=== PATIENT | male | born 1955 | race Caucasian/White ===

== ENCOUNTER → 2016-11-04 | Outpatient (CLI) | payer MEDICARE, OTHER ==
--- NOTE | 2016-11-04 09:11 | CT ---
EXAMINATION TYPE: CT brain wo con DATE OF EXAM: 11/04/2016 8:58 AM HISTORY: Patient having pain in front of head or headache. History of stroke to left side of body, br ain surgery CT DLP: 1022.7 mGycm. Automated Exposure Control for Dose Reduction was Utilized. TECHNIQUE: CT scan of the head is performed without contrast. COMPARISON: CT brain July 06, 2016 FINDINGS: There is no acute intracranial hemorrhage or new midline shift identified. Large right fr ontal parietal craniotomy with large area of encephalomalacia is redemonstrated involving frontal and parietal lobes as well as superior temporal lobe. There is background of diffuse ventricular and sul kehinde prominence consistent with diffuse age-related cerebral atrophy. There is background of low-atte nuation in the periventricular white matter consistent with chronic small vessel ischemic change rede monstrated. Old lacunar infarct anterior left thalamus on axial image 20 is redemonstrated. The globe s are intact bilaterally, neither lenses well seen. There is new mild to moderate mucosal thickening in both sphenoid sinuses. There is dependent air-fluid level in left sphenoid sinus noted. There is n ew mild to moderate mucosal thickening involving left ethmoid sinuses. There is mild mucosal thickeni ng involving superior portion of both maxillary sinuses. Patchy soft tissue density right external au ditory canals felt to reflect cerumen and is unchanged. IMPRESSION: No acute intracranial hemorrhage or new midline shift. There is large area of encephalo malacia at level of prior surgery right MCA distribution redemonstrated. There is background of moder ate diffuse cerebral atrophy and chronic small vessel ischemic change and old left anterior thalamic lacunar infarct all redemonstrated. No significant change. Some new paranasal sinus disease is noted.
== END | disposition home or self-care (01) ==
LOC: RADCTMAIN 08:36
PROVIDERS: ATTEND Family Medicine
DX: G93.89 Other specified disorders of brain (principal); Z86.73 Personal history of transient ischemic attack (TIA), and cerebral infarction without residual deficits
CPT/HCPCS: 70450

== ENCOUNTER → 2017-03-25 | Outpatient (CLI) | payer MEDICARE, OTHER ==
--- NOTE | 2017-03-25 14:54 | CT ---
EXAMINATION TYPE: CT brain wo/w con DATE OF EXAM: 03/25/2017 COMPARISON: 11/04/2016 HISTORY: Posttraumatic headache, history of hemicraniotomy CT DLP: 2033.40 mGycm, Automated exposure control for dose reduction was used. CONTRAST: Patient injected with 100 mL of Omnipaque 300. CT of the brain is performed utilizing 3 mm thick sections through the posterior fossa and 3 mm thick sections through the remaining calvarium. Study is performed within 24 hours of arrival to the hospital. Patient's right parietal craniotomy remains present. The extra-axial space and the apparent thickenin g along the dural margin on the right is stable. The old right frontal parietal infarct is stable. La cunar infarct is within the left thalamus and is stable. Periventricular white matter hypodensity is present, likely on the basis of chronic white matter ischemic changes. Some ex vacuo effect is adjace nt to the lateral ventricles and is unchanged. No suspicious temporal horn dilatation to suggest hydr ocephalus is evident. Paranasal sinuses mucosal thickening is within ethmoid air cells on the left. Remaining paranasal sin uses are clear. There appears to be a right mastoidectomy. IMPRESSIONS: 1. Stable examination from 11/04/2016. 2. Old right frontal parietal infarct and encephalomalacia. 3. Periventricular white matter ischemic changes, unchanged. 4. Lacunar infarct left thalamus, stable.
== END | disposition home or self-care (01) ==
LOC: RADCTMAIN 13:54
PROVIDERS: ATTEND Psychiatry & Neurology Neurology
DX: I63.9 Cerebral infarction, unspecified (principal); I67.82 Cerebral ischemia; G93.89 Other specified disorders of brain
CPT/HCPCS: 70470; Q9967

== ENCOUNTER 2017-06-18 04:35 | Inpatient (IN) | payer MEDICARE, OTHER ==
[2017-06-18] MEDS ORDERED: SODIUM CHLORIDE 0.9% 1,000 ML IV STA ×2 (04:52)
[2017-06-18] MEDS ORDERED: IPRATROPIUM 0.5 MG/2.5 ML NEBU INHALATION STA (04:52)
[2017-06-18] MEDS ORDERED: PIPERACILLIN-TAZOBACTAM 3.375 GM in DEXTROSE/WATER 1 50ML.BAG IVPB STA (04:52)
[2017-06-18 05:05] LABS: Basophils # (A) 0.1 k/uL (0-0.2); Basophils % (A) 1 %; CH 30.4; CHCM 33.1; Eosinophils # (A) 0.2 k/uL (0-0.7); Eosinophils % (A) 1 %; HCT 52.1 % (39.0-53.0); HGB 16.3 gm/dL (13.0-17.5); Luc # (Auto) 0.19; Luc % (Auto) 1; Lymphocytes # (A) 1.9 k/uL (1.0-4.8); Lymphocytes % (A) 12 %; MCH 28.9 pg (25.0-35.0); MCHC 31.3 g/dL (31.0-37.0); MCV 92.2 fL (80.0-100.0); Mean Platelet Volume 7.7; Monocytes % (A) 6 %; Neutrophils # (A) 12.3 k/uL (1.3-7.7); Neutrophils % (A) 79 %; RBC 5.64 m/uL (4.30-5.90); RDW 14.5 % (11.5-15.5); WBC 15.5 k/uL (3.8-10.6); WBC (Perox) 14.62
[2017-06-18 05:13] LABS: ALT 36 U/L (21-72); AST 21 U/L (17-59); Alkaline Phosphatase 101 U/L (38-126); Anion Gap 12 mmol/L; Blood Urea Nitrogen 19 mg/dL (9-20); Calcium 9.1 mg/dL (8.4-10.2); Carbon Dioxide 27 mmol/L (22-30); Chloride 105 mmol/L (98-107); Glucose 132 mg/dL (74-99); Non-African American GFR(MDRD) >60 (>60 ml/min/1.73 sqM); Potassium 4.3 mmol/L (3.5-5.1); Sodium 144 mmol/L (137-145); Total Bilirubin 0.5 mg/dL (0.2-1.3); Total Protein 7.3 g/dL (6.3-8.2)
[2017-06-18] MEDS ORDERED: ACETAMINOPHEN TAB 500 MG TAB PO STA (05:22)
--- NOTE | 2017-06-18 05:25 | XR ---
EXAM: XR Chest, 1 View CLINICAL HISTORY: Reason: difficulty breathing TECHNIQUE: Frontal view of the chest. COMPARISON: No relevant prior studies available. FINDINGS: Lungs: Left basilar atelectasis. Pleural space: Unremarkable. No pneumothorax. Heart: Stable cardiomediastinal silhouette. Mediastinum: See above. Bones/joints: No acute osseous abnormality. Tubes, lines and devices: A loop recorder device is noted. Telemetry leads overlie the patient. Upper abdomen: Elevated left hemidiaphragm. Prominent gas filled structure in the left upper quadrant likely represents the gastric fundus. IMPRESSION: Elevated left hemidiaphragm and left basilar atelectasis. A superimposed infectious or inflammatory process is not excluded.
[2017-06-18 05:26] LABS: Creatine Kinase 65 U/L (55-170)
[2017-06-18] MEDS ORDERED: BUDESONIDE 0.5 MG/2 ML NEBU INHALATION STA (05:26)
--- NOTE | 2017-06-18 05:34 | ED ---
SOB HPI - General Chief Complaint: Shortness of Breath Stated Complaint: JESSICA Time Seen by Provider: 06/18/17 04:41 Source: EMS Mode of arrival: EMS Limitations: no limitations - History of Present Illness Initial Comments: 62 years old gentleman from the retirement brought in by ambulance retirement staff noticed that he was short winded he was coughing and also noticed fever chills shakes and rigors. Later met with his family they stated that he has been in the retirement after he had a stroke in the stroke affected his left side of his body it has been quite weak since his stroke. He has a history of atrial fibrillation on arrival his heart rate was 177 and his fever was almost 104. He denies any headache no neck neck stiffness he has a chest pain and shortness of breath no abdominal pain no frequency urgency dysuria no new symptoms of TIA or CVA - Related Data Home Medications Medication Instructions Recorded Confirmed Allopurinol [Zyloprim] 200 mg PO DAILY 09/05/14 01/04/16 Atorvastatin [Lipitor] 80 mg PO HS 09/05/14 01/04/16 Famotidine [Pepcid] 20 mg PO BID 09/05/14 01/04/16 Levothyroxine Sodium [Synthroid] 100 mcg PO DAILY 09/05/14 01/04/16 Losartan [Cozaar] 12.5 mg PO DAILY 09/05/14 01/04/16 Metoprolol Tartrate [Lopressor] 50 mg PO BID 09/05/14 01/04/16 Aspirin 325 mg PO DAILY 01/04/16 01/04/16 Digoxin [Lanoxin] 125 mcg PO DAILY 01/04/16 01/04/16 Meclizine [Antivert] 25 mg PO DAILY 01/04/16 01/04/16 Allergies Allergy/AdvReac Type Severity Reaction Status Date / Time No Known Allergies Allergy Verified 01/04/16 05:37 Review of Systems ROS Statement: Those systems with pertinent positive or pertinent negative responses have been documented in the HPI. ROS Other: All systems not noted in ROS Statement are negative. Past Medical History Past Medical History: Atrial Fibrillation, COPD, Hyperlipidemia, Hypertension, Thyroid Disorder Additional Past Medical History / Comment(s): 02/13/15 ADMISSION FOR [facility]IGO. Other HX: 09/05/14 admission to [facility] with seizure thought to be alcohol related , alcoholism (pt has not had any alcohol since 2013). WEAK HEART valve. History of Any Multi-Drug Resistant Organisms: None Reported Past Surgical History: Appendectomy Past Anesthesia/Blood Transfusion Reactions: No Reported Reaction Additional Past Anesthesia/Blood Transfusion Reaction / Comment(s): Pt has never recieved blood. Past Psychological History: No Psychological Hx Reported Smoking Status: Current every day smoker Past Alcohol Use History: None Reported Past Drug Use History: None Reported - Past Family History Mother Family Medical History: Cancer Father Family Medical History: No Reported History Additional Family Medical History / Comment(s): Father of old age. General Exam - General Exam Comments Initial Comments: General: The patient is awake and alert, in moderate distress, GcS is 15. Skin: Skin is warm and dry and no rashes or lesions are noted. Eye: Pupils are equal, round and reactive to light, extra-ocular movements are intact; there is normal conjunctiva bilaterally. Ears, nose, mouth and throat: Looks dehydrated mucous membranes look dry Neck: The neck is supple, there is no tenderness or JVD. Cardiovascular: There is a regular rate and rhythm. No murmur, rub or gallop is appreciated. Respiratory: To auscultation bilateral, crease breath sounds bilaterally noticed some crackles Gastrointestinal: Soft, non-distended, non-tender abdomen without masses or organomegaly noted. There is no rebound or guarding present. Bowel sounds are unremarkable. Back: There is no tenderness to palpation in the midline. There is no obvious deformity. Musculoskeletal: Normal ROM, no tenderness, There is no pedal edema. There is no calf tenderness or swelling. No cords were appreciated. Neurological: CN II-XII intact, ordering to the family is motor functions are affected with the CVA and there is no new change twice weakness Psychiatric: Cooperative, appropriate mood & affect, normal judgment. Limitations: no limitations Course Vital Signs 06/18/17 06/18/17 04:36 05:18 Temperature 103.8 F H Pulse Rate 165 H Respiratory 28 H Rate Blood Pressure 106/77 O2 Sat by Pulse 96 98 Oximetry Medical Decision Making - Lab Data Result diagrams: 06/18/17 04:43 06/18/17 04:43 Lab Results 06/18/17 06/18/17 Range/Units 04:43 04:43 WBC 15.5 H (3.8-10.6) k/uL RBC 5.64 (4.30-5.90) m/uL Hgb 16.3 (13.0-17.5) gm/dL Hct 52.1 (39.0-53.0) % MCV 92.2 (80.0-100.0) fL MCH 28.9 (25.0-35.0) pg MCHC 31.3 (31.0-37.0) g/dL RDW 14.5 (11.5-15.5) % Plt Count 224 (150-450) k/uL Neutrophils % 79 % Lymphocytes % 12 % Monocytes % 6 % Eosinophils % 1 % Basophils % 1 % Neutrophils # 12.3 H (1.3-7.7) k/uL Lymphocytes # 1.9 (1.0-4.8) k/uL Monocytes # 1.0 (0-1.0) k/uL Eosinophils # 0.2 (0-0.7) k/uL Basophils # 0.1 (0-0.2) k/uL Sodium 144 (137-145) mmol/L Potassium 4.3 (3.5-5.1) mmol/L Chloride 105 (98-107) mmol/L Carbon Dioxide 27 (22-30) mmol/L Anion Gap 12 mmol/L BUN 19 (9-20) mg/dL Creatinine 0.90 (0.66-1.25) mg/dL Est GFR (MDRD) Af Amer >60 (>60 ml/min/1.73 sqM) Est GFR (MDRD) Non-Af >60 (>60 ml/min/1.73 sqM) Glucose 132 H (74-99) mg/dL Calcium 9.1 (8.4-10.2) mg/dL Total Bilirubin 0.5 (0.2-1.3) mg/dL AST 21 (17-59) U/L ALT 36 (21-72) U/L Alkaline Phosphatase 101 (38-126) U/L Total Protein 7.3 (6.3-8.2) g/dL Albumin 3.9 (3.5-5.0) g/dL Disposition Clinical Impression: Tachyarrhythmia, Fever, Sepsis, Atrial fibrillation with RVR Disposition: ADMITTED IP TO THIS HOSP Condition: Fair Referrals: Mike Elise DO [Primary Care Provider] - 1-2 days
[2017-06-18 05:35] LABS: Appearance,Urine Cloudy (Clear); Bacteria,Urine Rare /hpf; Bilirubin,Urine Negative (Negative); Glucose,Urine (UA) Negative (Negative); Ketones,Urine Negative (Negative); Leukocyte Esterase,Urine Negative (Negative); Mucus,Urine Rare /hpf; Nitrite,Urine Negative (Negative); Particle Count 39467; Protein,Urine Negative (Negative); RBC,Urine 33 /hpf (0-5); Specific Gravity,Urine 1.014 (1.001-1.035); Squamous Epithelial Cell,Urine 24 /hpf (0-4); Transitional Epi Cells,Urine 1 /hpf (0-1); UA Billing (MACRO vs. MICRO) MICRO; Urobilinogen,Urine <2.0 mg/dL (<2.0); WBC,Urine 12 /hpf (0-5)
[2017-06-18] MEDS: METOPROLOL TARTRATE 5 MG/5 ML VIAL IVP SCH ×2 (05:35→06:02)
[2017-06-18 05:38] LABS: Creatine Kinase MB 0.7 ng/mL (0.0-2.4); Troponin I <0.012 ng/mL (0.000-0.034)
[2017-06-18] MEDS ORDERED: ACETAMINOPHEN IV (For NPO) 1,000 MG in EMPTY BAG 1 BAG IVPB STA (05:55)
[2017-06-18] MEDS ORDERED: IPRATROPIUM-ALBUTEROL 3 ML NEB INHALATION PRN (05:56)
[2017-06-18] MEDS ORDERED: SODIUM CHLORIDE 0.9% 500 ML IV STA (05:59)
[2017-06-18 06:00] LABS: INR 1.3 (<1.2); Prothrombin Time 12.5 sec (9.0-12.0)
[2017-06-18] MEDS ORDERED: RX INFO: IV CONTRAST WAS GIVEN 1 EACH MISC MISCELLANE PRN (06:03)
[2017-06-18 06:15] LABS: Partial Thromboplastin Time 21.8 sec (22.0-30.0)
[2017-06-18 07:09] LABS: Glucose,Whole Blood 191 mg/dL (75-99)
[2017-06-18] MEDS ORDERED: ASPIRIN 325 MG TAB PO SCH (09:00)
[2017-06-18] MEDS: methylPREDNISolone SOD SUCCI 125 MG/2 ML VIAL IV SCH ×3 (09:02→17:31)
[2017-06-18] MEDS: ALLOPURINOL 100 MG TAB PO SCH (09:12)
[2017-06-18] MEDS: ENOXAPARIN 40 MG/0.4 ML SYRINGE SQ SCH (09:12)
[2017-06-18] MEDS: DIGOXIN 125 MCG TAB PO SCH (09:13)
[2017-06-18] MEDS: LEVOTHYROXINE 100 MCG TAB PO SCH (09:13)
[2017-06-18] MEDS: FAMOTIDINE 20 MG TAB PO SCH ×2 (09:14→20:25)
[2017-06-18] MEDS: MECLIZINE 25 MG TAB PO SCH (09:14)
--- NOTE | 2017-06-18 10:51 | CONS ---
Duy came in with fever and chills and is being treated for sepsis. Cardiology is consulted because he is in atrial fibrillation. His heart rate was 177 beats per minute. His temperature was 104 degrees Fahrenheit. He has had a past history of stroke. His medication list was reviewed and is documented in the chart. He is on beta blockers and digoxin which were not administered at that time and now that he is receiving medications his heart rate got a lot better. He is lying comfortably in bed. He does not give much of a history. On examination, his blood pressure is 82/60 mmHg, pulse rate is about 110 beats per minute and 98.4 degrees Fahrenheit. Head and neck examination is normal. Heart sounds are irregular. No murmurs or gallops. Abdomen is soft, nontender. Lungs are clear. Extremities warm. IMPRESSION: Atrial fibrillation with rapid ventricular response. Rate control of atrial fibrillation, continue beta blockers and continue digoxin. Discontinue aspirin. This gentleman was not on anticoagulation. He has a past history of stroke. He was not anticoagulated because he used to drink heavily and often would have falls and, hence, he was not anticoagulated as an outpatient. He is now bedbound and does not drink. I think it is a good time to start his anticoagulation. I will start Coumadin 2.5 mg p.o. daily. I will stop aspirin. If his blood pressure is low we should hold Cozaar. MILE
--- NOTE | 2017-06-18 10:59 | CT ---
EXAMINATION TYPE: CT angio chest DATE OF EXAM: 06/18/2017 COMPARISON: NONE HISTORY: Chest pains CT DLP: 278.9 mGycm Automated exposure control for dose reduction was used. CONTRAST: CTA scan of the thorax is performed with IV Contrast, patient injected with 100 mL of Omnipaque 350, pulmonary embolism protocol. MIP images are created and reviewed. 3D reconstructed images are creat ed on an independent workstation and reviewed. FINDINGS: LUNGS: There is abnormal basilar density left greater than right, suspect atelectatic changes however there are air bronchograms present, difficult to exclude pneumonia, there is associated left pleural effusion. Calcified left and right upper lobe nodules present. AORTA: Root of the aorta measures 4 cm. There are coronary artery calcifications. The heart is enlar ged, there is no pericardial effusion. MEDIASTINUM: There is extensive artifact on the exam. There is no definite filling defect to suggest pulmonary embolism however there are areas of decreased contrast enhancement within segmental branche s bilaterally. There are calcified hilar nodes. OTHER: Calcifications are present within the spleen. Surgical clips are present status post cholecys tectomy. IMPRESSION: DIFFICULT TO EXCLUDE EMBOLISM DUE TO TECHNIQUE. OLD GRANULOMATOUS DISEASE. LOWER LOBE ATELECTASIS, CO RRELATE TO EXCLUDE PNEUMONIA. LEFT PLEURAL EFFUSION. AORTIC ANEURYSM, FOLLOW-UP RECOMMENDED CARDIONILDA JEROME.
[2017-06-18] MEDS: LOSARTAN 25 MG TAB PO SCH (12:31)
[2017-06-18] MEDS: METOPROLOL TARTRATE 50 MG TAB PO SCH ×2 (12:31→20:25)
[2017-06-18] MEDS: PIPERACILLIN-TAZOBACTAM 3.375 GM in DEXTROSE/WATER 1 50ML.BAG IVPB SCH ×2 (14:07→20:24)
[2017-06-18] MEDS: WARFARIN 2.5 MG TAB PO SCH (17:45)
[2017-06-18] MEDS: ATORVASTATIN 80 MG TAB PO SCH (20:25)
[2017-06-18] MEDS ORDERED: DICLOFENAC SODIUM GEL 100 GM TUBE TOPICAL PRN (20:37)
[2017-06-18 20:49] LABS: Glucose,Whole Blood 148 mg/dL (75-99)
--- NOTE | 2017-06-18 20:53 | P.HPIM ---
History of Present Illness H&P Date: 06/18/17 Chief Complaint: Fever with rapid heart rate History of present complaint: This is a 62-year-old patient of Dr. Elise resident of [facility]. Chronic stable medical conditions include COPD, hard of hearing, hyperlipidemia, hypothyroid hard of hearing. Patient was sent in for a fever up to 103 heart rate had gone up to 130s to 140s. Patient got a cough. Patient was in sepsis and he presented given fluid boluses. As per the [facility] patient's blood pressure normally runs in the systolic 90. Patient received IV beta joey in the ER and later the heart rate did come down. Patient has chronic left-sided weakness from prior stroke. Patient in the ICU as a selective overflow. GEN.: Tired EYES: None HEENT: Decreased hearing NECK: None RESPIRATORY: As above CARDIOVASCULAR: None GASTROINTESTINAL: None GENITOURINARY: None MUSCULOSKELETAL: None LYMPHATICS: None HEMATOLOGICAL: None PSYCHIATRY: Anxious NEUROLOGICAL: As above] Past medical history: Left hemiparesis from prior stroke, atrial fibrillation, COPD, hard of hearing, hyperlipidemia, hypothyroid Past surgical history: Appendectomy Social history: Did smoke for a long time did. Did drink significantly previously stop in 2013. Currently a resident of [facility] on Home medications are reviewed in the computer Family history: Reviewed and noncontributory to presentation VITAL SIGNS: 103.8, 165, 28, 106/77, 96% on nonrebreather on presentation GENERAL: Average built, laying in bed tired appearing. EYES: Pupils equal. Conjunctiva normal. HEENT: External appearance of nose and ears normal, oral cavity grossly normal. NECK: JVD not raised; masses not palpable. HEART: Irregular heart sounds, no edema]. LUNGS: Respiratory rate increased, decreased breath sounds and some expiratory wheezing;. ABDOMEN: Soft, nontender, liver spleen not palpable, no masses palpable. LYMPHATICS: No lymph nodes palpable in the axilla and neck. PSYCH: Alert and oriented x3; mood and affect somewhat lowl. NEUROLOGICAL: [Cranial nerves grossly intact; no facial asymmetry, power in the left side 3/5. Speech is slightly slow-baseline per patient Investigations: White count 15.5 hemoglobin 16.3 potassium 4.3 function normal lactic acid 2.9 Chest x-ray possible infiltrate on the left side Assessment: -Left basal pneumonia suspected gram-negative organism causing severe sepsis present on admission -Persistent atrial fibrillation with rapid ventricular rate present on admission -Acute COPD exacerbation in a smoker -Chronic hard of hearing -Hyperlipidemia -Chronic seizure disorder -Chronic hypothyroidism - Plan: Patient is given fluid boluses and IV beta joey in the ER. Cardiology was consulted consulted. He was started on Coumadin. Patient is on Eliquis at home will discuss this with cardiology. Home medications resumed. DuoNeb added. Also on IV Zosyn Past Medical History Past Medical History: Atrial Fibrillation, COPD, Hearing Disorder / Deafness, Hyperlipidemia, Hypertension, Thyroid Disorder Additional Past Medical History / Comment(s): 02/13/15 ADMISSION FOR [facility]IGO. Other HX: 09/05/14 admission to [facility] with seizure thought to be alcohol related , alcoholism (pt has not had any alcohol since 2013). WEAK HEART valve. History of Any Multi-Drug Resistant Organisms: None Reported Past Surgical History: Appendectomy Past Anesthesia/Blood Transfusion Reactions: No Reported Reaction Additional Past Anesthesia/Blood Transfusion Reaction / Comment(s): Pt has never recieved blood. Past Psychological History: No Psychological Hx Reported Additional Psychological History / Comment(s): Pt lives in his home and his SAIRA MOONEY and [id number] live with him. He is independent. He uses no assistive device. He drives a vehicle. He uses no home care agency. Smoking Status: Former smoker Additional Past Alcohol Use History / Comment(s): STARTED SMOKING AT AGE 14, SMOKES 3/4 PPD. Pt states his last time drinking alcohol was last 2013 after his admission to the hospital for seizuring Past Drug Use History: None Reported - Past Family History Mother Family Medical History: Cancer Father Family Medical History: No Reported History Additional Family Medical History / Comment(s): Father of old age. Medications and Allergies Home Medications Medication Instructions Recorded Confirmed Type Famotidine [Pepcid] 20 mg PO HS 09/05/14 06/18/17 History Levothyroxine Sodium [Synthroid] 100 mcg PO DAILY 09/05/14 06/18/17 History Digoxin [Lanoxin] 125 mcg PO Q48H 01/04/16 06/18/17 History Acetaminophen [Tylenol Extra 500 mg PO Q4H PRN 06/18/17 06/18/17 History Strength] Apixaban [Eliquis] 2.5 mg PO BID 06/18/17 06/18/17 History Atorvastatin [Lipitor] 40 mg PO HS 06/18/17 06/18/17 History Cholecalciferol [Vitamin D3] 1,000 unit PO DAILY 06/18/17 06/18/17 History Diclofenac Sodium Gel [Voltaren 1 applic TOPICAL BID PRN 06/18/17 06/18/17 History Gel] Gabapentin [Neurontin] 300 mg PO BID 06/18/17 06/18/17 History Sodium Chloride [Saline Mist] 1 spray EA NOSTRIL TID 06/18/17 06/18/17 History levETIRAcetam [Keppra] 1,000 mg PO Q12HR 06/18/17 06/18/17 History Allergies Allergy/AdvReac Type Severity Reaction Status Date / Time No Known Allergies Allergy Verified 06/18/17 09:15 Results CBC & Chem 7: 06/18/17 04:43 06/18/17 04:43
[2017-06-18] MEDS: IPRATROPIUM-ALBUTEROL 3 ML NEB INHALATION SCH (21:17)
[2017-06-18] MEDS: GABAPENTIN 300 MG CAP PO SCH (21:47)
[2017-06-18] MEDS: levETIRAcetam 500 MG TAB PO SCH (21:47)
[2017-06-18] MEDS: SODIUM CHLORIDE 0.65% NASAL SPRAY 44 ML BTL INTRANASAL SCH (21:47)
[2017-06-19] MEDS: methylPREDNISolone SOD SUCCI 125 MG/2 ML VIAL IV SCH ×4 (00:44→16:51)
[2017-06-19 05:33] LABS: Glucose,Whole Blood 158 mg/dL (75-99)
[2017-06-19] MEDS: PIPERACILLIN-TAZOBACTAM 3.375 GM in DEXTROSE/WATER 1 50ML.BAG IVPB SCH ×3 (05:48→19:48)
[2017-06-19] MEDS: LEVOTHYROXINE 100 MCG TAB PO SCH (05:48)
[2017-06-19 06:24] LABS: Basophils % (A) 0 %; CH 29.7; Eosinophils % (A) 0 %; HCT 43.6 % (39.0-53.0); HDW 2.55; Luc # (Auto) 0.09; Luc % (Auto) 0; Lymphocytes % (A) 4 %; MCH 28.4 pg (25.0-35.0); MCHC 30.4 g/dL (31.0-37.0); MCV 93.4 fL (80.0-100.0); Mean Platelet Volume 8.3; Monocytes # (A) 0.5 k/uL (0-1.0); Monocytes % (A) 2 %; Neutrophils # (A) 20.8 k/uL (1.3-7.7); Neutrophils % (A) 93 %; RBC 4.66 m/uL (4.30-5.90); RDW 14.6 % (11.5-15.5); WBC 22.3 k/uL (3.8-10.6); WBC (Perox) 21.62
[2017-06-19 06:28] LABS: HGB 13.3 gm/dL (13.0-17.5); INR 1.4 (<1.2); Prothrombin Time 13.5 sec (9.0-12.0)
[2017-06-19 06:38] LABS: Anion Gap 10 mmol/L; Blood Urea Nitrogen 23 mg/dL (9-20); Calcium 8.2 mg/dL (8.4-10.2); Carbon Dioxide 22 mmol/L (22-30); Chloride 112 mmol/L (98-107); Glucose 156 mg/dL (74-99); Non-African American GFR(MDRD) >60 (>60 ml/min/1.73 sqM); Sodium 144 mmol/L (137-145)
[2017-06-19] MEDS: ALLOPURINOL 100 MG TAB PO SCH (07:56)
[2017-06-19] MEDS: FAMOTIDINE 20 MG TAB PO SCH ×2 (07:56→19:50)
[2017-06-19] MEDS: MECLIZINE 25 MG TAB PO SCH (07:56)
[2017-06-19] MEDS: GABAPENTIN 300 MG CAP PO SCH ×2 (07:56→19:48)
[2017-06-19] MEDS: levETIRAcetam 500 MG TAB PO SCH ×2 (07:56→19:48)
[2017-06-19] MEDS: METOPROLOL TARTRATE 50 MG TAB PO SCH ×2 (07:56→19:49)
[2017-06-19] MEDS: DIGOXIN 125 MCG TAB PO SCH (07:56)
[2017-06-19] MEDS: ENOXAPARIN 40 MG/0.4 ML SYRINGE SQ SCH (07:56)
[2017-06-19] MEDS: LOSARTAN 25 MG TAB PO SCH (07:57)
[2017-06-19] MEDS: SODIUM CHLORIDE 0.65% NASAL SPRAY 44 ML BTL INTRANASAL SCH ×3 (07:57→19:48)
[2017-06-19] MEDS: IPRATROPIUM-ALBUTEROL 3 ML NEB INHALATION SCH ×4 (08:38→20:31)
--- NOTE | 2017-06-19 09:35 | P.PN ---
<TomamelloJolanta - Last Filed: 06/19/17 12:29> Progress Note - Text DATE OF SERVICE: 06/19/2017 PRESENTING COMPLAINT: Fever with rapid heart rate INTERVAL HISTORY: 62-year-old patient presents to emergency department secondary to fever and elevated heart rate in the 130s to 140s, with sepsis-like presentation, received IV fluid resuscitation. Imaging revealed possible infiltrate on the left side. 06/19/2017: Patient seen in follow-up, no acute overnight events. Lying in bed, sleeping easily aroused. [id number] the bedside. Tolerating his diet eating 100 percent of his meals. Last BM 06/18/2017. Ambulatory with some assistance. REVIEW OF SYSTEMS: Done for constitutional ,cardiovascular, GI, pulmonary with relevant findings as above. CURRENT MEDICATIONS Lovenox, Pepcid, Lopressor, Solu-Medrol, warfarin, Zosyn. PHYSICAL EXAM VITAL SIGNS: Temperature 97.3, pulse 115, blood pressure 108/72, oxygen saturation 94% on room air respiratory rate 16. GENERAL APPEARANCE: Lying in bed, not in distress. EYES: Pupils equal. Conjunctiva normal. NECK: JVD not raised. Mass not palpable. RESPIRATORY: Respiratory effort normal. Lungs diminished bilaterally and mild expiratory wheezing CARDIOVASCULAR: Irregular rhythm normal. No edema. ABDOMEN: Soft. Liver and spleen not palpable. No tenderness. No mass palpable. PSYCHIATRY: Alert and oriented x3. Mood and affect low. MUSCULOSKELETAL: Left hemiparesis, full range of motion on the right. NEUROLOGICAL: Power in the left side 3/5, speech is slightly slow this is his baseline. INVESTIGATIONS: White blood cell count 22.3, INR 1.4, Accu-Cheks noted. ASSESSMENT: -Left basilar pneumonia suspected gram-negative organism causing severe sepsis present on admission, slow to respond -Persistent atrial fibrillation with rapid ventricular rate present on admission , improving -Acute COPD exacerbation in a smoker -Chronic hard of hearing -Hyperlipidemia -Chronic seizure disorder -Chronic hypothyroidism -Leukocytosis, secondary infectious process and steroid use -Coumadin monitoring PLAN: Continue IV steroids, bronchodilators, IV antibiotics. Continue to monitor INR levels with Coumadin administration. Will await input from cardiology regarding resuming Eliquis . Plan of care discussed with patient and sister-in- law at the bedside questions answered. They are in agreement. We'll monitor closely HERB DIGGER statement: Patient was seen and examined by nurse practitioner Jolanta Amos and all elements of the case discussed with attending Dr. Lugo <Clarence Lugo - Last Filed: 06/19/17 23:12> Progress Note - Text Attending note. Date of service-06/19/2017 This patient was seen and examined by me . Discussed the patient with my nurse practitioner Ms. Amos. Admitted with pneumonia sepsis and atrial fibrillation. Breathing is should better. It is breakfast. Heart rate up. Some cough is present On examination: Afebrile last 24 hours, lungs decreased breath sounds right-sided crackles, psychiatry answering questions awake, cardiovascular heart is irregular Assessment and plan: Left basilar pneumonia suspected gram-negative organism causing severe sepsis on presentation/atrial flutter fibrillation with rapid ventricular rate/acute COPD exacerbation Left hemiparesis from prior stroke Continue with IV antibiotics. Clinically patient was put better but still white count gone up. Repeat labs prognosis guarded. Repeat checks x-ray in the morning
[2017-06-19 12:18] LABS: Glucose,Whole Blood 190 mg/dL (75-99)
[2017-06-19] MEDS: INSULIN LISPRO (humaLOG) 300 UNIT/3 ML VIAL SQ SCH ×3 (12:31→21:27)
--- NOTE | 2017-06-19 12:37 | P.PN ---
Subjective Principal diagnosis: Fever and chills This is a 62-year-old gentleman admitted to the hospital with fever and chills, currently being treated for sepsis. Cardiology consultation was initially requested because of atrial fibrillation. He continues to be in atrial fibrillation today, rate under better control. Is currently on beta blockers and Lanoxin. Patient was initiated yesterday on Coumadin, INR today is 1.4. Objective - Vital Signs Vital signs: Vital Signs Temp 97.3 F L 06/19/17 08:00 Pulse 98 06/19/17 12:01 Resp 16 06/19/17 08:00 BP 108/72 06/19/17 08:00 Pulse Ox 96 06/19/17 08:49 Intake & Output 06/18/17 06/19/17 06/19/17 18:59 06:59 18:59 Intake Total 1880 290 Balance 1880 290 Weight 129.5 kg 129.5 kg Intake: IV 240 0.9 240 Intake, IV Titration 1400 50 Amount Piperacillin-Tazobactam 3 50 .375 gm In Dextrose/Water 1 50ml.bag @ 12.5 mls/hr IVPB Q8H [facility] Rx#: [id number] Sodium Chloride 0.9% 1, 400 000 ml @ 100 mls/hr IV . Q10H [facility] Rx#:[id number] Sodium Chloride 0.9% 1, 1000 000 ml @ 999 mls/hr IV . Q1H1M [facility] Rx#:[id number] Oral 480 Other: Voiding Method Diaper Incontinent # Voids 1 2 1 # Bowel Movements 1 - Exam PHYSICAL EXAMINATION: HEENT: Head is atraumatic, normocephalic. Pupils equal, round. Neck is supple. There is no elevated jugular venous pressure. HEART EXAMINATION: S1 and S2 irregularly irregular CHEST EXAMINATION: Lungs are clear to auscultation and precussion. No chest wall tenderness is noted on palpation or with deep breathing. ABDOMEN: Soft, nontender. Bowel sounds are heard. No organomegaly noted. EXTREMITIES: 2+ peripheral pulses with no evidence of peripheral edema and no calf tenderness noted. NEUROLOGIC patient is awake, alert and oriented -3. . - Labs CBC & Chem 7: 06/19/17 05:29 06/19/17 05:29 Labs: Abnormal Lab Results - Last 24 Hours (Table) 06/18/17 06/18/17 06/18/17 Range/Units 14:42 18:38 20:46 WBC (3.8-10.6) k/uL MCHC (31.0-37.0) g/dL Neutrophils # (1.3-7.7) k/uL PT (9.0-12.0) sec INR (<1.2) Chloride (98-107) mmol/L BUN (9-20) mg/dL Glucose (74-99) mg/dL POC Glucose (mg/dL) 148 H (75-99) mg/dL Plasma Lactic Acid Markus 4.7 H* 3.9 H* (0.7-2.0) mmol/L Calcium (8.4-10.2) mg/dL 06/18/17 06/19/17 06/19/17 Range/Units 23:29 05:29 05:29 WBC 22.3 H (3.8-10.6) k/uL MCHC 30.4 L (31.0-37.0) g/dL Neutrophils # 20.8 H (1.3-7.7) k/uL PT 13.5 H (9.0-12.0) sec INR 1.4 H (<1.2) Chloride (98-107) mmol/L BUN (9-20) mg/dL Glucose (74-99) mg/dL POC Glucose (mg/dL) (75-99) mg/dL Plasma Lactic Acid Markus 2.9 H* (0.7-2.0) mmol/L Calcium (8.4-10.2) mg/dL 06/19/17 06/19/17 06/19/17 Range/Units 05:29 05:30 12:10 WBC (3.8-10.6) k/uL MCHC (31.0-37.0) g/dL Neutrophils # (1.3-7.7) k/uL PT (9.0-12.0) sec INR (<1.2) Chloride 112 H (98-107) mmol/L BUN 23 H (9-20) mg/dL Glucose 156 H (74-99) mg/dL POC Glucose (mg/dL) 158 H 190 H (75-99) mg/dL Plasma Lactic Acid Markus (0.7-2.0) mmol/L Calcium 8.2 L (8.4-10.2) mg/dL Microbiology - Last 24 Hours (Table) 06/18/17 04:43 Blood Culture - Preliminary Blood No Growth after 24 hours 06/18/17 05:00 Urine Culture - Preliminary Urine,Catheterized Assessment and Plan (1) Pneumonia Status: Acute (2) Chronic a-fib Status: Acute (3) COPD (chronic obstructive pulmonary disease) Status: Acute (4) Hyperlipemia Status: Acute (5) Seizure Status: Acute (6) Hypothyroid Status: Acute Plan: We will continue the patient on Coumadin 2.5 mg daily. INR today is 1.4. Continue beta joey and Lanoxin. DNP note has been reviewed, I agree with a documented findings and plan of care. Patient was seen and examined.
[2017-06-19] MEDS: WARFARIN 2.5 MG TAB PO SCH (16:51)
[2017-06-19 17:03] LABS: Glucose,Whole Blood 167 mg/dL (75-99)
[2017-06-19] MEDS: ATORVASTATIN 80 MG TAB PO SCH (19:50)
[2017-06-19 20:48] LABS: Glucose,Whole Blood 193 mg/dL (75-99)
[2017-06-20] MEDS: methylPREDNISolone SOD SUCCI 125 MG/2 ML VIAL IV SCH ×4 (00:38→17:02)
[2017-06-20 05:45] LABS: Glucose,Whole Blood 162 mg/dL (75-99)
[2017-06-20] MEDS: LEVOTHYROXINE 100 MCG TAB PO SCH (05:49)
[2017-06-20] MEDS: PIPERACILLIN-TAZOBACTAM 3.375 GM in DEXTROSE/WATER 1 50ML.BAG IVPB SCH ×3 (05:49→20:35)
[2017-06-20] MEDS: INSULIN LISPRO (humaLOG) 300 UNIT/3 ML VIAL SQ SCH ×4 (05:50→21:45)
[2017-06-20 07:09] LABS: Basophils % (A) 0 %; CH 29.8; CHCM 32.1; Eosinophils % (A) 0 %; HCT 41.6 % (39.0-53.0); HDW 2.59; HGB 12.9 gm/dL (13.0-17.5); Luc # (Auto) 0.12; Luc % (Auto) 1; Lymphocytes # (A) 0.7 k/uL (1.0-4.8); Lymphocytes % (A) 4 %; MCH 29.1 pg (25.0-35.0); MCHC 31.1 g/dL (31.0-37.0); MCV 93.6 fL (80.0-100.0); Mean Platelet Volume 8.5; Monocytes # (A) 0.7 k/uL (0-1.0); Monocytes % (A) 4 %; Neutrophils # (A) 17.3 k/uL (1.3-7.7); Neutrophils % (A) 92 %; RBC 4.44 m/uL (4.30-5.90); RDW 14.9 % (11.5-15.5); WBC 18.9 k/uL (3.8-10.6)
[2017-06-20 07:13] LABS: INR 1.5 (<1.2); Prothrombin Time 15.1 sec (9.0-12.0)
[2017-06-20 07:26] LABS: Anion Gap 9 mmol/L; Blood Urea Nitrogen 25 mg/dL (9-20); Calcium 8.3 mg/dL (8.4-10.2); Carbon Dioxide 21 mmol/L (22-30); Chloride 116 mmol/L (98-107); Glucose 167 mg/dL (74-99); Non-African American GFR(MDRD) >60 (>60 ml/min/1.73 sqM); Potassium 4.2 mmol/L (3.5-5.1); Sodium 146 mmol/L (137-145)
[2017-06-20] MEDS: GABAPENTIN 300 MG CAP PO SCH ×2 (07:33→20:36)
[2017-06-20] MEDS: DIGOXIN 125 MCG TAB PO SCH (07:33)
[2017-06-20] MEDS: METOPROLOL TARTRATE 50 MG TAB PO SCH ×3 (07:33→20:35)
[2017-06-20] MEDS: ALLOPURINOL 100 MG TAB PO SCH (07:33)
[2017-06-20] MEDS: ENOXAPARIN 40 MG/0.4 ML SYRINGE SQ SCH (07:33)
[2017-06-20] MEDS: FAMOTIDINE 20 MG TAB PO SCH ×2 (07:33→20:36)
[2017-06-20] MEDS: levETIRAcetam 500 MG TAB PO SCH ×2 (07:33→20:35)
[2017-06-20] MEDS: SODIUM CHLORIDE 0.65% NASAL SPRAY 44 ML BTL INTRANASAL SCH ×4 (07:34→20:36)
[2017-06-20] MEDS: MECLIZINE 25 MG TAB PO SCH (08:03)
[2017-06-20] MEDS: LOSARTAN 25 MG TAB PO SCH (08:03)
[2017-06-20] MEDS: IPRATROPIUM-ALBUTEROL 3 ML NEB INHALATION SCH ×4 (09:01→20:26)
[2017-06-20 11:45] LABS: Glucose,Whole Blood 143 mg/dL (75-99)
--- NOTE | 2017-06-20 14:30 | P.PN ---
<Jolanta Amos - Last Filed: 06/20/17 14:20> Progress Note - Text DATE OF SERVICE: 06/20/2017 PRESENTING COMPLAINT: Fever with rapid heart rate INTERVAL HISTORY: 62-year-old patient presents to emergency department secondary to fever and elevated heart rate in the 130s to 140s, with sepsis-like presentation, received IV fluid resuscitation. Imaging revealed possible infiltrate on the left side. 06/20/2017: Patient seen in follow-up, lying in bed, awake appears relaxed. Afebrile. Continues to be in atrial fibrillation rate better controlled in the low 100s. Warfarin dosing continues. Tolerating his diet eating 100% of his meals. Up in the chair with assistance. Last BM 06/20/2017 06/19/2017: Patient seen in follow-up, no acute overnight events. Lying in bed, sleeping easily aroused. [id number] the bedside. Tolerating his diet eating 100 percent of his meals. Last BM 06/18/2017. Ambulatory with some assistance. REVIEW OF SYSTEMS: Done for constitutional ,cardiovascular, GI, pulmonary with relevant findings as above. CURRENT MEDICATIONS Lovenox, Pepcid, Lopressor, Solu-Medrol, warfarin, Zosyn. PHYSICAL EXAM VITAL SIGNS: Temperature 96.0, pulse 108, respiratory rate 16, blood pressure 121/81, oxygen saturation 95% on room air. GENERAL APPEARANCE: Lying in bed, not in distress. EYES: Pupils equal. Conjunctiva normal. NECK: JVD not raised. Mass not palpable. RESPIRATORY: Respiratory effort normal. Lungs diminished bilaterally and mild expiratory wheezing CARDIOVASCULAR: Irregular rhythm normal. No edema. ABDOMEN: Soft. Liver and spleen not palpable. No tenderness. No mass palpable. PSYCHIATRY: Alert and oriented x3. Mood and affect low. MUSCULOSKELETAL: Left hemiparesis, full range of motion on the right. NEUROLOGICAL: Power in the left side 3/5, speech is slightly slow this is his baseline. INVESTIGATIONS: White blood cell count 18.9, INR 1.5, sodium 146, Accu-Cheks noted. ASSESSMENT: -Left basilar pneumonia suspected gram-negative organism causing severe sepsis present on admission, slow to respond -Persistent atrial fibrillation with rapid ventricular rate present on admission , improving -Acute COPD exacerbation in a smoker -Left hemiparesis from prior stroke -Chronic hard of hearing -Hyperlipidemia -Chronic seizure disorder -Chronic hypothyroidism -Leukocytosis, secondary infectious process and steroid use -Coumadin monitoring PLAN: Continue IV steroids, bronchodilators, IV antibiotics. White blood cell count improving, INR 1.5 today. Continue to monitor INR levels with Coumadin administration. General plan of care discussed with patient he is agreeable, no family at the bedside. We'll monitor closely TALENT MANAGEMENT SPECIALIST statement: Patient was seen and examined by nurse practitioner Jolanta Amos and all elements of the case discussed with attending Dr. Lugo <Clarence Lugo - Last Filed: 06/21/17 12:06> Progress Note - Text Attending note. Date of service-06/20/2017 This patient was seen and examined by me . Discussed the patient with my nurse practitioner Ms. Amos. Feeling a bit better. Slight cough. Tired. Some shortness of breath. A. fib heart rate in the 100s On examination: Lungs-decreased breath sounds and mild wheezing, cardiovascular has a regular, afebrile Investigations: White count 18.9, blood cultures negative Assessment and plan: Left basal pneumonia suspected gram-negative organism causing severe sepsis present on admission with some improvement Persistent atrial fibrillation Care was discussed the patient. Continue with IV Solu-Medrol and bronchodilators.
--- NOTE | 2017-06-20 15:16 | XR ---
EXAMINATION TYPE: XR chest 2V DATE OF EXAM: 06/20/2017 COMPARISON: 06/18/2017 TECHNIQUE: PA and lateral views submitted. HISTORY: Cough FINDINGS: Perihilar infiltrate noted bilaterally. Elevated left hemidiaphragm and subsegmental infiltrate. Calc ified granuloma right upper lobe. Arthropathy of the shoulders with diffuse osteopenia. Hypertrophic and degenerative change of the spi ne noted. IMPRESSION: 1. Bilateral subsegmental consolidation greater on the left with small left effusion. Differential in clude pneumonia. Correlate clinically to exclude mild central venous congestion.
--- NOTE | 2017-06-20 15:50 | P.PN ---
Subjective This is a 62-year-old gentleman admitted to the hospital with fever and chills, currently being treated for sepsis. Cardiology consultation was initially requested because of atrial fibrillation. He continues to be in atrial fibrillation. His heart rate is poorly controlled in the 110s to 140s. Patient is asymptomatic with rapid ventricular response. He is currently on beta blockers and Lanoxin. Patient was initiated yesterday on Coumadin, INR today is 1.5. Objective - Vital Signs Vital signs: Vital Signs Temp 96.0 F L 06/20/17 08:00 Pulse 104 H 06/20/17 13:34 Resp 16 06/20/17 08:00 BP 121/81 06/20/17 08:00 Pulse Ox 95 06/20/17 08:00 Intake & Output 06/19/17 06/20/17 06/20/17 18:59 06:59 18:59 Intake Total 300 632 Balance 300 632 Weight 129.5 kg 128.5 kg Intake: IV 200 160 0.9 200 160 Intake, IV Titration 100 Amount Piperacillin-Tazobactam 3 100 .375 gm In Dextrose/Water 1 50ml.bag @ 12.5 mls/hr IVPB Q8H [facility] Rx#: [id number] Oral 472 Other: Voiding Method Diaper Diaper Incontinent Incontinent # Voids 1 1 # Bowel Movements 1 - Exam Physical examination: HEENT: Head is atraumatic, normocephalic. Pupils equal, round. Neck is supple. There is no elevated jugular venous pressure. HEART EXAMINATION: S1 and S2 irregularly irregular, tachycardic CHEST EXAMINATION: Lungs are clear to auscultation and precussion. No chest wall tenderness is noted on palpation or with deep breathing. ABDOMEN: Soft, nontender. Bowel sounds are heard. No organomegaly noted. EXTREMITIES: 2+ peripheral pulses with no evidence of peripheral edema and no calf tenderness noted. NEUROLOGIC patient is awake, alert and oriented x2. - Labs CBC & Chem 7: 06/20/17 06:23 06/20/17 06:23 Labs: Abnormal Lab Results - Last 24 Hours (Table) 06/19/17 06/19/17 06/19/17 Range/Units 15:39 16:44 20:04 WBC (3.8-10.6) k/uL Hgb (13.0-17.5) gm/dL Neutrophils # (1.3-7.7) k/uL Lymphocytes # (1.0-4.8) k/uL PT (9.0-12.0) sec INR (<1.2) Sodium (137-145) mmol/L Chloride (98-107) mmol/L Carbon Dioxide (22-30) mmol/L BUN (9-20) mg/dL Glucose (74-99) mg/dL POC Glucose (mg/dL) 167 H (75-99) mg/dL Plasma Lactic Acid Markus 2.5 H* 2.2 H* (0.7-2.0) mmol/L Calcium (8.4-10.2) mg/dL 06/19/17 06/20/17 06/20/17 Range/Units 20:46 05:43 06:23 WBC 18.9 H (3.8-10.6) k/uL Hgb 12.9 L (13.0-17.5) gm/dL Neutrophils # 17.3 H (1.3-7.7) k/uL Lymphocytes # 0.7 L (1.0-4.8) k/uL PT (9.0-12.0) sec INR (<1.2) Sodium (137-145) mmol/L Chloride (98-107) mmol/L Carbon Dioxide (22-30) mmol/L BUN (9-20) mg/dL Glucose (74-99) mg/dL POC Glucose (mg/dL) 193 H 162 H (75-99) mg/dL Plasma Lactic Acid Markus (0.7-2.0) mmol/L Calcium (8.4-10.2) mg/dL 06/20/17 06/20/17 06/20/17 Range/Units 06:23 06:23 11:44 WBC (3.8-10.6) k/uL Hgb (13.0-17.5) gm/dL Neutrophils # (1.3-7.7) k/uL Lymphocytes # (1.0-4.8) k/uL PT 15.1 H (9.0-12.0) sec INR 1.5 H (<1.2) Sodium 146 H (137-145) mmol/L Chloride 116 H (98-107) mmol/L Carbon Dioxide 21 L (22-30) mmol/L BUN 25 H (9-20) mg/dL Glucose 167 H (74-99) mg/dL POC Glucose (mg/dL) 143 H (75-99) mg/dL Plasma Lactic Acid Markus (0.7-2.0) mmol/L Calcium 8.3 L (8.4-10.2) mg/dL Microbiology - Last 24 Hours (Table) 06/18/17 04:43 Blood Culture - Preliminary Blood No Growth after 48 hours 06/18/17 05:00 Urine Culture - Final Urine,Catheterized Assessment and Plan Plan: Assessment and plan #1 chronic atrial fibrillation with rapid ventricular response #2 pneumonia #3 COPD #4 hyperlipidemia #5 seizures #6 hypothyroidism Cardiology's perspective, we'll increase metoprolol to 50 mg by mouth 3 times a day. Obtain TSH. Continue monitor INR, and Coumadin 2.5 mg by mouth daily. Further recommendations to follow. DESIZING MACHINE OPERATOR note has been reviewed, I agree with a documented findings and plan of care. Patient was seen and examined.
[2017-06-20 16:36] LABS: Glucose,Whole Blood 181 mg/dL (75-99)
[2017-06-20] MEDS: WARFARIN 2.5 MG TAB PO SCH (17:03)
[2017-06-20] MEDS: ATORVASTATIN 80 MG TAB PO SCH (20:36)
[2017-06-20 21:17] LABS: Glucose,Whole Blood 174 mg/dL (75-99)
[2017-06-21] MEDS: methylPREDNISolone SOD SUCCI 125 MG/2 ML VIAL IV SCH ×2 (01:17→05:51)
[2017-06-21] MEDS: PIPERACILLIN-TAZOBACTAM 3.375 GM in DEXTROSE/WATER 1 50ML.BAG IVPB SCH ×2 (04:45→12:49)
[2017-06-21] MEDS: LEVOTHYROXINE 100 MCG TAB PO SCH (05:51)
[2017-06-21 06:21] LABS: Basophils % (A) 0 %; CH 29.8; CHCM 32.3; Eosinophils % (A) 0 %; HCT 41.9 % (39.0-53.0); HDW 2.64; HGB 13.1 gm/dL (13.0-17.5); Luc % (Auto) 1; Lymphocytes # (A) 0.8 k/uL (1.0-4.8); Lymphocytes % (A) 6 %; MCHC 31.2 g/dL (31.0-37.0); MCV 92.8 fL (80.0-100.0); Mean Platelet Volume 8.4; Monocytes # (A) 0.6 k/uL (0-1.0); Monocytes % (A) 4 %; Neutrophils # (A) 12.4 k/uL (1.3-7.7); Neutrophils % (A) 89 %; RBC 4.51 m/uL (4.30-5.90); RDW 14.9 % (11.5-15.5); WBC 13.9 k/uL (3.8-10.6); WBC (Perox) 13.79
[2017-06-21 06:24] LABS: Glucose,Whole Blood 124 mg/dL (75-99)
[2017-06-21 06:28] LABS: INR 2.7 (<1.2); Prothrombin Time 25.7 sec (9.0-12.0)
[2017-06-21] MEDS: INSULIN LISPRO (humaLOG) 300 UNIT/3 ML VIAL SQ SCH ×4 (06:33→20:43)
[2017-06-21 06:59] LABS: Anion Gap 6 mmol/L; Blood Urea Nitrogen 32 mg/dL (9-20); Calcium 8.3 mg/dL (8.4-10.2); Carbon Dioxide 25 mmol/L (22-30); Chloride 114 mmol/L (98-107); Glucose 137 mg/dL (74-99); Non-African American GFR(MDRD) >60 (>60 ml/min/1.73 sqM); Potassium 4.1 mmol/L (3.5-5.1); Sodium 145 mmol/L (137-145)
--- NOTE | 2017-06-21 07:30 | ECHOF ---
Referral Reason:Atrial fibrillation w/RVR MEASUREMENTS -------- HEIGHT: 177.8 cm WEIGHT: 128.4 kg BP: 121/81 IVSd: 1.0 cm (0.6 - 1.1) LVIDd: 2.9 cm (3.9 - 5.3) LVPWd: 1.0 cm (0.6 - 1.1) IVSs: 1.2 cm LVIDs: 2.2 cm LVPWs: 1.2 cm LAESV Index (A-L): 13.34 ml/m Ao Diam: 3.4 cm (2.0 - 3.7) AV Cusp: 2.0 cm (1.5 - 2.6) LA Diam: 4.6 cm (2.7 - 3.8) FINDINGS -------- Atrial fibrillation. This was a technically difficult study with suboptimal views. Pt. not compliant. The left ventricular size is normal. Overall left ventricular systolic function is normal with, an EF between 55 - 60 %. The right ventricle is normal in size and function. Normal LA size by volume 22+/-6 ml/m2. The right atrium is normal in size. 1.5mg of Definity was utilized for enhancement of images The aortic valve is trileaflet, and appears structurally normal. No aortic stenosis or regurgitation. The mitral valve is normal. There is trace mitral regurgitation. Trace tricuspid regurgitation present. There is no evidence of pulmonary hypertension. The pulmonic valve was not well visualized. The aortic root size is normal. The inferior vena cava is mildly dilated. There is no pericardial effusion. CONCLUSIONS -------- 1. Atrial fibrillation. 2. There is no evidence of pulmonary hypertension. 3. The pulmonic valve was not well visualized. 4. The aortic root size is normal. 5. The inferior vena cava is mildly dilated. 6. There is no pericardial effusion. 7. This was a technically difficult study with suboptimal views. 8. Pt. not compliant. 9. Overall left ventricular systolic function is normal with, an EF between 55 - 60 %. 10. Normal LA size by volume 22+/-6 ml/m2. 11. 1.5mg of Definity was utilized for enhancement of images 12. The aortic valve is trileaflet, and appears structurally normal. No aortic stenosis or regurgitation. 13. There is trace mitral regurgitation. 14. Trace tricuspid regurgitation present. CAPTAIN ASSISTANT: Sunil Yo RDCS
[2017-06-21] MEDS: ALLOPURINOL 100 MG TAB PO SCH (08:14)
[2017-06-21] MEDS: SODIUM CHLORIDE 0.65% NASAL SPRAY 44 ML BTL INTRANASAL SCH ×3 (08:15→23:23)
[2017-06-21] MEDS: levETIRAcetam 500 MG TAB PO SCH ×2 (08:15→20:36)
[2017-06-21] MEDS: ENOXAPARIN 40 MG/0.4 ML SYRINGE SQ SCH (08:15)
[2017-06-21] MEDS: DIGOXIN 125 MCG TAB PO SCH (08:15)
[2017-06-21] MEDS: FAMOTIDINE 20 MG TAB PO SCH ×2 (08:15→20:36)
[2017-06-21] MEDS: METOPROLOL TARTRATE 50 MG TAB PO SCH ×3 (08:15→23:03)
[2017-06-21] MEDS: MECLIZINE 25 MG TAB PO SCH (08:15)
[2017-06-21] MEDS: GABAPENTIN 300 MG CAP PO SCH ×2 (08:15→20:37)
[2017-06-21] MEDS: LOSARTAN 25 MG TAB PO SCH (08:15)
[2017-06-21] MEDS: IPRATROPIUM-ALBUTEROL 3 ML NEB INHALATION SCH ×4 (08:28→19:39)
--- NOTE | 2017-06-21 11:39 | P.PN ---
<Jolanta Amos - Last Filed: 06/21/17 12:10> Progress Note - Text DATE OF SERVICE: 06/21/2017 PRESENTING COMPLAINT: Fever with rapid heart rate INTERVAL HISTORY: 62-year-old patient presents to emergency department secondary to fever and elevated heart rate in the 130s to 140s, with sepsis-like presentation, received IV fluid resuscitation. Imaging revealed possible infiltrate on the left side. 06/21/2017: Patient lying in bed, resting quietly. Easily arousable. Afebrile. Continues to be in atrial fibrillation rate controlled 80s to 90s. Cardiology plans to continue metoprolol at current rate. Cough with occasional sputum production mildly short of breath with exertion. Oxygen in place. Tolerating his diet eating about 75% of his meals, up in the chair with assistance. Last BM 201606/20/2017: Patient seen in follow-up, lying in bed, awake appears relaxed. Afebrile. Continues to be in atrial fibrillation rate better controlled in the low 100s. Warfarin dosing continues. Tolerating his diet eating 100% of his meals. Up in the chair with assistance. Last BM 06/20/2017 06/19/2017: Patient seen in follow-up, no acute overnight events. Lying in bed, sleeping easily aroused. [id number] the bedside. Tolerating his diet eating 100 percent of his meals. Last BM 06/18/2017. Ambulatory with some assistance. REVIEW OF SYSTEMS: Done for constitutional ,cardiovascular, GI, pulmonary with relevant findings as above. CURRENT MEDICATIONS DuoNeb's, Lovenox, Pepcid, Lopressor, Solu-Medrol, warfarin, Zosyn gabapentin. PHYSICAL EXAM VITAL SIGNS: Temperature 98.1, pulse 89, respirations 18, blood pressure 129/76, oxygen saturation 93% on room air. GENERAL APPEARANCE: Lying in bed, not in distress. EYES: Pupils equal. Conjunctiva normal. NECK: JVD not raised. Mass not palpable. RESPIRATORY: Respiratory effort normal. Lungs diminished bilaterally and mild expiratory wheezing CARDIOVASCULAR: Irregular rhythm normal. No edema. ABDOMEN: Soft. Liver and spleen not palpable. No tenderness. No mass palpable. PSYCHIATRY: Alert and oriented x3. Mood and affect low. MUSCULOSKELETAL: Left hemiparesis, full range of motion on the right. NEUROLOGICAL: Power in the left side 3/5, speech is slightly slow this is his baseline. INVESTIGATIONS: White blood cell count 13.9, INR 2.7, sodium 145, BUN 32, creatinine 0.80, Accu- Cheks noted. 06/20/2017 Chest x-ray: Perihilar infiltrate bilaterally subsegmental infiltrate. ASSESSMENT: -Left basilar pneumonia suspected gram-negative organism causing severe sepsis present on admission, slow to respond -Persistent atrial fibrillation with rapid ventricular rate present on admission , improving -Acute COPD exacerbation in a smoker -Left hemiparesis from prior stroke -Chronic hard of hearing -Hyperlipidemia -Chronic seizure disorder -Chronic hypothyroidism -Leukocytosis, secondary infectious process and steroid use -Coumadin monitoring PLAN: Continue IV steroids, bronchodilators, IV antibiotics. White blood cell count improving, INR 2.7 today. Continue to monitor INR levels with Coumadin administration. General plan of care discussed with patient he is agreeable, no family at the bedside. We'll monitor closely SAFETY ADMINISTRATOR statement: Patient was seen and examined by nurse practitioner Jolanta Amos and all elements of the case discussed with attending Dr. Lugo <Clarence Lugo - Last Filed: 06/21/17 15:51> Progress Note - Text Attending note. Date of service-06/21/2017 This patient was seen and examined by me . Discussed the patient with my nurse practitioner Ms. Amos. Eating better. Sitting up. Some cough present On examination: Afebrile, lungs-decreased breath sounds, cardio vascular-irregular heart sounds Investigations: White count 13.9, hemoglobin 13.1, INR 2.7, 2-D echo shows EF 50-60% Assessment and plan: -Pneumonia, improving/atrial flutter fibrillation rate controlled Patient doing better continue current medication treat and plan. On IV Zosyn should be able to change control analyst to Augmentin
[2017-06-21 12:02] LABS: Glucose,Whole Blood 158 mg/dL (75-99)
[2017-06-21] MEDS ORDERED: ACETAMINOPHEN TAB 500 MG TAB PO PRN (15:30)
[2017-06-21] MEDS: methylPREDNISolone SOD SUCCI 40 MG/ML 1 ML VIAL IV SCH ×2 (16:06→23:37)
[2017-06-21 17:29] LABS: Glucose,Whole Blood 139 mg/dL (75-99)
[2017-06-21] MEDS: WARFARIN 2.5 MG TAB PO SCH (17:34)
[2017-06-21 20:36] LABS: Glucose,Whole Blood 147 mg/dL (75-99)
[2017-06-21] MEDS: ATORVASTATIN 80 MG TAB PO SCH (20:36)
[2017-06-21] MEDS: AMOXIC-POT CLAV 875-125MG 1 EACH TAB PO SCH (20:37)
[2017-06-22] MEDS: LEVOTHYROXINE 100 MCG TAB PO SCH (05:29)
[2017-06-22 07:12] LABS: Glucose,Whole Blood 126 mg/dL (75-99)
[2017-06-22] MEDS: INSULIN LISPRO (humaLOG) 300 UNIT/3 ML VIAL SQ SCH ×4 (07:14→22:07)
[2017-06-22] MEDS: IPRATROPIUM-ALBUTEROL 3 ML NEB INHALATION SCH ×4 (07:29→21:44)
[2017-06-22 07:32] LABS: Basophils % (A) 0 %; CH 29.8; CHCM 32.1; Eosinophils % (A) 0 %; HCT 42.1 % (39.0-53.0); HDW 2.53; HGB 13.5 gm/dL (13.0-17.5); Luc # (Auto) 0.23; Luc % (Auto) 2; Lymphocytes # (A) 1.3 k/uL (1.0-4.8); Lymphocytes % (A) 10 %; MCHC 32.2 g/dL (31.0-37.0); MCV 93.4 fL (80.0-100.0); Mean Platelet Volume 8.7; Monocytes # (A) 0.8 k/uL (0-1.0); Monocytes % (A) 7 %; Neutrophils # (A) 10.2 k/uL (1.3-7.7); Neutrophils % (A) 81 %; RBC 4.51 m/uL (4.30-5.90); RDW 15.1 % (11.5-15.5); WBC 12.5 k/uL (3.8-10.6); WBC (Perox) 12.59
[2017-06-22 07:40] LABS: Prothrombin Time 52.1 sec (9.0-12.0)
[2017-06-22 07:48] LABS: Anion Gap 7 mmol/L; Blood Urea Nitrogen 34 mg/dL (9-20); Calcium 8.1 mg/dL (8.4-10.2); Carbon Dioxide 26 mmol/L (22-30); Chloride 113 mmol/L (98-107); Glucose 108 mg/dL (74-99); Non-African American GFR(MDRD) >60 (>60 ml/min/1.73 sqM); Potassium 4.4 mmol/L (3.5-5.1); Sodium 146 mmol/L (137-145)
[2017-06-22 08:02] LABS: INR 5.2 (<1.2)
[2017-06-22] MEDS: GABAPENTIN 300 MG CAP PO SCH ×2 (08:24→22:05)
[2017-06-22] MEDS: DIGOXIN 125 MCG TAB PO SCH (08:24)
[2017-06-22] MEDS: levETIRAcetam 500 MG TAB PO SCH ×2 (08:24→22:06)
[2017-06-22] MEDS: LOSARTAN 25 MG TAB PO SCH (08:24)
[2017-06-22] MEDS: MECLIZINE 25 MG TAB PO SCH (08:24)
[2017-06-22] MEDS: AMOXIC-POT CLAV 875-125MG 1 EACH TAB PO SCH ×2 (08:24→22:06)
[2017-06-22] MEDS: METOPROLOL TARTRATE 50 MG TAB PO SCH ×3 (08:24→22:06)
[2017-06-22] MEDS: FAMOTIDINE 20 MG TAB PO SCH ×2 (08:24→22:06)
[2017-06-22] MEDS: ALLOPURINOL 100 MG TAB PO SCH (08:24)
[2017-06-22] MEDS: methylPREDNISolone SOD SUCCI 40 MG/ML 1 ML VIAL IV SCH ×2 (08:25→17:51)
[2017-06-22] MEDS: ENOXAPARIN 40 MG/0.4 ML SYRINGE SQ SCH ×2 (08:25→08:32)
[2017-06-22] MEDS: SODIUM CHLORIDE 0.65% NASAL SPRAY 44 ML BTL INTRANASAL SCH ×3 (08:25→22:08)
[2017-06-22 11:34] LABS: Glucose,Whole Blood 123 mg/dL (75-99)
[2017-06-22 17:33] LABS: Glucose,Whole Blood 134 mg/dL (75-99)
--- NOTE | 2017-06-22 17:42 | P.PN ---
Progress Note - Text Attending note. Date of service-06/22/2017 This patient was seen and examined by me . Discussed the patient with my nurse practitioner Ms. Amos. Doing better. Eating better. Decreased cough. Heart rate controlled. On examination: Lungs-decreased breath sounds, cardio vascular-irritable heart sounds Investigations: White count 12.5, INR 5.2, potassium 4.4 Assessment and plan: -Pneumonia with clinical improvement Coumadin monitoring with INR raised noticeable bleeding. Hold Coumadin today. Switch to by mouth prednisone. Recheck INR in the morning
--- NOTE | 2017-06-22 17:43 | P.PN ---
Progress Note - Text DATE OF SERVICE: 06/21/2017 PRESENTING COMPLAINT: Fever with rapid heart rate HISTORY OF PRESENT ILLNESS: 62-year-old patient presents to emergency department secondary to fever and elevated heart rate in the 130s to 140s, with sepsis-like presentation, received IV fluid resuscitation. Imaging revealed possible infiltrate on the left side. INTERVAL HISTORY: 06/22/2017: Patient lying in bed resting quietly, remains in atrial fibrillation, occasional cough with sputum production mildly short of breath on exertion. Tolerating his diet eating between 50 and 75% of his meals. Up in a chair with assistance. Last BM 06/21/2017. 06/21/2017: Patient lying in bed, resting quietly. Easily arousable. Afebrile. Continues to be in atrial fibrillation rate controlled 80s to 90s. Cardiology plans to continue metoprolol at current rate. Cough with occasional sputum production mildly short of breath with exertion. Oxygen in place. Tolerating his diet eating about 75% of his meals, up in the chair with assistance. Last BM 201606/20/2017: Patient seen in follow-up, lying in bed, awake appears relaxed. Afebrile. Continues to be in atrial fibrillation rate better controlled in the low 100s. Warfarin dosing continues. Tolerating his diet eating 100% of his meals. Up in the chair with assistance. Last BM 06/20/2017 06/19/2017: Patient seen in follow-up, no acute overnight events. Lying in bed, sleeping easily aroused. [id number] the bedside. Tolerating his diet eating 100 percent of his meals. Last BM 06/18/2017. Ambulatory with some assistance. REVIEW OF SYSTEMS: Done for constitutional ,cardiovascular, GI, pulmonary with relevant findings as above. CURRENT MEDICATIONS DuoNeb's, Lovenox, Pepcid, Lopressor, Solu-Medrol, warfarin, Zosyn gabapentin. PHYSICAL EXAM VITAL SIGNS: Temperature 97.4, pulse 72, respiratory rate 16, blood pressure 133/82, oxygen saturation 93% on room air. GENERAL APPEARANCE: Lying in bed, not in distress. EYES: Pupils equal. Conjunctiva normal. NECK: JVD not raised. Mass not palpable. RESPIRATORY: Respiratory effort normal. Lungs diminished bilaterally and mild expiratory wheezing CARDIOVASCULAR: Irregular rhythm normal. No edema. ABDOMEN: Soft. Liver and spleen not palpable. No tenderness. No mass palpable. PSYCHIATRY: Alert and oriented x3. Mood and affect low. MUSCULOSKELETAL: Left hemiparesis, full range of motion on the right. NEUROLOGICAL: Power in the left side 3/5, speech is slightly slow this is his baseline. INVESTIGATIONS: White blood cell count 12.5, INR 5.2, sodium 146, chloride 113, BUN 34, creatinine 0.91. Accu-Cheks noted. ASSESSMENT: -Left basilar pneumonia suspected gram-negative organism causing severe sepsis present on admission, slow to respond -Persistent atrial fibrillation with rapid ventricular rate present on admission , improving -Acute COPD exacerbation in a smoker -Left hemiparesis from prior stroke -Chronic hard of hearing -Hyperlipidemia -Chronic seizure disorder -Chronic hypothyroidism -Leukocytosis, secondary infectious process and steroid use, slow to respond -Coumadin monitoring PLAN: Continue IV steroids, bronchodilators, IV antibiotics. White blood cell count improving, INR 5.2 today. We'll hold Coumadin and Continue to monitor INR levels. General plan of care discussed with patient he is agreeable, no family at the bedside. We'll monitor closely MORGUE TECHNICIAN statement: Patient was seen and examined by nurse practitioner Jolanta Amos and all elements of the case discussed with attending Dr. Lugo
[2017-06-22 20:36] LABS: Glucose,Whole Blood 165 mg/dL (75-99)
[2017-06-22] MEDS: ATORVASTATIN 80 MG TAB PO SCH (22:06)
[2017-06-23] MEDS: LEVOTHYROXINE 100 MCG TAB PO SCH (06:15)
[2017-06-23] MEDS: IPRATROPIUM-ALBUTEROL 3 ML NEB INHALATION SCH ×4 (07:12→19:29)
[2017-06-23 07:19] LABS: Glucose,Whole Blood 105 mg/dL (75-99)
[2017-06-23] MEDS: INSULIN LISPRO (humaLOG) 300 UNIT/3 ML VIAL SQ SCH ×4 (07:53→20:47)
[2017-06-23] MEDS: ALLOPURINOL 100 MG TAB PO SCH (08:18)
[2017-06-23] MEDS: SODIUM CHLORIDE 0.65% NASAL SPRAY 44 ML BTL INTRANASAL SCH ×3 (08:18→21:48)
[2017-06-23] MEDS: levETIRAcetam 500 MG TAB PO SCH ×2 (08:19→20:47)
[2017-06-23] MEDS: LOSARTAN 25 MG TAB PO SCH (08:19)
[2017-06-23] MEDS: METOPROLOL TARTRATE 50 MG TAB PO SCH ×3 (08:19→21:48)
[2017-06-23] MEDS: DIGOXIN 125 MCG TAB PO SCH (08:19)
[2017-06-23] MEDS: FAMOTIDINE 20 MG TAB PO SCH ×2 (08:19→20:47)
[2017-06-23] MEDS: GABAPENTIN 300 MG CAP PO SCH ×2 (08:19→20:47)
[2017-06-23] MEDS: AMOXIC-POT CLAV 875-125MG 1 EACH TAB PO SCH ×2 (08:19→20:47)
[2017-06-23] MEDS: predniSONE 20 MG TAB PO SCH (08:20)
[2017-06-23 08:21] LABS: Basophils # (A) 0.1 k/uL (0-0.2); Basophils % (A) 1 %; CHCM 32.4; Eosinophils % (A) 0 %; HCT 44.9 % (39.0-53.0); HDW 2.47; Luc # (Auto) 0.26; Luc % (Auto) 2; Lymphocytes # (A) 1.6 k/uL (1.0-4.8); Lymphocytes % (A) 13 %; MCH 28.9 pg (25.0-35.0); MCHC 31.1 g/dL (31.0-37.0); Mean Platelet Volume 8.1; Monocytes # (A) 1.1 k/uL (0-1.0); Monocytes % (A) 9 %; Neutrophils % (A) 75 %; RBC 4.83 m/uL (4.30-5.90); RDW 15.4 % (11.5-15.5); WBC 11.9 k/uL (3.8-10.6); WBC (Perox) 11.57
[2017-06-23 09:45] LABS: Anion Gap 9 mmol/L; Blood Urea Nitrogen 32 mg/dL (9-20); Calcium 8.1 mg/dL (8.4-10.2); Carbon Dioxide 24 mmol/L (22-30); Chloride 111 mmol/L (98-107); Glucose 90 mg/dL (74-99); Non-African American GFR(MDRD) >60 (>60 ml/min/1.73 sqM); Potassium 4.4 mmol/L (3.5-5.1); Sodium 144 mmol/L (137-145)
[2017-06-23 10:35] LABS: Prothrombin Time 64.4 sec (9.0-12.0)
[2017-06-23 11:31] LABS: Glucose,Whole Blood 119 mg/dL (75-99)
[2017-06-23 11:58] LABS: INR 6.3 (<1.2)
[2017-06-23 17:08] LABS: Glucose,Whole Blood 117 mg/dL (75-99)
--- NOTE | 2017-06-23 17:34 | P.PN ---
<Jolanta Amos - Last Filed: 06/23/17 17:25> Progress Note - Text DATE OF SERVICE: 06/23/2017 PRESENTING COMPLAINT: Fever with rapid heart rate HISTORY OF PRESENT ILLNESS: 62-year-old patient presents to emergency department secondary to fever and elevated heart rate in the 130s to 140s, with sepsis-like presentation, received IV fluid resuscitation. Imaging revealed possible infiltrate on the left side. INTERVAL HISTORY: 06/23/2017: Patient lying in bed resting quietly, remains in atrial fibrillation, rate controlled earlier in the day however rate has been creeping up is now between low 100s and 130s. INR vandana to 6.3 today. Coumadin was held yesterday. Occasional cough with sputum production which is clear, mildly short of breath on exertion. Tolerating his diet eating about 75% of each meal. Up in a chair with assistance. Last BM 06/22/2017 06/22/2017: Patient lying in bed resting quietly, remains in atrial fibrillation, occasional cough with sputum production mildly short of breath on exertion. Tolerating his diet eating between 50 and 75% of his meals. Up in a chair with assistance. Last BM 06/21/2017. 06/21/2017: Patient lying in bed, resting quietly. Easily arousable. Afebrile. Continues to be in atrial fibrillation rate controlled 80s to 90s. Cardiology plans to continue metoprolol at current rate. Cough with occasional sputum production mildly short of breath with exertion. Oxygen in place. Tolerating his diet eating about 75% of his meals, up in the chair with assistance. Last BM 201606/20/2017: Patient seen in follow-up, lying in bed, awake appears relaxed. Afebrile. Continues to be in atrial fibrillation rate better controlled in the low 100s. Warfarin dosing continues. Tolerating his diet eating 100% of his meals. Up in the chair with assistance. Last BM 06/20/2017 06/19/2017: Patient seen in follow-up, no acute overnight events. Lying in bed, sleeping easily aroused. [id number] the bedside. Tolerating his diet eating 100 percent of his meals. Last BM 06/18/2017. Ambulatory with some assistance. REVIEW OF SYSTEMS: Done for constitutional ,cardiovascular, GI, pulmonary with relevant findings as above. CURRENT MEDICATIONS DuoNeb's, Lovenox, Pepcid, Lopressor, Solu-Medrol, warfarin, Zosyn gabapentin. PHYSICAL EXAM VITAL SIGNS: Temperature 98.5, pulse 88, respirations 16, blood pressure 145/90, oxygen saturation 92% on room air. GENERAL APPEARANCE: Lying in bed, not in distress. EYES: Pupils equal. Conjunctiva normal. NECK: JVD not raised. Mass not palpable. RESPIRATORY: Respiratory effort normal. Lungs diminished bilaterally and mild expiratory wheezing CARDIOVASCULAR: Irregular rhythm normal. No edema. ABDOMEN: Soft. Liver and spleen not palpable. No tenderness. No mass palpable. PSYCHIATRY: Alert and oriented x3. Mood and affect low. MUSCULOSKELETAL: Left hemiparesis, full range of motion on the right. NEUROLOGICAL: Power in the left side 3/5, speech is slightly slow this is his baseline. INVESTIGATIONS: INR 6.3 Accu-Cheks noted Urine and blood cultures negative ASSESSMENT: -Left basilar pneumonia suspected gram-negative organism causing severe sepsis present on admission, slow to respond -Persistent atrial fibrillation with rapid ventricular rate present on admission , improving -Acute COPD exacerbation in a smoker -Left hemiparesis from prior stroke -Chronic hard of hearing -Hyperlipidemia -Chronic seizure disorder -Chronic hypothyroidism -Leukocytosis, secondary infectious process and steroid use, slow to respond -Coumadin monitoring with INR rising. PLAN: Continue IV steroids, bronchodilators, IV antibiotics. White blood cell count improving, INR 6.3 today. Cardiology will be switching from Coumadin to Eliquis for anticoagulation therapy. General plan of care discussed with patient he is agreeable, no family at the bedside. May discharge to [facility] tomorrow based on patient condition. We'll monitor closely [employer] HELPER statement: Patient was seen and examined by nurse practitioner Jolanta Amos and all elements of the case discussed with attending Dr. Lugo <Clarence Lugo - Last Filed: 06/24/17 17:54> Progress Note - Text Attending note. Date of service-06/23/2017 This patient was seen and examined by me . Discussed the patient with my nurse practitioner Ms. Amos. Some cough present. Eating his meals partly. Heart rate is got up to 120s. Laying in bed cardiac On examination: Cardiovascular-irregular heart sound, lungs-decreased breath sounds decreased wheezing Investigations: INR 6.3 white count 11.9 Assessment and plan: Persistent atrial fibrillation with rapid ventricular rate now heart rate uncontrolled. Pneumonia. On Augmentin. Spoke to the Ana to see if patient can go back on Eliquis. Coumadin has been held. Discharge postponed
[2017-06-23 19:41] LABS: Glucose,Whole Blood 179 mg/dL (75-99)
[2017-06-23] MEDS: ATORVASTATIN 80 MG TAB PO SCH (20:47)
[2017-06-24] MEDS: SODIUM CHLORIDE 0.65% NASAL SPRAY 44 ML BTL INTRANASAL SCH ×4 (00:13→22:18)
[2017-06-24] MEDS: LEVOTHYROXINE 100 MCG TAB PO SCH (06:29)
[2017-06-24] MEDS: IPRATROPIUM-ALBUTEROL 3 ML NEB INHALATION SCH ×4 (07:11→19:35)
[2017-06-24 07:22] LABS: Glucose,Whole Blood 93 mg/dL (75-99)
[2017-06-24] MEDS: INSULIN LISPRO (humaLOG) 300 UNIT/3 ML VIAL SQ SCH ×4 (07:27→22:17)
[2017-06-24 08:04] LABS: Prothrombin Time 57.9 sec (9.0-12.0)
[2017-06-24] MEDS: predniSONE 20 MG TAB PO SCH (08:05)
[2017-06-24] MEDS: DIGOXIN 125 MCG TAB PO SCH (08:05)
[2017-06-24] MEDS: LOSARTAN 25 MG TAB PO SCH (08:05)
[2017-06-24] MEDS: GABAPENTIN 300 MG CAP PO SCH ×2 (08:05→22:00)
[2017-06-24] MEDS: AMOXIC-POT CLAV 875-125MG 1 EACH TAB PO SCH ×2 (08:05→21:59)
[2017-06-24] MEDS: FAMOTIDINE 20 MG TAB PO SCH ×2 (08:05→21:59)
[2017-06-24] MEDS: levETIRAcetam 500 MG TAB PO SCH ×2 (08:06→22:00)
[2017-06-24] MEDS: METOPROLOL TARTRATE 50 MG TAB PO SCH ×2 (08:06→22:00)
[2017-06-24] MEDS: ALLOPURINOL 100 MG TAB PO SCH (08:06)
[2017-06-24 08:13] LABS: INR 5.8 (<1.2)
[2017-06-24 08:18] LABS: Anion Gap 8 mmol/L; Blood Urea Nitrogen 29 mg/dL (9-20); Calcium 7.8 mg/dL (8.4-10.2); Carbon Dioxide 23 mmol/L (22-30); Chloride 108 mmol/L (98-107); Glucose 83 mg/dL (74-99); Non-African American GFR(MDRD) >60 (>60 ml/min/1.73 sqM); Potassium 4.4 mmol/L (3.5-5.1); Sodium 139 mmol/L (137-145)
[2017-06-24 12:02] LABS: Glucose,Whole Blood 105 mg/dL (75-99)
--- NOTE | 2017-06-24 16:19 | P.PN ---
<Jolanta Amos Saima - Last Filed: 06/24/17 16:05> Progress Note - Text DATE OF SERVICE: 06/24/2017 PRESENTING COMPLAINT: Fever with rapid heart rate HISTORY OF PRESENT ILLNESS: 62-year-old patient presents to emergency department secondary to fever and elevated heart rate in the 130s to 140s, with septic presentation, received IV fluid resuscitation. Imaging revealed possible infiltrate on the left side. INTERVAL HISTORY: 06/24/2017: Patient lying in bed quietly resting. Remains in atrial fibrillation, rate runs between 80s and 120s. INR 5.8, Coumadin held yesterday and today. Occasional dry cough, mildly short of breath on exertion. Tolerating his diet eating about 75-100% of his meals. Up to a chair with assistance. Last BM . 06/23/2017: Patient lying in bed resting quietly, remains in atrial fibrillation, rate controlled earlier in the day however rate has been creeping up is now between low 100s and 130s. INR vandana to 6.3 today. Coumadin was held yesterday. Occasional cough with sputum production which is clear, mildly short of breath on exertion. Tolerating his diet eating about 75% of each meal. Up in a chair with assistance. Last BM 06/22/2017 06/22/2017: Patient lying in bed resting quietly, remains in atrial fibrillation, occasional cough with sputum production mildly short of breath on exertion. Tolerating his diet eating between 50 and 75% of his meals. Up in a chair with assistance. Last BM 06/21/2017. 06/21/2017: Patient lying in bed, resting quietly. Easily arousable. Afebrile. Continues to be in atrial fibrillation rate controlled 80s to 90s. Cardiology plans to continue metoprolol at current rate. Cough with occasional sputum production mildly short of breath with exertion. Oxygen in place. Tolerating his diet eating about 75% of his meals, up in the chair with assistance. Last BM 201606/20/2017: Patient seen in follow-up, lying in bed, awake appears relaxed. Afebrile. Continues to be in atrial fibrillation rate better controlled in the low 100s. Warfarin dosing continues. Tolerating his diet eating 100% of his meals. Up in the chair with assistance. Last BM 06/20/2017 06/19/2017: Patient seen in follow-up, no acute overnight events. Lying in bed, sleeping easily aroused. [id number] the bedside. Tolerating his diet eating 100 percent of his meals. Last BM 06/18/2017. Ambulatory with some assistance. REVIEW OF SYSTEMS: Done for constitutional ,cardiovascular, GI, pulmonary with relevant findings as above. CURRENT MEDICATIONS DuoNeb's, Lovenox, Pepcid, Lopressor, Solu-Medrol, Zosyn gabapentin. PHYSICAL EXAM VITAL SIGNS: Temperature 97.9, pulse 76, respiratory rate 18, blood pressure 131/76, oxygen saturation 94% on room air. GENERAL APPEARANCE: Lying in bed, not in distress. EYES: Pupils equal. Conjunctiva normal. NECK: JVD not raised. Mass not palpable. RESPIRATORY: Respiratory effort normal. Lungs diminished bilaterally and mild expiratory wheezing CARDIOVASCULAR: Irregular rhythm normal. No edema. ABDOMEN: Soft. Liver and spleen not palpable. No tenderness. No mass palpable. PSYCHIATRY: Alert and oriented x3. Mood and affect low. MUSCULOSKELETAL: Left hemiparesis, full range of motion on the right. NEUROLOGICAL: Power in the left side 3/5, speech is slightly slow this is his baseline. INVESTIGATIONS: INR 5.8, sodium 139, potassium 4.4, BUN 29, creatinine 0.81. ASSESSMENT: -Left basilar pneumonia suspected gram-negative organism causing severe sepsis present on admission, slow to respond -Persistent atrial fibrillation with rapid ventricular rate present on admission , improving -Acute COPD exacerbation in a smoker -Left hemiparesis from prior stroke -Chronic hard of hearing -Hyperlipidemia -Chronic seizure disorder -Chronic hypothyroidism -Leukocytosis, secondary infectious process and steroid use, slow to respond -Coumadin monitoring with INR supratherapeutic. PLAN: Continue IV steroids, bronchodilators, IV antibiotics. INR 5.8 Coumadin held today. General plan of care discussed with patient he is agreeable, no family at the bedside. May discharge to [facility] when INR in therapeutic range. We'll monitor closely [employer] MEMBER statement: Patient was seen and examined by nurse practitioner Jolanta Amos and all elements of the case discussed with attending Dr. Lugo <Clarence Lugo - Last Filed: 06/24/17 18:01> Progress Note - Text Attending note. Date of service-06/24/2017 This patient was seen and examined by me . Discussed the patient with my nurse practitioner Ms. Amos. Heart rate still going up above 100s-in A. fib. Eating his meals. Though tired On examination: Lungs-decreased breath sounds, cardiovascular-irregular, awake answering questions Investigations: INR 5.8 Assessment and plan: Persistent atrial fibrillation-uncontrolled, pneumonia continue antibiotics in the form of Augmentin. Coumadin toxicity with no bleeding-Will give vitamin K 2.5 mg by mouth 1. Overall prognosis guarded. Lopressor increased 100 mg twice a day. Prednisone to be cut back to 30
[2017-06-24 17:06] LABS: Glucose,Whole Blood 135 mg/dL (75-99)
[2017-06-24] MEDS ORDERED: PHYTONADIONE ORAL 5 MG/5 ML ORAL.SYRG PO STA (18:02)
[2017-06-24 20:12] LABS: Glucose,Whole Blood 123 mg/dL (75-99)
[2017-06-24] MEDS: ATORVASTATIN 80 MG TAB PO SCH (21:59)
[2017-06-25] MEDS: LEVOTHYROXINE 100 MCG TAB PO SCH (06:09)
[2017-06-25 07:17] LABS: Glucose,Whole Blood 89 mg/dL (75-99)
[2017-06-25 07:49] LABS: Anisocytosis Slight; CH 30.2; CHCM 32.8; HCT 47.4 % (39.0-53.0); HDW 2.46; HGB 15.1 gm/dL (13.0-17.5); Immature Gran Flag Moderate; MCH 29.5 pg (25.0-35.0); MCHC 31.9 g/dL (31.0-37.0); MCV 92.5 fL (80.0-100.0); Mean Platelet Volume 8.4; RBC 5.12 m/uL (4.30-5.90); RDW 16.2 % (11.5-15.5); WBC (Perox) 13.98
[2017-06-25 07:52] LABS: Prothrombin Time 28.9 sec (9.0-12.0)
[2017-06-25 08:10] LABS: Anion Gap 7 mmol/L; Blood Urea Nitrogen 30 mg/dL (9-20); Calcium 8.1 mg/dL (8.4-10.2); Carbon Dioxide 26 mmol/L (22-30); Chloride 106 mmol/L (98-107); Glucose 83 mg/dL (74-99); Non-African American GFR(MDRD) >60 (>60 ml/min/1.73 sqM); Potassium 4.2 mmol/L (3.5-5.1); Sodium 139 mmol/L (137-145)
[2017-06-25] MEDS: IPRATROPIUM-ALBUTEROL 3 ML NEB INHALATION SCH ×4 (08:49→20:26)
[2017-06-25] MEDS: INSULIN LISPRO (humaLOG) 300 UNIT/3 ML VIAL SQ SCH ×4 (08:55→21:22)
[2017-06-25] MEDS: AMOXIC-POT CLAV 875-125MG 1 EACH TAB PO SCH ×2 (09:36→21:20)
[2017-06-25] MEDS: SODIUM CHLORIDE 0.65% NASAL SPRAY 44 ML BTL INTRANASAL SCH ×3 (09:36→22:22)
[2017-06-25] MEDS: METOPROLOL TARTRATE 50 MG TAB PO SCH ×3 (09:37→21:26)
[2017-06-25] MEDS: predniSONE 10 MG TAB PO SCH (09:37)
[2017-06-25] MEDS: GABAPENTIN 300 MG CAP PO SCH ×2 (09:37→21:21)
[2017-06-25] MEDS: levETIRAcetam 500 MG TAB PO SCH ×2 (09:37→21:22)
[2017-06-25] MEDS: FAMOTIDINE 20 MG TAB PO SCH ×2 (09:37→21:21)
[2017-06-25] MEDS: DIGOXIN 125 MCG TAB PO SCH (09:38)
[2017-06-25] MEDS: LOSARTAN 25 MG TAB PO SCH (09:38)
[2017-06-25] MEDS: ALLOPURINOL 100 MG TAB PO SCH (09:38)
[2017-06-25 10:59] LABS: Add Differential Manual Differential
[2017-06-25 11:02] LABS: Band Neutrophils % 2 %; Manual Review Performed; Metamyelocytes % 4 %; Myelocytes % 6 %; Nucleated Red Blood Cells 0 /100 WBC (0-0); Total Cells Counted 200
[2017-06-25 11:03] LABS: Polychromasia Present
[2017-06-25 14:07] LABS: Glucose,Whole Blood 106 mg/dL (75-99)
[2017-06-25 17:05] LABS: Glucose,Whole Blood 142 mg/dL (75-99)
[2017-06-25] MEDS ORDERED: WARFARIN 2.5 MG TAB PO SCH (18:00)
[2017-06-25 20:03] LABS: Glucose,Whole Blood 125 mg/dL (75-99)
[2017-06-25] MEDS: ATORVASTATIN 80 MG TAB PO SCH (21:21)
[2017-06-26] MEDS: LEVOTHYROXINE 100 MCG TAB PO SCH (06:15)
[2017-06-26] MEDS: IPRATROPIUM-ALBUTEROL 3 ML NEB INHALATION SCH ×4 (07:10→19:31)
[2017-06-26 07:12] LABS: Glucose,Whole Blood 84 mg/dL (75-99)
[2017-06-26 08:11] LABS: INR 1.9 (<1.2); Prothrombin Time 18.3 sec (9.0-12.0)
[2017-06-26 08:22] LABS: Anion Gap 6 mmol/L; Blood Urea Nitrogen 34 mg/dL (9-20); Calcium 8.3 mg/dL (8.4-10.2); Carbon Dioxide 29 mmol/L (22-30); Chloride 104 mmol/L (98-107); Glucose 79 mg/dL (74-99); Non-African American GFR(MDRD) >60 (>60 ml/min/1.73 sqM); Potassium 4.2 mmol/L (3.5-5.1); Sodium 139 mmol/L (137-145)
[2017-06-26] MEDS: INSULIN LISPRO (humaLOG) 300 UNIT/3 ML VIAL SQ SCH ×4 (10:02→21:41)
[2017-06-26] MEDS: ALLOPURINOL 100 MG TAB PO SCH (10:32)
[2017-06-26] MEDS: AMOXIC-POT CLAV 875-125MG 1 EACH TAB PO SCH ×2 (10:34→21:37)
[2017-06-26] MEDS: DIGOXIN 125 MCG TAB PO SCH (10:35)
[2017-06-26] MEDS: FAMOTIDINE 20 MG TAB PO SCH ×2 (10:35→21:40)
[2017-06-26] MEDS: GABAPENTIN 300 MG CAP PO SCH ×2 (10:36→21:40)
[2017-06-26] MEDS: predniSONE 10 MG TAB PO SCH (10:37)
[2017-06-26] MEDS: levETIRAcetam 500 MG TAB PO SCH ×2 (10:37→21:42)
[2017-06-26] MEDS: LOSARTAN 25 MG TAB PO SCH (10:39)
[2017-06-26] MEDS: METOPROLOL TARTRATE 50 MG TAB PO SCH ×3 (10:40→22:15)
[2017-06-26] MEDS: SODIUM CHLORIDE 0.65% NASAL SPRAY 44 ML BTL INTRANASAL SCH ×3 (10:41→21:44)
--- NOTE | 2017-06-26 10:50 | PN ---
PROGRESS NOTE Date of Service: DATE OF SERVICE: 06/25/2017. PRESENTING COMPLAINT: Increased heart rate. INTERVAL HISTORY: This is a patient admitted with pneumonia and atrial flutter/fibrillation with rapid ventricular rate. Beta joey was increased to 100 mg twice a day yesterday. Heart rate is still tending to go up, though breathing is better. Eating better. Patient's significant other is at the bedside. REVIEW OF SYSTEMS: Done for constitutional, cardiovascular, GI; relevant findings as above. MEDICATIONS: Current medications are reviewed, that include Augmentin and Lopressor. PHYSICAL EXAMINATION: VITAL SIGNS: Temperature 97, pulse up to 110s to teens, respirations 20, blood pressure 127/82. Pulse ox 95% on room air. GENERAL APPEARANCE: Lying in bed, tired appearing. EYES: Pupils equal. NECK: JVD not raised. Mass not palpable. RESPIRATORY: Respiratory effort normal. LUNGS: Decreased breath sounds with minimal wheezing. CARDIOVASCULAR: Heart sounds irregular. No edema. ABDOMEN: Soft, nontender. Liver and spleen not palpable. EXTREMITIES: Pedal pulses palpable. PSYCHIATRY: Awake, answering questions. NEUROLOGICAL: Left-sided weakness with power is 3/5. Speech at baseline, remains slow. INVESTIGATIONS: White count 15.3, INR 3, potassium 4.2, BUN 30, creatinine 0.81. ASSESSMENT: 1. Left basal pneumonia, suspect gram-negative organism causing severe sepsis, present on admission, improving. 2. Persistent atrial fibrillation with still some bursts of rapid rates, overall getting better. 3. Acute chronic obstructive pulmonary disease exacerbation in a smoker. 4. Left hemiparesis from prior stroke. 5. Chronically hard of hearing. 6. Hyperlipidemia. 7. Seizure disorder. 8. Chronic hypothyroidism. 9. Leukocytosis secondary to infectious process. 10.Coumadin monitoring, now Coumadin has been held. Did get a small dose of vitamin K last night. PLAN: Care was discussed with family at the bedside. Coumadin has been discontinued. The patient will start with Eliquis when INR is more down, expect this to happen by tomorrow. We will add 50 mg Lopressor. MMODL / IJN: [id number] /
[2017-06-26 11:30] LABS: Glucose,Whole Blood 93 mg/dL (75-99)
[2017-06-26 15:25] VITALS: BMI 40.6
[2017-06-26] MEDS ORDERED: SODIUM CHLORIDE 0.9% 1,000 ML IV SCH (15:45)
[2017-06-26 16:41] LABS: Glucose,Whole Blood 129 mg/dL (75-99)
[2017-06-26 20:18] LABS: Glucose,Whole Blood 125 mg/dL (75-99)
[2017-06-26] MEDS: APIXABAN 2.5 MG TABLET PO SCH (21:38)
[2017-06-26] MEDS: ATORVASTATIN 80 MG TAB PO SCH (21:39)
[2017-06-26] MEDS ORDERED: METOPROLOL TARTRATE 50 MG TAB PO STA (22:14)
[2017-06-27 07:25] LABS: Glucose,Whole Blood 82 mg/dL (75-99)
[2017-06-27] MEDS: IPRATROPIUM-ALBUTEROL 3 ML NEB INHALATION SCH ×2 (07:28→11:06)
[2017-06-27 07:38] LABS: INR 2.1 (<1.2); Prothrombin Time 20.3 sec (9.0-12.0)
[2017-06-27 07:46] VITALS: RESP 20; TEMP 98.1
[2017-06-27] MEDS: INSULIN LISPRO (humaLOG) 300 UNIT/3 ML VIAL SQ SCH ×2 (07:57→12:38)
[2017-06-27 08:22] LABS: Anion Gap 7 mmol/L; Blood Urea Nitrogen 29 mg/dL (9-20); Calcium 8.3 mg/dL (8.4-10.2); Carbon Dioxide 26 mmol/L (22-30); Chloride 106 mmol/L (98-107); Glucose 83 mg/dL (74-99); Non-African American GFR(MDRD) >60 (>60 ml/min/1.73 sqM); Potassium 4.3 mmol/L (3.5-5.1); Sodium 139 mmol/L (137-145)
[2017-06-27] MEDS: LEVOTHYROXINE 100 MCG TAB PO SCH (08:32)
[2017-06-27] MEDS: ALLOPURINOL 100 MG TAB PO SCH (08:33)
[2017-06-27] MEDS: AMOXIC-POT CLAV 875-125MG 1 EACH TAB PO SCH (08:33)
[2017-06-27] MEDS: DIGOXIN 125 MCG TAB PO SCH (08:34)
[2017-06-27] MEDS: APIXABAN 2.5 MG TABLET PO SCH (08:34)
[2017-06-27] MEDS: levETIRAcetam 500 MG TAB PO SCH (08:34)
[2017-06-27] MEDS: FAMOTIDINE 20 MG TAB PO SCH (08:34)
[2017-06-27] MEDS: GABAPENTIN 300 MG CAP PO SCH (08:34)
[2017-06-27] MEDS: predniSONE 10 MG TAB PO SCH (08:35)
[2017-06-27] MEDS: METOPROLOL TARTRATE 50 MG TAB PO SCH ×2 (08:35→14:11)
[2017-06-27] MEDS: SODIUM CHLORIDE 0.65% NASAL SPRAY 44 ML BTL INTRANASAL SCH (08:36)
--- NOTE | 2017-06-27 10:58 | PN ---
PROGRESS NOTE Date of Service: DATE OF SERVICE: June 26, 2017. PRESENTING COMPLAINT: Tired. INTERVAL HISTORY: Patient admitted with pneumonia and atrial flutter fibrillation. Beta joey dose was increased yesterday to 50 mg added in the afternoon. Heart rate is better controlled. Patient feeling tired. Eating. At all his breakfast. Lying in bed. REVIEW OF SYSTEMS: Done for constitutional, cardiovascular, GI, pulmonary, relevant findings as above. CURRENT MEDICATIONS: Reviewed that include Augmentin and Lopressor. EXAMINATION: Temperature 99, pulse 95, respiration 18, blood pressure 89/61. Pulse ox 95% room air. General: Lying in bed, tired appearing. Eyes: Pupils equal. Conjunctivae normal. Neck JVD not raised. Mass not palpable. Respiratory effort increased. Lungs decreased breath sounds. Minimal wheezing. Cardiovascular. HEART: Sounds regular. No edema. ABDOMEN: Soft, nontender. Liver and spleen not palpable. Psychiatry: Awake answering questions. Neurological left-sided weakness, power 3/5. Speech at baseline remains slow. INVESTIGATIONS: INR 1.9, potassium 4.2. ASSESSMENT: 1. Left basilar pneumonia suspect gram negative organism causing severe sepsis present on admission with clinical improvement. 2. Persistent atrial fibrillation. Heart rate is now better controlled. 3. Acute chronic obstructive pulmonary disease exacerbation in a smoker. 4. Left hemiparesis from prior stroke. 5. Chronically hard of hearing. 6. Hyperlipidemia. 7. Seizure disorder. 8. Chronic hypothyroidism. 9. Leukocytosis secondary to infectious process. 10.Coumadin monitoring: Now Coumadin has been discontinued as patient is switched over to Eliquis. 11.Hypotension. PLAN: At this point we will stop the patient's Cozaar. We will do some gentle hydration for blood pressure. Looking at probably discharge tomorrow. MMODL / IJN: [id number] /
[2017-06-27 11:10] VITALS: PULSE 80
[2017-06-27 11:33] LABS: Glucose,Whole Blood 119 mg/dL (75-99)
--- NOTE | 2017-06-27 12:38 | P.DS ---
<Jolanta Amos - Last Filed: 06/27/17 12:15> Providers Date of admission: 06/18/17 05:57 Expected date of discharge: 06/27/17 Attending physician: Clarence Lugo Consults: 06/18/17 05:56 Consult Physician Stat Consulting Provider: Lulu Urena Consult Reason/Comments: Atrial fibrillation with rapid ventricular response Do you want consulting provider notified?: Yes Primary care physician: [facility] Course: FINAL DIAGNOSES: -Left basilar pneumonia suspect gram-negative organism causing severe sepsis present on admission with clinical improvement. -Persistent atrial fibrillation. Heart rate is now better controlled. -Acute chronic obstructive pulmonary disease exacerbation in a smoker. -Left hemiparesis from prior stroke. -Chronically hard of hearing. -Hyperlipidemia. -Seizure disorder. -Chronic hypothyroidism. -Leukocytosis secondary to infectious process. -Coumadin monitoring. No Coumadin has been discontinued as of patient is switched over to Eliquis. -Hypertension HOSPTIAL COURSE: 62-year-old patient who presented with fever and elevated heart rate into the 130s to 140s found to be septic and received fluid boluses. Chest x-ray revealed left basilar pneumonia Blood pressure normally runs in the 90s systolic. Received beta joey in the emergency department and heart rate improved, Cardiology consulted and started on Coumadin discussed with cardiology as patient was on Eliquis at home. Coumadin switched to Eliquis. Atrial fibrillation controlled with beta joey. Patient's normal heart rate runs between low 100s and 1 teens. Blood pressure found to be low and Cozaar was subsequently stopped. Blood pressure improved. IV Zosyn initiated for the pneumonia and patient responded well. Patient tolerating his diet eating 75-100% of his meals, can get up in a chair with assistance patient has left-sided residual weakness from a previous stroke and requires ambulation assistance as well as feeding assistance. Last BM 06/27/2017. Patient's condition has returned to his baseline, therefore patient is stable for discharge. PHYSICAL EXAM: CARDIOVASCULAR: Irregular rhythm, rate runs between 100-115, this is his baseline no edema RESPIRATORY: Effort normal, breath sounds diminished bilaterally MUSKULOSKELETAL: left-sided hemiparesis secondary to an old stroke NEUROLOGIC: Power in the left side 3/5, speech is slightly slow as is his baseline PSYCHIATRY: alert and oriented 3, mood and affect normal Patient was seen and examined by nurse practitioner Jolanta Amos in all elements of the case discussed with attending Dr. Lugo DISPOSITION: [facility] Patient Condition at Discharge: Fair Plan - Discharge Summary New Discharge Prescriptions: New Amoxic-Pot Clav 875-125Mg [Augmentin 875-125] 1 each PO Q12HR #4 tab Ipratropium-Albuterol Nebulize [Duoneb 0.5 mg-3 mg/3 ml Soln] 3 ml INHALATION RT-QID neb Metoprolol Tartrate [Lopressor] 50 mg PO DAILY@1400 #30 tab Metoprolol Tartrate [Lopressor] 100 mg PO BID #60 tab Allopurinol [Zyloprim] 200 mg PO DAILY tab Atorvastatin [Lipitor] 80 mg PO DAILY #30 tab Atorvastatin [Lipitor] 80 mg PO HS tab predniSONE 10 mg PO DIRECTED #6 tab Continue Levothyroxine Sodium [Synthroid] 100 mcg PO DAILY Famotidine [Pepcid] 20 mg PO HS Digoxin [Lanoxin] 125 mcg PO Q48H Diclofenac Sodium Gel [Voltaren Gel] 1 applic TOPICAL BID PRN PRN Reason: Pain Cholecalciferol [Vitamin D3] 1,000 unit PO DAILY Acetaminophen [Tylenol Extra Strength] 500 mg PO Q4H PRN PRN Reason: Pain levETIRAcetam [Keppra] 1,000 mg PO Q12HR Gabapentin [Neurontin] 300 mg PO BID Apixaban [Eliquis] 2.5 mg PO BID Sodium Chloride [Saline Mist] 1 spray EA NOSTRIL TID Discontinued Atorvastatin [Lipitor] 40 mg PO HS Discharge Medication List Famotidine [Pepcid] 20 mg PO HS 09/05/14 [History] Levothyroxine Sodium [Synthroid] 100 mcg PO DAILY 09/05/14 [History] Digoxin [Lanoxin] 125 mcg PO Q48H 01/04/16 [History] Acetaminophen [Tylenol Extra Strength] 500 mg PO Q4H PRN 06/18/17 [History] Apixaban [Eliquis] 2.5 mg PO BID 06/18/17 [History] Cholecalciferol [Vitamin D3] 1,000 unit PO DAILY 06/18/17 [History] Diclofenac Sodium Gel [Voltaren Gel] 1 applic TOPICAL BID PRN 06/18/17 [History] Gabapentin [Neurontin] 300 mg PO BID 06/18/17 [History] Sodium Chloride [Saline Mist] 1 spray EA NOSTRIL TID 06/18/17 [History] levETIRAcetam [Keppra] 1,000 mg PO Q12HR 06/18/17 [History] Amoxic-Pot Clav 875-125Mg [Augmentin 875-125] 1 each PO Q12HR #4 tab 06/23/17 [ Rx] Ipratropium-Albuterol Nebulize [Duoneb 0.5 mg-3 mg/3 ml Soln] 3 ml INHALATION RT -QID neb 06/23/17 [Rx] Allopurinol [Zyloprim] 200 mg PO DAILY tab 06/26/17 [Rx] Atorvastatin [Lipitor] 80 mg PO DAILY #30 tab 06/26/17 [Rx] Metoprolol Tartrate [Lopressor] 50 mg PO DAILY@1400 #30 tab 06/26/17 [Rx] Metoprolol Tartrate [Lopressor] 100 mg PO BID #60 tab 06/26/17 [Rx] Atorvastatin [Lipitor] 80 mg PO HS tab 06/27/17 [Rx] predniSONE 10 mg PO DIRECTED #6 tab 06/27/17 [Rx] Follow up Appointment(s)/Referral(s): Mando Rey MD [STAFF PHYSICIAN] - 10 Days Mike Elise DO [Primary Care Provider] - 06/28/17 Ambulatory/Diagnostic Orders: Prothrombin Time INR [LAB.AMB] Time Frame: 2 Days, Location: Determined By Patient Activity/Diet/Wound Care/Special Instructions: regular diet Discharge Disposition: TRANSFER TO SNF/ECF <Clarence Lugo - Last Filed: 06/27/17 22:41> Hospital Course: Attending note. Date of service-06/27/2017 This patient was seen and examined by me . Discussed the patient with my nurse practitioner Ms. Amos. Feeling well. Had all his breakfast. at the bedside. Heart rate controlled On examination: Lungs have decreased breath sounds, heart irregular, blood pressure improved Investigations: Assessment and plan: A flutter fib controlled. Patient started that on Eliquis. Pneumonia improved. Discussed care with the at the bedside. Questions answered. Oral prognosis guarded. Discharge to ECF. Discharge planning more than 35 minutes
[2017-06-27 14:11] VITALS: BP 83/57
== END 2017-06-27 15:23 | DRG 871 ==
LOC: EC 04:35 → 6ICU 05:57 → 6SEL 18:43 → 5MS5E 06-21 09:02
PROVIDERS: ADMIT Hospitalist; ATTEND Hospitalist
DX: A41.9 Sepsis, unspecified organism (principal); J15.6 Pneumonia due to other Gram-negative bacteria; I48.1 Persistent atrial fibrillation; J44.0 Chronic obstructive pulmonary disease with (acute) lower respiratory infection; J44.1 Chronic obstructive pulmonary disease with (acute) exacerbation; I69.359 Hemiplegia and hemiparesis following cerebral infarction affecting unspecified side; I48.92 Unspecified atrial flutter; G40.909 Epilepsy, unspecified, not intractable, without status epilepticus; I48.2 Chronic atrial fibrillation; I10 Essential (primary) hypertension; E03.9 Hypothyroidism, unspecified; E78.5 Hyperlipidemia, unspecified; F17.200 Nicotine dependence, unspecified, uncomplicated; H91.90 Unspecified hearing loss, unspecified ear; R65.20 Severe sepsis without septic shock; T45.515A Adverse effect of anticoagulants, initial encounter; T38.0X5A Adverse effect of glucocorticoids and synthetic analogues, initial encounter; R32 Unspecified urinary incontinence; Z79.82 Long term (current) use of aspirin; Z79.899 Other long term (current) drug therapy; Z74.01 Bed confinement status; Y92.239 Unspecified place in hospital as the place of occurrence of the external cause
CPT/HCPCS: 36415; 71010; 71020; 71275; 80048; 80053; 81001; 82550; 82553; 83605; 83880; 84439; 84443; 84484; 85025; 85379; 85610; 85730; 87040; 87086; 93005; 93306; 94640; 94760; 96361; 96365; 96368; 96375; 99291

== ENCOUNTER 2019-08-29 05:25 | Inpatient (IN) | payer MEDICARE, OTHER ==
[2019-08-29] MEDS ORDERED: DILTIAZEM DRIP BOLUS FROM BAG 1 MG SOLN IV ONE (05:52)
[2019-08-29] MEDS ORDERED: DILTIAZEM 125 MG in SODIUM CHLORIDE 0.9% 100 ML IV SCH (06:00)
--- NOTE | 2019-08-29 06:03 | XR ---
EXAMINATION TYPE: XR chest 1V portable DATE OF EXAM: 08/29/2019 COMPARISON: 06/20/2017 HISTORY: Difficulty breathing TECHNIQUE: Single frontal view of the chest is obtained. FINDINGS: Heart is enlarged. There is elevated left diaphragm. There is no heart failure. There are chest leads. Bony thorax appears intact. IMPRESSION: Cardiomegaly. Chronic elevated left diaphragm unchanged. No heart failure. There is alonso ring of the pulmonary congestion compared to old exam.
[2019-08-29 06:20] LABS: Basophils # (A) 0.1 k/uL (0-0.2); Basophils % (A) 0 %; Eosinophils # (A) 0.1 k/uL (0-0.7); Eosinophils % (A) 1 %; HCT 48.9 % (39.0-53.0); HGB 16.3 gm/dL (13.0-17.5); Lymphocytes # (A) 0.5 k/uL (1.0-4.8); Lymphocytes % (A) 2 %; MCH 29.7 pg (25.0-35.0); MCHC 33.3 g/dL (31.0-37.0); MCV 89.3 fL (80.0-100.0); Mean Platelet Volume 6.6; Monocytes # (A) 0.8 k/uL (0-1.0); Monocytes % (A) 3 %; Neutrophils # (A) 20.8 k/uL (1.3-7.7); Neutrophils % (A) 93 %; Platelet Count 186 k/uL (150-450); RBC 5.47 m/uL (4.30-5.90); RDW 14.9 % (11.5-15.5); WBC 22.4 k/uL (3.8-10.6)
[2019-08-29 06:30] LABS: ALT 25 U/L (21-72); AST 27 U/L (17-59); African American GFR (CKD) >90 (>60 ml/min/1.73 sqM); Albumin 3.7 g/dL (3.5-5.0); Alkaline Phosphatase 113 U/L (38-126); Anion Gap 12 mmol/L; Blood Urea Nitrogen 23 mg/dL (9-20); Calcium 8.9 mg/dL (8.4-10.2); Carbon Dioxide 24 mmol/L (22-30); Chloride 106 mmol/L (98-107); Glucose 189 mg/dL (74-99); INR 1.4 (<1.2); Magnesium 1.5 mg/dL (1.6-2.3); Non-African American GFR(CKD) 86 (>60 ml/min/1.73 sqM); Partial Thromboplastin Time 25.7 sec (22.0-30.0); Potassium 4.6 mmol/L (3.5-5.1); Prothrombin Time 14.1 sec (9.0-12.0); Sodium 142 mmol/L (137-145); Total Bilirubin 1.5 mg/dL (0.2-1.3); Total Protein 7.2 g/dL (6.3-8.2)
[2019-08-29] MEDS ORDERED: NITROGLYCERIN SL TABS 0.4 MG TAB SUBLINGUAL PRN (06:34)
[2019-08-29] MEDS ORDERED: DICLOFENAC SODIUM GEL 100 GM TUBE TOPICAL PRN (06:37)
[2019-08-29] MEDS ORDERED: SODIUM CHLORIDE 0.9% 1,000 ML IV SCH (06:45)
[2019-08-29] MEDS ORDERED: predniSONE 10 MG TAB PO SCH (06:45)
--- NOTE | 2019-08-29 06:45 | ED ---
SOB HPI - General Chief Complaint: Shortness of Breath Stated Complaint: Weakness,Diff Breathing Time Seen by Provider: 08/29/19 05:39 Source: EMS Mode of arrival: EMS Limitations: altered mental status - History of Present Illness Initial Comments: Patient's 64-year-old man [facility] for shortness of breath. The said reportedly developed over the course of tonight. History limited by history of dementia. Patient denies chest pain. MD Complaint: shortness of breath -: hour(s) Consistency: constant Improves With: oxygen Associated Symptoms: denies other symptoms - Related Data Home Medications Medication Instructions Recorded Confirmed Famotidine [Pepcid] 20 mg PO HS 09/05/14 06/18/17 Levothyroxine Sodium [Synthroid] 100 mcg PO DAILY 09/05/14 06/18/17 Digoxin [Lanoxin] 125 mcg PO Q48H 01/04/16 06/18/17 Acetaminophen [Tylenol Extra 500 mg PO Q4H PRN 06/18/17 06/18/17 Strength] Apixaban [Eliquis] 2.5 mg PO BID 06/18/17 06/18/17 Cholecalciferol [Vitamin D3 (25 1,000 unit PO DAILY 06/18/17 06/18/17 Mcg = 1000 Iu)] Diclofenac Sodium Gel [Voltaren 1 applic TOPICAL BID PRN 06/18/17 06/18/17 Gel] Gabapentin [Neurontin] 300 mg PO BID 06/18/17 06/18/17 Sodium Chloride [Saline Mist] 1 spray EA NOSTRIL TID 06/18/17 06/18/17 levETIRAcetam [Keppra] 1,000 mg PO Q12HR 06/18/17 06/18/17 Previous Rx's Medication Instructions Recorded Amoxic-Pot Clav 875-125Mg 1 each PO Q12HR #4 tab 06/23/17 [Augmentin 875-125] Ipratropium-Albuterol Nebulize 3 ml INHALATION RT-QID neb 06/23/17 [Duoneb 0.5 mg-3 mg/3 ml Soln] Allopurinol [Zyloprim] 200 mg PO DAILY tab 06/26/17 Atorvastatin [Lipitor] 80 mg PO DAILY #30 tab 06/26/17 Metoprolol Tartrate [Lopressor] 50 mg PO DAILY@1400 #30 tab 06/26/17 Metoprolol Tartrate [Lopressor] 100 mg PO BID #60 tab 06/26/17 Atorvastatin [Lipitor] 80 mg PO HS tab 06/27/17 predniSONE 10 mg PO DIRECTED #6 tab 06/27/17 Allergies Allergy/AdvReac Type Severity Reaction Status Date / Time No Known Allergies Allergy Verified 06/18/17 09:15 Review of Systems ROS Statement: Those systems with pertinent positive or pertinent negative responses have been documented in the HPI. ROS Other: All systems not noted in ROS Statement are negative. Limitations: ROS unobtainable due to patients medical condition Constitutional: Denies: fever Respiratory: Reports: dyspnea Cardiovascular: Denies: chest pain Gastrointestinal: Denies: abdominal pain Neurological: Denies: headache Past Medical History Past Medical History: Atrial Fibrillation, COPD, Hearing Disorder / Deafness, Hyperlipidemia, Hypertension, Thyroid Disorder Additional Past Medical History / Comment(s): 02/13/15 ADMISSION FOR [facility]. Other HX: 09/05/14 admission to [facility] with seizure thought to be alcohol related, alcoholism (pt has not had any alcohol since 2013). WEAK HEART valve. History of Any Multi-Drug Resistant Organisms: None Reported Past Surgical History: Appendectomy Past Anesthesia/Blood Transfusion Reactions: No Reported Reaction Additional Past Anesthesia/Blood Transfusion Reaction / Comment(s): Pt has never recieved blood. Past Psychological History: No Psychological Hx Reported Smoking Status: Former smoker Past Drug Use History: None Reported - Past Family History Mother Family Medical History: Cancer Father Family Medical History: No Reported History Additional Family Medical History / Comment(s): Father of old age. General Exam Limitations: no limitations General appearance: alert, in no apparent distress Head exam: Present: atraumatic, normocephalic ENT exam: Present: mucous membranes dry Neck exam: Present: normal inspection Respiratory exam: Present: rales (Bilateral bases). Absent: respiratory distress, wheezes, rhonchi, stridor Cardiovascular Exam: Present: tachycardia (Approximately 132 of my exam), irregular rhythm, normal heart sounds. Absent: systolic murmur, diastolic murmur, rubs, gallop GI/Abdominal exam: Present: soft. Absent: distended, tenderness, guarding, rebound, rigid, mass Extremities exam: Present: normal inspection, normal capillary refill. Absent: pedal edema, calf tenderness Neurological exam: Present: alert Skin exam: Present: warm, dry, intact, normal color. Absent: rash Course Vital Signs 08/29/19 08/29/19 08/29/19 05:28 06:14 06:29 Temperature 99.1 F 99.2 F Pulse Rate 134 H 125 H Respiratory 18 20 24 Rate Blood Pressure 111/69 105/82 O2 Sat by Pulse 92 L 94 L Oximetry Medical Decision Making - Lab Data Result diagrams: 08/29/19 05:57 08/29/19 05:57 Lab Results 08/29/19 08/29/19 08/29/19 Range/Units 05:57 05:57 05:57 WBC 22.4 H (3.8-10.6) k/uL RBC 5.47 (4.30-5.90) m/uL Hgb 16.3 (13.0-17.5) gm/dL Hct 48.9 (39.0-53.0) % MCV 89.3 (80.0-100.0) fL MCH 29.7 (25.0-35.0) pg MCHC 33.3 (31.0-37.0) g/dL RDW 14.9 (11.5-15.5) % Plt Count 186 (150-450) k/uL Neutrophils % 93 % Lymphocytes % 2 % Monocytes % 3 % Eosinophils % 1 % Basophils % 0 % Neutrophils # 20.8 H (1.3-7.7) k/uL Lymphocytes # 0.5 L (1.0-4.8) k/uL Monocytes # 0.8 (0-1.0) k/uL Eosinophils # 0.1 (0-0.7) k/uL Basophils # 0.1 (0-0.2) k/uL PT 14.1 H (9.0-12.0) sec INR 1.4 H (<1.2) APTT 25.7 (22.0-30.0) sec Sodium 142 (137-145) mmol/L Potassium 4.6 (3.5-5.1) mmol/L Chloride 106 (98-107) mmol/L Carbon Dioxide 24 (22-30) mmol/L Anion Gap 12 mmol/L BUN 23 H (9-20) mg/dL Creatinine 0.93 (0.66-1.25) mg/dL Est GFR (CKD-EPI)AfAm >90 (>60 ml/min/1.73 sqM) Est GFR (CKD-EPI)NonAf 86 (>60 ml/min/1.73 sqM) Glucose 189 H (74-99) mg/dL Calcium 8.9 (8.4-10.2) mg/dL Magnesium 1.5 L (1.6-2.3) mg/dL Total Bilirubin 1.5 H (0.2-1.3) mg/dL AST 27 (17-59) U/L ALT 25 (21-72) U/L Alkaline Phosphatase 113 (38-126) U/L Total Protein 7.2 (6.3-8.2) g/dL Albumin 3.7 (3.5-5.0) g/dL - EKG Data -: EKG Interpreted by [facility] EKG shows normal: axis (Normal), intervals, QRS complexes (Normal), ST-T waves (Normal) Rate: tachycardia (Approximate 1 30 bpm.) Interpretation: other (Underlying rhythm appears to be atrial fibrillation with rapid ventricular rate) Critical Care Time Critical Care Time: Yes (30 minutes) Disposition Clinical Impression: Atrial fibrillation with RVR Disposition: ADMITTED IP TO THIS HOSP Condition: Fair Referrals: Mike Elise DO [Primary Care Provider] - 1-2 days
[2019-08-29] MEDS: IPRATROPIUM-ALBUTEROL 3 ML NEB INHALATION SCH ×4 (07:57→21:12)
[2019-08-29] MEDS ORDERED: levETIRAcetam 500 MG TAB PO SCH (08:00)
[2019-08-29] MEDS ORDERED: LEVOTHYROXINE 100 MCG TAB PO SCH (08:00)
[2019-08-29] MEDS ORDERED: METOPROLOL TARTRATE 25 MG TAB PO SCH (09:00)
[2019-08-29] MEDS ORDERED: METOPROLOL TARTRATE 50 MG TAB PO SCH (09:00)
[2019-08-29] MEDS: GABAPENTIN 300 MG CAP PO SCH ×2 (09:29→20:27)
[2019-08-29] MEDS: APIXABAN 2.5 MG TABLET PO SCH ×2 (09:30→20:27)
[2019-08-29] MEDS: ALLOPURINOL 100 MG TAB PO SCH (09:32)
[2019-08-29] MEDS ORDERED: MAGNESIUM SULFATE-D5W PMX 1 GM in DEXTROSE/WATER 1 100ML.BAG IVPB ONE (10:00)
[2019-08-29] MEDS ORDERED: HYDROcodone/APAP 5-325MG 1 EACH TAB PO PRN (10:58)
[2019-08-29] MEDS: levETIRAcetam ORAL SOLN 500 MG/5 ML CUP PO SCH ×2 (11:18→20:27)
[2019-08-29] MEDS: SODIUM CHLORIDE 0.9% 1,000 ML IV SCH (11:32)
--- NOTE | 2019-08-29 14:37 | P.CRDCN ---
History of Present Illness Consult date: 08/29/19 Reason for Consult (text): hypotension Chief complaint: Hypotension History of present illness: HISTORY OF PRESENT ILLNESS AND PLAN: This is a 64-year-old male with history of ETOH with falling, dementia, COPD, hyperlipidemia, hypothyroid, sepsis, paroxysmal atrial fibrillation and CVA with left-sided weakness. Patient is a resident of [facility] and is wheelchair bound due to CVA history. Patient presents in the emergency department with complaints of shortness of breath and found to be in A. fib RVR. Pt currently weak and unable to talk much, patient may be poor historian. Patient follows with Dr. Elise. Current telemetry shows atrial fibrillation with RVR, heart rate 114. BP 102/70. Patient is on 3 L O2 NC at 91% saturation. Patient has audible coarse rhonchi bilaterally in lung feng with cough and low grade fever at 99. DX of chest shows only cardiomegaly. Patient has no appetite but is able to swallow medications or water easily. Patient has history of PAF and is anticoagulated with Eliquis 2.5 mg BID. At home pt takes digoxin 125 g at bedtime and metoprolol tartrate 75 mg twice daily. Patient is currently lying in bed and is very lethargic/week. 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 Patient states he does feed himself at facility. Patient currently on Cardizem drip at 5 mL's per hour and 0.9 normal saline at 20 mL's per hour. SIGNIFICANT PAST MEDICAL HISTORY: Resident of [facility] who is W/C bound with history of dementia, COPD, hyperlipidemia, hypothyroid, sepsis, paroxysmal atrial fibrillation and CVA with left-sided weakness. PAST SURGICAL HISTORY: See list. EKG = Atrial fibrillation with rapid ventricular rate, heart rate 114 bpm. Troponins negative mildly elevated at 0.034 and 0.019. SIGNIFICANT LABORATORY VALUES: BNP 2150. Magnesium 1.5. WBC 22.4. Glucose 189. No current U/A. Chest x-ray WNL, positive for cardiomegaly. Most recent echo 05/2017 = EF 55-60%, WNL Most recent stress testing dated = none recently. REVIEW OF SYSTEMS: CONSTITUTIONAL: Denies fever. Denies chills. EYES: Denies blurred vision. Denies blurred vision or vision changes. Denies eye pain. EARS, NOSE, MOUTH & THROAT: Denies headache. Denies sore throat. Denies ear pain Denies hemoptysis. CARDIOVASCULAR: Denies chest pain. Complains of shortness of breath. Denies orthopnea. Denies PND. C/O palpitations. RESPIRATORY: Complains of cough. Complains of shortness of breath. GASTROINTESTINAL: Denies abdominal pain or distention. Denies diarrhea. Denies constipation. Denies nausea. Denies vomiting. MUSCULOSKELETAL: C/O myalgias. INTEGUMENTARY: Denies pruitis. Denies rash. ENDOCRINE: Complains of fatigue. Denies weight change. Denies polydipsia. Denies polyurina Denies heat/cold intolerance. GENITOURINARY: Denies burning, hematuria or urgency with micturation. HEMATOLOGIC: Denies history of anemia. Denies bleeding. NEUROLOGIC: Denies numbness. Denies tingling. Complains of weakness. PSYCHIATRIC: Denies anxiety. Denies depression. PHYSICAL EXAM: GENERAL: Well developed, in no acute distress. HEENT: Head is atraumatic, normocephalic. Pupils are equal, round. Extra ocular movements intact. Mucous membranes dry. Neck supple. No JVD. No carotid bruit. No thyromegaly. LUNGS: Bilateral course rhonchi in both upper/lower lung feng. No chest wall tenderness on palpation or with deep breathing. HEART: Irregular rate and rhythm, no rubs or gallops. S1 and S2 heard. No murmur. ABDOMEN: Abdominal exam, WNL. Bowel sounds x4 quads. Soft, non-tender, without masses, organomegaly, or abdominal aorta enlargement. EXTREMITIES/VASCULAR: Extremities have easily palpable radial, femoral, dorsalis pedis and posterior tibial pulses. No cyanosis, calf tenderness. No BLE edema. NEUROLOGIC: Patient is awake, alert and oriented x1. LEFT sided weakness and generalized muscle atrophy/stiffness. FINAL IMPRESSION: 1. Atrial fibrillation with rapid ventricular rate. 2. Mild troponin elevation 0.034, 0.019. 3. Low-grade fever at 99 degrees F. 4. Weakness/fatigue. 5. s/p CVA with left-sided weakness. PLAN: Increase 0.9 normal saline to 5o mL per hour. Replace magnesium IV 1 g today then by mouth 400 mg daily. STOP ASA. INCREASE metoprolol tartrate to 75 mg 3 times daily. Discontinue Cardizem drip. Continue same all other medical/me dication regime. Advise urinary analysis. Consider repeat chest x-ray in a.m. Add procalcitonin and TSH level to a.m. labs drawn. Consider developing pneumonia or possible developing sepsis. Will continue to follow. Nurse Practitioner note has been reviewed by the Physician. Signing provider agrees with the documented findings, assessment and plan of care. Past Medical History Past Medical History: Atrial Fibrillation, COPD, Hearing Disorder / Deafness, Hyperlipidemia, Hypertension, Thyroid Disorder Additional Past Medical History / Comment(s): 02/13/15 ADMISSION FOR [facility]. Other HX: 09/05/14 admission to [facility] with seizure thought to be alcohol related, alcoholism (pt has not had any alcohol since 2013). WEAK HEART valve. History of Any Multi-Drug Resistant Organisms: None Reported Past Surgical History: Appendectomy Past Anesthesia/Blood Transfusion Reactions: No Reported Reaction Additional Past Anesthesia/Blood Transfusion Reaction / Comment(s): Pt has never recieved blood. Past Psychological History: No Psychological Hx Reported Smoking Status: Former smoker Past Alcohol Use History: None Reported Additional Past Alcohol Use History / Comment(s): STARTED SMOKING AT AGE 14, SMOKES 3/4 PPD. Pt states his last time drinking alcohol was last 2013 after his admission to the hospital for seizuring Past Drug Use History: None Reported - Past Family History Mother Family Medical History: Cancer Father Family Medical History: No Reported History Additional Family Medical History / Comment(s): Father of old age. Medications and Allergies Home Medications Medication Instructions Recorded Confirmed Type Levothyroxine Sodium [Synthroid] 100 mcg PO DAILY@0600 09/05/14 08/29/19 History Digoxin [Lanoxin] 125 mcg PO HS@199901/04/16 08/29/19 History Acetaminophen [Tylenol Extra 500 mg PO Q4H PRN 06/18/17 08/29/19 History Strength] Apixaban [Eliquis] 2.5 mg PO BID 06/18/17 08/29/19 History Cholecalciferol [Vitamin D3 (25 1,000 unit PO HS@199906/18/17 08/29/19 History Mcg = 1000 Iu)] Gabapentin [Neurontin] 300 mg PO BID 06/18/17 08/29/19 History Allopurinol [Zyloprim] 200 mg PO DAILY tab 06/26/17 08/29/19 Rx Ammonium Lactate Lotion 1 applic TOPICAL BID 08/29/19 08/29/19 History [Lac-Hydrin 12% Lotion] Atorvastatin [Lipitor] 80 mg PO HS 08/29/19 08/29/19 History Hydrocodone/Acetaminophen [[place] 1 tab PO Q6HR PRN 08/29/19 08/29/19 History 5-325] Ipratropium-Albuterol Nebulize 3 ml INHALATION RT-Q8H 08/29/19 08/29/19 History [Duoneb 0.5 mg-3 mg/3 ml Soln] Metoprolol Tartrate [Lopressor] 75 mg PO BID 08/29/19 08/29/19 History levETIRAcetam [Keppra Oral 1,000 mg PO BID@0800,2000 08/29/19 08/29/19 History Solution] Allergies Allergy/AdvReac Type Severity Reaction Status Date / Time No Known Allergies Allergy Verified 08/29/19 07:26 Physical Exam Vitals: Vital Signs Temp Pulse Pulse Resp BP BP Pulse Ox 08/29/19 11:45 88 08/29/19 11:36 88 08/29/19 08:10 92 08/29/19 08:00 110 H 20 08/29/19 07:58 92 08/29/19 07:16 98.1 F 110 H 20 102/70 91 L 08/29/19 06:51 99 F 114 H 22 106/92 92 L 08/29/19 06:29 24 08/29/19 06:14 99.2 F 125 H 20 105/82 94 L 08/29/19 05:28 99.1 F 134 H 18 111/69 92 L Intake and Output 08/28/19 08/29/19 08/29/19 23:59 06:59 14:59 Other: Weight Results 08/29/19 05:57 08/29/19 05:57 Cardiac Enzymes 08/29/19 08/29/19 08/29/19 Range/Units 05:57 05:57 10:59 AST 27 (17-59) U/L Troponin I 0.034 0.019 (0.000-0.034) ng/mL Coagulation 08/29/19 Range/Units 05:57 PT 14.1 H (9.0-12.0) sec APTT 25.7 (22.0-30.0) sec CBC 08/29/19 Range/Units 05:57 WBC 22.4 H (3.8-10.6) k/uL RBC 5.47 (4.30-5.90) m/uL Hgb 16.3 (13.0-17.5) gm/dL Hct 48.9 (39.0-53.0) % Plt Count 186 (150-450) k/uL Comprehensive Metabolic Panel 08/29/19 Range/Units 05:57 Sodium 142 (137-145) mmol/L Potassium 4.6 (3.5-5.1) mmol/L Chloride 106 (98-107) mmol/L Carbon Dioxide 24 (22-30) mmol/L BUN 23 H (9-20) mg/dL Creatinine 0.93 (0.66-1.25) mg/dL Glucose 189 H (74-99) mg/dL Calcium 8.9 (8.4-10.2) mg/dL AST 27 (17-59) U/L ALT 25 (21-72) U/L Alkaline Phosphatase 113 (38-126) U/L Total Protein 7.2 (6.3-8.2) g/dL Albumin 3.7 (3.5-5.0) g/dL Current Medications Generic Name Dose Route Start Last Admin Trade Name Freq PRN Reason Stop Dose Admin Hydrocodone Bitart/Acetaminophen 1 each 08/29/19 10:58 [place] 5-325 PO Q6HR PRN Moderate Pain Albuterol/Ipratropium 3 ml 08/29/19 08:00 08/29/19 11:36 Duoneb 0.5 Mg-3 Mg/3 Ml Soln INHALATION 3 ml RT-QID [facility] Administration Allopurinol 200 mg 08/29/19 09:00 08/29/19 09:32 Zyloprim PO 200 mg DAILY@0600 [facility] Administration Apixaban 2.5 mg 08/29/19 09:00 08/29/19 09:30 Eliquis PO 2.5 mg BID [facility] Administration Atorvastatin Calcium 80 mg 08/29/19 21:00 Lipitor PO HS [facility] Cholecalciferol 1,000 unit 08/29/19 20:00 Vitamin D3 (25 Mcg = 1000 Iu) PO HS@1999 [facility] Digoxin 125 mcg 08/30/19 20:00 Lanoxin PO Q48H [facility] Famotidine 20 mg 08/29/19 21:00 Pepcid PO HS [facility] Gabapentin 300 mg 08/29/19 09:00 08/29/19 09:29 Neurontin PO 300 mg BID [facility] Administration Sodium Chloride 1,000 mls @ 50 mls/hr 08/29/19 09:45 08/29/19 11:32 Saline 0.9% IV 50 mls/hr .Q20H [facility] Administration Lactic Acid 1 applic 08/29/19 11:15 Lac-Hydrin 12% TOPICAL BID [facility] Levetiracetam 1,000 mg 08/29/19 11:15 08/29/19 11:18 Keppra Oral Soln PO Not Given BID@0800,1999 [facility] Levothyroxine Sodium 100 mcg 08/30/19 06:00 Synthroid PO DAILY@0600 [facility] Magnesium Oxide 400 mg 08/30/19 09:00 Mag-Ox PO DAILY [facility] Metoprolol Tartrate 75 mg 08/29/19 16:00 Lopressor PO TID [facility] Nitroglycerin 0.4 mg 08/29/19 06:34 Nitrostat SUBLINGUAL Q5M PRN Chest Pain Intake and Output 08/28/19 08/29/19 08/29/19 23:59 06:59 14:59 Other: Weight 08/29/19 05:57 08/29/19 05:57 - EKG Interpretation EKG shows: atrial fibrillation (RVR)
--- NOTE | 2019-08-29 14:53 | P.HPIM ---
History of Present Illness H&P Date: 08/29/19 Chief Complaint: Short of breath History of presenting complaint: This is a 64 year patient who follows a Dr. Elise at the [facility]. Chronic stable medical conditions include, atrial fibrillation, COPD, hyperlipidemia, hypertension, hypothyroid. Patient's chronically weak on the left side. Had to baseline has a slurred speech. Has put the EMS sheet the half-way staff as stated to them that patient had vomited earlier and possibly aspirated. Pulse ox at gone down to the 80s. Patient is put on 4 L of nasal cannula. Patient sounded congested. Patient's son you bit congested. Patient not a very good historian. No fever no chills. Denies any pain. Has a Vigil catheter. Review of systems: GEN.: Tired EYES: None HEENT: None NECK: None RESPIRATORY: As above CARDIOVASCULAR: None GASTROINTESTINAL: No abdominal pain GENITOURINARY: Vigil catheter MUSCULOSKELETAL: Cranial joints LYMPHATICS: None HEMATOLOGICAL: None PSYCHIATRY: None NEUROLOGICAL: Left-sided weakness, slurred speech Past medical history to include: Atrial fibrillation, COPD, who ordered. He, hyperlipidemia, hypertension, hypothyroid. Alcohol related seizures in the past. Alcoholism. Patient's last drink was in 2013. Patient smoked for close to 50 years. Physical examination: VITAL SIGNS: 99, 134, 18, 111/69, 92% room air GENERAL: Well-built, laying bed awake. EYES: Pupils equal. Conjunctiva normal. HEENT: External appearance of nose and ears normal, oral cavity dry. NECK: JVD unable to assess; masses not palpable. HEART: First and second heart sounds are normal; no edema. LUNGS: Respiratory rate increased, decreased breath sounds, expiratory crackles. ABDOMEN: Soft, nontender, liver spleen not palpable, no masses palpable, Vigil catheter. PSYCH: [Able to answer simple questions. NEUROLOGICAL: Slurred speech, power in the left arm is 1/5, left leg 1 x 5. LYMPHATICS: No lymph nodes palpable in the axilla and neck INVESTIGATIONS, reviewed in the clinical context: White count 22.4 hemoglobin 16.3 potassium 4.6 creatinine 0.93 Troponin I 0.034, 0.019 ProBNP 2150 EKG tracing personally reviewed by Joanna fib with rapid ventricular rate Chest x-ray film personally reviewed by me-cardiomegaly, no obvious infiltrate Assessment: -Patient is reported to have vomiting and aspiration of fluid. Patient most likely had aspiration pneumonitis. It could be chemical purposes a few bacteria. No visual include gastric contents. -Chronic left-sided weakness -Persistent atrial fibrillation with rapid ventricular rate -COPD in a smoker -Hyperlipidemia -Essential hypertension -Chronic epilepsy disorder -Hypothyroid Plan: Cardiology was consulted. Home medications resumed. Patient was started on Cardizem drip in the ER. We will add IV clindamycin. We'll do aspiration precautions. Feeding with assistance. Consult speech therapy. Lovenox for DVT prophylaxis. Past Medical History Past Medical History: Atrial Fibrillation, COPD, Hearing Disorder / Deafness, Hyperlipidemia, Hypertension, Thyroid Disorder Additional Past Medical History / Comment(s): 02/13/15 ADMISSION FOR [facility]. Other HX: 09/05/[address] [facility] with seizure thought to be alcohol related, alcoholism (pt has not had any alcohol since 2013). WEAK HEART valve. History of Any Multi-Drug Resistant Organisms: None Reported Past Surgical History: Appendectomy Past Anesthesia/Blood Transfusion Reactions: No Reported Reaction Additional Past Anesthesia/Blood Transfusion Reaction / Comment(s): Pt has never recieved blood. Past Psychological History: No Psychological Hx Reported Smoking Status: Former smoker Past Alcohol Use History: None Reported Additional Past Alcohol Use History / Comment(s): STARTED SMOKING AT AGE 14, SMOKES 3/4 PPD. Pt states his last time drinking alcohol was last 2013 after his admission to the hospital for seizuring Past Drug Use History: None Reported - Past Family History Mother Family Medical History: Cancer Father Family Medical History: No Reported History Additional Family Medical History / Comment(s): Father of old age. Medications and Allergies Home Medications Medication Instructions Recorded Confirmed Type Levothyroxine Sodium [Synthroid] 100 mcg PO DAILY@0600 09/05/14 08/29/19 History Digoxin [Lanoxin] 125 mcg PO HS@199901/04/16 08/29/19 History Acetaminophen [Tylenol Extra 500 mg PO Q4H PRN 06/18/17 08/29/19 History Strength] Apixaban [Eliquis] 2.5 mg PO BID 06/18/17 08/29/19 History Cholecalciferol [Vitamin D3 (25 1,000 unit PO HS@199906/18/17 08/29/19 History Mcg = 1000 Iu)] Gabapentin [Neurontin] 300 mg PO BID 06/18/17 08/29/19 History Allopurinol [Zyloprim] 200 mg PO DAILY tab 06/26/17 08/29/19 Rx Ammonium Lactate Lotion 1 applic TOPICAL BID 08/29/19 08/29/19 History [Lac-Hydrin 12% Lotion] Atorvastatin [Lipitor] 80 mg PO HS 08/29/19 08/29/19 History Hydrocodone/Acetaminophen [[place] 1 tab PO Q6HR PRN 08/29/19 08/29/19 History 5-325] Ipratropium-Albuterol Nebulize 3 ml INHALATION RT-Q8H 08/29/19 08/29/19 History [Duoneb 0.5 mg-3 mg/3 ml Soln] Metoprolol Tartrate [Lopressor] 75 mg PO BID 08/29/19 08/29/19 History levETIRAcetam [Keppra Oral 1,000 mg PO BID@08,199908/29/19 08/29/19 History Solution] Allergies Allergy/AdvReac Type Severity Reaction Status Date / Time No Known Allergies Allergy Verified 08/29/19 07:26 Physical Exam Vitals: Vital Signs Temp Pulse Pulse Resp BP BP Pulse Ox 08/29/19 11:45 88 08/29/19 11:36 88 08/29/19 08:10 92 08/29/19 08:00 110 H 20 08/29/19 07:58 92 08/29/19 07:16 98.1 F 110 H 20 102/70 91 L 08/29/19 06:51 99 F 114 H 22 106/92 92 L 08/29/19 06:29 24 08/29/19 06:14 99.2 F 125 H 20 105/82 94 L 08/29/19 05:28 99.1 F 134 H 18 111/69 92 L Intake and Output 08/28/19 08/29/19 08/29/19 23:59 06:59 14:59 Other: Weight Results CBC & Chem 7: 08/29/19 05:57 08/29/19 05:57 Labs: Abnormal Lab Results - Last 24 Hours (Table) 08/29/19 08/29/19 08/29/19 Range/Units 05:57 05:57 05:57 WBC 22.4 H (3.8-10.6) k/uL Neutrophils # 20.8 H (1.3-7.7) k/uL Lymphocytes # 0.5 L (1.0-4.8) k/uL PT 14.1 H (9.0-12.0) sec INR 1.4 H (<1.2) BUN 23 H (9-20) mg/dL Glucose 189 H (74-99) mg/dL Magnesium 1.5 L (1.6-2.3) mg/dL Total Bilirubin 1.5 H (0.2-1.3) mg/dL Thrombosis Risk Factor Assmnt - Choose All That Apply Any of the Below Risk Factors Present?: No Other Risk Factors: Yes Each Risk Factor Represents 2 Points: Age 61-74 years Other congenital or acquired thrombophilia - If yes, enter type in comment: No Thrombosis Risk Factor Assessment Total Risk Factor Score: 2 Thrombosis Risk Factor Assessment Level: Low Risk
[2019-08-29] MEDS ORDERED: CLINDAMYCIN 300 MG in DEXTROSE 5% IN WATER 50 ML IVPB SCH ×2 (15:00)
[2019-08-29] MEDS: AMMONIUM LACTATE 12% LOTION 225 GM BTL TOPICAL SCH ×2 (17:07→20:27)
[2019-08-29] MEDS: METOPROLOL TARTRATE 25 MG TAB PO SCH ×2 (17:08→20:27)
[2019-08-29] MEDS: CLINDAMYCIN 300 MG in DEXTROSE 5% IN WATER 50 ML IVPB SCH ×4 (17:08→22:35)
[2019-08-29] MEDS: FAMOTIDINE 20 MG TAB PO SCH (20:27)
[2019-08-29] MEDS: CHOLECALCIFEROL 1,000 UNIT TAB PO SCH (20:27)
[2019-08-29] MEDS: ATORVASTATIN 80 MG TAB PO SCH (20:27)
[2019-08-29] MEDS ORDERED: ATORVASTATIN 80 MG TAB PO SCH (21:00)
[2019-08-30] MEDS: CLINDAMYCIN 300 MG in DEXTROSE 5% IN WATER 50 ML IVPB SCH ×8 (03:23→19:55)
[2019-08-30] MEDS: ALLOPURINOL 100 MG TAB PO SCH (06:21)
[2019-08-30] MEDS: LEVOTHYROXINE 100 MCG TAB PO SCH (06:21)
[2019-08-30] MEDS: SODIUM CHLORIDE 0.9% 1,000 ML IV SCH ×2 (06:24→23:39)
[2019-08-30 06:59] LABS: HCT 47.6 % (39.0-53.0); HGB 15.1 gm/dL (13.0-17.5); Hypochromasia Slight; MCH 29.2 pg (25.0-35.0); MCHC 31.7 g/dL (31.0-37.0); Platelet Count 183 k/uL (150-450); RBC 5.18 m/uL (4.30-5.90); RDW 14.9 % (11.5-15.5); WBC 18.5 k/uL (3.8-10.6)
[2019-08-30 07:04] LABS: African American GFR (CKD) >90 (>60 ml/min/1.73 sqM); Anion Gap 8 mmol/L; Blood Urea Nitrogen 24 mg/dL (9-20); Calcium 8.5 mg/dL (8.4-10.2); Carbon Dioxide 25 mmol/L (22-30); Chloride 108 mmol/L (98-107); Cholesterol 110 mg/dL (<200); Glucose 96 mg/dL (74-99); HDL Cholesterol 35 mg/dL (40-60); LDL Cholesterol,Calculated 62 mg/dL (0-99); Non-African American GFR(CKD) >90 (>60 ml/min/1.73 sqM); Potassium 4.6 mmol/L (3.5-5.1); Sodium 141 mmol/L (137-145); Triglycerides 64 mg/dL (<150)
[2019-08-30] MEDS: IPRATROPIUM-ALBUTEROL 3 ML NEB INHALATION SCH ×4 (07:58→19:22)
[2019-08-30] MEDS ORDERED: ASPIRIN 325 MG TAB PO SCH (09:00)
[2019-08-30] MEDS: levETIRAcetam ORAL SOLN 500 MG/5 ML CUP PO SCH ×2 (09:35→19:55)
[2019-08-30] MEDS: METOPROLOL TARTRATE 25 MG TAB PO SCH ×3 (09:35→19:54)
[2019-08-30] MEDS: GABAPENTIN 300 MG CAP PO SCH ×2 (09:36→19:55)
[2019-08-30] MEDS: MAGNESIUM OXIDE 400 MG TAB PO SCH (09:36)
[2019-08-30] MEDS: APIXABAN 2.5 MG TABLET PO SCH ×2 (09:36→19:55)
[2019-08-30] MEDS: AMMONIUM LACTATE 12% LOTION 225 GM BTL TOPICAL SCH ×2 (09:36→19:46)
[2019-08-30 11:58] VITALS: BMI 25.3
--- NOTE | 2019-08-30 12:06 | P.PN ---
Subjective Progress Note Date: 08/30/19 This is a 64-year-old gentleman with history of EtOH abuse, dementia, COPD, hyperlipidemia, hypothyroidism, paroxysmal atrial fibrillation with prior CVA and left-sided weakness, sepsis, [facility] He presented to the hospital on this occasion with symptoms of shortness of breath, was found to be in atrial fibrillation with a rapid ventricular response. Patient had been seen in consultation yesterday. His blood pressure this morning 100/60 with a heart rate in the 100, 92% on room air. White blood cell count 22 on admission, 18 this morning, hemoglobin 15, platelet count 183. Sodium 141, potassium 4.6, BUN 24 and creatinine 0.9. Troponins 0.034, 0.019, 0.014. Pro calcitonin 4.2. At the time of my examination this morning, patient has significant rhonchi, with cough, nonproductive. Objective - Vital Signs Vital signs: Vital Signs Temp 98.2 F 08/30/19 08:00 Pulse 100 08/30/19 11:16 Resp 18 08/30/19 08:00 BP 100/61 08/30/19 08:00 Pulse Ox 92 L 08/30/19 08:00 Intake & Output 08/29/19 08/30/19 08/30/19 18:59 06:59 18:59 Intake Total 462 50 Balance 462 50 Weight 82.5 kg Intake: Intake, IV Titration 50 Amount Clindamycin 300 mg In 50 Dextrose 5% in Water 50 ml @ 50 mls/hr IVPB Q6H [facility] Rx#:[id number] Oral 462 Other: Voiding Method Incontinent Incontinent Incontinent # Voids 1 1 - Exam PHYSICAL EXAMINATION: GENERAL: 64-year-old gentleman in no acute distress at the time of my examination HEENT: Head is atraumatic, normocephalic. Pupils equal, round. Sclera anicteric. Conjunctiva are clear. Mucous membranes of the mouth are moist. Ne ck is supple. There is no elevated jugular venous pressure. No carotid bruit is heard. HEART EXAMINATION: Heart S1 and S2 irregularly irregular CHEST EXAMINATION: Reveal moderate coarse rhonchi throughout. ABDOMEN: Soft, nontender. Bowel sounds are heard. No organomegaly noted. EXTREMITIES: 2+ peripheral pulses with no evidence of peripheral edema and no calf tenderness noted. NEUROLOGIC [patient is awake, alert and oriented 1 - Labs CBC & Chem 7: 08/30/19 06:28 08/30/19 06:28 Labs: Abnormal Lab Results - Last 24 Hours (Table) 08/29/19 08/30/19 08/30/19 Range/Units 10:59 06:28 06:28 WBC 18.5 H (3.8-10.6) k/uL Chloride 108 H (98-107) mmol/L BUN 24 H (9-20) mg/dL HDL Cholesterol 35 L (40-60) mg/dL Procalcitonin 4.20 H (0.02-0.09) ng/mL Assessment and Plan Plan: Assessment and plan #1 atrial fibrillation with rapid ventricular response, persistent, on Eliquis for anticoagulation #2 troponin abnormality, not consistent with acute coronary syndrome, could be secondary to A. fib with RVR #3 low-grade fever with associated abnormal pro calcitonin suggesting possible pneumonia #4 weakness fatigue #5 status post CVA with left-sided weakness #6 hypothyroidism #7 EtOH use #8 nicotine dependence Plan Echocardiogram with Doppler study has been performed but is yet pending, we would recommend to continue current antibiotics. Continue metoprolol 75 mg one tablet by mouth 3 times a day. DNP note has been reviewed, I agree with a documented findings and plan of care. Patient was seen and examined.
--- NOTE | 2019-08-30 12:40 | ECHOF ---
Referral Reason:SOB/Afib RVR MEASUREMENTS -------- HEIGHT: 162.6 cm WEIGHT: 82.1 kg BP: RVIDd: 3.1 cm (< 3.3) IVSd: 1.4 cm (0.6 - 1.1) LVIDd: 3.0 cm (3.9 - 5.3) LVPWd: 1.7 cm (0.6 - 1.1) IVSs: 1.4 cm LVIDs: 2.7 cm LVPWs: 1.5 cm LA Diam: 4.0 cm (2.7 - 3.8) Ao Diam: 3.4 cm (2.0 - 3.7) AV Cusp: 1.7 cm (1.5 - 2.6) LA Diam: 4.4 cm (2.7 - 3.8) MV EXCURSION: 15.271 mm (> 18.000) MV EF SLOPE: 109 mm/s (70 - 150) EPSS: 0.5 cm RAP: 5.00 mmHg RVSP: 19.78 mmHg FINDINGS -------- Undetermined rhythm. This was a technically difficult study with suboptimal views. The left ventricular size is normal. There is mild concentric left ventricular hypertrophy. Overa ll left ventricular systolic function is low-normal with, an EF between 50 - 55 %. The right ventricle is normal in size. The left atrial size is normal. The right atrial size is normal. 5.0mg OF Lum[place] UTLIZED: 2 OR MORE WALL SEGMENTS NOT VISUALIZED. The aortic valve was not well visualized. Mild mitral annular calcification present. Mild mitral regurgitation is present. The tricuspid valve was not well visualized. Unable to estimate RVSP due to inadequate TR jet spect ral doppler profile. The pulmonic valve was not well visualized. Echo free space represents a pericardial fat pad. CONCLUSIONS -------- 1. Undetermined rhythm. 2. This was a technically difficult study with suboptimal views. 3. The left ventricular size is normal. 4. There is mild concentric left ventricular hypertrophy. 5. The right ventricle is normal in size. 6. The left atrial size is normal. 7. The right atrial size is normal. 8. 5.0mg OF Lumason UTLIZED: 2 OR MORE WALL SEGMENTS NOT VISUALIZED. 9. The aortic valve was not well visualized. 10. Mild mitral annular calcification present. 11. Mild mitral regurgitation is present. 12. The tricuspid valve was not well visualized. 13. Unable to estimate RVSP due to inadequate TR jet spectral doppler profile. 14. The pulmonic valve was not well visualized. 15. Echo free space represents a pericardial fat pad. VICE PRESIDENT OF PROCUREMENT: Tete Carmichael RDCS
[2019-08-30 16:51] LABS: Appearance,Urine Clear (Clear); Bilirubin,Urine Negative (Negative); Blood,Urine Small (Negative); Color,Urine Yellow; Glucose,Urine (UA) Negative (Negative); Ketones,Urine Negative (Negative); Leukocyte Esterase,Urine Negative (Negative); Mucus,Urine Rare /hpf; Nitrite,Urine Negative (Negative); Protein,Urine Trace (Negative); RBC,Urine 70 /hpf (0-5); Specific Gravity,Urine 1.027 (1.001-1.035); WBC,Urine 7 /hpf (0-5)
[2019-08-30] MEDS: CHOLECALCIFEROL 1,000 UNIT TAB PO SCH (19:54)
[2019-08-30] MEDS: ATORVASTATIN 80 MG TAB PO SCH (19:55)
[2019-08-30] MEDS: FAMOTIDINE 20 MG TAB PO SCH (19:55)
[2019-08-30] MEDS ORDERED: DIGOXIN 125 MCG TAB PO SCH (20:00)
--- NOTE | 2019-08-30 21:51 | P.PN ---
Progress Note - Text Progress Note Date: 08/30/19 Chief Complaint: Short of breath History of presenting complaint: This is a 64 year patient who follows a Dr. Elise at the [facility]. Chronic stable medical conditions include, atrial fibrillation, COPD, hyperlipidemia, hypertension, hypothyroid. Patient's chronically weak on the left side. Had to baseline has a slurred speech. Has put the EMS sheet the senior care staff as stated to them that patient had vomited earlier and possibly aspirated. Pulse ox at gone down to the 80s. Patient is put on 4 L of nasal cannula. Patient sounded congested. Patient's sounded congested. Patient not a very good historian. No fever no chills. Denies any pain. Has a Vigil catheter. Admitted with-atrial fibrillation with rapid ventricular rate, aspiration pneumonia Today-A. fib rate is controlled. Eating reasonably well. Less cough. Review of systems: Was done for constitutional, cardiovascular, GI, pulmonary. relevant finding as above Active Medications Hydrocodone Bitart/Acetaminophen ([place] 5-325) 1 each PO Q6HR PRN PRN Reason: Moderate Pain Albuterol/Ipratropium (Duoneb 0.5 Mg-3 Mg/3 Ml Soln) 3 ml INHALATION RT-QID [facility] Last Admin: 08/30/19 19:22 Dose: Not Given Documented by: Allopurinol (Zyloprim) 200 mg PO DAILY@0600 [facility] Last Admin: 08/30/19 06:21 Dose: 200 mg Documented by: Apixaban (Eliquis) 2.5 mg PO BID [facility] Last Admin: 08/30/19 19:55 Dose: 2.5 mg Documented by: Atorvastatin Calcium (Lipitor) 80 mg PO [facility] Last Admin: 08/30/19 19:55 Dose: 80 mg Documented by: Cholecalciferol (Vitamin D3 (25 Mcg = 1000 Iu)) 1,000 unit PO HS@2000 [facility] Last Admin: 08/30/19 19:54 Dose: 1,000 unit Documented by: Digoxin (Lanoxin) 125 mcg PO Q48H [facility] Last Admin: 08/30/19 19:55 Dose: 125 mcg Documented by: Famotidine (Pepcid) 20 mg PO [facility] Last Admin: 08/30/19 19:55 Dose: 20 mg Documented by: Gabapentin (Neurontin) 300 mg PO BID [facility] Last Admin: 08/30/19 19:55 Dose: 300 mg Documented by: Sodium Chloride (Saline 0.9%) 1,000 mls @ 50 mls/hr IV .Q20H [facility] Last Admin: 08/30/19 06:24 Dose: 50 mls/hr Documented by: Clindamycin Phosphate 300 mg/ (Dextrose/Water) 52 mls @ 50 mls/hr IVPB Q6H [facility] Last Admin: 08/30/19 19:55 Dose: 50 mls/hr Documented by: Lactic Acid (Lac-Hydrin 12%) 1 applic TOPICAL BID [facility] Last Admin: 08/30/19 19:46 Dose: Not Given Documented by: Levetiracetam (Keppra Oral Soln) 1,000 mg PO BID@0800,2000 [facility] Last Admin: 08/30/19 19:55 Dose: 1,000 mg Documented by: Levothyroxine Sodium (Synthroid) 100 mcg PO DAILY@0600 [facility] Last Admin: 08/30/19 06:21 Dose: 100 mcg Documented by: Magnesium Oxide (Mag-Ox) 400 mg PO DAILY [facility] Last Admin: 08/30/19 09:36 Dose: 400 mg Documented by: Metoprolol Tartrate (Lopressor) 75 mg PO TID [facility] Last Admin: 08/30/19 19:54 Dose: 75 mg Documented by: Nitroglycerin (Nitrostat) 0.4 mg SUBLINGUAL Q5M PRN PRN Reason: Chest Pain Physical examination: VITAL SIGNS: 98.2, 86, 18, 100/61, 92% room air GENERAL: Laying in bed, awake more comfortable EYES: Pupils equal. Conjunctiva normal. HEENT: External appearance of nose and ears normal, oral cavity dry. NECK: JVD unable to assess; masses not palpable. HEART: First and second heart sounds are normal; no edema. LUNGS: Respiratory rate increased, decreased breath sounds, expiratory crackles. ABDOMEN: Soft, nontender, liver spleen not palpable, no masses palpable, Vigil catheter. PSYCH: [Able to answer simple questions. NEUROLOGICAL: Slurred speech, power in the left arm is 1/5, left leg 1 x 5. INVESTIGATIONS, reviewed in the clinical context: White count 18.5 hemoglobin 15.1 crit 0.7 Previous testing: White count 22.4 hemoglobin 16.3 potassium 4.6 creatinine 0.93 Troponin I 0.034, 0.019 ProBNP 2150 EKG tracing personally reviewed by me-Saima. fib with rapid ventricular rate Chest x-ray film personally reviewed by me-cardiomegaly, no obvious infiltrate Assessment: -Aspiration pneumonitis -Chronic left-sided weakness -Persistent atrial fibrillation with rapid ventricular rate, POA, now better controlled -COPD in a smoker -Hyperlipidemia -Essential hypertension -Chronic epilepsy disorder -Hypothyroid Plan: Patient is off the Cardizem drip. On IV clindamycin. Also on Lopressor 75 mg daily times a day. Overall looks improved.
[2019-08-31 04:44] VITALS: TEMP 98.1
[2019-08-31] MEDS: LEVOTHYROXINE 100 MCG TAB PO SCH (04:59)
[2019-08-31] MEDS: ALLOPURINOL 100 MG TAB PO SCH (04:59)
[2019-08-31] MEDS: CLINDAMYCIN 300 MG in DEXTROSE 5% IN WATER 50 ML IVPB SCH ×6 (05:28→18:26)
[2019-08-31] MEDS: IPRATROPIUM-ALBUTEROL 3 ML NEB INHALATION SCH ×3 (07:48→16:50)
[2019-08-31] MEDS: MAGNESIUM OXIDE 400 MG TAB PO SCH (10:19)
[2019-08-31] MEDS: METOPROLOL TARTRATE 25 MG TAB PO SCH ×2 (10:19→18:26)
[2019-08-31] MEDS: GABAPENTIN 300 MG CAP PO SCH (10:19)
[2019-08-31] MEDS: APIXABAN 2.5 MG TABLET PO SCH (10:20)
[2019-08-31] MEDS: levETIRAcetam ORAL SOLN 500 MG/5 ML CUP PO SCH (10:20)
[2019-08-31] MEDS: AMMONIUM LACTATE 12% LOTION 225 GM BTL TOPICAL SCH (10:54)
--- NOTE | 2019-08-31 11:22 | P.PN ---
Subjective Progress Note Date: 08/31/19 This is a 64-year-old gentleman with history of EtOH abuse, dementia, COPD, hyperlipidemia, hypothyroidism, paroxysmal atrial fibrillation with prior CVA and left-sided weakness, sepsis, [facility]. He presented to the hospital on this occasion with symptoms of shortness of breath, was found to be in atrial fibrillation with a rapid ventricular response. Patient had been seen in consultation yesterday. His blood pressure this morning 100/60 with a heart rate in the 100, 92% on room air. White blood cell count 22 on admission, 18 this morning, hemoglobin 15, platelet count 183. Sodium 141, potassium 4.6, BUN 24 and creatinine 0.9. Troponins 0.034, 0.019, 0.014. Pro calcitonin 4.2. At the time of my examination this morning, patient has significant rhonchi, with cough, nonproductive. 08/31/2019 Patient was seen and examined this morning, echocardiogram with Doppler study was performed which revealed an ejection fraction of 50-55%. Blood pressure 102/60, heart rate 90, 96% on room air. Objective - Vital Signs Vital signs: Vital Signs Temp 98.1 F 08/31/19 08:00 Pulse 91 08/31/19 08:00 Resp 16 08/31/19 08:00 BP 102/66 08/31/19 08:00 Pulse Ox 96 08/31/19 08:00 Intake & Output 08/30/19 08/31/19 08/31/19 18:59 06:59 18:59 Intake Total 500 90 Output Total 650 Balance -150 90 Weight 82.5 kg 84 kg Intake: Oral 500 90 Output: Urine 650 Other: Voiding Method Diaper Diaper Diaper # Voids 1 2 1 # Bowel Movements 1 - Exam PHYSICAL EXAMINATION: GENERAL: 64-year-old gentleman in no acute distress at the time of my examination HEENT: Head is atraumatic, normocephalic. Pupils equal, round. Sclera anicteric. Conjunctiva are clear. Mucous membranes of the mouth are moist. Neck is supple. There is no elevated jugular venous pressure. No carotid bruit is heard. HEART EXAMINATION: Heart S1 and S2 irregularly irregular CHEST EXAMINATION: Reveal moderate coarse rhonchi throughout. ABDOMEN: Soft, nontender. Bowel sounds are heard. No organomegaly noted. EXTREMITIES: 2+ peripheral pulses with no evidence of peripheral edema and no calf tenderness noted. NEUROLOGIC [patient is awake, alert and oriented 1 - Labs CBC & Chem 7: 08/30/19 06:28 08/30/19 06:28 Labs: Abnormal Lab Results - Last 24 Hours (Table) 08/29/19 Range/Units 16:38 Urine Protein Trace H (Negative) Urine Blood Small H (Negative) Urine RBC 70 H (0-5) /hpf Urine WBC 7 H (0-5) /hpf Urine Mucus Rare H (None) /hpf Assessment and Plan Plan: Assessment and plan #1 atrial fibrillation with rapid ventricular response, persistent, on Eliquis for anticoagulation #2 troponin abnormality, not consistent with acute coronary syndrome, could be secondary to A. fib with RVR #3 low-grade fever with associated abnormal pro calcitonin suggesting possible pneumonia #4 weakness fatigue #5 status post CVA with left-sided weakness #6 hypothyroidism #7 EtOH use #8 nicotine dependence Plan Echocardiogram with Doppler study revealed an ejection fraction of 50-55%. Heart rate is stable, from cardiology's perspective, patient may be discharged o nce cleared by primary. Continue current medications. DNP note has been reviewed, I agree with a documented findings and plan of care. Patient was seen and examined.
--- NOTE | 2019-08-31 11:56 | P.DS ---
Providers Date of admission: 08/29/19 06:35 Expected date of discharge: 08/31/19 Attending physician: Clarence Lugo Consults: 08/29/19 06:35 Consult Physician Routine Consulting Provider: Adrian Pond Consult Reason/Comments: Atrial fibrillation with rapid ventricular rate Do you want consulting provider notified?: Yes Primary care physician: [facility] Course: Chief Complaint: Short of breath Hospital course: This is a 64 year patient who follows Dr. Elise at the [facility]. Chronic stable medical conditions include, COPD, hyperlipidemia, hypertension, hypothyroid. Patient's chronically weak on the left side. baseline has slurred speech. Per the EMS sheet the [facility] staff stated to them that patient had vomited earlier and possibly aspirated. Pulse ox gone down to the 80s. Patient is put on 4 L of nasal cannula. Patient sounded congested. Patient not a very good historian. No fever no chills. Denies any pain. Has a Vigil catheter. Admitted with-atrial fibrillation with rapid ventricular rate, aspiration pneumonia. Treated with IV clindamycin. Did much better. Breathing much impro fuad. Heart rate controlled. Initially was on a Cardizem drip. Beta joey dose was increased. Today-A. fib rate is controlled. Good oral intake. Cleared by cardiology to be discharged. Consultation: Dr. Scott Sloan from cardiology Review of systems: Was done for constitutional, cardiovascular, GI, pulmonary. relevant finding as above Physical examination: VITAL SIGNS: 98.1, 91, 16, 1O2/66, 96% room air GENERAL: Laying in bed, awake EYES: Pupils equal. Conjunctiva normal. HEENT: External appearance of nose and ears normal, NECK: JVD unable to assess; masses not palpable. HEART: Heart sounds irregular; no edema. LUNGS: Respiratory rate increased, decreased breath sounds,. ABDOMEN: Soft, nontender, liver spleen not palpable, no masses palpable, Vigil catheter. PSYCH: [Able to answer simple questions. NEUROLOGICAL: Slurred speech, power in the left arm is 1/5, left leg 1 x 5. INVESTIGATIONS, reviewed in the clinical context: White count 18.5 hemoglobin 15.1 crit 0.7 Previous testing: White count 22.4 hemoglobin 16.3 potassium 4.6 creatinine 0.93 Troponin I 0.034, 0.019 ProBNP 2150 EKG tracing personally reviewed by me-Carlos fib with rapid ventricular rate Chest x-ray film personally reviewed by me-cardiomegaly, no obvious infiltrate Assessment: -Aspiration pneumonitis, possible chemical of gastric contents, POA -Chronic left-sided weakness -Persistent atrial fibrillation with rapid ventricular rate, POA, now better controlled -COPD in a smoker -Hyperlipidemia -Essential hypertension -Chronic epilepsy disorder -Hypothyroid Disposition: [facility]-long-term resident Patient Condition at Discharge: Stable Plan - Discharge Summary Discharge Rx Participant: Yes New Discharge Prescriptions: New Clindamycin [Cleocin] 300 mg PO Q6H #16 capsule Continue Levothyroxine Sodium [Synthroid] 100 mcg PO DAILY@0600 Digoxin [Lanoxin] 125 mcg PO HS@1999 Cholecalciferol [Vitamin D3 (25 Mcg = 1000 Iu)] 1,000 unit PO HS@1999 Acetaminophen [Tylenol Extra Strength] 500 mg PO Q4H PRN PRN Reason: Pain Apixaban [Eliquis] 2.5 mg PO BID Allopurinol [Zyloprim] 200 mg PO DAILY tab Ipratropium-Albuterol Nebulize [Duoneb 0.5 mg-3 mg/3 ml Soln] 3 ml INHALATION RT-Q8H levETIRAcetam [Keppra Oral Solution] 1,000 mg PO BID@799,1999 Ammonium Lactate Lotion [Lac-Hydrin 12% Lotion] 1 applic TOPICAL BID Atorvastatin [Lipitor] 80 mg PO HS Gabapentin [Neurontin] 300 mg PO BID #6 cap Hydrocodone/Acetaminophen [[place] 5-325] 1 tab PO Q6HR PRN #10 tab PRN Reason: Pain Changed Metoprolol Tartrate [Lopressor] 75 mg PO TID #0 Discharge Medication List Levothyroxine Sodium [Synthroid] 100 mcg PO DAILY@0600 09/05/14 [History] Digoxin [Lanoxin] 125 mcg PO HS@199901/04/16 [History] Acetaminophen [Tylenol Extra Strength] 500 mg PO Q4H PRN 06/18/17 [History] Apixaban [Eliquis] 2.5 mg PO BID 06/18/17 [History] Cholecalciferol [Vitamin D3 (25 Mcg = 1000 Iu)] 1,000 unit PO HS@199906/18/17 [History] Allopurinol [Zyloprim] 200 mg PO DAILY tab 06/26/17 [Rx] Ammonium Lactate Lotion [Lac-Hydrin 12% Lotion] 1 applic TOPICAL BID 08/29/19 [History] Atorvastatin [Lipitor] 80 mg PO HS 08/29/19 [History] Ipratropium-Albuterol Nebulize [Duoneb 0.5 mg-3 mg/3 ml Soln] 3 ml INHALATION RT-Q8H 08/29/19 [History] levETIRAcetam [Keppra Oral Solution] 1,000 mg PO BID@08,199908/29/19 [History] Clindamycin [Cleocin] 300 mg PO Q6H #16 capsule 08/31/19 [Rx] Gabapentin [Neurontin] 300 mg PO BID #6 cap 08/31/19 [Rx] Hydrocodone/Acetaminophen [[place] 5-325] 1 tab PO Q6HR PRN #10 tab 08/31/19 [Rx] Metoprolol Tartrate [Lopressor] 75 mg PO TID #0 08/31/19 [Rx] Follow up Appointment(s)/Referral(s): Mike Elise DO [Primary Care Provider] - 09/01/19
[2019-08-31 12:22] VITALS: BP 90/63; RESP 17
[2019-08-31 16:58] VITALS: PULSE 86
--- NOTE | 2019-09-07 10:20 | CDI ---
Documentation Clarification Form Date: 09/07/2019 10:01:37 AM From: Dolores Mcdowell Phone: If you have a question about this query, please contact Christin Guerra Fsr at [phone] between 8am and 5pm. Admit Date: 08/29/2019 6:35:00 AM Patient Name: Duy Marroquin Visit Number: [id number] Discharge Date: 08/31/2019 6:32:00 PM ATTENTION: The Clinical Documentation Specialists (CDI) and [facility] Coding Staff appreciate your assistance in clarifying documentation. Please respond to the clarification below the line at the bottom and electronically sign. The CDI & [facility] Coding staff will review the response and follow-up if needed. Please note: Queries are made part of the Legal Health Record. If you have any questions, please contact the author of this message via ITS. Dr. Jyothi Martin Weak heart valve is documented in ED notes, cardiology consult and PN's. Please clarify valve and condition. Patient history/risk factors: A-fib, hx of alcoholism, hx of CVA, ECHO - EF 55-60% mitral regurgitation present, aortic and tricuspid valves not well visualized. Clinical significance of diagnostic testing and treatment cannot be assumed or coded without physician documentation of the significance, if any. Signs or symptoms of an underlying condition should be coded only if not definite diagnosis is determined. In your professional opinion, can you please clarify the underlying cause of the patients symptoms, if known? aortic valve insufficiency mitral valve insufficiency tricuspid valve insufficiency Other, please specify Unable to determine No significant valvular disease MTDD
--- NOTE | 2019-09-15 14:08 | CDI ---
Documentation Clarification Form Date: 09/15/2019 1:41:39 PM From: Suzanne Bernstein RN CCDS Admit Date: 08/29/2019 6:35:00 AM Patient Name: Duy Marroquin Visit Number: [id number] Discharge Date: 08/31/2019 6:32:00 PM ATTENTION: The Clinical Documentation Specialists (CDI) and [facility] Coding Staff appreciate your assistance in clarifying documentation. Please respond to the clarification below the line at the bottom and electronically sign. The CDI & [facility] Coding staff will review the response and follow-up if needed. Please note: Queries are made part of the Legal Health Record. If you have any questions, please contact the author of this message via ITS. Dr. Clarence Lugo Per Cardiology consult 08/29 Consider developing pneumonia or possible developing sepsis 64-year-old male presents to the ED via EMS from [facility] for shortness of breath. History/Risk Factors: medical history COPD; Chronically weak on the left side, baseline has slurred speech. Clinical Indicators: WBC 08/29 on admission 22.4 Vitals signs on admission: 111/69 134 99.1 18 92 % ra Treatment: Antibiotics: 08/29 Clindamycin ivpb q 6 hrs dcd 08/31; 08/29/2019 0.9ns 50cc hr dcd 08/30 In your professional opinion, please clarify if these findings signify one of the following conditions, whether the condition is POA, and cause, if known: * Sepsis POA * SIRS, without underlying infectious process * Sepsis Ruled Out * Other, please specify * Unable to determine Identify the (suspected) organism SIRS Criteria (2 or more of the following may indicate SIRS): -Temperature < 96.8F (36C) or > 101.0F (38.3C) -Heart Rate > 90 bpm -Respiratory Rate > 20 breaths/min or PaCO2 < 32 mmHg -White Blood Cell Count > 12,000 or < 4,000 cells/mm3 or > 10% bands -Lactate >2.0 mmol/L (>4.0 is equivalent to septic shock) (Last Revision: January 2018) Aspiration pneumonia possibly causing sepsis, POA MTDD
== END 2019-08-31 18:32 | DRG 308 ==
LOC: EC 05:25 → 3SCARD 06:35
PROVIDERS: ADMIT Hospitalist; ATTEND Hospitalist
DX: I48.19 Other persistent atrial fibrillation (principal); J69.0 Pneumonitis due to inhalation of food and vomit; A41.9 Sepsis, unspecified organism; I69.354 Hemiplegia and hemiparesis following cerebral infarction affecting left non-dominant side; J44.9 Chronic obstructive pulmonary disease, unspecified; E03.9 Hypothyroidism, unspecified; E78.5 Hyperlipidemia, unspecified; F03.90 Unspecified dementia, unspecified severity, without behavioral disturbance, psychotic disturbance, mood disturbance, and anxiety; F17.210 Nicotine dependence, cigarettes, uncomplicated; G40.909 Epilepsy, unspecified, not intractable, without status epilepticus; H91.90 Unspecified hearing loss, unspecified ear; I10 Essential (primary) hypertension; Z79.01 Long term (current) use of anticoagulants; Z79.890 Hormone replacement therapy; Z79.899 Other long term (current) drug therapy; Z99.3 Dependence on wheelchair; F10.21 Alcohol dependence, in remission; R79.89 Other specified abnormal findings of blood chemistry; I69.328 Other speech and language deficits following cerebral infarction; Z91.81 History of falling; Z80.9 Family history of malignant neoplasm, unspecified
CPT/HCPCS: 36415; 71045; 80048; 80053; 80061; 81001; 83735; 83880; 84145; 84443; 84484; 85025; 85027; 85610; 85730; 93005; 93306; 94640; 94760; 96365; 96376; 99291

== ENCOUNTER 2019-10-22 02:35 | Emergency (ER) | payer MEDICARE, OTHER ==
[2019-10-22 02:43] VITALS: RESP 18; TEMP 98.6
[2019-10-22] MEDS ORDERED: GELATIN SPONGE,ABSORB (LARGE) 1 EACH SPONGE TOPICAL STA (02:47)
--- NOTE | 2019-10-22 02:50 | ED ---
Lower Extremity Injury HPI - General Chief Complaint: Extremity Injury, Lower Stated Complaint: Toe Injury Time Seen by Provider: 10/22/19 02:37 Source: patient, EMS Mode of arrival: EMS Limitations: no limitations - History of Present Illness Initial Comments: 64-year-old male patient presents to the emergency department today for evaluation of bleeding from the right great toe. Patient states about a week ago someone stepped on his foot causing the toenail to come off. Patient does admit to taking Eliquis. He does reside at [facility] where staff noticed increased bleeding today. States they're having a difficult time to get the bleeding to stop. Patient reports pain to the area. Denies fevers or chills. Denies any other injuries or concerns. Patient denies any headache, neck pain, back pain, chest pain, shortness of breath, dizziness, weakness, abdominal pain, nausea, vomiting, or difficulties with bowel movements or urination. - Related Data Home Medications Medication Instructions Recorded Confirmed Levothyroxine Sodium [Synthroid] 100 mcg PO DAILY@0600 09/05/14 08/29/19 Digoxin [Lanoxin] 125 mcg PO HS@199901/04/16 08/29/19 Acetaminophen [Tylenol Extra 500 mg PO Q4H PRN 06/18/17 08/29/19 Strength] Apixaban [Eliquis] 2.5 mg PO BID 06/18/17 08/29/19 Cholecalciferol [Vitamin D3 (25 1,000 unit PO HS@199906/18/17 08/29/19 Mcg = 1000 Iu)] Ammonium Lactate Lotion 1 applic TOPICAL BID 08/29/19 08/29/19 [Lac-Hydrin 12% Lotion] Atorvastatin [Lipitor] 80 mg PO HS 08/29/19 08/29/19 Ipratropium-Albuterol Nebulize 3 ml INHALATION RT-Q8H 08/29/19 08/29/19 [Duoneb 0.5 mg-3 mg/3 ml Soln] levETIRAcetam [Keppra Oral 1,000 mg PO BID@0800,199908/29/19 08/29/19 Solution] Previous Rx's Medication Instructions Recorded Allopurinol [Zyloprim] 200 mg PO DAILY tab 06/26/17 Clindamycin [Cleocin] 300 mg PO Q6H #16 capsule 08/31/19 Gabapentin [Neurontin] 300 mg PO BID #6 cap 08/31/19 Hydrocodone/Acetaminophen [[place] 1 tab PO Q6HR PRN #10 tab 08/31/19 5-325] Metoprolol Tartrate [Lopressor] 75 mg PO TID #0 08/31/19 Allergies Allergy/AdvReac Type Severity Reaction Status Date / Time No Known Allergies Allergy Verified 08/29/19 07:26 Review of Systems ROS Statement: Those systems with pertinent positive or pertinent negative responses have been documented in the HPI. ROS Other: All systems not noted in ROS Statement are negative. Past Medical History Past Medical History: Atrial Fibrillation, COPD, Hearing Disorder / Deafness, Hyperlipidemia, Hypertension, Thyroid Disorder Additional Past Medical History / Comment(s): 02/13/15 ADMISSION FOR [facility]. Other HX: 09/05/14 admission to [facility] with seizure thought to be alcohol related, alcoholism (pt has not had any alcohol since 2013). WEAK HEART valve. History of Any Multi-Drug Resistant Organisms: None Reported Past Surgical History: Appendectomy Past Anesthesia/Blood Transfusion Reactions: No Reported Reaction Additional Past Anesthesia/Blood Transfusion Reaction / Comment(s): Pt has never recieved blood. Past Psychological History: No Psychological Hx Reported Smoking Status: Former smoker Past Alcohol Use History: None Reported Past Drug Use History: None Reported - Past Family History Mother Family Medical History: Cancer Father Family Medical History: No Reported History Additional Family Medical History / Comment(s): Father of old age. General Exam Limitations: no limitations General appearance: alert, in no apparent distress, other (This is a well- developed, well-nourished adult male patient in no acute distress. Vital signs upon presentation are temperature 98.6F, pulse 84, respirations 18 blood pressure 107/82, pulse ox 98% on room air.) Respiratory exam: Present: normal lung sounds bilaterally. Absent: respiratory distress, wheezes, rales, rhonchi, stridor Cardiovascular Exam: Present: regular rate, normal rhythm, normal heart sounds. Absent: systolic murmur, diastolic murmur, rubs, gallop, clicks Extremities exam: Present: full ROM, normal capillary refill, other (There is nail avulsion to the right great toe. There is mild active bleeding. No surrounding erythema or purulent drainage noted. Skin is otherwise pink, warm, dry. Cap refills less than 3 seconds). Absent: tenderness, pedal edema, joint swelling, calf tenderness Neurological exam: Present: alert, oriented X3, CN II-XII intact Psychiatric exam: Present: normal affect, normal mood Skin exam: Present: warm, dry, intact, normal color. Absent: rash Course Vital Signs 10/22/19 02:38 Temperature 98.6 F Pulse Rate 84 Respiratory 18 Rate Blood Pressure 107/82 O2 Sat by Pulse 98 Oximetry Medical Decision Making - Medical Decision Making 64 old male patient presents to the emergency department today for evaluation of bleeding from right toe wound. Physical examination did reveal a nail avulsion injury with mild bleeding noted from the nailbed. X-ray was reviewed shows no acute fracture. Wound was cleansed, Gelfoam and pressure applied, dressing applied. Bleeding seems to be controlled. He will be discharged back to [facility]. He is instructed to follow up with PCP for recheck in 1-2 days. Return parameters discussed in detail. - Radiology Data Radiology results: image reviewed Disposition Clinical Impression: Nail avulsion of toe, Bleeding from wound Disposition: HOME SELF-CARE Condition: Good Instructions (If sedation given, give patient instructions): Nail Avulsion (ED) Additional Instructions: Keep dressing in place for 24 hours. Try to leave gelfoam (small white square) in place until it falls off or absorbs. Monitor for signs/symptoms of infection including, but not limited to redness, swelling, drainage of pus, fever, or chills. Follow up with the primary care physician for recheck in 1-2 days. Return for any new, worsening, or concerning symptoms. Is patient prescribed a controlled substance at d/c from ED?: No Referrals: Mike Elise DO [Primary Care Provider] - 1-2 days Time of Disposition: 03:30
--- NOTE | 2019-10-22 03:30 | XR ---
EXAMINATION TYPE: XR toes RT DATE OF EXAM: 10/22/2019 COMPARISON: NONE HISTORY: Pain in the big toe TECHNIQUE: 3 views FINDINGS: I see no fracture nor dislocation. There is some spurring at the IP joints. There is no sub luxation. There are no erosions. I see no definite focal bone destruction. IMPRESSION: Mild osteoarthritis. No definite sign of osteomyelitis.
[2019-10-22 03:43] VITALS: BP 111/87; PULSE 94
== END 2019-10-22 03:56 | disposition home or self-care (01) ==
LOC: EC 02:35
DX: S91.201A Unspecified open wound of right great toe with damage to nail, initial encounter (principal); I48.91 Unspecified atrial fibrillation; J44.9 Chronic obstructive pulmonary disease, unspecified; H91.90 Unspecified hearing loss, unspecified ear; E78.5 Hyperlipidemia, unspecified; I10 Essential (primary) hypertension; E07.9 Disorder of thyroid, unspecified; Z87.891 Personal history of nicotine dependence; Z79.01 Long term (current) use of anticoagulants; Z79.890 Hormone replacement therapy; Z79.899 Other long term (current) drug therapy; W50.0XXA Accidental hit or strike by another person, initial encounter
CPT/HCPCS: 99283

== ENCOUNTER 2019-10-22 18:03 | Emergency (ER) | payer MEDICARE, OTHER ==
[2019-10-22 18:16] VITALS: RESP 18; TEMP 98.1
[2019-10-22] MEDS ORDERED: SODIUM CHLORIDE 0.9% 500 ML 500 ML IV STA (18:38)
--- NOTE | 2019-10-22 18:59 | ED ---
General Adult HPI - General Chief complaint: Seizure Stated complaint: Seizure Time Seen by Provider: 10/22/19 18:11 Source: EMS, RN notes reviewed, old records reviewed Mode of arrival: EMS Limitations: physical limitation - History of Present Illness Initial comments: 64-year-old male patient past history significant for reported hemorrhagic stroke with residual deficits, a 2 fibrillation, COPD, hypertension, hyperlipidemia, seizure disorder presents to ED for chief complaint of seizure. Patient is poor historian. History obtained by nurse at [facility] who was caring for patient. She reports that at approximately 3:20 PM patient had approximately 2 minutes and 20 seconds of seizure-like activity. She describes that his arms or legs were jerking and rhythmic fashion. She reports that for approximately 2 minutes patient was postictal, however afterward returned to baseline. She reportedly discussed the case with the nurse practitioner for patient's primary care provider recommended following up with neurologist. Call to patient neurologist return. 7. Recommended to present hospital. Patient does take Keppra 1000 mg twice a day has not yet had his evening dose. Patient does report that he has a mild headache. Denies any other complaints at this time. [id number] are also confirmed the patient is at his baseline. Patient is coughing. Denies any other complaints. Futher history taking limited. - Related Data Home Medications Medication Instructions Recorded Confirmed Levothyroxine Sodium [Synthroid] 100 mcg PO DAILY@0600 09/05/14 08/29/19 Digoxin [Lanoxin] 125 mcg PO HS@199901/04/16 08/29/19 Acetaminophen [Tylenol Extra 500 mg PO Q4H PRN 06/18/17 08/29/19 Strength] Apixaban [Eliquis] 2.5 mg PO BID 06/18/17 08/29/19 Cholecalciferol [Vitamin D3 (25 1,000 unit PO HS@199906/18/17 08/29/19 Mcg = 1000 Iu)] Ammonium Lactate Lotion 1 applic TOPICAL BID 08/29/19 08/29/19 [Lac-Hydrin 12% Lotion] Atorvastatin [Lipitor] 80 mg PO HS 08/29/19 08/29/19 Ipratropium-Albuterol Nebulize 3 ml INHALATION RT-Q8H 08/29/19 08/29/19 [Duoneb 0.5 mg-3 mg/3 ml Soln] levETIRAcetam [Keppra Oral 1,000 mg PO BID@0800,199908/29/19 08/29/19 Solution] Previous Rx's Medication Instructions Recorded Allopurinol [Zyloprim] 200 mg PO DAILY tab 06/26/17 Clindamycin [Cleocin] 300 mg PO Q6H #16 capsule 08/31/19 Gabapentin [Neurontin] 300 mg PO BID #6 cap 08/31/19 Hydrocodone/Acetaminophen [[place] 1 tab PO Q6HR PRN #10 tab 08/31/19 5-325] Metoprolol Tartrate [Lopressor] 75 mg PO TID #0 08/31/19 Allergies Allergy/AdvReac Type Severity Reaction Status Date / Time No Known Allergies Allergy Verified 08/29/19 07:26 Review of Systems ROS Statement: Those systems with pertinent positive or pertinent negative responses have been documented in the HPI. ROS Other: All systems not noted in ROS Statement are negative. Past Medical History Past Medical History: Atrial Fibrillation, COPD, CVA/TIA, Hearing Disorder / Deafness, Hyperlipidemia, Hypertension, Seizure Disorder, Thyroid Disorder Additional Past Medical History / Comment(s): 02/13/15 ADMISSION FOR [facility]. Other HX: 09/05/14 admission to [facility] with seizure thought to be alcohol related, alcoholism (pt has not had any alcohol since 2013). WEAK HEART valve. History of Any Multi-Drug Resistant Organisms: None Reported Past Surgical History: Appendectomy Past Anesthesia/Blood Transfusion Reactions: No Reported Reaction Additional Past Anesthesia/Blood Transfusion Reaction / Comment(s): Pt has never recieved blood. Past Psychological History: No Psychological Hx Reported Smoking Status: Former smoker Past Alcohol Use History: None Reported Past Drug Use History: None Reported - Past Family History Mother Family Medical History: Cancer Father Family Medical History: No Reported History Additional Family Medical History / Comment(s): Father of old age. General Exam - General Exam Comments Initial Comments: Constitutional: NAD, AOX3, Pt has pleasant affect. HEENT: NC/AT, trachea midline, neck supple, no lymphadenopathy. Posterior pharynx non erythematous, without exudates. External ears appear normal, without discharge. Mucous membranes moist. Eyes PERRLA, EOM intact. There is no scleral icterus. No pallor noted. Cardiopulmonary: RRR, no murmurs, rubs or gallops, no JVD noted. Lungs CTAB in anterior and posterior feng. No peripheral edema. Abdominal exam: Abdomen soft and non-distended. Abdomen non-tender to palpation in all 4 quadrants. Bowel sounds active in LLQ. No hepatosplenomegaly. No ecchymosis Neuro: CN II-XII intact. No nuchal rigidity. No raccon eyes, no dial sign, no hemotympanum. No cervical spinal tenderness. Left hemiparesis at baseline. MSK: No posterior calf tenderness bilaterally, homans sign negative bilaterally. Posterior tibialis and radial pulse +2 bilaterally. Sensation intact in upper and lower extremities. Limitations: physical limitation Course Vital Signs 10/22/19 10/22/19 18:04 19:50 Temperature 98.1 F Pulse Rate 68 84 Respiratory 18 18 Rate Blood Pressure 116/77 110/81 O2 Sat by Pulse 96 100 Oximetry Medical Decision Making - Medical Decision Making 64-year-old male patient past history significant for reported hemorrhagic stroke with residual deficits, a 2 fibrillation, COPD, hypertension, hyperlipidemia, seizure disorder presents to ED for chief complaint of seizure. Patient is poor historian. History obtained by nurse at [facility] who was caring for patient. She reports that at approximately 3:20 PM patient had approximately 2 minutes and 20 seconds of seizure-like activity. She describes that his arms or legs were jerking and rhythmic fashion. She reports that for approximately 2 minutes patient was postictal, however afterward returned to baseline. She reportedly discussed the case with the nurse practitioner for patient's primary care provider recommended following up with neurologist. Call to patient neurologist return. 7. Recommended to present hospital. Patient does take Keppra 1000 mg twice a day has not yet had his evening dose. Patient does report that he has a mild headache. Denies any other complaints at this time. [id number] are also confirmed the patient is at his baseline. Patient is coughing. Denies any other complaints. Futher history taking limited. Patient vital signs stable, afebrile. Physical exam displayed: CN II-XII intact. No nuchal rigidity. No raccon eyes, no dial sign, no hemotympanum. No cervical spinal tenderness. Left hemiparesis at baseline. Laboratory investigations done impressive. Keppra level drawn. Patient administerd home dose of Keppra. Chest x-ray revealed no change. The brain revealed no change. Patient was discharged to follow up with primary care provider will follow up with neurology tomorrow. Return to ER physician worsens. Case discussed with Dr. Summers. - Lab Data Result diagrams: 10/22/19 19:00 10/22/19 19:00 Lab Results 10/22/19 10/22/19 10/22/19 Range/Units 19:00 19:00 19:48 WBC 8.4 (3.8-10.6) k/uL RBC 5.35 (4.30-5.90) m/uL Hgb 15.7 (13.0-17.5) gm/dL Hct 48.0 (39.0-53.0) % MCV 89.7 (80.0-100.0) fL MCH 29.3 (25.0-35.0) pg MCHC 32.6 (31.0-37.0) g/dL RDW 14.3 (11.5-15.5) % Plt Count 222 (150-450) k/uL Neutrophils % 63 % Lymphocytes % 18 % Monocytes % 9 % Eosinophils % 6 % Basophils % 1 % Neutrophils # 5.3 (1.3-7.7) k/uL Lymphocytes # 1.5 (1.0-4.8) k/uL Monocytes # 0.8 (0-1.0) k/uL Eosinophils # 0.5 (0-0.7) k/uL Basophils # 0.1 (0-0.2) k/uL Sodium 142 (137-145) mmol/L Potassium 4.5 (3.5-5.1) mmol/L Chloride 105 (98-107) mmol/L Carbon Dioxide 30 (22-30) mmol/L Anion Gap 7 mmol/L BUN 20 (9-20) mg/dL Creatinine 0.66 (0.66-1.25) mg/dL Est GFR (CKD-EPI)AfAm >90 (>60 ml/min/1.73 sqM) Est GFR (CKD-EPI)NonAf >90 (>60 ml/min/1.73 sqM) Glucose 102 H (74-99) mg/dL Calcium 9.2 (8.4-10.2) mg/dL Total Bilirubin 0.8 (0.2-1.3) mg/dL AST 25 (17-59) U/L ALT 19 (4-49) U/L Alkaline Phosphatase 123 (38-126) U/L Total Protein 6.9 (6.3-8.2) g/dL Albumin 3.6 (3.5-5.0) g/dL Urine Color Yellow Urine Appearance Clear (Clear) Urine pH 6.5 (5.0-8.0) Ur Specific [place] 1.024 (1.001-1.035) Urine Protein Negative (Negative) Urine Glucose (UA) Negative (Negative) Urine Ketones Negative (Negative) Urine Blood Negative (Negative) Urine Nitrite Negative (Negative) Urine Bilirubin Negative (Negative) Urine Urobilinogen 2.0 (<2.0) mg/dL Ur Leukocyte Esterase Negative (Negative) Urine Opiates Screen Not Detected (NotDetected) Ur Oxycodone Screen Not Detected (NotDetected) Urine Methadone Screen Not Detected (NotDetected) Ur Propoxyphene Screen Not Detected (NotDetected) Ur Barbiturates Screen Not Detected (NotDetected) U Tricyclic Antidepress Not Detected (NotDetected) Ur Phencyclidine Scrn Not Detected (NotDetected) Ur Amphetamines Screen Not Detected (NotDetected) U Methamphetamines Scrn Not Detected (NotDetected) U Benzodiazepines Scrn Not Detected (NotDetected) Urine Cocaine Screen Not Detected (NotDetected) U Marijuana (THC) Screen Not Detected (NotDetected) - EKG Data -: EKG Interpreted by Me (and Dr. Summers) EKG Comments: Ventricular rate 69, QRS 80, QT/QTC 352/377, atrial fibrillation, abnormal EKG. Disposition Clinical Impression: Breakthrough seizure Disposition: HOME SELF-CARE Condition: Stable Instructions (If sedation given, give patient instructions): Recurrent Seizures in Adults (ED) Additional Instructions: Follow-up with primary care provider and neurologist tomorrow. Return to ER if condition worsens. Is patient prescribed a controlled substance at d/c from ED?: No Referrals: Mike Elise DO [Primary Care Provider] - 1-2 days
[2019-10-22] MEDS ORDERED: levETIRAcetam IV 1,000 MG in SALINE 1 100ML.BAG IVPB STA (19:03)
[2019-10-22 19:25] LABS: Basophils # (A) 0.1 k/uL (0-0.2); Basophils % (A) 1 %; Eosinophils # (A) 0.5 k/uL (0-0.7); Eosinophils % (A) 6 %; HGB 15.7 gm/dL (13.0-17.5); Lymphocytes # (A) 1.5 k/uL (1.0-4.8); Lymphocytes % (A) 18 %; MCH 29.3 pg (25.0-35.0); MCHC 32.6 g/dL (31.0-37.0); MCV 89.7 fL (80.0-100.0); Mean Platelet Volume 8.2; Monocytes # (A) 0.8 k/uL (0-1.0); Monocytes % (A) 9 %; Neutrophils # (A) 5.3 k/uL (1.3-7.7); Neutrophils % (A) 63 %; Platelet Count 222 k/uL (150-450); RBC 5.35 m/uL (4.30-5.90); RDW 14.3 % (11.5-15.5); WBC 8.4 k/uL (3.8-10.6)
[2019-10-22 19:34] LABS: ALT 19 U/L (4-49); AST 25 U/L (17-59); African American GFR (CKD) >90 (>60 ml/min/1.73 sqM); Albumin 3.6 g/dL (3.5-5.0); Alkaline Phosphatase 123 U/L (38-126); Anion Gap 7 mmol/L; Blood Urea Nitrogen 20 mg/dL (9-20); Calcium 9.2 mg/dL (8.4-10.2); Carbon Dioxide 30 mmol/L (22-30); Chloride 105 mmol/L (98-107); Glucose 102 mg/dL (74-99); Non-African American GFR(CKD) >90 (>60 ml/min/1.73 sqM); Potassium 4.5 mmol/L (3.5-5.1); Sodium 142 mmol/L (137-145); Total Bilirubin 0.8 mg/dL (0.2-1.3); Total Protein 6.9 g/dL (6.3-8.2)
[2019-10-22 19:51] VITALS: BP 110/81; PULSE 84
--- NOTE | 2019-10-22 19:54 | XR ---
EXAMINATION TYPE: XR chest 2V DATE OF EXAM: 10/22/2019 COMPARISON: 08/29/2019 HISTORY: Cough TECHNIQUE: 2 views FINDINGS: There is elevated left diaphragm. There is coarsening of interstitial markings. There is no heart failure. Heart is enlarged. There are chest leads. IMPRESSION: There is pleural reaction and elevated left diaphragm. This could relate to some diaphrag m paralysis. Mild cardiomegaly. No acute lung disease. No change compared to old exam. Mild pulmonary fibrotic changes.
[2019-10-22 19:56] LABS: Appearance,Urine Clear (Clear); Bilirubin,Urine Negative (Negative); Blood,Urine Negative (Negative); Color,Urine Yellow; Glucose,Urine (UA) Negative (Negative); Ketones,Urine Negative (Negative); Leukocyte Esterase,Urine Negative (Negative); Nitrite,Urine Negative (Negative); PH, Urine 6.5 (5.0-8.0); Protein,Urine Negative (Negative); Specific Gravity,Urine 1.024 (1.001-1.035)
--- NOTE | 2019-10-22 19:56 | CT ---
EXAMINATION TYPE: CT brain wo con DATE OF EXAM: 10/22/2019 COMPARISON: 03/25/2017 HISTORY: Seizure CT DLP: 1149 mGycm Automated exposure control for dose reduction was used. There is large area of hypodensity involving the right cerebral hemisphere and consistent with old ce rebral artery infarct. There is no mass effect. There is no midline shift. There is no sign of intrac ranial hemorrhage. There is large old right temporal craniotomy defect. There is patchy hypodensity i n the periventricular white matter. Skull base is intact. There is incomplete pneumatization of the m astoid sinuses. IMPRESSION: Old large right hemisphere infarct and encephalomalacia. No acute intracranial abnormality. No change compared to old exam.
[2019-10-22 20:07] LABS: Amphetamine Screen,Urine Not Detected (NotDetected); Barbiturate Screen,Urine Not Detected (NotDetected); Benzodiazepines Screen,Urine Not Detected (NotDetected); Cocaine Screen,Urine Not Detected (NotDetected); Methadone Screen, Urine Not Detected (NotDetected); Opiate Screen,Urine Not Detected (NotDetected); Oxycodone Screen, Urine Not Detected (NotDetected); Phencyclidine Screen,Urine Not Detected (NotDetected); Tricyclic Antidepressant,Urine Not Detected (NotDetected); Urn Cannabinoid Scrn Not Detected (NotDetected)
== END 2019-10-22 22:16 | disposition home or self-care (01) ==
LOC: EC 18:03
DX: G40.909 Epilepsy, unspecified, not intractable, without status epilepticus (principal); I48.91 Unspecified atrial fibrillation; J44.9 Chronic obstructive pulmonary disease, unspecified; E07.9 Disorder of thyroid, unspecified; I11.0 Hypertensive heart disease with heart failure; I50.9 Heart failure, unspecified; E78.5 Hyperlipidemia, unspecified; Z79.01 Long term (current) use of anticoagulants; Z79.899 Other long term (current) drug therapy; Z87.891 Personal history of nicotine dependence; Z86.73 Personal history of transient ischemic attack (TIA), and cerebral infarction without residual deficits
CPT/HCPCS: 99285 ×2; 96365 ×2; 99283; 36415; 93005; 80053; 80177; 85025; 81003; 80306; 73660; 71046; 70450; J1953

== ENCOUNTER 2020-04-24 03:52 | Emergency (ER) | payer MEDICARE, OTHER ==
[2020-04-24] MEDS ORDERED: SODIUM CHLORIDE 0.9% 1,000 ML IV STA (03:53)
--- NOTE | 2020-04-24 03:55 | ED ---
Altered Mental Status HPI - General Stated Complaint: Altered Mental Status Time Seen by Provider: 04/24/20 03:53 Source: RN notes reviewed, old records reviewed Limitations: no limitations - History of Present Illness Initial Comments: This is a 65-year-old nail to the ER, mailed a poor strain history of seizures coming in for altered mental status, no significant acute findings, no new neurological findings which is mild unresponsiveness patient's brought in by EMS patient's poor historian history obtained from chart MD Complaint: altered mental status, confusion, decreased responsiveness -: unknown Severity: mild Consistency of Symptoms: waxing and waning (Now resolved) Context: history of similar presentation Associated Symptoms: weakness - Related Data Home Medications Medication Instructions Recorded Confirmed Levothyroxine Sodium [Synthroid] 100 mcg PO DAILY@0600 09/05/14 08/29/19 Digoxin [Lanoxin] 125 mcg PO HS@199901/04/16 08/29/19 Acetaminophen [Tylenol Extra 500 mg PO Q4H PRN 06/18/17 08/29/19 Strength] Apixaban [Eliquis] 2.5 mg PO BID 06/18/17 08/29/19 Cholecalciferol [Vitamin D3 (25 1,000 unit PO HS@199906/18/17 08/29/19 Mcg = 1000 Iu)] Ammonium Lactate Lotion 1 applic TOPICAL BID 08/29/19 08/29/19 [Lac-Hydrin 12% Lotion] Atorvastatin [Lipitor] 80 mg PO HS 08/29/19 08/29/19 Ipratropium-Albuterol Nebulize 3 ml INHALATION RT-Q8H 08/29/19 08/29/19 [Duoneb 0.5 mg-3 mg/3 ml Soln] levETIRAcetam [Keppra Oral 1,000 mg PO BID@0800,199908/29/19 08/29/19 Solution] Previous Rx's Medication Instructions Recorded Allopurinol [Zyloprim] 200 mg PO DAILY tab 06/26/17 Clindamycin [Cleocin] 300 mg PO Q6H #16 capsule 08/31/19 Gabapentin [Neurontin] 300 mg PO BID #6 cap 08/31/19 Hydrocodone/Acetaminophen [[place] 1 tab PO Q6HR PRN #10 tab 08/31/19 5-325] Metoprolol Tartrate [Lopressor] 75 mg PO TID #0 08/31/19 Allergies Allergy/AdvReac Type Severity Reaction Status Date / Time No Known Allergies Allergy Verified 04/24/20 04:13 Review of Systems ROS Statement: Those systems with pertinent positive or pertinent negative responses have been documented in the HPI. ROS Other: All systems not noted in ROS Statement are negative. Past Medical History Past Medical History: Atrial Fibrillation, COPD, CVA/TIA, Hearing Disorder / Deafness, Hyperlipidemia, Hypertension, Seizure Disorder, Thyroid Disorder Additional Past Medical History / Comment(s): 02/13/15 ADMISSION FOR [facility]. Other HX: 09/05/[address] [facility] with seizure thought to be alcohol related, alcoholism (pt has not had any alcohol since 2013). WEAK HEART valve. History of Any Multi-Drug Resistant Organisms: None Reported Past Surgical History: Appendectomy Past Anesthesia/Blood Transfusion Reactions: No Reported Reaction Additional Past Anesthesia/Blood Transfusion Reaction / Comment(s): Pt has never recieved blood. Past Psychological History: No Psychological Hx Reported Smoking Status: Former smoker Past Alcohol Use History: None Reported Past Drug Use History: None Reported - Past Family History Mother Family Medical History: Cancer Father Family Medical History: No Reported History Additional Family Medical History / Comment(s): Father of old age. General Exam General appearance: alert, in no apparent distress Head exam: Present: atraumatic, normocephalic, normal inspection Eye exam: Present: normal appearance, PERRL, EOMI. Absent: scleral icterus, conjunctival injection, periorbital swelling ENT exam: Present: normal exam, mucous membranes moist Neck exam: Present: normal inspection. Absent: tenderness, meningismus, lymphadenopathy Respiratory exam: Present: normal lung sounds bilaterally. Absent: respiratory distress, wheezes, rales, rhonchi, stridor Cardiovascular Exam: Present: tachycardia, irregular rhythm, normal heart armando nds. Absent: systolic murmur, diastolic murmur, rubs, gallop, clicks GI/Abdominal exam: Present: soft, normal bowel sounds. Absent: distended, tenderness, guarding, rebound, rigid Extremities exam: Present: normal inspection, full ROM, normal capillary refill. Absent: tenderness, pedal edema, joint swelling, calf tenderness Back exam: Present: normal inspection Neurological exam: Present: alert, oriented X3, CN II-XII intact Psychiatric exam: Present: normal affect, normal mood Skin exam: Present: warm, dry, intact, normal color. Absent: rash Course Vital Signs 04/24/20 04:04 Temperature 98.2 F Pulse Rate 107 H Respiratory 20 Rate Blood Pressure 112/78 O2 Sat by Pulse 95 Oximetry - Reevaluation(s) Reevaluation #1: 04/24/20 05:28 Medical records reviewed Reevaluation #2: 04/24/20 05:28 symptoms improved remained improved no complaints Medical Decision Making - Medical Decision Making 65 male DF for evaluation, patient altered mental status and episode of unresponsiveness that is now resolved and patient can be discharged back to facility - Lab Data Result diagrams: 04/24/20 04:06 04/24/20 04:06 Lab Results 04/24/20 04/24/20 04/24/20 Range/Units 04:06 04:06 04:06 WBC 8.7 (3.8-10.6) k/uL RBC 5.60 (4.30-5.90) m/uL Hgb 16.6 (13.0-17.5) gm/dL Hct 51.0 (39.0-53.0) % MCV 91.1 (80.0-100.0) fL MCH 29.6 (25.0-35.0) pg MCHC 32.5 (31.0-37.0) g/dL RDW 14.6 (11.5-15.5) % Plt Count 140 L (150-450) k/uL Neutrophils % 64 % Lymphocytes % 23 % Monocytes % 7 % Eosinophils % 4 % Basophils % 1 % Neutrophils # 5.5 (1.3-7.7) k/uL Lymphocytes # 2.0 (1.0-4.8) k/uL Monocytes # 0.6 (0-1.0) k/uL Eosinophils # 0.3 (0-0.7) k/uL Basophils # 0.0 (0-0.2) k/uL PT 13.4 H (9.0-12.0) sec INR 1.3 H (<1.2) APTT 22.9 (22.0-30.0) sec Sodium 138 (137-145) mmol/L Potassium 4.8 (3.5-5.1) mmol/L Chloride 105 (98-107) mmol/L Carbon Dioxide 25 (22-30) mmol/L Anion Gap 8 mmol/L BUN 16 (9-20) mg/dL Creatinine 0.64 L (0.66-1.25) mg/dL Est GFR (CKD-EPI)AfAm >90 (>60 ml/min/1.73 sqM) Est GFR (CKD-EPI)NonAf >90 (>60 ml/min/1.73 sqM) Glucose 112 H (74-99) mg/dL Plasma Lactic Acid Markus (0.7-2.0) mmol/L Calcium 8.5 (8.4-10.2) mg/dL Phosphorus 2.8 (2.5-4.5) mg/dL Magnesium 1.8 (1.6-2.3) mg/dL Total Bilirubin 1.0 (0.2-1.3) mg/dL AST 26 (17-59) U/L ALT 15 (4-49) U/L Alkaline Phosphatase 98 (38-126) U/L Troponin I (0.000-0.034) ng/mL Total Protein 7.2 (6.3-8.2) g/dL Albumin 3.5 (3.5-5.0) g/dL 04/24/20 04/24/20 Range/Units 04:06 04:06 WBC (3.8-10.6) k/uL RBC (4.30-5.90) m/uL Hgb (13.0-17.5) gm/dL Hct (39.0-53.0) % MCV (80.0-100.0) fL MCH (25.0-35.0) pg MCHC (31.0-37.0) g/dL RDW (11.5-15.5) % Plt Count (150-450) k/uL Neutrophils % % Lymphocytes % % Monocytes % % Eosinophils % % Basophils % % Neutrophils # (1.3-7.7) k/uL Lymphocytes # (1.0-4.8) k/uL Monocytes # (0-1.0) k/uL Eosinophils # (0-0.7) k/uL Basophils # (0-0.2) k/uL PT (9.0-12.0) sec INR (<1.2) APTT (22.0-30.0) sec Sodium (137-145) mmol/L Potassium (3.5-5.1) mmol/L Chloride (98-107) mmol/L Carbon Dioxide (22-30) mmol/L Anion Gap mmol/L BUN (9-20) mg/dL Creatinine (0.66-1.25) mg/dL Est GFR (CKD-EPI)AfAm (>60 ml/min/1.73 sqM) Est GFR (CKD-EPI)NonAf (>60 ml/min/1.73 sqM) Glucose (74-99) mg/dL Plasma Lactic Acid Markus 2.6 H* (0.7-2.0) mmol/L Calcium (8.4-10.2) mg/dL Phosphorus (2.5-4.5) mg/dL Magnesium (1.6-2.3) mg/dL Total Bilirubin (0.2-1.3) mg/dL AST (17-59) U/L ALT (4-49) U/L Alkaline Phosphatase (38-126) U/L Troponin I <0.012 (0.000-0.034) ng/mL Total Protein (6.3-8.2) g/dL Albumin (3.5-5.0) g/dL - EKG Data -: EKG Interpreted by Me (EKG shows A. fib 1:15 QRS 74 QTc 428) - Radiology Data Radiology results: report reviewed (CT brain is no acute changes chest x-rays negative), image reviewed Disposition Clinical Impression: Altered mental status Disposition: HOME SELF-CARE Condition: Good Instructions (If sedation given, give patient instructions): Altered Mental Status (ED) Is patient prescribed a controlled substance at d/c from ED?: No Referrals: Mike Elise DO [Primary Care Provider] - 1-2 days
[2020-04-24] MEDS ORDERED: METOPROLOL TARTRATE 5 MG/5 ML VIAL IVP STA (04:05)
[2020-04-24 04:22] LABS: Basophils % (A) 1 %; Eosinophils # (A) 0.3 k/uL (0-0.7); Eosinophils % (A) 4 %; HGB 16.6 gm/dL (13.0-17.5); Lymphocytes % (A) 23 %; MCH 29.6 pg (25.0-35.0); MCHC 32.5 g/dL (31.0-37.0); MCV 91.1 fL (80.0-100.0); Mean Platelet Volume 8.2; Monocytes # (A) 0.6 k/uL (0-1.0); Monocytes % (A) 7 %; Neutrophils # (A) 5.5 k/uL (1.3-7.7); Neutrophils % (A) 64 %; Platelet Count 140 k/uL (150-450); RDW 14.6 % (11.5-15.5); WBC 8.7 k/uL (3.8-10.6)
--- NOTE | 2020-04-24 04:25 | XR ---
EXAMINATION TYPE: XR chest 1V DATE OF EXAM: 04/24/2020 COMPARISON: 10/22/2019 HISTORY: Weakness TECHNIQUE: Single view FINDINGS: There is blunting of the left costophrenic angle. Heart is enlarged. There is no heart fail ure. Right lung is clear. IMPRESSION: Left pleural effusion and left lower lobe infiltrate increased compared to old exam
[2020-04-24 04:27] LABS: INR 1.3 (<1.2)
[2020-04-24 04:28] LABS: Partial Thromboplastin Time 22.9 sec (22.0-30.0); Prothrombin Time 13.4 sec (9.0-12.0)
--- NOTE | 2020-04-24 04:29 | CT ---
EXAMINATION TYPE: CT brain wo con DATE OF EXAM: 04/24/2020 COMPARISON: 10/22/2019 HISTORY: ams CT DLP: 1142.4 mGycm Automated exposure control for dose reduction was used. There is large area of hypodensity in the right cerebral hemisphere related to old infarct. There is right temporal craniotomy defect. There is no midline shift. There is no sign of intracranial hemorrh age. There is hypodensity in the white matter both frontal lobes. There is 1 mm lacunar infarct left thalamus. IMPRESSION: Large right hemisphere old infarcts. Chronic small vessel ischemia. No significant change compared to old exam 10/22/2019
[2020-04-24 04:36] LABS: ALT 15 U/L (4-49); AST 26 U/L (17-59); African American GFR (CKD) >90 (>60 ml/min/1.73 sqM); Albumin 3.5 g/dL (3.5-5.0); Alkaline Phosphatase 98 U/L (38-126); Anion Gap 8 mmol/L; Blood Urea Nitrogen 16 mg/dL (9-20); Calcium 8.5 mg/dL (8.4-10.2); Carbon Dioxide 25 mmol/L (22-30); Chloride 105 mmol/L (98-107); Glucose 112 mg/dL (74-99); Magnesium 1.8 mg/dL (1.6-2.3); Non-African American GFR(CKD) >90 (>60 ml/min/1.73 sqM); Phosphorus 2.8 mg/dL (2.5-4.5); Sodium 138 mmol/L (137-145); Total Protein 7.2 g/dL (6.3-8.2)
[2020-04-24 05:04] LABS: Potassium 4.8 mmol/L (3.5-5.1)
[2020-04-24 06:51] VITALS: BP 126/98; PULSE 98; RESP 19; TEMP 98.4
== END 2020-04-24 09:07 | disposition home or self-care (01) ==
LOC: EC 03:52
DX: R41.82 Altered mental status, unspecified (principal); R55 Syncope and collapse; R00.0 Tachycardia, unspecified; G40.909 Epilepsy, unspecified, not intractable, without status epilepticus; I48.91 Unspecified atrial fibrillation; J44.9 Chronic obstructive pulmonary disease, unspecified; E78.5 Hyperlipidemia, unspecified; I10 Essential (primary) hypertension; E07.9 Disorder of thyroid, unspecified; Z79.01 Long term (current) use of anticoagulants; Z79.890 Hormone replacement therapy; Z79.51 Long term (current) use of inhaled steroids; Z79.899 Other long term (current) drug therapy; Z87.891 Personal history of nicotine dependence; Z86.73 Personal history of transient ischemic attack (TIA), and cerebral infarction without residual deficits
CPT/HCPCS: 36415; 70450; 71045; 80053; 80177; 83605; 83735; 84100; 84484; 85025; 85610; 85730; 93005; 96361; 96374; 99285

== ENCOUNTER 2021-09-23 06:32 | Inpatient (IN) | payer MEDICARE, OTHER ==
[2021-09-23 07:14] LABS: Basophils % (A) 1 %; Eosinophils % (A) 1 %; HCT 44.9 % (39.0-53.0); Lymphocytes # (A) 0.4 k/uL (1.0-4.8); Lymphocytes % (A) 8 %; MCH 30.2 pg (25.0-35.0); MCHC 33.4 g/dL (31.0-37.0); MCV 90.3 fL (80.0-100.0); Mean Platelet Volume 8.3; Monocytes # (A) 0.7 k/uL (0-1.0); Monocytes % (A) 13 %; Neutrophils # (A) 3.8 k/uL (1.3-7.7); Neutrophils % (A) 76 %; Platelet Count 126 k/uL (150-450); RBC 4.97 m/uL (4.30-5.90); RDW 14.9 % (11.5-15.5); WBC 5.1 k/uL (3.8-10.6)
[2021-09-23 07:28] LABS: ALT 17 U/L (4-49); AST 24 U/L (17-59); African American GFR (CKD) >90 (>60 ml/min/1.73 sqM); Alkaline Phosphatase 84 U/L (38-126); Anion Gap 6 mmol/L; Blood Urea Nitrogen 16 mg/dL (9-20); Carbon Dioxide 26 mmol/L (22-30); Chloride 106 mmol/L (98-107); Glucose 129 mg/dL (74-99); Magnesium 1.5 mg/dL (1.6-2.3); Non-African American GFR(CKD) >90 (>60 ml/min/1.73 sqM); Potassium 3.7 mmol/L (3.5-5.1); Sodium 138 mmol/L (137-145); Total Bilirubin 0.6 mg/dL (0.2-1.3); Total Protein 6.2 g/dL (6.3-8.2)
[2021-09-23 07:30] LABS: INR 1.3 (<1.2); Prothrombin Time 13.4 sec (9.0-12.0)
[2021-09-23] MEDS ORDERED: methylPREDNISolone SOD SUCCI 125 MG/2 ML VIAL IV STA (08:24)
[2021-09-23] MEDS ORDERED: IPRATROPIUM-ALBUTEROL 3 ML NEB INHALATION PRN (08:24)
--- NOTE | 2021-09-23 08:24 | ED ---
SOB HPI - General Chief Complaint: Shortness of Breath Stated Complaint: Poss pneumonia Time Seen by Provider: 09/23/21 06:40 Source: patient, EMS, RN notes reviewed, old records reviewed Mode of arrival: EMS Limitations: altered mental status, physical limitation - History of Present Illness Initial Comments: Patient is a 66-year-old male, with history of A. fib, COPD, normally and 2 L, presenting to the emergency department via EMS from [facility] for difficulty in breathing. According to the staff, and had increased respirations and a low- grade temperature. They had concerns for possible pneumonia. Patient was satting at 85% on his normal 2 L. He denies any pain, he is normally A&O 2-3 which is his baseline. Denies any abdominal pain, no nausea or vomiting. Patient has no further complaints. There is no family to provide any further history. Upon arrival to the ER, his temperature is 99.3, 93% on 4 L, rest of vitals normal. - Related Data Home Medications Medication Instructions Recorded Confirmed Levothyroxine Sodium [Synthroid] 100 mcg PO DAILY 09/05/14 09/23/21 Digoxin [Lanoxin] 125 mcg PO HS 01/04/16 09/23/21 Acetaminophen [Tylenol Extra 500 mg PO Q4H PRN 06/18/17 09/23/21 Strength] Apixaban [Eliquis] 2.5 mg PO BID 06/18/17 09/23/21 Cholecalciferol [Vitamin D3 (25 25 mcg PO HS 06/18/17 09/23/21 Mcg = 1000 Iu)] Atorvastatin [Lipitor] 80 mg PO HS 08/29/19 09/23/21 Ipratropium-Albuterol Nebulize 3 ml INHALATION RT-QID 08/29/19 09/23/21 [Duoneb 0.5 mg-3 mg/3 ml Soln] levETIRAcetam [Keppra Oral 1,000 mg PO BID 08/29/19 09/23/21 Solution] Acetaminophen Tab [Tylenol] 650 mg PO DAILY 09/23/21 09/23/21 Metoprolol Tartrate [Lopressor] 50 mg PO Q8H 09/23/21 09/23/21 Previous Rx's Medication Instructions Recorded allopurinoL [Zyloprim] 200 mg PO DAILY tab 06/26/17 Gabapentin [Neurontin] 300 mg PO BID #6 cap 08/31/19 Allergies Allergy/AdvReac Type Severity Reaction Status Date / Time No Known Allergies Allergy Verified 09/23/21 10:04 Review of Systems ROS Statement: Those systems with pertinent positive or pertinent negative responses have been documented in the HPI. ROS Other: All systems not noted in ROS Statement are negative. Past Medical History Past Medical History: Atrial Fibrillation, COPD, CVA/TIA, Hearing Disorder / Deafness, Hyperlipidemia, Hypertension, Seizure Disorder, Thyroid Disorder Additional Past Medical History / Comment(s): 02/13/15 ADMISSION FOR [facility]. Other HX: 09/05/[address] [facility] with seizure thought to be alcohol related, alcoholism (pt has not had any alcohol since 2013). WEAK HEART valve. History of Any Multi-Drug Resistant Organisms: None Reported Past Surgical History: Appendectomy Past Anesthesia/Blood Transfusion Reactions: No Reported Reaction Additional Past Anesthesia/Blood Transfusion Reaction / Comment(s): Pt has never recieved blood. Past Psychological History: No Psychological Hx Reported Smoking Status: Unknown if ever smoked Past Alcohol Use History: None Reported Past Drug Use History: None Reported - Past Family History Mother Family Medical History: Cancer Father Family Medical History: No Reported History Additional Family Medical History / Comment(s): Father of old age. General Exam - General Exam Comments Initial Comments: GENERAL: Patient is well-developed and well-nourished. Patient is nontoxic and in no acute distress. HEAD: Atraumatic, normocephalic. EYES: Pupils equal round and reactive to light, extraocular movements intact, sclera anicteric, conjunctiva are normal. Eyelids were unremarkable. ENT: Nares patent, oropharynx clear without exudates. Moist mucous membranes. NECK: Normal range of motion, supple without lymphadenopathy or JVD. LUNGS: Unlabored respirations. Scattered wheezes and congestion heard throughout. HEART: Irregular rate and rhythm without murmurs, rubs or gallops. ABDOMEN: Soft, nontender, normoactive bowel sounds. No guarding, no rebound. No masses appreciated. MUSCULOSKELETAL: Normal extremities with adequate strength and normal range of motion, no pitting or edema. No clubbing or cyanosis. NEUROLOGICAL: Patient is alert and oriented x 2-3, this is his baseline. Motor and sensory are also intact. Cranial nerves II through XII grossly intact. Symmetrical smile. PSYCH: Normal mood, normal affect. SKIN: Warm, Dry, normal turgor, no rashes or lesions noted. Limitations: altered mental status, physical limitation Course Vital Signs 09/23/21 09/23/21 09/23/21 06:35 07:20 07:44 Temperature 99.3 F Pulse Rate 109 H 94 94 Respiratory 25 H 20 18 Rate Blood Pressure 98/71 101/68 111/65 O2 Sat by Pulse 91 L 93 L 93 L Oximetry 09/23/21 08:36 Temperature Pulse Rate 92 Respiratory 16 Rate Blood Pressure 93/59 O2 Sat by Pulse 94 L Oximetry Medical Decision Making - Medical Decision Making Patient is a 66-year-old male with history of A. fib, COPD, normally on 2 L, presenting from [facility] for increased shortness of breath. He is on 4 L at 93%, low-grade temperature here. Labs show a normal white count, and BNP is stable at 1800, troponin is negative, rapid Covid is negative. Chest x-ray shows left lower lobe infiltrate, trace left pleural effusion, overall no significant change compared to prior. Patient be admitted for COPD exacerbation. Patient accepted by Dr. Lugo. Case discussed with Dr. Mark. - Lab Data Result diagrams: 09/23/21 06:45 09/23/21 06:45 Lab Results 09/23/21 09/23/21 09/23/21 Range/Units 06:45 06:45 06:45 WBC 5.1 (3.8-10.6) k/uL RBC 4.97 (4.30-5.90) m/uL Hgb 15.0 (13.0-17.5) gm/dL Hct 44.9 (39.0-53.0) % MCV 90.3 (80.0-100.0) fL MCH 30.2 (25.0-35.0) pg MCHC 33.4 (31.0-37.0) g/dL RDW 14.9 (11.5-15.5) % Plt Count 126 L (150-450) k/uL MPV 8.3 Neutrophils % 76 % Lymphocytes % 8 % Monocytes % 13 % Eosinophils % 1 % Basophils % 1 % Neutrophils # 3.8 (1.3-7.7) k/uL Lymphocytes # 0.4 L (1.0-4.8) k/uL Monocytes # 0.7 (0-1.0) k/uL Eosinophils # 0.0 (0-0.7) k/uL Basophils # 0.0 (0-0.2) k/uL PT 13.4 H (9.0-12.0) sec INR 1.3 H (<1.2) APTT 26.0 (22.0-30.0) sec D-Dimer (<0.60) mg/L FEU Sodium 138 (137-145) mmol/L Potassium 3.7 (3.5-5.1) mmol/L Chloride 106 (98-107) mmol/L Carbon Dioxide 26 (22-30) mmol/L Anion Gap 6 mmol/L BUN 16 (9-20) mg/dL Creatinine 0.69 (0.66-1.25) mg/dL Est GFR (CKD-EPI)AfAm >90 (>60 ml/min/1.73 sqM) Est GFR (CKD-EPI)NonAf >90 (>60 ml/min/1.73 sqM) Glucose 129 H (74-99) mg/dL Plasma Lactic Acid Markus (0.7-2.0) mmol/L Calcium 8.0 L (8.4-10.2) mg/dL Magnesium 1.5 L (1.6-2.3) mg/dL Total Bilirubin 0.6 (0.2-1.3) mg/dL AST 24 (17-59) U/L ALT 17 (4-49) U/L Alkaline Phosphatase 84 (38-126) U/L Troponin I (0.000-0.034) ng/mL NT-Pro-B Natriuret Pep pg/mL Total Protein 6.2 L (6.3-8.2) g/dL Albumin 3.0 L (3.5-5.0) g/dL Coronavirus (PCR) (Not Detectd) 09/23/21 09/23/21 09/23/21 Range/Units 06:45 06:45 06:45 WBC (3.8-10.6) k/uL RBC (4.30-5.90) m/uL Hgb (13.0-17.5) gm/dL Hct (39.0-53.0) % MCV (80.0-100.0) fL MCH (25.0-35.0) pg MCHC (31.0-37.0) g/dL RDW (11.5-15.5) % Plt Count (150-450) k/uL MPV Neutrophils % % Lymphocytes % % Monocytes % % Eosinophils % % Basophils % % Neutrophils # (1.3-7.7) k/uL Lymphocytes # (1.0-4.8) k/uL Monocytes # (0-1.0) k/uL Eosinophils # (0-0.7) k/uL Basophils # (0-0.2) k/uL PT (9.0-12.0) sec INR (<1.2) APTT (22.0-30.0) sec D-Dimer (<0.60) mg/L FEU Sodium (137-145) mmol/L Potassium (3.5-5.1) mmol/L Chloride (98-107) mmol/L Carbon Dioxide (22-30) mmol/L Anion Gap mmol/L BUN (9-20) mg/dL Creatinine (0.66-1.25) mg/dL Est GFR (CKD-EPI)AfAm (>60 ml/min/1.73 sqM) Est GFR (CKD-EPI)NonAf (>60 ml/min/1.73 sqM) Glucose (74-99) mg/dL Plasma Lactic Acid Markus 1.1 (0.7-2.0) mmol/L Calcium (8.4-10.2) mg/dL Magnesium (1.6-2.3) mg/dL Total Bilirubin (0.2-1.3) mg/dL AST (17-59) U/L ALT (4-49) U/L Alkaline Phosphatase (38-126) U/L Troponin I <0.012 (0.000-0.034) ng/mL NT-Pro-B Natriuret Pep 1850 pg/mL Total Protein (6.3-8.2) g/dL Albumin (3.5-5.0) g/dL Coronavirus (PCR) (Not Detectd) 09/23/21 09/23/21 Range/Units 06:45 06:51 WBC (3.8-10.6) k/uL RBC (4.30-5.90) m/uL Hgb (13.0-17.5) gm/dL Hct (39.0-53.0) % MCV (80.0-100.0) fL MCH (25.0-35.0) pg MCHC (31.0-37.0) g/dL RDW (11.5-15.5) % Plt Count (150-450) k/uL MPV Neutrophils % % Lymphocytes % % Monocytes % % Eosinophils % % Basophils % % Neutrophils # (1.3-7.7) k/uL Lymphocytes # (1.0-4.8) k/uL Monocytes # (0-1.0) k/uL Eosinophils # (0-0.7) k/uL Basophils # (0-0.2) k/uL PT (9.0-12.0) sec INR (<1.2) APTT (22.0-30.0) sec D-Dimer 1.49 H (<0.60) mg/L FEU Sodium (137-145) mmol/L Potassium (3.5-5.1) mmol/L Chloride (98-107) mmol/L Carbon Dioxide (22-30) mmol/L Anion Gap mmol/L BUN (9-20) mg/dL Creatinine (0.66-1.25) mg/dL Est GFR (CKD-EPI)AfAm (>60 ml/min/1.73 sqM) Est GFR (CKD-EPI)NonAf (>60 ml/min/1.73 sqM) Glucose (74-99) mg/dL Plasma Lactic Acid Markus (0.7-2.0) mmol/L Calcium (8.4-10.2) mg/dL Magnesium (1.6-2.3) mg/dL Total Bilirubin (0.2-1.3) mg/dL AST (17-59) U/L ALT (4-49) U/L Alkaline Phosphatase (38-126) U/L Troponin I (0.000-0.034) ng/mL NT-Pro-B Natriuret Pep pg/mL Total Protein (6.3-8.2) g/dL Albumin (3.5-5.0) g/dL Coronavirus (PCR) Not Detected (Not Detectd) - EKG Data EKG Comments: Afibrillation, low voltage QRS, no signs of acute ST segment elevation. Ventricular rate 95, QRS duration 80, QT 320. Disposition Clinical Impression: Acute exacerbation of chronic obstructive pulmonary disease, Hypoxia Disposition: ADMITTED IP TO THIS HOSP Condition: Fair Decision Date: 09/23/21 Decision Time: 08:24
[2021-09-23] MEDS ORDERED: ACETAMINOPHEN TAB 325 MG TAB PO PRN (08:25)
--- NOTE | 2021-09-23 09:42 | XR ---
EXAMINATION TYPE: XR chest 1V DATE OF EXAM: 09/23/2021 COMPARISON: 04/24/2020 HISTORY: 66 years Male. STUDY INDICATION GIVEN: difficulty breathing . TECHNIQUE: AP chest radius IMPRESSION: Stable left hemidiaphragm eventration. Left lower lobe infiltrate or atelectasis. Trace left pleural effusion. Mild interstitial edema. Mild cardiomegaly. Cardiac loop recorder. No right-sided effusion or pneumothorax. No acute osseous abnormality. Overall no significant change in chest x-ray appearance compared to prior.
[2021-09-23 16:52] LABS: Glucose,Whole Blood 183 mg/dL (75-99)
[2021-09-23] MEDS ORDERED: ALPRAZolam 0.25 MG TAB PO PRN (17:01)
[2021-09-23] MEDS ORDERED: MAGNESIUM HYDROXIDE 2,400 MG/10 ML CUP PO PRN (17:01)
[2021-09-23] MEDS ORDERED: CALCIUM CARBONATE 500 MG CHEWABLE PO PRN (17:01)
[2021-09-23] MEDS ORDERED: NALOXONE 0.4 MG/ML 1 ML VIAL IV PRN (17:01)
[2021-09-23] MEDS ORDERED: MELATONIN 3 MG TABLET PO PRN (17:01)
[2021-09-23] MEDS ORDERED: LACTULOSE 20 GM/30 ML CUP PO PRN (17:01)
[2021-09-23] MEDS ORDERED: ONDANSETRON 4 MG/2 ML VIAL IVP PRN (17:01)
[2021-09-23] MEDS: levETIRAcetam ORAL SOLN 500 MG/5 ML CUP PO SCH ×2 (17:06→21:45)
[2021-09-23] MEDS: METOPROLOL TARTRATE 50 MG TAB PO SCH (17:06)
[2021-09-23] MEDS: LEVOTHYROXINE 100 MCG TAB PO SCH (17:07)
[2021-09-23] MEDS: allopurinoL 100 MG TAB PO SCH (17:07)
[2021-09-23] MEDS: methylPREDNISolone SOD SUCCI 40 MG/ML 1 ML VIAL IV SCH (17:10)
[2021-09-23] MEDS: FUROSEMIDE 10 MG/ML 4 ML VIAL IV SCH ×2 (17:10→21:45)
[2021-09-23] MEDS: guaiFENesin 600 MG TABLET.ER PO SCH ×2 (17:10→21:44)
--- NOTE | 2021-09-23 18:23 | P.HPIM ---
History of Present Illness H&P Date: 09/23/21 Chief Complaint: Short of breath Hospital course: This is a 66 year patient who follows Dr. Elise at the [facility]. Chronic stable medical conditions include, COPD, hyperlipidemia, hypertension, hypothyroid. Patient's chronically weak on the left side. baseline has slurred speech. She is a very limited historian. Per the EMS run sheet patient is having increasing respiratory effort and had a fever. Congested cough. Vital signs recorded by them showed a blood pressure 101/53, pulse 103, respiration 18, pulse ox of 95% on 3 L and a temperature 100.6. Patient does follow commands. Review of systems: [Difficult to obtain] GEN.: Tired EYES: None HEENT: None NECK: None RESPIRATORY: As above CARDIOVASCULAR: None GASTROINTESTINAL: No abdominal pain GENITOURINARY: Vigil catheter MUSCULOSKELETAL: none LYMPHATICS: None HEMATOLOGICAL: None PSYCHIATRY: None NEUROLOGICAL: Left-sided weakness, slurred speech Past medical history to include: Atrial fibrillation, COPD, stroke. Vascular Dementia, hyperlipidemia, hypertension, hypothyroid. Alcohol related seizures in the past. Alcoholism. last drink was in 2013. Patient smoked for close to 50 years. Twice a day abdominal aortic aneurysm. Left-sided weakness following a hemorrhagic stroke in 2015 Social history: Long-term resident of [facility] on. Patient started smoking age of 14 smoked three-quarter packs a day for close to 50 years. Patient was drinking excessive alcohol until 2013 Physical examination: VITAL SIGNS: Temperature 100.6 101/53, 103, 18, 95% on 3 L GENERAL: BMI 24.3, laying in bed, awake, not in distress, congested cough. EYES: Pupils equal. Conjunctiva normal. HEENT: External appearance of nose and ears normal, oral cavity dry. No teeth NECK: JVD unable to assess; masses not palpable. HEART: First and second heart sounds are normal; no edema. LUNGS: Respiratory rate increased, decreased breath sounds, coarse expiratory crackles ABDOMEN: Soft, nontender, liver spleen not palpable, no masses palpable, Vigil catheter. PSYCH: May answer occasional question NEUROLOGICAL: Slurred speech, power in the left arm is 1/5, left leg 1 x 5. LYMPHATICS: No lymph nodes palpable in the axilla and neck INVESTIGATIONS, reviewed in the clinical context: White count 5.1 hemoglobin 15 platelets 126 lymphocytes 0.4 d-dimer 1.49 sodium 138 potassium 3.7 creatinine 0.69 magnesia 1.5 Troponin I less than 0.012 proBNP 1850 Coronavirus [PCR]: Not detected EKG tracing personally reviewed by me: Atrial flutter-fibrillation. Rate 95 Chest x-ray film personally reviewed by me-portable: Possible infiltrate. Questionable venous prominence Assessment: -Acute bilateral pneumonia, possible viral versus bacterial. IV ceftriaxone. 1 g every 12 -Acute congestive heart failure exacerbation. EF not known IV Lasix 40 mg every 12. Check 2-D echocardiogram -Chronic left-sided weakness, from a prior hemorrhagic stroke -Persistent atrial fibrillation, rate controlled Lopressor 50 mg every 8, liquids 2.5 by mouth twice a day -Acute COPD exacerbation in a previous smoker DuoNeb 4 times a day, IV Solu-Medrol 40 every 8 -Hyperlipidemia Lipitor 80 mg daily at bedtime -Essential hypertension Lopressor 50 mg by mouth every 8 -Chronic epilepsy disorder Thousand milligrams by mouth twice a day -Hypothyroid Synthroid 100 g daily -DO NOT RESUSCITATE IV ceftriaxone. IV Lasix 40 mg every 12. 2-D echocardiogram. Resume home medications. DuoNeb. IV Solu-Medrol. Inhaled Pulmicort. Telemetry. Given the complexity and severity of patient's condition expect the patient to be in the hospital at least for 2 overnights Past Medical History Past Medical History: Atrial Fibrillation, COPD, CVA/TIA, Hearing Disorder / Deafness, Hyperlipidemia, Hypertension, Seizure Disorder, Thyroid Disorder Additional Past Medical History / Comment(s): 02/13/15 ADMISSION FOR [facility]. Other HX: 09/05/14 admission to [facility] with seizure thought to be alcohol related, alcoholism (pt has not had any alcohol since 2013). WEAK HEART valve. History of Any Multi-Drug Resistant Organisms: None Reported Past Surgical History: Appendectomy Past Anesthesia/Blood Transfusion Reactions: No Reported Reaction Additional Past Anesthesia/Blood Transfusion Reaction / Comment(s): Pt has never recieved blood. Past Psychological History: No Psychological Hx Reported Smoking Status: Unknown if ever smoked Past Alcohol Use History: None Reported Past Drug Use History: None Reported - Past Family History Mother Family Medical History: Cancer Father Family Medical History: No Reported History Additional Family Medical History / Comment(s): Father of old age. Medications and Allergies Home Medications Medication Instructions Recorded Confirmed Type Levothyroxine Sodium [Synthroid] 100 mcg PO DAILY 09/05/14 09/23/21 History Digoxin [Lanoxin] 125 mcg PO HS 01/04/16 09/23/21 History Acetaminophen [Tylenol Extra 500 mg PO Q4H PRN 06/18/17 09/23/21 History Strength] Apixaban [Eliquis] 2.5 mg PO BID 06/18/17 09/23/21 History Cholecalciferol [Vitamin D3 (25 25 mcg PO HS 06/18/17 09/23/21 History Mcg = 1000 Iu)] allopurinoL [Zyloprim] 200 mg PO DAILY tab 06/26/17 09/23/21 Rx Atorvastatin [Lipitor] 80 mg PO HS 08/29/19 09/23/21 History Ipratropium-Albuterol Nebulize 3 ml INHALATION RT-QID 08/29/19 09/23/21 History [Duoneb 0.5 mg-3 mg/3 ml Soln] levETIRAcetam [Keppra Oral 1,000 mg PO BID 08/29/19 09/23/21 History Solution] Gabapentin [Neurontin] 300 mg PO BID #6 cap 08/31/19 09/23/21 Rx Acetaminophen Tab [Tylenol] 650 mg PO DAILY 09/23/21 09/23/21 History Metoprolol Tartrate [Lopressor] 50 mg PO Q8H 09/23/21 09/23/21 History Allergies Allergy/AdvReac Type Severity Reaction Status Date / Time No Known Allergies Allergy Verified 09/23/21 10:04 Physical Exam Vitals: Vital Signs Temp Pulse Pulse Resp BP BP Pulse Ox 09/23/21 14:00 97.6 F 102 H 16 120/81 96 09/23/21 13:30 106 H 12 123/83 09/23/21 13:00 105 H 30 H 120/81 09/23/21 12:30 112 H 14 120/81 09/23/21 12:00 101 H 14 116/78 09/23/21 11:30 101 H 20 116/78 09/23/21 11:00 105 H 20 113/70 09/23/21 10:30 110 H 17 113/70 09/23/21 10:00 112 H 17 09/23/21 09:30 93 20 116/78 09/23/21 09:00 100 23 93/59 09/23/21 08:36 92 16 93/59 94 L 09/23/21 08:30 101 H 22 93/59 09/23/21 08:00 99 20 111/65 09/23/21 07:44 99.3 F 94 18 111/65 93 L 09/23/21 07:20 94 20 101/68 93 L 09/23/21 06:35 109 H 25 H 98/71 91 L Intake and Output 09/22/21 09/23/21 09/23/21 22:59 06:59 14:59 Other: Weight 90.718 kg Results CBC & Chem 7: 09/23/21 06:45 09/23/21 06:45 Labs: Abnormal Lab Results - Last 24 Hours (Table) 09/23/21 09/23/21 09/23/21 Range/Units 06:45 06:45 06:45 Plt Count 126 L (150-450) k/uL Lymphocytes # 0.4 L (1.0-4.8) k/uL PT 13.4 H (9.0-12.0) sec INR 1.3 H (<1.2) D-Dimer (<0.60) mg/L FEU Glucose 129 H (74-99) mg/dL Calcium 8.0 L (8.4-10.2) mg/dL Magnesium 1.5 L (1.6-2.3) mg/dL Total Protein 6.2 L (6.3-8.2) g/dL Albumin 3.0 L (3.5-5.0) g/dL 09/23/21 Range/Units 06:45 Plt Count (150-450) k/uL Lymphocytes # (1.0-4.8) k/uL PT (9.0-12.0) sec INR (<1.2) D-Dimer 1.49 H (<0.60) mg/L FEU Glucose (74-99) mg/dL Calcium (8.4-10.2) mg/dL Magnesium (1.6-2.3) mg/dL Total Protein (6.3-8.2) g/dL Albumin (3.5-5.0) g/dL
[2021-09-23 20:12] LABS: Glucose,Whole Blood 169 mg/dL (75-99)
[2021-09-23] MEDS: IPRATROPIUM-ALBUTEROL 3 ML NEB INHALATION SCH ×2 (21:43→21:51)
[2021-09-23] MEDS: DIGOXIN 125 MCG TAB PO SCH (21:44)
[2021-09-23] MEDS: ATORVASTATIN 80 MG TAB PO SCH (21:44)
[2021-09-23] MEDS: GABAPENTIN 300 MG CAP PO SCH (21:44)
[2021-09-23] MEDS: APIXABAN 2.5 MG TABLET PO SCH (21:44)
[2021-09-23] MEDS: CHOLECALCIFEROL 25 MCG (1000 IU) TABLET PO SCH (21:45)
[2021-09-23] MEDS: BUDESONIDE 1 MG/2 ML NEBU INHALATION SCH (21:51)
[2021-09-24] MEDS: methylPREDNISolone SOD SUCCI 40 MG/ML 1 ML VIAL IV SCH ×3 (00:29→17:56)
[2021-09-24] MEDS: METOPROLOL TARTRATE 50 MG TAB PO SCH ×4 (00:29→23:47)
[2021-09-24 05:45] LABS: Basophils % (A) 0 %; Eosinophils % (A) 0 %; HCT 49.3 % (39.0-53.0); HGB 16.2 gm/dL (13.0-17.5); Lymphocytes # (A) 0.5 k/uL (1.0-4.8); Lymphocytes % (A) 20 %; MCH 29.6 pg (25.0-35.0); MCHC 32.9 g/dL (31.0-37.0); MCV 90.1 fL (80.0-100.0); Monocytes # (A) 0.2 k/uL (0-1.0); Monocytes % (A) 9 %; Neutrophils # (A) 1.6 k/uL (1.3-7.7); Neutrophils % (A) 70 %; Platelet Count 150 k/uL (150-450); RBC 5.48 m/uL (4.30-5.90); RDW 15.3 % (11.5-15.5); WBC 2.3 k/uL (3.8-10.6)
[2021-09-24 06:35] LABS: African American GFR (CKD) >90 (>60 ml/min/1.73 sqM); Anion Gap 11 mmol/L; Blood Urea Nitrogen 23 mg/dL (9-20); Calcium 8.4 mg/dL (8.4-10.2); Carbon Dioxide 27 mmol/L (22-30); Chloride 100 mmol/L (98-107); Glucose 135 mg/dL (74-99); Non-African American GFR(CKD) >90 (>60 ml/min/1.73 sqM); Potassium 4.3 mmol/L (3.5-5.1); Sodium 138 mmol/L (137-145)
[2021-09-24 07:41] LABS: Glucose,Whole Blood 130 mg/dL (75-99)
[2021-09-24] MEDS: BUDESONIDE 1 MG/2 ML NEBU INHALATION SCH ×2 (08:00→20:03)
[2021-09-24] MEDS: IPRATROPIUM-ALBUTEROL 3 ML NEB INHALATION SCH ×4 (08:00→20:03)
[2021-09-24] MEDS: levETIRAcetam ORAL SOLN 500 MG/5 ML CUP PO SCH ×2 (09:13→21:41)
[2021-09-24] MEDS: allopurinoL 100 MG TAB PO SCH (09:15)
[2021-09-24] MEDS: APIXABAN 2.5 MG TABLET PO SCH ×2 (09:15→21:40)
[2021-09-24] MEDS: GABAPENTIN 300 MG CAP PO SCH ×2 (09:15→21:40)
[2021-09-24] MEDS: LEVOTHYROXINE 100 MCG TAB PO SCH (09:15)
[2021-09-24] MEDS: guaiFENesin 600 MG TABLET.ER PO SCH ×4 (09:15→21:42)
[2021-09-24 12:08] LABS: Glucose,Whole Blood 182 mg/dL (75-99)
--- NOTE | 2021-09-24 16:43 | ECHOF ---
Referral Reason:assess LV fn MEASUREMENTS -------- HEIGHT: 193.0 cm WEIGHT: 90.3 kg BP: 99/67 RVIDd: 2.8 cm (< 3.3) IVSd: 1.5 cm (0.6 - 1.1) LVIDd: 3.2 cm (3.9 - 5.3) LVPWd: 1.5 cm (0.6 - 1.1) IVSs: 2.0 cm LVIDs: 2.2 cm LVPWs: 1.9 cm LAESV Index (A-L): 38.42 ml/m Ao Diam: 3.5 cm (2.0 - 3.7) AV Cusp: 2.0 cm (1.5 - 2.6) LA Diam: 5.8 cm (2.7 - 3.8) MV EXCURSION: 12.865 mm (> 18.000) MV EF SLOPE: 19 mm/s (70 - 150) EPSS: 2.0 cm RAP: 5.00 mmHg RVSP: 22.76 mmHg FINDINGS -------- This was a technically difficult study with suboptimal views. The left ventricular size is normal. There is moderate concentric left ventricular hypertrophy. O verall left ventricular systolic function is normal with, an EF between 55 - 60 %. The right ventricle is normal in size. LA is moderately dilated 34-39 ml/m2 The right atrium was not well visualized. 3.0mg of Lumason was utilized for enhancement of images Interatrial and interventricular septum intact. The aortic valve is trileaflet and appears structurally normal. There is no evidence of aortic regu rgitation. There is no evidence of aortic stenosis. Mild mitral regurgitation is present. Mild tricuspid regurgitation present. There is no evidence of pulmonary hypertension. The right v entricular systolic pressure, as measured by Doppler, is 22.76mmHg. There is no pulmonic regurgitation present. The aortic root size is normal. IVC Not well visulized. Echo free space represents a pericardial fat pad. There is no pericardial effusion. CONCLUSIONS -------- 1. The left ventricular size is normal. 2. There is moderate concentric left ventricular hypertrophy. 3. Overall left ventricular systolic function is normal with, an EF between 55 - 60 %. 4. LA is moderately dilated 34-39 ml/m2 5. Mild mitral regurgitation is present. 6. Mild tricuspid regurgitation present. CONCRETE FORM SETTER: Cassandra Hamlin RDCS
[2021-09-24 17:37] LABS: Glucose,Whole Blood 215 mg/dL (75-99)
--- NOTE | 2021-09-24 17:48 | P.PN ---
Progress Note - Text Progress Note Date: 09/24/21 Chief Complaint: Short of breath Hospital course: This is a 66 year patient who follows Dr. Elise at the [facility]. Chronic stable medical conditions include, COPD, hyperlipidemia, hypertension, hypothyroid. Patient's chronically weak on the left side. baseline has slurred speech. She is a very limited historian. Per the EMS run sheet patient is having increasing respiratory effort and had a fever. Congested cough. Vital signs recorded by them showed a blood pressure 101/53, pulse 103, respiration 18, pulse ox of 95% on 3 L and a temperature 100.6. Patient does follow commands. Admitted with bilateral pneumonia, CHF exacerbation. Started on IV ceftriaxone and IV Lasix. Did did use well. September 24: Patient a bit more communicative today. Breathing a bit better. Oral intake improved Review of systems: Was done for constitutional, cardiovascular, GI, pulmonary. relevant finding as above Active Medications Acetaminophen (Acetaminophen Tab 325 Mg Tab) 650 mg PO Q6HR PRN PRN Reason: Mild Pain or Fever > 100.5 Albuterol/Ipratropium (Ipratropium-Albuterol 3 Ml Neb) 3 ml INHALATION RT-Q4H PRN PRN Reason: Shortness Of Breath Or Wheezing Albuterol/Ipratropium (Ipratropium-Albuterol 3 Ml Neb) 3 ml INHALATION RT-QID [facility] Last Admin: 09/24/21 16:24 Dose: 3 ml Documented by: Allopurinol (Allopurinol 100 Mg Tab) 200 mg PO DAILY [facility] Last Admin: 09/24/21 09:15 Dose: 200 mg Documented by: Alprazolam (Alprazolam 0.25 Mg Tab) 0.25 mg PO Q6HR PRN PRN Reason: Anxiety Apixaban (Apixaban 2.5 Mg Tablet) 2.5 mg PO BID [facility]; Protocol Last Admin: 09/24/21 09:15 Dose: 2.5 mg Documented by: Atorvastatin Calcium (Atorvastatin 80 Mg Tab) 80 mg PO HS [facility] Last Admin: 09/23/21 21:44 Dose: 80 mg Documented by: Budesonide (Budesonide 1 Mg/2 Ml Nebu) 1 mg INHALATION RT-BID [facility] Last Admin: 09/24/21 08:00 Dose: 1 mg Documented by: Calcium Carbonate/Glycine (Calcium Carbonate 500 Mg Chewable) 1,000 mg PO Q4HR PRN PRN Reason: Dyspepsia Cholecalciferol (Cholecalciferol 25 Mcg (1000 Iu) Tablet) 25 mcg PO [facility] Last Admin: 09/23/21 21:45 Dose: 25 mcg Documented by: Digoxin (Digoxin 125 Mcg Tab) 125 mcg PO HS [facility] Last Admin: 09/23/21 21:44 Dose: 125 mcg Documented by: Gabapentin (Gabapentin 300 Mg Cap) 300 mg PO BID [facility] Last Admin: 09/24/21 09:15 Dose: 300 mg Documented by: Guaifenesin (Guaifenesin 600 Mg Tablet.Er) 600 mg PO QID [facility] Last Admin: 09/24/21 12:20 Dose: 600 mg Documented by: Ceftriaxone Sodium 1 gm/ (Sodium Chloride) 50 mls @ 100 mls/hr IVPB Q12HR [facility] Last Admin: 09/24/21 09:15 Dose: 100 mls/hr Documented by: Lactulose (Lactulose 20 Gm/30 Ml Cup) 20 gm PO DAILY PRN PRN Reason: Constipation Levetiracetam (Levetiracetam Oral Soln 500 Mg/5 Ml Cup) 1,000 mg PO BID [facility] Last Admin: 09/24/21 09:13 Dose: 1,000 mg Documented by: Levothyroxine Sodium (Levothyroxine 100 Mcg Tab) 100 mcg PO 0630 [facility] Last Admin: 09/24/21 09:15 Dose: 100 mcg Documented by: Magnesium Hydroxide (Magnesium Hydroxide 2,400 Mg/10 Ml Cup) 2,400 mg PO DAILY PRN PRN Reason: Constipation Melatonin (Melatonin 3 Mg Tablet) 3 mg PO HS PRN PRN Reason: Insomnia Methylprednisolone Sodium Succinate (Methylprednisolone Sod Succi 40 Mg/Ml 1 Ml Vial) 40 mg IV Q8HR [facility] Last Admin: 09/24/21 09:14 Dose: 40 mg Documented by: Metoprolol Tartrate (Metoprolol Tartrate 50 Mg Tab) 50 mg PO Q8H [facility] Last Admin: 09/24/21 09:15 Dose: Not Given Documented by: Naloxone HCl (Naloxone 0.4 Mg/Ml 1 Ml Vial) 0.2 mg IV Q2M PRN PRN Reason: Opioid Reversal Ondansetron HCl (Ondansetron 4 Mg/2 Ml Vial) 4 mg IVP Q8HR PRN PRN Reason: Nausea And Vomiting Past medical history to include: Atrial fibrillation, COPD, stroke. Vascular Dementia, hyperlipidemia, hypertension, hypothyroid. Alcohol related seizures in the past. Alcoholism. last drink was in 2013. Patient smoked for close to 50 years. Twice a day abdominal aortic aneurysm. Left-sided weakness following a hemorrhagic stroke in 2015 Social history: Long-term resident of [facility]. Patient started smoking age of 14 smoked three-quarter packs a day for close to 50 years. Patient was drinking excessive alcohol until 2013 Physical examination: VITAL SIGNS: 97.8, 87, 17, 95-63, 93% on 5 L GENERAL: Laying in bed. A bit more comfortable today. Less congested cough EYES: Pupils equal. Conjunctiva normal. HEENT: External appearance of nose and ears normal, oral cavity dry. No teeth NECK: JVD unable to assess; masses not palpable. HEART: First and second heart sounds are normal; no edema. LUNGS: Respiratory rate increased, decreased breath sounds, coarse expiratory crackles ABDOMEN: Soft, nontender, liver spleen not palpable, no masses palpable, Vigil catheter. PSYCH: Answering occasional questions NEUROLOGICAL: Slurred speech, power in the left arm is 1/5, left leg 1 x 5. INVESTIGATIONS, reviewed in the clinical context: September 24: WBC 2.3 hemoglobin 16.2 potassium 4.3 creatinine 0.77 Pro-calcitonin 0.11 White count 5.1 hemoglobin 15 platelets 126 lymphocytes 0.4 d-dimer 1.49 sodium 138 potassium 3.7 creatinine 0.69 magnesia 1.5 Troponin I less than 0.012 proBNP 1850 Coronavirus [PCR]: Not detected EKG tracing personally reviewed by me: Atrial flutter-fibrillation. Rate 95 Chest x-ray film personally reviewed by me-portable: Possible infiltrate. Questionable venous prominence Assessment: -Acute bilateral pneumonia, possible gram-negative organism IV ceftriaxone. 1 g every 12 -Acute congestive heart failure exacerbation. EF not known IV Lasix 40 mg every 12. Changed to by mouth Lasix -Chronic left-sided weakness, from a prior hemorrhagic stroke -Persistent atrial fibrillation, rate controlled Lopressor 50 mg every 8, liquids 2.5 by mouth twice a day -Acute COPD exacerbation in a previous smoker: Better DuoNeb 4 times a day, IV Solu-Medrol 40 every 8-changed to by mouth prednisone -Hyperlipidemia Lipitor 80 mg daily at bedtime -Essential hypertension Lopressor 50 mg by mouth every 8 -Chronic epilepsy disorder Thousand milligrams by mouth twice a day -Hypothyroid Synthroid 100 g daily -DO NOT RESUSCITATE IV ceftriaxone. IV Lasix 40 mg every 12. Changed to by mouth Lasix. Changed to by mouth prednisone. Repeat checks x-ray labs in the morning. Discussed with the family at the bedside.
[2021-09-24] MEDS: FUROSEMIDE 40 MG TAB PO SCH (17:56)
[2021-09-24 19:37] VITALS: RESP 18
[2021-09-24 19:54] LABS: Glucose,Whole Blood 240 mg/dL (75-99)
[2021-09-24] MEDS: ATORVASTATIN 80 MG TAB PO SCH (21:40)
[2021-09-24] MEDS: CHOLECALCIFEROL 25 MCG (1000 IU) TABLET PO SCH (21:40)
[2021-09-24] MEDS: DIGOXIN 125 MCG TAB PO SCH (22:52)
[2021-09-25 06:24] LABS: Basophils % (A) 0 %; Eosinophils % (A) 0 %; HCT 47.4 % (39.0-53.0); HGB 15.4 gm/dL (13.0-17.5); Lymphocytes # (A) 0.6 k/uL (1.0-4.8); Lymphocytes % (A) 7 %; MCH 29.6 pg (25.0-35.0); MCHC 32.5 g/dL (31.0-37.0); Mean Platelet Volume 8.5; Monocytes # (A) 0.9 k/uL (0-1.0); Monocytes % (A) 10 %; Neutrophils # (A) 6.7 k/uL (1.3-7.7); Neutrophils % (A) 82 %; Platelet Count 137 k/uL (150-450); RBC 5.21 m/uL (4.30-5.90); RDW 14.8 % (11.5-15.5); WBC 8.2 k/uL (3.8-10.6)
[2021-09-25 06:35] LABS: African American GFR (CKD) >90 (>60 ml/min/1.73 sqM); Anion Gap 6 mmol/L; Blood Urea Nitrogen 34 mg/dL (9-20); Calcium 8.2 mg/dL (8.4-10.2); Carbon Dioxide 31 mmol/L (22-30); Chloride 101 mmol/L (98-107); Glucose 132 mg/dL (74-99); Non-African American GFR(CKD) 84 (>60 ml/min/1.73 sqM); Sodium 138 mmol/L (137-145)
[2021-09-25 07:05] LABS: Glucose,Whole Blood 135 mg/dL (75-99)
[2021-09-25] MEDS: LEVOTHYROXINE 100 MCG TAB PO SCH (07:54)
[2021-09-25] MEDS: METOPROLOL TARTRATE 50 MG TAB PO SCH ×2 (08:02→16:13)
[2021-09-25] MEDS: IPRATROPIUM-ALBUTEROL 3 ML NEB INHALATION SCH ×4 (08:02→23:55)
[2021-09-25] MEDS: BUDESONIDE 1 MG/2 ML NEBU INHALATION SCH ×2 (08:02→23:55)
[2021-09-25] MEDS: predniSONE 20 MG TAB PO SCH (09:16)
[2021-09-25] MEDS: allopurinoL 100 MG TAB PO SCH (09:16)
[2021-09-25] MEDS: GABAPENTIN 300 MG CAP PO SCH ×2 (09:17→21:40)
[2021-09-25] MEDS: APIXABAN 2.5 MG TABLET PO SCH ×2 (09:18→21:40)
[2021-09-25] MEDS: FUROSEMIDE 40 MG TAB PO SCH (09:18)
[2021-09-25] MEDS: guaiFENesin 600 MG TABLET.ER PO SCH ×4 (09:19→21:40)
[2021-09-25] MEDS: levETIRAcetam ORAL SOLN 500 MG/5 ML CUP PO SCH ×2 (09:24→21:40)
[2021-09-25 11:42] LABS: Glucose,Whole Blood 124 mg/dL (75-99)
--- NOTE | 2021-09-25 15:43 | XR ---
EXAMINATION TYPE: XR chest 1V portable DATE OF EXAM: 09/25/2021 COMPARISON: 09/23/2021, 10/22/2019 INDICATION: Follow-up pneumonia and CHF TECHNIQUE: Single frontal view of the chest is obtained. FINDINGS: The heart size is enlarged. The pulmonary vasculature is normal. Small granuloma may been the upper outer right chest, present n early 2 years prior. Small left pleural effusion may be present. Some consolidation and elevation left diaphragm is presen t. Correlate for pneumonia left lower lobe. IMPRESSION: 1. Cardiomegaly. 2. Consider retrocardiac infiltrate. Correlate for pneumonia or pleural effusion.
[2021-09-25] MEDS ORDERED: LACTATED RINGERS 1,000 ML IV SCH (19:30)
--- NOTE | 2021-09-25 19:31 | P.PN ---
Progress Note - Text Progress Note Date: 09/25/21 Chief Complaint: Short of breath Hospital course: This is a 66 year patient who follows Dr. Elise at the [facility]. Chronic stable medical conditions include, COPD, hyperlipidemia, hypertension, hypothyroid. Patient's chronically weak on the left side. baseline has slurred speech. She is a very limited historian. Per the EMS run sheet patient is having increasing respiratory effort and had a fever. Congested cough. Vital signs recorded by them showed a blood pressure 101/53, pulse 103, respiration 18, pulse ox of 95% on 3 L and a temperature 100.6. Patient does follow commands. Admitted with bilateral pneumonia, CHF exacerbation. Started on IV ceftriaxone and IV Lasix. Did did use well. September 24: Patient a bit more communicative today. Breathing a bit better. Oral intake improved September 25: Sitting up in a chair. For more awake. Communicating slowly. Breathing definitely better. Oral intake about 50%. Blood pressure running low. By mouth Lasix discontinued. EF is good. Review of systems: Attempted for constitutional, cardiovascular, GI, pulmonary. relevant finding as above Active Medications Acetaminophen (Acetaminophen Tab 325 Mg Tab) 650 mg PO Q6HR PRN PRN Reason: Mild Pain or Fever > 100.5 Last Admin: 09/25/21 13:41 Dose: 650 mg Documented by: Albuterol/Ipratropium (Ipratropium-Albuterol 3 Ml Neb) 3 ml INHALATION RT-Q4H PRN PRN Reason: Shortness Of Breath Or Wheezing Albuterol/Ipratropium (Ipratropium-Albuterol 3 Ml Neb) 3 ml INHALATION RT-QID [facility] Last Admin: 09/25/21 15:51 Dose: 3 ml Documented by: Allopurinol (Allopurinol 100 Mg Tab) 200 mg PO DAILY [facility] Last Admin: 09/25/21 09:16 Dose: 200 mg Documented by: Alprazolam (Alprazolam 0.25 Mg Tab) 0.25 mg PO Q6HR PRN PRN Reason: Anxiety Apixaban (Apixaban 2.5 Mg Tablet) 2.5 mg PO BID [facility]; Protocol Last Admin: 09/25/21 09:18 Dose: 2.5 mg Documented by: Atorvastatin Calcium (Atorvastatin 80 Mg Tab) 80 mg PO HS [facility] Last Admin: 09/24/21 21:40 Dose: 80 mg Documented by: Budesonide (Budesonide 1 Mg/2 Ml Nebu) 1 mg INHALATION RT-BID [facility] Last Admin: 09/25/21 08:02 Dose: 1 mg Documented by: Calcium Carbonate/Glycine (Calcium Carbonate 500 Mg Chewable) 1,000 mg PO Q4HR PRN PRN Reason: Dyspepsia Cholecalciferol (Cholecalciferol 25 Mcg (1000 Iu) Tablet) 25 mcg PO [facility] Last Admin: 09/24/21 21:40 Dose: 25 mcg Documented by: Digoxin (Digoxin 125 Mcg Tab) 125 mcg PO [facility] Last Admin: 09/24/21 22:52 Dose: 125 mcg Documented by: Gabapentin (Gabapentin 300 Mg Cap) 300 mg PO BID [facility] Last Admin: 09/25/21 09:17 Dose: 300 mg Documented by: Guaifenesin (Guaifenesin 600 Mg Tablet.Er) 600 mg PO QID [facility] Last Admin: 09/25/21 19:04 Dose: 600 mg Documented by: Ceftriaxone Sodium 1 gm/ (Sodium Chloride) 50 mls @ 100 mls/hr IVPB Q12HR [facility] Last Admin: 09/25/21 07:55 Dose: 100 mls/hr Documented by: Lactulose (Lactulose 20 Gm/30 Ml Cup) 20 gm PO DAILY PRN PRN Reason: Constipation Levetiracetam (Levetiracetam Oral Soln 500 Mg/5 Ml Cup) 1,000 mg PO BID [facility] Last Admin: 09/25/21 09:24 Dose: 1,000 mg Documented by: Levothyroxine Sodium (Levothyroxine 100 Mcg Tab) 100 mcg PO 0630 [facility] Last Admin: 09/25/21 07:54 Dose: 100 mcg Documented by: Magnesium Hydroxide (Magnesium Hydroxide 2,400 Mg/10 Ml Cup) 2,400 mg PO DAILY PRN PRN Reason: Constipation Melatonin (Melatonin 3 Mg Tablet) 3 mg PO HS PRN PRN Reason: Insomnia Metoprolol Tartrate (Metoprolol Tartrate 50 Mg Tab) 50 mg PO Q8H [facility] Last Admin: 09/25/21 16:13 Dose: 50 mg Documented by: Naloxone HCl (Naloxone 0.4 Mg/Ml 1 Ml Vial) 0.2 mg IV Q2M PRN PRN Reason: Opioid Reversal Ondansetron HCl (Ondansetron 4 Mg/2 Ml Vial) 4 mg IVP Q8HR PRN PRN Reason: Nausea And Vomiting Prednisone (Prednisone 20 Mg Tab) 40 mg PO DAILY [facility] Last Admin: 09/25/21 09:16 Dose: 40 mg Documented by: Past medical history to include: Atrial fibrillation, COPD, stroke. Vascular Dementia, hyperlipidemia, hypertension, hypothyroid. Alcohol related seizures in the past. Alcoholism. last drink was in 2013. Patient smoked for close to 50 years. Twice a day abdominal aortic aneurysm. Left-sided weakness following a hemorrhagic stroke in 2015 Social history: Long-term resident of [facility]. Patient started smoking age of 14 smoked three-quarter packs a day for close to 50 years. Patient was drinking excessive alcohol until 2013 Physical examination: VITAL SIGNS: 97.9, 76, 18, 98.66, 98% on 4 L GENERAL: Sitting up in a chair, breathing better. More comfortable EYES: Pupils equal. Conjunctiva normal. HEENT: External appearance of nose and ears normal, oral cavity dry. No teeth NECK: JVD unable to assess; masses not palpable. HEART: First and second heart sounds are normal; no edema. LUNGS: Respiratory rate normal, decreased breath sounds, ABDOMEN: Soft, nontender, liver spleen not palpable, no masses palpable, Vigil catheter. PSYCH: Answering occasional questions NEUROLOGICAL: Slurred speech, power in the left arm is 1/5, left leg 1 x 5. Left hand contracture INVESTIGATIONS, reviewed in the clinical context: September 25: WBC 8.2 hemoglobin 15.4 platelets 137 potassium 4 creatinine 0.93 2-D echocardiogram: EF 55-60%. Moderate concentric LVH. September 25: Possible left basilar infiltrate September 24: WBC 2.3 hemoglobin 16.2 potassium 4.3 creatinine 0.77 Pro-calcitonin 0.11 White count 5.1 hemoglobin 15 platelets 126 lymphocytes 0.4 d-dimer 1.49 sodium 138 potassium 3.7 creatinine 0.69 magnesia 1.5 Troponin I less than 0.012 proBNP 1850 Coronavirus [PCR]: Not detected EKG tracing personally reviewed by me: Atrial flutter-fibrillation. Rate 95 Chest x-ray film personally reviewed by me-portable: Possible infiltrate. Questionable venous prominence Assessment: -Acute bilateral pneumonia, possible gram-negative organism: Improving IV ceftriaxone. 1 g every 12 -Acute congestive heart failure exacerbation. From diastolic dysfunction EF 55- 60%.: Stabilized IV Lasix 40 mg every 12. By mouth Lasix. -Chronic left-sided weakness, from a prior hemorrhagic stroke -Persistent atrial fibrillation, rate controlled Lopressor 50 mg every 8, liquids 2.5 by mouth twice a day -Acute COPD exacerbation in a previous smoker: Better DuoNeb 4 times a day, IV Solu-Medrol 40 every 8-changed to by mouth prednisone -Hyperlipidemia Lipitor 80 mg daily at bedtime -Essential hypertension Lopressor 50 mg by mouth every 8 -Chronic epilepsy disorder Thousand milligrams by mouth twice a day -Hypothyroid Synthroid 100 g daily -DO NOT RESUSCITATE IV ceftriaxone. DC by mouth Lasix. We'll gently hydrate today. Overall looking better.
[2021-09-25] MEDS: DIGOXIN 125 MCG TAB PO SCH (21:40)
[2021-09-25] MEDS: ATORVASTATIN 80 MG TAB PO SCH (21:40)
[2021-09-25] MEDS: CHOLECALCIFEROL 25 MCG (1000 IU) TABLET PO SCH (21:40)
[2021-09-26] MEDS: METOPROLOL TARTRATE 50 MG TAB PO SCH ×3 (01:01→16:38)
[2021-09-26] MEDS: LEVOTHYROXINE 100 MCG TAB PO SCH (05:45)
[2021-09-26] MEDS: BUDESONIDE 1 MG/2 ML NEBU INHALATION SCH (08:03)
[2021-09-26] MEDS: IPRATROPIUM-ALBUTEROL 3 ML NEB INHALATION SCH ×3 (08:03→16:25)
[2021-09-26] MEDS: GABAPENTIN 300 MG CAP PO SCH (10:55)
[2021-09-26] MEDS: predniSONE 20 MG TAB PO SCH (10:55)
[2021-09-26] MEDS: levETIRAcetam ORAL SOLN 500 MG/5 ML CUP PO SCH (10:56)
[2021-09-26] MEDS: APIXABAN 2.5 MG TABLET PO SCH (10:56)
[2021-09-26] MEDS: guaiFENesin 600 MG TABLET.ER PO SCH ×3 (10:56→18:11)
[2021-09-26] MEDS: allopurinoL 100 MG TAB PO SCH (10:56)
[2021-09-26 10:58] VITALS: BP 106/62; TEMP 97.5
--- NOTE | 2021-09-26 15:35 | P.DS ---
Providers Date of admission: 09/23/21 08:09 Expected date of discharge: 09/26/21 Attending physician: Clarence Lugo Primary care physician: Mike Elise [facility] Hospital Course: Chief Complaint: Short of breath Hospital course: This is a 66 year patient who follows Dr. Elise at the [facility]. Chronic stable medical conditions include, COPD, hyperlipidemia, hypertension, hypothyroid. Patient's chronically weak on the left side. baseline has slurred speech. She is a very limited historian. Per the EMS run sheet patient is having increasing respiratory effort and had a fever. Congested cough. Vital signs recorded by them showed a blood pressure 101/53, pulse 103, respiration 18, pulse ox of 95% on 3 L and a temperature 100.6. Patient does follow commands. Admitted with pneumonia, CHF exacerbation. Started on IV ceftriaxone and IV Lasix. Patient responded well. Oral intake improved. Today: Breathing much better. Pulse ox 95% on 2 L. Oral intake fair. Fluid restriction 1500 mL a day. Lasix discontinued. Due to low blood pressure Lopressor cut back to 50 mg twice a day Discussion and discharge planning more than 35 minutes Past medical history to include: Atrial fibrillation, COPD, stroke. Vascular Dementia, hyperlipidemia, hypertension, hypothyroid. Alcohol related seizures in the past. Alcoholism. last drink was in 2013. Patient smoked for close to 50 years. Twice a day abdominal aortic aneurysm. Left-sided weakness following a hemorrhagic stroke in 2015 Social history: Long-term resident of [facility] on. Patient started smoking age of 14 smoked three-quarter packs a day for close to 50 years. Patient was drinking excessive alcohol until 2013 Physical examination: VITAL SIGNS: 97.5, 84, 18, 106/62, 95% on 2 L GENERAL: Declining, comfortable, EYES: Pupils equal. Conjunctiva normal. HEENT: External appearance of nose and ears normal, oral cavity dry. No teeth NECK: JVD unable to assess; masses not palpable. HEART: First and second heart sounds are normal; no edema. LUNGS: Respiratory rate normal, decreased breath sounds, ABDOMEN: Soft, nontender, liver spleen not palpable, no masses palpable, Vigil catheter. PSYCH: Answering occasional questions NEUROLOGICAL: Slurred speech, power in the left arm is 1/5, left leg 1 x 5. Left hand contracture INVESTIGATIONS, reviewed in the clinical context: September 25: WBC 8.2 hemoglobin 15.4 platelets 137 potassium 4 creatinine 0.93 2-D echocardiogram: EF 55-60%. Moderate concentric LVH. September 25: Possible left basilar infiltrate September 24: WBC 2.3 hemoglobin 16.2 potassium 4.3 creatinine 0.77 Pro-calcitonin 0.11 White count 5.1 hemoglobin 15 platelets 126 lymphocytes 0.4 d-dimer 1.49 sodium 138 potassium 3.7 creatinine 0.69 magnesia 1.5 Troponin I less than 0.012 proBNP 1850 Coronavirus [PCR]: Not detected EKG tracing personally reviewed by me: Atrial flutter-fibrillation. Rate 95 Chest x-ray film personally reviewed by me-portable: Possible infiltrate. Questionable venous prominence Assessment: - pneumonia, possible gram-negative organism: Much improved IV ceftriaxone. 1 g every 12. Omnicef 300 mg every 12 3 days -Acute congestive heart failure exacerbation. From diastolic dysfunction EF 55- 60%.: Stabilized IV Lasix 40 mg every 12. Fluid restriction 1500 mL a day -Chronic left-sided weakness, from a prior hemorrhagic stroke -Persistent atrial fibrillation, rate controlled Lopressor 50 mg twice a day, liquids 2.5 by mouth twice a day -Acute COPD exacerbation in a previous smoker: Better DuoNeb 4 times a day, IV Solu-Medrol 40 every 8-changed to by mouth Discharge in prednisone taper -Hyperlipidemia Lipitor 80 mg daily at bedtime -Essential hypertension Lopressor 50 mg by mouth twice a day -Chronic epilepsy disorder Thousand milligrams by mouth twice a day -Hypothyroid Synthroid 100 g daily -DO NOT RESUSCITATE Disposition: [facility] Plan - Discharge Summary Discharge Rx Participant: Yes New Discharge Prescriptions: New predniSONE 10 mg PO DAILY #30 tab guaiFENesin [Mucinex] 600 mg PO QID tablet Cefdinir [Omnicef] 300 mg PO Q12HR #6 capsule Continue Levothyroxine Sodium [Synthroid] 100 mcg PO DAILY Digoxin [Lanoxin] 125 mcg PO HS Cholecalciferol [Vitamin D3 (25 Mcg = 1000 Iu)] 25 mcg PO HS Acetaminophen [Tylenol Extra Strength] 500 mg PO Q4H PRN PRN Reason: Pain Apixaban [Eliquis] 2.5 mg PO BID allopurinoL [Zyloprim] 200 mg PO DAILY tab Ipratropium-Albuterol Nebulize [Duoneb 0.5 mg-3 mg/3 ml Soln] 3 ml INHALATION RT-QID levETIRAcetam [Keppra Oral Solution] 1,000 mg PO BID Atorvastatin [Lipitor] 80 mg PO HS Gabapentin [Neurontin] 300 mg PO BID #6 cap Acetaminophen Tab [Tylenol] 650 mg PO DAILY Metoprolol Tartrate [Lopressor] 50 mg PO Q8H Discharge Medication List Levothyroxine Sodium [Synthroid] 100 mcg PO DAILY 09/05/14 [History] Digoxin [Lanoxin] 125 mcg PO HS 01/04/16 [History] Acetaminophen [Tylenol Extra Strength] 500 mg PO Q4H PRN 06/18/17 [History] Apixaban [Eliquis] 2.5 mg PO BID 06/18/17 [History] Cholecalciferol [Vitamin D3 (25 Mcg = 1000 Iu)] 25 mcg PO HS 06/18/17 [History] allopurinoL [Zyloprim] 200 mg PO DAILY tab 06/26/17 [Rx] Atorvastatin [Lipitor] 80 mg PO HS 08/29/19 [History] Ipratropium-Albuterol Nebulize [Duoneb 0.5 mg-3 mg/3 ml Soln] 3 ml INHALATION RT-QID 08/29/19 [History] levETIRAcetam [Keppra Oral Solution] 1,000 mg PO BID 08/29/19 [History] Gabapentin [Neurontin] 300 mg PO BID #6 cap 08/31/19 [Rx] Acetaminophen Tab [Tylenol] 650 mg PO DAILY 09/23/21 [History] Metoprolol Tartrate [Lopressor] 50 mg PO Q8H 09/23/21 [History] Cefdinir [Omnicef] 300 mg PO Q12HR #6 capsule 09/26/21 [Rx] guaiFENesin [Mucinex] 600 mg PO QID tablet 09/26/21 [Rx] predniSONE 10 mg PO DAILY #30 tab 09/26/21 [Rx] Follow up Appointment(s)/Referral(s): Mike Elise DO [Primary Care Provider] - 1-2 days Activity/Diet/Wound Care/Special Instructions: incentice spirometer fluid restrict 1500 cc/day
[2021-09-26 16:38] VITALS: PULSE 107
== END 2021-09-26 19:10 | DRG 177 ==
LOC: EC 06:32 → 5NMEDONC 08:09
PROVIDERS: ADMIT Hospitalist; ATTEND Hospitalist
DX: J15.6 Pneumonia due to other Gram-negative bacteria (principal); I50.33 Acute on chronic diastolic (congestive) heart failure; J44.0 Chronic obstructive pulmonary disease with (acute) lower respiratory infection; I48.19 Other persistent atrial fibrillation; J44.1 Chronic obstructive pulmonary disease with (acute) exacerbation; I69.354 Hemiplegia and hemiparesis following cerebral infarction affecting left non-dominant side; I11.0 Hypertensive heart disease with heart failure; E03.9 Hypothyroidism, unspecified; E78.5 Hyperlipidemia, unspecified; F01.50 Vascular dementia, unspecified severity, without behavioral disturbance, psychotic disturbance, mood disturbance, and anxiety; F10.21 Alcohol dependence, in remission; G40.909 Epilepsy, unspecified, not intractable, without status epilepticus; H91.90 Unspecified hearing loss, unspecified ear; I71.4 Abdominal aortic aneurysm, without rupture; R09.02 Hypoxemia; Z20.822 Contact with and (suspected) exposure to COVID-19; Z66 Do not resuscitate; Z79.01 Long term (current) use of anticoagulants; Z79.890 Hormone replacement therapy; Z79.899 Other long term (current) drug therapy; R47.81 Slurred speech; F17.200 Nicotine dependence, unspecified, uncomplicated
CPT/HCPCS: 36415; 71045; 80048; 80053; 83605; 83735; 83880; 84145; 84484; 85025; 85379; 85610; 85730; 87635; 93005; 93306; 94640; 94760; 99285

== ENCOUNTER 2021-10-03 22:26 | Inpatient (IN) | payer MEDICARE, OTHER ==
[2021-10-03] MEDS ORDERED: IPRATROPIUM-ALBUTEROL 3 ML NEB INHALATION STA (22:38)
[2021-10-03] MEDS ORDERED: methylPREDNISolone SOD SUCCI 125 MG/2 ML VIAL IV STA (22:38)
[2021-10-03] MEDS ORDERED: SODIUM CHLORIDE 0.9% 1,000 ML IV STA (22:38)
--- NOTE | 2021-10-03 22:39 | ED ---
SOB HPI - General Chief Complaint: Shortness of Breath Stated Complaint: Weakness Time Seen by Provider: 10/03/21 22:31 Source: EMS, RN notes reviewed, old records reviewed Mode of arrival: EMS Limitations: altered mental status, physical limitation - History of Present Illness Initial Comments: This is a 58-year-old male DF for evaluation patient Dese for evaluation regards to severe shortness of breath increasing shortness of breath. Patient has in creased cough congestion and recent admission for COPD exacerbation. EMS call was for shortness of breath patient presented for patient shortness of breath. Patient himself denies complaints states that his normal baseline of difficulty breathing. Patient has no chest pain no fevers no other complaints MD Complaint: shortness of breath, cough -: days(s) Radiation: back Severity: moderate Severity scale (1-10): 4 Quality: dull, aching Consistency: constant Improves With: nothing Worsens With: nothing Known History Of: COPD, asthma Context: recent URI Associated Symptoms: chest pain, cough, sputum production Treatments Prior to Arrival: none - Related Data Home Medications Medication Instructions Recorded Confirmed Levothyroxine Sodium [Synthroid] 100 mcg PO DAILY 09/05/14 10/03/21 Digoxin [Lanoxin] 125 mcg PO HS 01/04/16 10/03/21 Acetaminophen [Tylenol Extra 500 mg PO Q4H PRN 06/18/17 10/03/21 Strength] Apixaban [Eliquis] 2.5 mg PO BID@0800,1600 06/18/17 10/03/21 Atorvastatin [Lipitor] 80 mg PO HS 08/29/19 10/03/21 Ipratropium-Albuterol Nebulize 3 ml INHALATION RT-QID 08/29/19 10/03/21 [Duoneb 0.5 mg-3 mg/3 ml Soln] levETIRAcetam [Keppra Oral 1,000 mg PO BID 08/29/19 10/03/21 Solution] Acetaminophen Tab [Tylenol] 650 mg PO DAILY@0800 09/23/21 10/03/21 Cholecalciferol [Vitamin D3 (25 25 mcg PO HS 10/03/21 10/03/21 Mcg = 1000 Iu)] Metoprolol Tartrate [Lopressor] 50 mg PO BID@0800,1600 10/03/21 10/03/21 predniSONE See Taper PO DIRECTED 10/03/21 10/03/21 Previous Rx's Medication Instructions Recorded allopurinoL [Zyloprim] 200 mg PO DAILY tab 06/26/17 Gabapentin [Neurontin] 300 mg PO BID #6 cap 09/26/21 Allergies Allergy/AdvReac Type Severity Reaction Status Date / Time No Known Allergies Allergy Verified 10/03/21 23:24 Review of Systems ROS Statement: Those systems with pertinent positive or pertinent negative responses have been documented in the HPI. ROS Other: All systems not noted in ROS Statement are negative. Past Medical History Past Medical History: Atrial Fibrillation, COPD, CVA/TIA, Hearing Disorder / Deafness, Hyperlipidemia, Hypertension, Seizure Disorder, Thyroid Disorder Additional Past Medical History / Comment(s): 02/13/15 ADMISSION FOR [facility]. Other HX: 09/05/14 admission to [facility] with seizure thought to be alcohol related, alcoholism (pt has not had any alcohol since 2013). WEAK HEART valve. History of Any Multi-Drug Resistant Organisms: None Reported Past Surgical History: Appendectomy Past Anesthesia/Blood Transfusion Reactions: No Reported Reaction Additional Past Anesthesia/Blood Transfusion Reaction / Comment(s): Pt has never recieved blood. Past Psychological History: No Psychological Hx Reported Smoking Status: Unknown if ever smoked Past Alcohol Use History: None Reported Past Drug Use History: None Reported - Past Family History Mother Family Medical History: Cancer Father Family Medical History: No Reported History Additional Family Medical History / Comment(s): Father of old age. General Exam Limitations: altered mental status, physical limitation General appearance: alert, in no apparent distress Head exam: Present: atraumatic, normocephalic, normal inspection Eye exam: Present: normal appearance, PERRL, EOMI. Absent: scleral icterus, conjunctival injection, periorbital swelling ENT exam: Present: normal exam, mucous membranes moist Neck exam: Present: normal inspection. Absent: tenderness, meningismus, lymphadenopathy Respiratory exam: Present: respiratory distress, wheezes, accessory muscle use, decreased breath sounds, prolonged expiratory. Absent: rales, rhonchi, stridor Cardiovascular Exam: Present: regular rate, normal rhythm, normal heart sounds. Absent: systolic murmur, diastolic murmur, rubs, gallop, clicks GI/Abdominal exam: Present: soft, normal bowel sounds. Absent: distended, tenderness, guarding, rebound, rigid Extremities exam: Present: normal inspection, full ROM, normal capillary refill. Absent: tenderness, pedal edema, joint swelling, calf tenderness Back exam: Present: normal inspection Neurological exam: Present: alert, oriented X3, CN II-XII intact Psychiatric exam: Present: normal affect, normal mood Skin exam: Present: warm, dry, intact, normal color. Absent: rash Course Vital Signs 10/03/21 10/03/21 10/03/21 22:28 22:59 23:23 Temperature 98.4 F Pulse Rate 64 122 H 130 H Respiratory 36 H Rate Blood Pressure 115/86 O2 Sat by Pulse 88 L Oximetry 10/03/21 10/04/21 10/04/21 23:30 01:02 01:21 Temperature Pulse Rate 124 H 122 H 130 H Respiratory 18 30 H Rate Blood Pressure 123/83 O2 Sat by Pulse 88 L 92 L Oximetry - Reevaluation(s) Reevaluation #1: 10/03/21 23:01 Medical record is reviewed Reevaluation #2: 10/04/21 01:28 Patient has no real significant improvement here in the emergency department Reevaluation #3: 10/04/21 01:28 Patient informed results and questions answered - Consultations Consultation #1: Spoke with [facility] Who agreed to admit this patient Medical Decision Making - Medical Decision Making 66 male to the emergency department for evaluation patient presents today for evaluation of severe shortness of breath severely hypoxic with CHF pneumonia and COPD. Patient be admitted for cardiopulmonary care. - Lab Data Result diagrams: 10/03/21 22:44 10/03/21 22:44 Lab Results 10/03/21 10/03/21 10/03/21 Range/Units 22:44 22:44 22:44 WBC 8.2 (3.8-10.6) k/uL RBC 5.32 (4.30-5.90) m/uL Hgb 16.1 (13.0-17.5) gm/dL Hct 49.6 (39.0-53.0) % MCV 93.2 (80.0-100.0) fL MCH 30.3 (25.0-35.0) pg MCHC 32.5 (31.0-37.0) g/dL RDW 14.9 (11.5-15.5) % Plt Count 147 L (150-450) k/uL MPV 8.8 Neutrophils % 90 % Lymphocytes % 5 % Monocytes % 4 % Eosinophils % 0 % Basophils % 0 % Neutrophils # 7.4 (1.3-7.7) k/uL Lymphocytes # 0.4 L (1.0-4.8) k/uL Monocytes # 0.3 (0-1.0) k/uL Eosinophils # 0.0 (0-0.7) k/uL Basophils # 0.0 (0-0.2) k/uL PT 14.4 H (9.0-12.0) sec INR 1.4 H (<1.2) APTT 25.8 (22.0-30.0) sec Sodium 141 (137-145) mmol/L Potassium 5.8 H (3.5-5.1) mmol/L Chloride 106 (98-107) mmol/L Carbon Dioxide 27 (22-30) mmol/L Anion Gap 8 mmol/L BUN 24 H (9-20) mg/dL Creatinine 0.72 (0.66-1.25) mg/dL Est GFR (CKD-EPI)AfAm >90 (>60 ml/min/1.73 sqM) Est GFR (CKD-EPI)NonAf >90 (>60 ml/min/1.73 sqM) Glucose 118 H (74-99) mg/dL Plasma Lactic Acid Markus (0.7-2.0) mmol/L Calcium 8.0 L (8.4-10.2) mg/dL Phosphorus 4.0 (2.5-4.5) mg/dL Magnesium 2.1 (1.6-2.3) mg/dL Total Bilirubin 1.5 H (0.2-1.3) mg/dL AST 156 H (17-59) U/L ALT 152 H (4-49) U/L Alkaline Phosphatase 82 (38-126) U/L Troponin I (0.000-0.034) ng/mL NT-Pro-B Natriuret Pep pg/mL Total Protein 6.8 (6.3-8.2) g/dL Albumin 3.0 L (3.5-5.0) g/dL TSH 1.460 (0.465-4.680) mIU/L 10/03/21 10/03/21 10/03/21 Range/Units 22:44 22:44 22:44 WBC (3.8-10.6) k/uL RBC (4.30-5.90) m/uL Hgb (13.0-17.5) gm/dL Hct (39.0-53.0) % MCV (80.0-100.0) fL MCH (25.0-35.0) pg MCHC (31.0-37.0) g/dL RDW (11.5-15.5) % Plt Count (150-450) k/uL MPV Neutrophils % % Lymphocytes % % Monocytes % % Eosinophils % % Basophils % % Neutrophils # (1.3-7.7) k/uL Lymphocytes # (1.0-4.8) k/uL Monocytes # (0-1.0) k/uL Eosinophils # (0-0.7) k/uL Basophils # (0-0.2) k/uL PT (9.0-12.0) sec INR (<1.2) APTT (22.0-30.0) sec Sodium (137-145) mmol/L Potassium (3.5-5.1) mmol/L Chloride (98-107) mmol/L Carbon Dioxide (22-30) mmol/L Anion Gap mmol/L BUN (9-20) mg/dL Creatinine (0.66-1.25) mg/dL Est GFR (CKD-EPI)AfAm (>60 ml/min/1.73 sqM) Est GFR (CKD-EPI)NonAf (>60 ml/min/1.73 sqM) Glucose (74-99) mg/dL Plasma Lactic Acid Markus 1.9 (0.7-2.0) mmol/L Calcium (8.4-10.2) mg/dL Phosphorus (2.5-4.5) mg/dL Magnesium (1.6-2.3) mg/dL Total Bilirubin (0.2-1.3) mg/dL AST (17-59) U/L ALT (4-49) U/L Alkaline Phosphatase (38-126) U/L Troponin I <0.012 (0.000-0.034) ng/mL NT-Pro-B Natriuret Pep 2560 pg/mL Total Protein (6.3-8.2) g/dL Albumin (3.5-5.0) g/dL TSH (0.465-4.680) mIU/L - EKG Data -: EKG Interpreted by Me (EKG shows A. fib with RVR 125 QRS 62 QTC 392) - Radiology Data Radiology results: report reviewed (Us x-ray shows significant mild worsening of pneumonia CHF), image reviewed Critical Care Time Critical Care Time: Yes Total Critical Care Time: 31 Disposition Clinical Impression: COPD (chronic obstructive pulmonary disease), Atrial fibrillation with RVR, Chronic a-fib, Acute exacerbation of chronic obstructive pulmonary disease, Acute pulmonary edema, Congestive heart failure, Hypoxia Disposition: ADMITTED IP TO THIS HOSP Condition: Serious Is patient prescribed a controlled substance at d/c from ED?: No Referrals: Mike Elise DO [Primary Care Provider] - 1-2 days
[2021-10-03 22:57] LABS: Basophils % (A) 0 %; Eosinophils % (A) 0 %; HCT 49.6 % (39.0-53.0); HGB 16.1 gm/dL (13.0-17.5); Lymphocytes # (A) 0.4 k/uL (1.0-4.8); Lymphocytes % (A) 5 %; MCH 30.3 pg (25.0-35.0); MCHC 32.5 g/dL (31.0-37.0); MCV 93.2 fL (80.0-100.0); Mean Platelet Volume 8.8; Monocytes # (A) 0.3 k/uL (0-1.0); Monocytes % (A) 4 %; Neutrophils # (A) 7.4 k/uL (1.3-7.7); Neutrophils % (A) 90 %; Platelet Count 147 k/uL (150-450); RBC 5.32 m/uL (4.30-5.90); RDW 14.9 % (11.5-15.5); WBC 8.2 k/uL (3.8-10.6)
[2021-10-03] MEDS ORDERED: DILTIAZEM 5 MG/ML 5 ML VIAL IVP STA (23:03)
[2021-10-03 23:06] LABS: INR 1.4 (<1.2); Partial Thromboplastin Time 25.8 sec (22.0-30.0); Prothrombin Time 14.4 sec (9.0-12.0)
--- NOTE | 2021-10-03 23:24 | XR ---
EXAMINATION TYPE: XR chest 2V DATE OF EXAM: 10/03/2021 COMPARISON: 09/25/2021 HISTORY: Weakness TECHNIQUE: 2 views FINDINGS: Heart is enlarged. There is some mild pulmonary interstitial edema. There are no hilar mass es. There is elevated left diaphragm. There is increased density on the lateral view probably related to some consolidation and atelectasis in the left lower lobe. IMPRESSION: Pneumonia and atelectasis in the left lower lobe similar to old exam. Lung markings incre ased compared to old exam. This could be congestive heart failure or acute pneumonia.
[2021-10-04 00:02] LABS: ALT 152 U/L (4-49); African American GFR (CKD) >90 (>60 ml/min/1.73 sqM); Anion Gap 8 mmol/L; Blood Urea Nitrogen 24 mg/dL (9-20); Carbon Dioxide 27 mmol/L (22-30); Chloride 106 mmol/L (98-107); Non-African American GFR(CKD) >90 (>60 ml/min/1.73 sqM); Sodium 141 mmol/L (137-145)
[2021-10-04 00:19] LABS: Glucose 118 mg/dL (74-99); Potassium 5.8 mmol/L (3.5-5.1)
[2021-10-04 00:20] LABS: AST 156 U/L (17-59); Alkaline Phosphatase 82 U/L (38-126); Magnesium 2.1 mg/dL (1.6-2.3); Total Bilirubin 1.5 mg/dL (0.2-1.3); Total Protein 6.8 g/dL (6.3-8.2)
[2021-10-04] MEDS ORDERED: PNEUMONIA PROTOCOL UTILIZED 1 EACH MISC PO PRN (01:22)
[2021-10-04] MEDS ORDERED: ONDANSETRON 4 MG/2 ML VIAL IVP PRN (01:22)
[2021-10-04] MEDS ORDERED: IPRATROPIUM-ALBUTEROL 3 ML NEB INHALATION PRN (01:22)
[2021-10-04] MEDS ORDERED: LORazepam 2 MG/ML INJ IV PRN (01:22)
[2021-10-04] MEDS ORDERED: LEVOFLOXACIN 750MG-D5W PMX 750 MG in DEXTROSE/WATER 1 150ML.BAG IVPB STA (01:22)
[2021-10-04] MEDS ORDERED: NALOXONE 0.4 MG/ML 1 ML VIAL IV PRN (01:22)
[2021-10-04] MEDS ORDERED: PIPERACILLIN-TAZOBACTAM 3.375 GM in SODIUM CHLORIDE 0.9% 100 ML IVPB ONE (01:30)
[2021-10-04] MEDS: SODIUM CHLORIDE 0.9% 1,000 ML IV SCH (02:57)
[2021-10-04] MEDS ORDERED: TIOTROPIUM 2.5 MCG INHALER INHALATION PRN (03:50)
[2021-10-04] MEDS: ALBUTEROL HFA INHALER INHALATION SCH ×4 (08:20→20:48)
--- NOTE | 2021-10-04 08:31 | US ---
EXAMINATION TYPE: US gallbladder DATE OF EXAM: 10/04/2021 COMPARISON: NONE CLINICAL HISTORY: chf. Poor historian EXAM MEASUREMENTS: Liver Length: 12.1 cm Gallbladder Wall: not seen cm CBD: 0.4 cm Right Kidney: 9.1 x 5.6 x 4.5 cm Pancreas: Obscured by bowel gas Liver: Obscured by overlying bowel gas Gallbladder: not seen Evidence for sonographic Reis's sign: No CBD: Obscured by overlying bowel gas Right Kidney: No hydronephrosis, Lower kidney mass 1.9 x 2.6 x 1.8 Limited exam due to patient body habitus and overlying bowel gas IMPRESSION: No significant abnormality
[2021-10-04] MEDS: METOPROLOL TARTRATE 50 MG TAB PO SCH ×2 (08:41→16:39)
[2021-10-04] MEDS: APIXABAN 2.5 MG TABLET PO SCH ×2 (08:41→16:40)
[2021-10-04] MEDS ORDERED: PANTOPRAZOLE 40 MG/10 ML VIAL IV SCH (09:00)
--- NOTE | 2021-10-04 11:59 | P.CNPUL ---
History of Present Illness Consult date: 10/04/21 Requesting physician: Celso Calvillo Reason for consult: hypoxemia Chief complaint: Shortness of breath cough congestion History of present illness: This is a 66-year-old male patient who resides at [facility]. He has a history of hypothyroidism, atrial fibrillation anticoagulated with Eliquis, hyperlipidemia, seizure disorder, hypertension, previous hemorrhagic stroke with left-sided weakness. He was brought into the emergency room for noted shortness of breath and he was just discharged from here on 09/26/2021 after an episode of diastolic congestive heart failure and suspected pneumonia. He is seen today in the emergency room. Chest x-ray reveals mild pulmonary inte rstitial edema. Chronically elevated left hemidiaphragm, consolidation/atelectasis of the left lower lobe. Saturations were 88% to 92%. He is currently on 6 L nasal cannula with O2 saturation 88%. He is afebrile. Slightly tachycardic. White count 8.2. Hemoglobin 16.1. Leukocytes 0.4. INR 1.4. Sodium 141. Potassium 5.8. Creatinine 0.72. Glucose 118. AST 156. ALT 152. ProBNP 2560. TSH 1.46. Current virus by PCR positive. He's been initiated on bronchodilators, Levaquin, Zosyn, Eliquis. Ultrasound of the gallbladder revealed no significant abnormality. He is a poor historian and no information could be obtained from him. Review of Systems ROS unobtainable: due to mental status Past Medical History Past Medical History: Atrial Fibrillation, COPD, CVA/TIA, Hearing Disorder / Deafness, Hyperlipidemia, Hypertension, Seizure Disorder, Thyroid Disorder Additional Past Medical History / Comment(s): 02/13/15 ADMISSION FOR [facility]. Other HX: 09/05/14 admission to [facility] with seizure thought to be alcohol related, alcoholism (pt has not had any alcohol since 2013). WEAK HEART valve. History of Any Multi-Drug Resistant Organisms: None Reported Past Surgical History: Appendectomy Past Anesthesia/Blood Transfusion Reactions: No Reported Reaction Additional Past Anesthesia/Blood Transfusion Reaction / Comment(s): Pt has never recieved blood. Past Psychological History: No Psychological Hx Reported Smoking Status: Unknown if ever smoked Past Alcohol Use History: None Reported Past Drug Use History: None Reported - Past Family History Mother Family Medical History: Cancer Father Family Medical History: No Reported History Additional Family Medical History / Comment(s): Father of old age. Medications and Allergies Home Medications Medication Instructions Recorded Confirmed Type Levothyroxine Sodium [Synthroid] 100 mcg PO DAILY 09/05/14 10/03/21 History Digoxin [Lanoxin] 125 mcg PO HS 01/04/16 10/03/21 History Acetaminophen [Tylenol Extra 500 mg PO Q4H PRN 06/18/17 10/03/21 History Strength] Apixaban [Eliquis] 2.5 mg PO BID@0800,1600 06/18/17 10/03/21 History allopurinoL [Zyloprim] 200 mg PO DAILY tab 06/26/17 10/03/21 Rx Atorvastatin [Lipitor] 80 mg PO HS 08/29/19 10/03/21 History Ipratropium-Albuterol Nebulize 3 ml INHALATION RT-QID 08/29/19 10/03/21 History [Duoneb 0.5 mg-3 mg/3 ml Soln] levETIRAcetam [Keppra Oral 1,000 mg PO BID 08/29/19 10/03/21 History Solution] Acetaminophen Tab [Tylenol] 650 mg PO DAILY@0800 09/23/21 10/03/21 History Gabapentin [Neurontin] 300 mg PO BID #6 cap 09/26/21 10/03/21 Rx Cholecalciferol [Vitamin D3 (25 25 mcg PO HS 10/03/21 10/03/21 History Mcg = 1000 Iu)] Metoprolol Tartrate [Lopressor] 50 mg PO BID@0800,1600 10/03/21 10/03/21 History predniSONE See Taper PO DIRECTED 10/03/21 10/03/21 History Allergies Allergy/AdvReac Type Severity Reaction Status Date / Time No Known Allergies Allergy Verified 10/03/21 23:24 Physical Exam Vitals: Vital Signs Temp Pulse Pulse Resp BP BP Pulse Ox 10/04/21 08:22 88 L 10/04/21 08:00 97.7 F 112 H 111/73 89 L 10/04/21 04:20 112 H 28 H 85 L 10/04/21 02:50 98.1 F 109 H 18 112/82 91 L 10/04/21 01:56 101 H 18 91 L 10/04/21 01:21 130 H 30 H 123/83 92 L 10/04/21 01:02 122 H 18 88 L 10/03/21 23:30 124 H 10/03/21 23:23 130 H 10/03/21 22:59 122 H 10/03/21 22:28 98.4 F 64 36 H 115/86 88 L Intake and Output 10/03/21 10/04/21 10/04/21 22:59 06:59 14:59 Other: Weight 71.94 kg GENERAL EXAM: Alert, nonverbal 66-year-old male patient, poor historian. Currently on 6 L high flow nasal cannula. Comfortable in no apparent distress. HEAD: Normocephalic. EYES: Normal reaction of pupils, equal size. NOSE: Clear with pink turbinates. THROAT: No erythema or exudates. NECK: No masses, no JVD. CHEST: No chest wall deformity. LUNGS: Equal air entry with bibasilar crackles. CVS: S1 and S2 normal with no audible murmur, irregular rhythm. ABDOMEN: No hepatosplenomegaly, normal bowel sounds, no guarding or rigidity. SPINE: No scoliosis or deformity SKIN: No rashes CENTRAL NERVOUS SYSTEM: Unable to assess, tone is normal in all 4 extremities. EXTREMITIES: There is no peripheral edema. No clubbing, no cyanosis. Peripheral pulses are intact. Results - Laboratory Findings CBC and BMP: 10/03/21 22:44 10/03/21 22:44 PT/INR, D-dimer PT 14.4 sec (9.0-12.0) H 10/03/21 22:44 INR 1.4 (<1.2) H 10/03/21 22:44 Abnormal lab findings: Abnormal Labs 10/03/21 10/03/21 10/03/21 22:44 22:44 22:44 Plt Count 147 L Lymphocytes # 0.4 L PT 14.4 H INR 1.4 H Potassium 5.8 H BUN 24 H Glucose 118 H Calcium 8.0 L Total Bilirubin 1.5 H AST 156 H ALT 152 H Albumin 3.0 L Coronavirus (PCR) 10/04/21 01:58 Plt Count Lymphocytes # PT INR Potassium BUN Glucose Calcium Total Bilirubin AST ALT Albumin Coronavirus (PCR) Detected A - Diagnostic Findings Chest x-ray: image reviewed Assessment and Plan Assessment: 1 Acute hypoxemic respiratory failure secondary to COVID-19 pneumonia and atelectasis in the left lower lobe. Recent discharge on 09/26/2021. Unclear vaccination status. Resides in extended care. Poor historian. 2 Atrial fibrillation, anticoagulated with Eliquis 3 History of diastolic congestive heart failure 4 History of hemorrhagic stroke with residual left-sided weakness, aphasia 5 Hyperlipidemia 6 Hypertension 7 History of seizure disorder 8 Hypothyroidism 9 [facility] resident. 10 Poor overall functional performance based on the above-mentioned multiple co morbidities Plan: The patient was seen and evaluated Anticoagulated with Eliquis Initiate Decadron, vitamin supplements Continue bronchodilators Continue antibiotics for now, pro-calcitonin pending Follow-up chest x-ray and labs in the a.m. CODE STATUS to be addressed, previously DO NOT RESUSCITATE We will continue to follow and make further recommendations based on his clinical status I, the cosigning physician, performed a history & physical examination of the patient. Lungs sounds with crackles in the posterior bases. Maintaining O2 saturations in the high 80s, low 90s on 6 L high flow nasal cannula. I discussed the assessment and plan of care with my nurse practitioner, Anna Valdivia. I attest to the above note as dictated by her. Time with Patient: Greater than 30
[2021-10-04] MEDS ORDERED: ACETAMINOPHEN TAB 500 MG TAB PO PRN (12:08)
[2021-10-04] MEDS: PIPERACILLIN-TAZOBACTAM 3.375 GM in SODIUM CHLORIDE 0.9% 100 ML IVPB SCH ×2 (12:26→16:40)
[2021-10-04] MEDS: allopurinoL 100 MG TAB PO SCH (12:36)
[2021-10-04] MEDS: LEVOTHYROXINE 100 MCG TAB PO SCH (12:36)
[2021-10-04] MEDS: GABAPENTIN 300 MG CAP PO SCH ×2 (12:36→21:09)
[2021-10-04] MEDS: DEXAMETHASONE SOD PHOSPHATE 10 MG/ML 1 ML VIAL IVP SCH (12:40)
[2021-10-04] MEDS ORDERED: IPRATROPIUM-ALBUTEROL 3 ML NEB INHALATION SCH (13:00)
--- NOTE | 2021-10-04 13:30 | P.CRDCN ---
History of Present Illness History of present illness: HISTORY OF PRESENTING ILLNESS This is a pleasant 66-year-old male past medical history significant for chronic persistent atrial fibrillation, sick sinus syndrome, hypertension, Hemorrhagic C VAwith left sided weakness, COPD, bilateral carotid stenosis, abdominal aortic aneurysm, alcohol abuse, dyslipidemia, hypothyroidism, seizure disorder. He follows in the office with Dr. Rey, has not followed up since 2019. We have been asked to see in consultation for congestive heart failure. Patient presents emergency department with shortness of breath. He was recently admitted on 09/23/21 with fever, shortness of breath and cough. Diagnosed with acute bilateral pneumonia and acute COPD exacerbation. He was discharged on 09/26/2021 at that time his COVID-19 PCR was negative. Today, his COVID-19 PCR was positive. He does feel short of breath, he appears comfortable. He denies any symptoms of chest pain, palpitations, light headedness, dizziness, near syncope or syncope. He denies orthopnea or PND. He is a former smoker. He denies alcohol use. Patient was in atrial fibrillation with RVR on admission patient given 15mg IV Cardizem. DIAGNOSTICS EKG reveals atrial fibrillation with rapid ventricular response, heart rate 125 Telemetry tracings indicate atrial fibrillation HR 100-120s. Chest xray reveals mild pulmonary interstitial edema. Chronically elevated left hemidiaphragm, consolidation/atelectasis of the left lower lobe. Laboratory reviewed, WBC 8.2, hemoglobin 16, platelets 147, sodium 141, potassium 5.8, BUN 24, serum creatinine 0.7, magnesium 2.1, AST 156, ALT 152, troponin negative 1, TSH within normal limits, proBNP 2560 Echocardiogram 09/24/2021 revealed an EF of 55-60%, mild mitral regurgitation, mild tricuspid regurgitation Current cardiac medications include Eliquis 2.5 mg twice a day, metoprolol titrate 50 mg twice a day, digoxin 125mcg daily, atorvastatin 80 mg nightly REVIEW OF SYSTEMS At the time of my exam: CONSTITUTIONAL: Denies fever or chills. CARDIOVASCULAR: +shortness of breath Denies chest pain, orthopnea, PND or palpitations. RESPIRATORY: + cough. GASTROINTESTINAL: Denies abdominal pain, diarrhea, constipation, nausea or vomi ting. MUSCULOSKELETAL: Denies myalgias. NEUROLOGIC: Denies numbness, tingling, headacbe or weakness. ENDOCRINE: Denies fatigue, weight change, polydipsia or polyurina. GENITOURINARY: Denies burning, hematuria or urgency with micturation. HEMATOLOGIC: Denies history of anemia or bleeding. PHYSICAL EXAMINATION Vitals reviewed CONSTITUTIONAL: No apparent distress. HEENT: Neck Supple. No JVD. Full physical exam not completed to minimize covid-19 exposure ASSESSMENT Chronic persistant atrial fibrillation with RVR, on eliquis Covid-19 pneumonia Acute on chronic hypoxic respiratory failure History of diastolic heart failure, euvolemic on exam History of CVA History of bilateral carotid stenosis History of abdominal aortic aneurysm History of seizures Former tobacco use Hypothyroidism Dyslipidemia Hyperkalemia PLAN Start patient back on his home medications, Eliquis, Digoxin, Atorvastatin, and metoprolol tartrate Continue cardiac telemetry, monitor patient's heart rates will be elevated due to covid-19 pneumonia No need to repeat echocardiogram with recent on 09/24/2021 Further recommendations based on clinical course Nurse Practitioner note has been reviewed, I agree with a documented findings and plan of care. Patient was seen and examined. Past Medical History Past Medical History: Atrial Fibrillation, COPD, CVA/TIA, Hearing Disorder / Deafness, Hyperlipidemia, Hypertension, Seizure Disorder, Thyroid Disorder Additional Past Medical History / Comment(s): 02/13/15 ADMISSION FOR [facility]. Other HX: 09/05/14 admission to [facility] with seizure thought to be alcohol related, alcoholism (pt has not had any alcohol since 2013). WEAK HEART valve. History of Any Multi-Drug Resistant Organisms: None Reported Past Surgical History: Appendectomy Past Anesthesia/Blood Transfusion Reactions: No Reported Reaction Additional Past Anesthesia/Blood Transfusion Reaction / Comment(s): Pt has never recieved blood. Smoking Status: Former smoker - Past Family History Mother Family Medical History: Cancer Additional Family Medical History / Comment(s): Type of cancer unknown by LG. Father Family Medical History: No Reported History Additional Family Medical History / Comment(s): Father of old age. Medications and Allergies Home Medications Medication Instructions Recorded Confirmed Type Levothyroxine Sodium [Synthroid] 100 mcg PO DAILY 09/05/14 10/03/21 History Digoxin [Lanoxin] 125 mcg PO HS 01/04/16 10/03/21 History Acetaminophen [Tylenol Extra 500 mg PO Q4H PRN 06/18/17 10/03/21 History Strength] Apixaban [Eliquis] 2.5 mg PO BID@0800,1600 06/18/17 10/03/21 History allopurinoL [Zyloprim] 200 mg PO DAILY tab 06/26/17 10/03/21 Rx Atorvastatin [Lipitor] 80 mg PO HS 08/29/19 10/03/21 History Ipratropium-Albuterol Nebulize 3 ml INHALATION RT-QID 08/29/19 10/03/21 History [Duoneb 0.5 mg-3 mg/3 ml Soln] levETIRAcetam [Keppra Oral 1,000 mg PO BID 08/29/19 10/03/21 History Solution] Acetaminophen Tab [Tylenol] 650 mg PO DAILY@0800 09/23/21 10/03/21 History Gabapentin [Neurontin] 300 mg PO BID #6 cap 09/26/21 10/03/21 Rx Cholecalciferol [Vitamin D3 (25 25 mcg PO HS 10/03/21 10/03/21 History Mcg = 1000 Iu)] Metoprolol Tartrate [Lopressor] 50 mg PO BID@0800,1600 10/03/21 10/03/21 History predniSONE See Taper PO DIRECTED 10/03/21 10/03/21 History Allergies Allergy/AdvReac Type Severity Reaction Status Date / Time No Known Allergies Allergy Verified 10/03/21 23:24 Physical Exam Vitals: Vital Signs Temp Pulse Pulse Resp BP BP Pulse Ox 10/04/21 08:22 88 L 10/04/21 08:00 97.7 F 112 H 111/73 89 L 10/04/21 04:20 112 H 28 H 85 L 10/04/21 02:50 98.1 F 109 H 18 112/82 91 L 10/04/21 01:56 101 H 18 91 L 10/04/21 01:21 130 H 30 H 123/83 92 L 10/04/21 01:02 122 H 18 88 L 10/03/21 23:30 124 H 10/03/21 23:23 130 H 10/03/21 22:59 122 H 10/03/21 22:28 98.4 F 64 36 H 115/86 88 L Intake and Output 10/03/21 10/04/21 10/04/21 22:59 06:59 14:59 Other: Weight 71.94 kg 71.94 kg Results 10/03/21 22:44 10/03/21 22:44 Cardiac Enzymes 10/03/21 12 Range/Units 22:44 22:44 AST 156 H (17-59) U/L Troponin I <0.012 (0.000-0.034) ng/mL Coagulation 10/03/21 Range/Units 22:44 PT 14.4 H (9.0-12.0) sec APTT 25.8 (22.0-30.0) sec CBC 10/03/21 Range/Units 22:44 WBC 8.2 (3.8-10.6) k/uL RBC 5.32 (4.30-5.90) m/uL Hgb 16.1 (13.0-17.5) gm/dL Hct 49.6 (39.0-53.0) % Plt Count 147 L (150-450) k/uL Comprehensive Metabolic Panel 10/03/21 Range/Units 22:44 Sodium 141 (137-145) mmol/L Potassium 5.8 H (3.5-5.1) mmol/L Chloride 106 (98-107) mmol/L Carbon Dioxide 27 (22-30) mmol/L BUN 24 H (9-20) mg/dL Creatinine 0.72 (0.66-1.25) mg/dL Glucose 118 H (74-99) mg/dL Calcium 8.0 L (8.4-10.2) mg/dL AST 156 H (17-59) U/L ALT 152 H (4-49) U/L Alkaline Phosphatase 82 (38-126) U/L Total Protein 6.8 (6.3-8.2) g/dL Albumin 3.0 L (3.5-5.0) g/dL Current Medications Generic Name Dose Route Start Last Admin Trade Name Freq PRN Reason Stop Dose Admin Acetaminophen 500 mg 10/04/21 12:08 Acetaminophen Tab 500 Mg Tab PO Q4H PRN Mild Pain Albuterol Sulfate 4 puff 10/04/21 16:00 Albuterol Hfa Inhaler INHALATION RT-QID AZCH Allopurinol 200 mg 10/04/21 12:30 10/04/21 12:36 Allopurinol 100 Mg Tab PO Not Given DAILY ZACH Apixaban 2.5 mg 10/04/21 08:10 10/04/21 08:41 Apixaban 2.5 Mg Tablet PO 2.5 mg BID@0800,1600 [facility] Administration Protocol Atorvastatin Calcium 80 mg 10/04/21 21:00 Atorvastatin 80 Mg Tab PO HS ZACH Cholecalciferol 25 mcg 10/04/21 21:00 Cholecalciferol 25 Mcg (1000 Iu) Tablet PO HS ZACH Dexamethasone Sodium Phosphate 6 mg 10/04/21 12:15 10/04/21 12:40 Dexamethasone Sod Phosphate 10 Mg/Ml 1 Ml Vial IVP 6 mg DAILY ZACH Administration Digoxin 125 mcg 10/04/21 21:00 Digoxin 125 Mcg Tab PO HS ZACH Gabapentin 300 mg 10/04/21 12:30 10/04/21 12:36 Gabapentin 300 Mg Cap PO Not Given BID ZACH Piperacillin Sod/Tazobactam 100 mls @ 25 mls/hr 10/04/21 11:00 10/04/21 12:26 Sod 3.375 gm/ Sodium Chloride IVPB 10/10/21 23:00 Not Given Q8H ZACH Sodium Chloride 1,000 mls @ 20 mls/hr 10/04/21 01:30 10/04/21 02:57 Saline 0.9% IV 20 mls/hr .Q24H ZACH Administration Levetiracetam 1,000 mg 10/04/21 12:30 Levetiracetam Oral Soln 500 Mg/5 Ml Cup PO BID ZACH Levothyroxine Sodium 100 mcg 10/04/21 12:30 10/04/21 12:36 Levothyroxine 100 Mcg Tab PO Not Given DAILY@0630 [facility] Lorazepam 0.5 mg 10/04/21 01:22 Lorazepam 2 Mg/Ml Inj IV Q6HR PRN Anxiety Metoprolol Tartrate 50 mg 10/04/21 08:11 12 08:41 Metoprolol Tartrate 50 Mg Tab PO 50 mg BID@0800,1600 [facility] Administration Miscellaneous Information 1 each 10/04/21 01:22 Pneumonia Protocol Utilized 1 Each Misc PO ONCE PRN Per Protocol Morphine Sulfate 4 mg 10/04/21 01:22 Morphine Sulfate 4 Mg/Ml Syringe IV Q4HR PRN Severe Pain Naloxone HCl 0.2 mg 10/04/21 01:22 Naloxone 0.4 Mg/Ml 1 Ml Vial IV Q2M PRN Opioid Reversal Ondansetron HCl 4 mg 10/04/21 01:22 Ondansetron 4 Mg/2 Ml Vial IVP Q8HR PRN Nausea And Vomiting Pantoprazole Sodium 40 mg 10/04/21 09:00 10/04/21 08:41 Pantoprazole 40 Mg/10 Ml Vial IV 40 mg DAILY ZACH Administration Intake and Output 10/03/21 10/04/21 10/04/21 22:59 06:59 14:59 Other: Weight 71.94 kg 71.94 kg Patient Weight 10/05/21 06:59 Weight 71.94 kg 10/03/21 22:44 10/03/21 22:44
[2021-10-04 13:31] LABS: Chloride 104 mmol/L (98-107)
[2021-10-04 13:36] LABS: African American GFR (CKD) >90 (>60 ml/min/1.73 sqM); Anion Gap 10 mmol/L; Blood Urea Nitrogen 25 mg/dL (9-20); Carbon Dioxide 31 mmol/L (22-30); Glucose 134 mg/dL (74-99); LDH 1037 U/L (313-618); Non-African American GFR(CKD) >90 (>60 ml/min/1.73 sqM); Potassium 4.1 mmol/L (3.5-5.1); Sodium 145 mmol/L (137-145)
[2021-10-04 13:51] LABS: C Reactive Protein 20.1 mg/dL (<1.0)
[2021-10-04] MEDS: levETIRAcetam ORAL SOLN 500 MG/5 ML CUP PO SCH ×2 (14:32→21:09)
[2021-10-04] MEDS ORDERED: CALCIUM CARBONATE 500 MG CHEWABLE PO PRN (15:46)
[2021-10-04] MEDS ORDERED: LACTULOSE 20 GM/30 ML CUP PO PRN (15:46)
--- NOTE | 2021-10-04 16:10 | P.HPIM ---
History of Present Illness H&P Date: 10/04/21 Chief Complaint: Short of breath Hospital course: This is a 66 year patient who follows Dr. Elise at the [facility]. Chronic stable medical conditions include, COPD, hyperlipidemia, hypertension, hypothyroid. chronically weak on the left side. baseline has slurred speech. very limited historian. Recently in the hospital from September 03 through September 26 with pneumonia, CHF exacerbation. IV ceftriaxone and IV Lasix. Had responded well. EMS was called out to the [facility] and that the patient earlier was breathing up to 30/m and had increase his oxygen to 4 L. Patient is more short of breath. Patient again doesn't state too much. Patient was 88% on 5 L on arrival. Tachycardic. He also tested positive for COVID. Review of systems: [Difficult to obtain] GEN.: Tired EYES: None HEENT: None NECK: None RESPIRATORY: As above CARDIOVASCULAR: None GASTROINTESTINAL: No abdominal pain GENITOURINARY: None MUSCULOSKELETAL: none LYMPHATICS: None HEMATOLOGICAL: None PSYCHIATRY: None NEUROLOGICAL: Left-sided weakness, slurred speech Past medical history to include: Atrial fibrillation, COPD, stroke. Vascular Dementia, hyperlipidemia, hyp ertension, hypothyroid. Alcohol related seizures in the past. Alcoholism. last drink was in 2013. smoked for close to 50 years. Left-sided weakness following a hemorrhagic stroke in 2015 Social history: Long-term resident of [facility] on. Patient started smoking age of 14 smoked three-quarter packs a day for close to 50 years. Patient was drinking excessive alcohol until 2013 Physical examination: VITAL SIGNS: 98.4, 122, 36, 150/86, 88% on 5 L upon presentation GENERAL: BMI 22.8, reclining in bed, awake, tired EYES: Pupils equal. Conjunctiva normal. HEENT: External appearance of nose and ears normal, oral cavity dry. No teeth NECK: JVD unable to assess; masses not palpable. HEART: First and second heart sounds are normal; no edema. LUNGS: Respiratory rate increased, decreased breath sounds, coarse expiratory crackles ABDOMEN: Soft, nontender, liver spleen not palpable, no masses palpable, Vigil catheter. PSYCH: May answer occasional question NEUROLOGICAL: Slurred speech, power in the left arm is 1/5, left leg 1 x 5. LYMPHATICS: No lymph nodes palpable in the axilla and neck INVESTIGATIONS, reviewed in the clinical context: White count 8.2 hemoglobin 16.1 platelets 147 sodium 145 potassium 4.1 BUN 25 creatinine 0.59 d-dimer 1.7 CRP 20.1 Admission labs: Coronavirus [PCR colon detected Potassium 5.8 AST 156 ALT 152 EKG tracing personally reviewed by me-atrial fibrillation rate 125 Chest x-ray film personally reviewed by me-bilateral infiltrates Recent studies: 2-D echocardiogram: EF 55-60%. Moderate concentric LVH. Assessment and plan: - Acute COVID 19 pneumonitis Decadron, eliquis -Sepsis from COVID 19 pneumonitis IV antibiotics. -Recent bacterial pneumonia Placed on IV Zosyn per pulmonary. -Chronic congestive heart failure exacerbation. From diastolic dysfunction EF 55-60%.: On fluid restriction -Chronic left-sided weakness, from a prior hemorrhagic stroke Fall precautions -Persistent atrial fibrillation, rate uncontrolled Lopressor 50 mg twice a day, eliquis 2.5 by mouth twice a day -Acute COPD exacerbation in a previous smoker: Better Ventolin 4 times a day, Decadron -Hyperlipidemia Lipitor 80 mg daily at bedtime -Essential hypertension Lopressor 50 mg by mouth twice a day -Chronic epilepsy disorder Keppra 1000 milligrams by mouth twice a day -Hypothyroid Synthroid 100 g daily -DO NOT RESUSCITATE Oxygen supplementation. Decadron. Resume home medications. IV Zosyn. Procalcitonin. Consultation to pulmonary and cardiology. Past Medical History Past Medical History: Atrial Fibrillation, COPD, CVA/TIA, Hearing Disorder / Deafness, Hyperlipidemia, Hypertension, Seizure Disorder, Thyroid Disorder Additional Past Medical History / Comment(s): 02/13/15 ADMISSION FOR [facility]. Other HX: 09/05/[address] [facility] with seizure thought to be alcohol related, alcoholism (pt has not had any alcohol since 2013). WEAK HEART valve. History of Any Multi-Drug Resistant Organisms: None Reported Past Surgical History: Appendectomy Past Anesthesia/Blood Transfusion Reactions: No Reported Reaction Additional Past Anesthesia/Blood Transfusion Reaction / Comment(s): Pt has never recieved blood. Past Psychological History: No Psychological Hx Reported Smoking Status: Unknown if ever smoked Past Alcohol Use History: None Reported Past Drug Use History: None Reported - Past Family History Mother Family Medical History: Cancer Father Family Medical History: No Reported History Additional Family Medical History / Comment(s): Father of old age. Medications and Allergies Home Medications Medication Instructions Recorded Confirmed Type Levothyroxine Sodium [Synthroid] 100 mcg PO DAILY 09/05/14 10/03/21 History Digoxin [Lanoxin] 125 mcg PO HS 01/04/16 10/03/21 History Acetaminophen [Tylenol Extra 500 mg PO Q4H PRN 06/18/17 10/03/21 History Strength] Apixaban [Eliquis] 2.5 mg PO BID@0800,1600 06/18/17 10/03/21 History allopurinoL [Zyloprim] 200 mg PO DAILY tab 06/26/17 10/03/21 Rx Atorvastatin [Lipitor] 80 mg PO HS 08/29/19 10/03/21 History Ipratropium-Albuterol Nebulize 3 ml INHALATION RT-QID 08/29/19 10/03/21 History [Duoneb 0.5 mg-3 mg/3 ml Soln] levETIRAcetam [Keppra Oral 1,000 mg PO BID 08/29/19 10/03/21 History Solution] Acetaminophen Tab [Tylenol] 650 mg PO DAILY@0800 09/23/21 10/03/21 History Gabapentin [Neurontin] 300 mg PO BID #6 cap 09/26/21 10/03/21 Rx Cholecalciferol [Vitamin D3 (25 25 mcg PO HS 10/03/21 10/03/21 History Mcg = 1000 Iu)] Metoprolol Tartrate [Lopressor] 50 mg PO BID@0800,1600 10/03/21 10/03/21 History predniSONE See Taper PO DIRECTED 10/03/21 10/03/21 History Allergies Allergy/AdvReac Type Severity Reaction Status Date / Time No Known Allergies Allergy Verified 10/03/21 23:24 Physical Exam Vitals: Vital Signs Temp Pulse Pulse Resp BP BP Pulse Ox 10/04/21 08:22 88 L 10/04/21 08:00 97.7 F 112 H 111/73 89 L 10/04/21 04:20 112 H 28 H 85 L 10/04/21 02:50 98.1 F 109 H 18 112/82 91 L 10/04/21 01:56 101 H 18 91 L 10/04/21 01:21 130 H 30 H 123/83 92 L 12/09/21 01:02 122 H 18 88 L 10/03/21 23:30 124 H 10/03/21 23:23 130 H 10/03/21 22:59 122 H 10/03/21 22:28 98.4 F 64 36 H 115/86 88 L Intake and Output 10/03/21 10/04/21 10/04/21 22:59 06:59 14:59 Other: Weight 71.94 kg Results CBC & Chem 7: 10/03/21 22:44 10/04/21 13:06 Labs: Abnormal Lab Results - Last 24 Hours (Table) 10/03/21 10/03/21 10/03/21 Range/Units 22:44 22:44 22:44 Plt Count 147 L (150-450) k/uL Lymphocytes # 0.4 L (1.0-4.8) k/uL PT 14.4 H (9.0-12.0) sec INR 1.4 H (<1.2) Potassium 5.8 H (3.5-5.1) mmol/L BUN 24 H (9-20) mg/dL Glucose 118 H (74-99) mg/dL Calcium 8.0 L (8.4-10.2) mg/dL Total Bilirubin 1.5 H (0.2-1.3) mg/dL AST 156 H (17-59) U/L ALT 152 H (4-49) U/L Albumin 3.0 L (3.5-5.0) g/dL Coronavirus (PCR) (Not Detectd) 10/04/21 Range/Units 01:58 Plt Count (150-450) k/uL Lymphocytes # (1.0-4.8) k/uL PT (9.0-12.0) sec INR (<1.2) Potassium (3.5-5.1) mmol/L BUN (9-20) mg/dL Glucose (74-99) mg/dL Calcium (8.4-10.2) mg/dL Total Bilirubin (0.2-1.3) mg/dL AST (17-59) U/L ALT (4-49) U/L Albumin (3.5-5.0) g/dL Coronavirus (PCR) Detected A (Not Detectd)
[2021-10-04] MEDS: LORazepam 0.5 MG TAB PO PRN (21:09)
[2021-10-04] MEDS: ATORVASTATIN 80 MG TAB PO SCH (21:09)
[2021-10-04] MEDS: CHOLECALCIFEROL 25 MCG (1000 IU) TABLET PO SCH (21:09)
[2021-10-04] MEDS: DIGOXIN 125 MCG TAB PO SCH (23:44)
[2021-10-05] MEDS: PIPERACILLIN-TAZOBACTAM 3.375 GM in SODIUM CHLORIDE 0.9% 100 ML IVPB SCH ×3 (02:13→19:55)
[2021-10-05] MEDS: SODIUM CHLORIDE 0.9% 1,000 ML IV SCH (03:10)
[2021-10-05] MEDS: LEVOTHYROXINE 100 MCG TAB PO SCH (05:54)
[2021-10-05 07:51] LABS: ALT 111 U/L (4-49); AST 79 U/L (17-59); African American GFR (CKD) >90 (>60 ml/min/1.73 sqM); Albumin 2.6 g/dL (3.5-5.0); Albumin/Globulin Ratio 0.8; Alkaline Phosphatase 95 U/L (38-126); Anion Gap 6 mmol/L; Blood Urea Nitrogen 29 mg/dL (9-20); Calcium 7.9 mg/dL (8.4-10.2); Carbon Dioxide 28 mmol/L (22-30); Chloride 109 mmol/L (98-107); Globulin 3.2 g/dL; Glucose 138 mg/dL (74-99); Magnesium 2.1 mg/dL (1.6-2.3); Non-African American GFR(CKD) >90 (>60 ml/min/1.73 sqM); Phosphorus 3.1 mg/dL (2.5-4.5); Sodium 143 mmol/L (137-145); Total Bilirubin 1.3 mg/dL (0.2-1.3); Total Protein 5.8 g/dL (6.3-8.2)
--- NOTE | 2021-10-05 07:54 | XR ---
EXAMINATION TYPE: XR chest 1V DATE OF EXAM: 10/05/2021 COMPARISON: 10/03/2021 INDICATION: Short of breath TECHNIQUE: Single frontal view of the chest is obtained. FINDINGS: The heart size is normal. The pulmonary vasculature is prominent. Diffuse increased lung markings are present bilaterally. There is elevation of the left diaphragm whi ch may be chronic. IMPRESSION: 1. Mild diffuse scattered infiltrates are nonspecific. Correlate for atypical pneumonia.
[2021-10-05] MEDS ORDERED: LEVOFLOXACIN 750 MG TAB PO SCH (09:00)
[2021-10-05] MEDS: ALBUTEROL HFA INHALER INHALATION SCH ×4 (09:05→22:14)
[2021-10-05 09:20] LABS: Basophils # (A) 0.02 X 10*3/uL (0.00-0.10); Basophils % (A) 0.2 %; Eosinophils # (A) 0 X 10*3/uL (0.04-0.35); Eosinophils % (A) 0 %; HCT 47.8 % (39.6-50.0); HGB 14.7 g/dL (13.0-17.0); Lymphocytes # (A) 0.42 X 10*3/uL (0.90-5.00); Lymphocytes % (A) 3.4 %; MCH 28.8 pg (27.0-32.0); MCHC 30.8 g/dL (32.0-37.0); MCV 93.7 fL (80.0-97.0); Mean Platelet Volume 11.1 fL (9.5-12.2); Monocytes # (A) 0.62 X 10*3/uL (0.20-1.00); Monocytes % (A) 4.9 %; Neutrophils # (A) 11.35 X 10*3/uL (1.80-7.70); Neutrophils % (A) 90.5 %; Platelet Count 160 X 10*3/uL (140-440); RDW 15.5 % (11.5-14.5); WBC 12.53 X 10*3/uL (4.50-10.00)
[2021-10-05] MEDS ORDERED: FUROSEMIDE 10 MG/ML 2 ML VIAL IV ONE (09:30)
[2021-10-05] MEDS: GABAPENTIN 300 MG CAP PO SCH ×2 (09:35→19:55)
[2021-10-05] MEDS: DEXAMETHASONE SOD PHOSPHATE 10 MG/ML 1 ML VIAL IVP SCH (09:35)
[2021-10-05] MEDS: levETIRAcetam ORAL SOLN 500 MG/5 ML CUP PO SCH ×2 (09:35→19:55)
[2021-10-05] MEDS: APIXABAN 2.5 MG TABLET PO SCH ×2 (09:35→17:49)
[2021-10-05] MEDS: PANTOPRAZOLE 40 MG TABLET PO SCH (09:35)
[2021-10-05] MEDS: allopurinoL 100 MG TAB PO SCH (09:35)
[2021-10-05] MEDS: METOPROLOL TARTRATE 50 MG TAB PO SCH ×3 (09:43→19:55)
[2021-10-05 10:28] LABS: C Reactive Protein 7.2 mg/dL (<1.0)
--- NOTE | 2021-10-05 10:35 | P.PN ---
Subjective HISTORY OF PRESENTING ILLNESS This is a pleasant 66-year-old male past medical history significant for chronic persistent atrial fibrillation, sick sinus syndrome, hypertension, Hemorrhagic CVAwith left sided weakness, COPD, bilateral carotid stenosis, abdominal aortic aneurysm, alcohol abuse, dyslipidemia, hypothyroidism, seizure disorder. He f fernando in the office with Dr. Rey, has not followed up since 2019. We have been asked to see in consultation for congestive heart failure and atrial fibrillation with RVR. Patient presents emergency department 10/04/2021 with shortness of breath. He was recently admitted on 09/23/21 with fever, shortness of breath and cough. Diagnosed with acute bilateral pneumonia and acute COPD exacerbation. He was discharged on 09/26/2021 at that time his COVID-19 PCR was negative. On this admission, his COVID-19 PCR was positive. He does feel short of breath. Patient was in atrial fibrillation with RVR on admission patient given 15mg IV Cardizem. Echocardiogram 09/24/2021 revealed an EF of 55-60%, mild mitral regurgitation, mild tricuspid regurgitation 10/05/2021: Patient seen and examined at bedside, he is more short of breath today. He is requiring more O2, now on 15L non-rebreather mask with SpO2 85-92%. BP is stable. Labs reviewed, WBC 12.5, sodium 143, potassium 4.0, BUN 29, serum crit 0.7, magnesium 2.1, d-dimer 4.2 He's currently maintained on Eliquis 2.5 mg twice a day, atorvastatin 80 mg nightly, digoxin 125mcg daily, metoprolol titrate 50 mg twice a day Telemetry reviewed patient continues to be in atrial fibrillation with uncontrolled ventricular rates low 100s to 130s PHYSICAL EXAMINATION Vitals reviewed CONSTITUTIONAL: No apparent distress. HEENT: Neck Supple. No JVD. Full physical exam not completed to minimize covid-19 exposure ASSESSMENT Chronic persistant atrial fibrillation with RVR, on eliquis Covid-19 pneumonia Acute on chronic hypoxic respiratory failure Acute on chronic diastolic heart failure History of CVA History of bilateral carotid stenosis History of abdominal aortic aneurysm History of seizures Former tobacco use Hypothyroidism Dyslipidemia Hyperkalemia PLAN -Increase metoprolol tartarte to 50mg TID -Will give 20mg IV Lasix x1, monitor response -Monitor renal function and electrolytes -Continue Eliquis, Digoxin, Atorvastatin -Continue cardiac telemetry, monitor patient's heart rates will be elevated due to covid-19 pneumonia -No need to repeat echocardiogram with recent on 09/24/2021 -Further recommendations based on clinical course Nurse Practitioner note has been reviewed, I agree with a documented findings and plan of care. Patient was seen and examined. Objective - Vital Signs Vital signs: Vital Signs Temp 98.0 F 10/05/21 06:15 Pulse 100 10/05/21 08:45 Resp 20 10/05/21 08:45 BP 114/75 10/05/21 06:15 Pulse Ox 92 L 10/05/21 08:45 Intake & Output 10/04/21 10/05/21 10/05/21 18:59 06:59 18:59 Weight 71.94 kg Other: # Voids 3 # Bowel Movements 1 - Labs CBC & Chem 7: 10/05/21 06:49 10/05/21 06:49 Labs: Abnormal Lab Results - Last 24 Hours (Table) 10/04/21 10/04/21 10/04/21 Range/Units 13:06 13:06 13:06 WBC (4.50-10.00) X 10*3/uL MCHC (32.0-37.0) g/dL RDW (11.5-14.5) % Immature Gran # (0.00-0.04) X 10*3/uL Neutrophils # (1.80-7.70) X 10*3/uL Lymphocytes # (0.90-5.00) X 10*3/uL Eosinophils # (0.04-0.35) X 10*3/uL D-Dimer 1.70 H (<0.60) mg/L FEU Chloride (98-107) mmol/L Carbon Dioxide 31 H (22-30) mmol/L BUN 25 H (9-20) mg/dL Creatinine 0.59 L (0.66-1.25) mg/dL Glucose 134 H (74-99) mg/dL Calcium 8.0 L (8.4-10.2) mg/dL AST (17-59) U/L ALT (4-49) U/L Lactate Dehydrogenase 1037 H (313-618) U/L C-Reactive Protein 20.1 H (<1.0) mg/dL Total Protein (6.3-8.2) g/dL Albumin (3.5-5.0) g/dL Procalcitonin 0.12 H (0.02-0.09) ng/mL 10/05/21 10/05/21 10/05/21 Range/Units 06:49 06:49 06:49 WBC (4.50-10.00) X 10*3/uL MCHC (32.0-37.0) g/dL RDW (11.5-14.5) % Immature Gran # (0.00-0.04) X 10*3/uL Neutrophils # (1.80-7.70) X 10*3/uL Lymphocytes # (0.90-5.00) X 10*3/uL Eosinophils # (0.04-0.35) X 10*3/uL D-Dimer 4.29 H (<0.60) mg/L FEU Chloride 109 H (98-107) mmol/L Carbon Dioxide (22-30) mmol/L BUN 29 H (9-20) mg/dL Creatinine (0.66-1.25) mg/dL Glucose 138 H (74-99) mg/dL Calcium 7.9 L (8.4-10.2) mg/dL AST 79 H (17-59) U/L ALT 111 H (4-49) U/L Lactate Dehydrogenase (313-618) U/L C-Reactive Protein 7.2 H (<1.0) mg/dL Total Protein 5.8 L (6.3-8.2) g/dL Albumin 2.6 L (3.5-5.0) g/dL Procalcitonin 0.13 H (0.02-0.09) ng/mL 10/05/21 Range/Units 06:49 WBC 12.53 H (4.50-10.00) X 10*3/uL MCHC 30.8 L (32.0-37.0) g/dL RDW 15.5 H (11.5-14.5) % Immature Gran # 0.12 H (0.00-0.04) X 10*3/uL Neutrophils # 11.35 H (1.80-7.70) X 10*3/uL Lymphocytes # 0.42 L (0.90-5.00) X 10*3/uL Eosinophils # 0 L (0.04-0.35) X 10*3/uL D-Dimer (<0.60) mg/L FEU Chloride (98-107) mmol/L Carbon Dioxide (22-30) mmol/L BUN (9-20) mg/dL Creatinine (0.66-1.25) mg/dL Glucose (74-99) mg/dL Calcium (8.4-10.2) mg/dL AST (17-59) U/L ALT (4-49) U/L Lactate Dehydrogenase (313-618) U/L C-Reactive Protein (<1.0) mg/dL Total Protein (6.3-8.2) g/dL Albumin (3.5-5.0) g/dL Procalcitonin (0.02-0.09) ng/mL
[2021-10-05 10:50] VITALS: BMI 22.7
--- NOTE | 2021-10-05 12:16 | P.PN ---
Subjective Progress Note Date: 10/05/21 This is a 66-year-old male patient who resides at [facility]. He has a history of hypothyroidism, atrial fibrillation anticoagulated with Eliquis, hyperlipidemia, seizure disorder, hypertension, previous hemorrhagic stroke with left-sided weakness. He was brought into the emergency room for noted shortness of breath and he was just discharged from here on 09/26/2021 after an episode of diastolic congestive heart failure and suspected pneumonia. He is seen today in the emergency room. Chest x-ray reveals mild pulmonary interstitial edema. Chronically elevated left hemidiaphragm, consolidation/atelectasis of the left lower lobe. Saturations were 88% to 92%. He is currently on 6 L nasal cannula with O2 saturation 88%. He is afebrile. Slightly tachycardic. White count 8.2. Hemoglobin 16.1. Leukocytes 0.4. INR 1.4. Sodium 141. Potassium 5.8. Creatinine 0.72. Glucose 118. AST 156. ALT 152. ProBNP 2560. TSH 1.46. Current virus by PCR positive. He's been initia karma on bronchodilators, Levaquin, Zosyn, Eliquis. Ultrasound of the gallbladder revealed no significant abnormality. He is a poor historian and no information could be obtained from him. On 10/05/2021 patient seen in follow-up on medical surgical floor, he is awake and alert, he is nonverbal, but he is able to nod his head yes or no to simple questions, he denies any acute distress, he is quite congested, with diffuse rhonchi bilaterally. He tested positive for COVID-19, he is also a good set up for aspiration and she might be chronically aspirating on a regular basis. He continues on Zosyn for empiric antibiotic coverage with O2 sats up for calcitonin were negative, he is currently on a nonrebreather mask his pulse ox is 90%. Overnight, vital signs have been stable, I'll of lab work shows white blood cell count of 12.5, hemoglobin of 14.7, d-dimer is 4.29, sodium is 143, potassium is 4.0, chloride is 109, B1 is 29 creatinine 0.79, his LDH is 1037, CRP was 20.1 on admission, improved on today's labs and is down to 7.2, proBNP was 2560 on admission, pro-calcitonin level was 0.12 and 0.13. Patient also remains on Decadron 6 mg IV push daily, he is on Eliquis for history of atrial fibrillation. He remains in atrial fibrillation with a controlled rate, cardiology is following, patient received a dose of IV Lasix today per cardiology. He seems to be fairly comfortable, code status is DO NOT RESUSCITATE as per previous advanced directives Objective - Vital Signs Vital signs: Vital Signs Temp 98.4 F 10/05/21 10:00 Pulse 88 10/05/21 10:00 Resp 18 10/05/21 10:00 BP 113/76 10/05/21 10:00 Pulse Ox 90 L 10/05/21 10:00 Intake & Output 10/04/21 10/05/21 10/05/21 18:59 06:59 18:59 Weight 71.94 kg 71.94 kg Other: # Voids 3 3 # Bowel Movements 1 1 - Exam GENERAL EXAM: Alert, nonverbal, cachectic 66-year-old white male, he is able to nod head yes or no, has a history of hemorrhagic stroke in the past with aphasia, and left-sided weakness and chronic contractures of left hand and left leg, currently on 100% nonrebreather mask with a pulse ox of 90-93% comfortable in no apparent distress. HEAD: Normocephalic/atraumatic. EYES: Normal reaction of pupils, equal size. Conjunctiva pink, sclera white. NOSE: Clear with pink turbinates. THROAT: No erythema or exudates. NECK: No masses, no JVD, no thyroid enlargement, no adenopathy. CHEST: No chest wall deformity. Symmetrical expansion. LUNGS: Equal air entry with diffuse wheezes and rhonchi CVS: Regular rate and rhythm, normal S1 and S2, no gallops, no murmurs, no rubs ABDOMEN: Soft, nontender. No hepatosplenomegaly, normal bowel sounds, no guarding or rigidity. EXTREMITIES: No clubbing, no edema, no cyanosis, 2+ pulses and upper and lower extremities. MUSCULOSKELETAL: Muscle strength and tone normal. SPINE: No scoliosis or deformity SKIN: No rashes CENTRAL NERVOUS SYSTEM: Alert and oriented -1. Patient is aphasic, he is able to follow simple commands, has a left sided weakness with chronic contractures of left hand, and left leg related to history of hemorrhagic stroke - Labs CBC & Chem 7: 10/05/21 06:49 10/05/21 06:49 Labs: Abnormal Lab Results - Last 24 Hours (Table) 10/04/21 10/04/21 10/04/21 Range/Units 13:06 13:06 13:06 WBC (4.50-10.00) X 10*3/uL MCHC (32.0-37.0) g/dL RDW (11.5-14.5) % Immature Gran # (0.00-0.04) X 10*3/uL Neutrophils # (1.80-7.70) X 10*3/uL Lymphocytes # (0.90-5.00) X 10*3/uL Eosinophils # (0.04-0.35) X 10*3/uL D-Dimer 1.70 H (<0.60) mg/L FEU Chloride (98-107) mmol/L Carbon Dioxide 31 H (22-30) mmol/L BUN 25 H (9-20) mg/dL Creatinine 0.59 L (0.66-1.25) mg/dL Glucose 134 H (74-99) mg/dL Calcium 8.0 L (8.4-10.2) mg/dL AST (17-59) U/L ALT (4-49) U/L Lactate Dehydrogenase 1037 H (313-618) U/L C-Reactive Protein 20.1 H (<1.0) mg/dL Total Protein (6.3-8.2) g/dL Albumin (3.5-5.0) g/dL Procalcitonin 0.12 H (0.02-0.09) ng/mL 10/05/21 10/05/21 10/05/21 Range/Units 06:49 06:49 06:49 WBC (4.50-10.00) X 10*3/uL MCHC (32.0-37.0) g/dL RDW (11.5-14.5) % Immature Gran # (0.00-0.04) X 10*3/uL Neutrophils # (1.80-7.70) X 10*3/uL Lymphocytes # (0.90-5.00) X 10*3/uL Eosinophils # (0.04-0.35) X 10*3/uL D-Dimer 4.29 H (<0.60) mg/L FEU Chloride 109 H (98-107) mmol/L Carbon Dioxide (22-30) mmol/L BUN 29 H (9-20) mg/dL Creatinine (0.66-1.25) mg/dL Glucose 138 H (74-99) mg/dL Calcium 7.9 L (8.4-10.2) mg/dL AST 79 H (17-59) U/L ALT 111 H (4-49) U/L Lactate Dehydrogenase (313-618) U/L C-Reactive Protein 7.2 H (<1.0) mg/dL Total Protein 5.8 L (6.3-8.2) g/dL Albumin 2.6 L (3.5-5.0) g/dL Procalcitonin 0.13 H (0.02-0.09) ng/mL 10/05/21 Range/Units 06:49 WBC 12.53 H (4.50-10.00) X 10*3/uL MCHC 30.8 L (32.0-37.0) g/dL RDW 15.5 H (11.5-14.5) % Immature Gran # 0.12 H (0.00-0.04) X 10*3/uL Neutrophils # 11.35 H (1.80-7.70) X 10*3/uL Lymphocytes # 0.42 L (0.90-5.00) X 10*3/uL Eosinophils # 0 L (0.04-0.35) X 10*3/uL D-Dimer (<0.60) mg/L FEU Chloride (98-107) mmol/L Carbon Dioxide (22-30) mmol/L BUN (9-20) mg/dL Creatinine (0.66-1.25) mg/dL Glucose (74-99) mg/dL Calcium (8.4-10.2) mg/dL AST (17-59) U/L ALT (4-49) U/L Lactate Dehydrogenase (313-618) U/L C-Reactive Protein (<1.0) mg/dL Total Protein (6.3-8.2) g/dL Albumin (3.5-5.0) g/dL Procalcitonin (0.02-0.09) ng/mL Assessment and Plan Plan: Assessment: #1. Acute on chronic hypoxic respiratory failure multifactorial, related to acu te COVID-19 pneumonia, and possibility of chronic aspiration is not excluded. Patient's timeline of symptoms is not clear, and he is not a candidate for Remdesivir related to severe hypoxic respiratory failure. Unclear vaccination status. He is being treated supportively with a combination of empiric antibiotics, diuretics, steroids, and he is already on Eliquis for history of A. fib #2. Recent hospitalization for acute exacerbation of diastolic CHF and suspected pneumonia #3. Suspect intermittent aspiration #4. Chronically elevated left hemidiaphragm #5. History of hemorrhagic CVA with left-sided weakness, and aphasia #6. History of diastolic CHF #7. Seizure disorder #8. Hypertension #9. Hyperlipidemia #10. Hypothyroidism #11. Abdominal aortic aneurysm #12. Persistent atrial fibrillation on Eliquis #13. History of sick sinus syndrome #14. General medical debility, overall poor functional performance Plan: Continue Decadron Continue oral anticoagulation with Eliquis Currently on 100% nonrebreather, but no acute distress Not a candidate for Remdesivir related to progressive hypoxia and unclear length of symptoms Continue Zosyn for suspected aspiration Probably not a good candidate for Baricitinib for possibility of recurrent aspiration SpeechTherapy consultation We'll continue to follow his clinical course Maintain aspiration precautions Overall prognosis is extremely guarded CODE STATUS is DO NOT RESUSCITATE I performed a history & physical examination of the patient and discussed their management with my nurse practitioner, Bryanna Chow. I reviewed the nurse practitioner's note and agree with the documented findings and plan of care. L dayne sounds are positive for diffuse wheezes and rhonchi throughout the lung feng. The findings and the impression was discussed with the patient. I attest to the documentation by the nurse practitioner. Time with Patient: Less than 30
--- NOTE | 2021-10-05 16:15 | P.PN ---
Progress Note - Text Progress Note Date: 10/05/21 Chief Complaint: Short of breath Hospital course: This is a 66 year patient who follows Dr. Elise at the [facility] [place]. Chronic stable medical conditions include, COPD, hyperlipidemia, hypertension, hypothyroid. chronically weak on the left side. baseline has slurred speech. very limited historian. Recently in the hospital from September 03 through September 26 with pneumonia, CHF exacerbation. IV ceftriaxone and IV Lasix. Had responded well. EMS was called out to the [facility] and that the patient earlier was breathing up to 30/m and had increase his oxygen to 4 L. Patient is more short of breath. Patient again doesn't state too much. Patient was 88% on 5 L on arrival. Tachycardic. He also tested positive for COVID. October 05: Short of breath. On 15 L nonrebreather. Tired. Lethargic. Oral intake decreased. 25/50%. On Decadron and IV Zosyn. A. fib remains uncontrolled pain 100-130 Review of systems: Difficult to obtain lethargic Active Medications Acetaminophen (Acetaminophen Tab 500 Mg Tab) 500 mg PO Q4H PRN PRN Reason: Mild Pain Albuterol Sulfate (Albuterol Hfa Inhaler) 4 puff INHALATION RT-QID [facility] Last Admin: 10/05/21 12:57 Dose: 4 puff Documented by: Allopurinol (Allopurinol 100 Mg Tab) 200 mg PO DAILY [facility] Last Admin: 10/05/21 09:35 Dose: 200 mg Documented by: Apixaban (Apixaban 2.5 Mg Tablet) 2.5 mg PO BID@0800,1600 [facility]; Protocol Last Admin: 10/05/21 09:35 Dose: 2.5 mg Documented by: Atorvastatin Calcium (Atorvastatin 80 Mg Tab) 80 mg PO [facility] Last Admin: 10/04/21 21:09 Dose: 80 mg Documented by: Calcium Carbonate/Glycine (Calcium Carbonate 500 Mg Chewable) 1,000 mg PO Q4HR PRN PRN Reason: Dyspepsia Cholecalciferol (Cholecalciferol 25 Mcg (1000 Iu) Tablet) 25 mcg PO [facility] Last Admin: 10/04/21 21:09 Dose: 25 mcg Documented by: Dexamethasone Sodium Phosphate (Dexamethasone Sod Phosphate 10 Mg/Ml 1 Ml Vial) 6 mg IVP DAILY [facility] Last Admin: 10/05/21 09:35 Dose: 6 mg Documented by: Digoxin (Digoxin 125 Mcg Tab) 125 mcg PO HS [facility] Last Admin: 10/04/21 23:44 Dose: 125 mcg Documented by: Gabapentin (Gabapentin 300 Mg Cap) 300 mg PO BID [facility] Last Admin: 10/05/21 09:35 Dose: 300 mg Documented by: Piperacillin Sod/Tazobactam (Sod 3.375 gm/ Sodium Chloride) 100 mls @ 25 mls/hr IVPB Q8H [facility] Stop: 10/10/21 23:00 Last Admin: 10/05/21 12:52 Dose: 25 mls/hr Documented by: Sodium Chloride (Saline 0.9%) 1,000 mls @ 20 mls/hr IV .Q24H [facility] Last Admin: 10/05/21 03:10 Dose: Not Given Documented by: Lactulose (Lactulose 20 Gm/30 Ml Cup) 20 gm PO DAILY PRN PRN Reason: Constipation Levetiracetam (Levetiracetam Oral Soln 500 Mg/5 Ml Cup) 1,000 mg PO BID [facility] Last Admin: 10/05/21 09:35 Dose: 1,000 mg Documented by: Levothyroxine Sodium (Levothyroxine 100 Mcg Tab) 100 mcg PO DAILY@0630 [facility] Last Admin: 10/05/21 05:54 Dose: 100 mcg Documented by: Lorazepam (Lorazepam 0.5 Mg Tab) 0.5 mg PO Q6HR PRN PRN Reason: Anxiety Last Admin: 10/04/21 21:09 Dose: 0.5 mg Documented by: Melatonin (Melatonin 3 Mg Tablet) 3 mg PO HS PRN PRN Reason: Insomnia Metoprolol Tartrate (Metoprolol Tartrate 50 Mg Tab) 50 mg PO TID [facility] Miscellaneous Information (Pneumonia Protocol Utilized 1 Each Misc) 1 each PO ONCE PRN PRN Reason: Per Protocol Morphine Sulfate (Morphine Sulfate 4 Mg/Ml Syringe) 4 mg IV Q4HR PRN PRN Reason: Severe Pain Naloxone HCl (Naloxone 0.4 Mg/Ml 1 Ml Vial) 0.2 mg IV Q2M PRN PRN Reason: Opioid Reversal Ondansetron HCl (Ondansetron 4 Mg/2 Ml Vial) 4 mg IVP Q8HR PRN PRN Reason: Nausea And Vomiting Pantoprazole Sodium (Pantoprazole 40 Mg Tablet) 40 mg PO AC-[facility]KFST [facility] Last Admin: 10/05/21 09:35 Dose: 40 mg Documented by: Past medical history to include: Atrial fibrillation, COPD, stroke. Vascular Dementia, hyperlipidemia, hypertension, hypothyroid. Alcohol related seizures in the past. Alcoholism. last drink was in 2013. smoked for close to 50 years. Left-sided weakness following a hemorrhagic stroke in 2015 Social history: Long-term resident of [facility]. Patient started smoking age of 14 smoked three-quarter packs a day for close to 50 years. Patient was drinking excessive alcohol until 2013 Physical examination: VITAL SIGNS: 98, 58, 26, 108/64, 100% on 15 L GENERAL: reclining in bed, lethargic tired LUNGS: Respiratory rate increased, . PSYCH: Unable to assess NEUROLOGICAL: Slurred speech, power in the left arm is 1/5, left leg 1 x 5. Rest of the exam. Pulmonary and nursing INVESTIGATIONS, reviewed in the clinical context: October 05: White count 12.5 hemoglobin 14.7 platelets 160 d-dimer 4.29 potassium 4 BUN 29 creatinine 0.75 pro-calcitonin 0.13 White count 8.2 hemoglobin 16.1 platelets 147 sodium 145 potassium 4.1 BUN 25 creatinine 0.59 d-dimer 1.7 CRP 20.1 Admission labs: Coronavirus [PCR colon detected Potassium 5.8 AST 156 ALT 152 EKG tracing personally reviewed by me-atrial fibrillation rate 125 Chest x-ray film personally reviewed by me-bilateral infiltrates Recent studies: 2-D echocardiogram: EF 55-60%. Moderate concentric LVH. Assessment and plan: - Acute COVID 19 pneumonitis: Worsening Decadron, eliquis -Sepsis from COVID 19 pneumonitis, possible bacterial component IV antibiotics. -Acute hypoxic respiratory failure: Worsening On 15 L nonrebreather -Recent bacterial pneumonia IV Zosyn -Chronic congestive heart failure exacerbation. From diastolic dysfunction EF 55-60%.: On fluid restriction -Chronic left-sided weakness, from a prior hemorrhagic stroke Fall precautions -Persistent atrial fibrillation, rate uncontrolled Increase Lopressor 50 mg 3 times a day, eliquis 2.5 by mouth twice a day -Acute COPD exacerbation in a previous smoker: Better Ventolin 4 times a day, Decadron -Hyperlipidemia Lipitor 80 mg daily at bedtime -Essential hypertension Lopressor 50 mg by mouth twice a day -Chronic epilepsy disorder Keppra 1000 milligrams by mouth twice a day -Hypothyroid Synthroid 100 g daily -DO NOT RESUSCITATE 15 L oxygen. Decadron. R. IV Zosyn. Increase Lopressor to 50 mg/ 3 times a day.
[2021-10-05] MEDS: DEXTROSE 5%-0.45% NACL 1,000 ML IV SCH (17:49)
[2021-10-05] MEDS: CHOLECALCIFEROL 25 MCG (1000 IU) TABLET PO SCH (19:55)
[2021-10-05] MEDS: DIGOXIN 125 MCG TAB PO SCH (19:55)
[2021-10-05] MEDS: ATORVASTATIN 80 MG TAB PO SCH (19:55)
[2021-10-06] MEDS: DEXTROSE 5%-0.45% NACL 1,000 ML IV SCH ×2 (02:26→20:37)
[2021-10-06] MEDS: PIPERACILLIN-TAZOBACTAM 3.375 GM in SODIUM CHLORIDE 0.9% 100 ML IVPB SCH ×3 (02:26→17:28)
[2021-10-06] MEDS: LEVOTHYROXINE 100 MCG TAB PO SCH (05:42)
[2021-10-06] MEDS: ALBUTEROL HFA INHALER INHALATION SCH ×4 (07:34→20:09)
[2021-10-06] MEDS: LORazepam 0.5 MG TAB PO PRN ×2 (09:23→17:28)
[2021-10-06] MEDS: METOPROLOL TARTRATE 50 MG TAB PO SCH ×3 (09:23→21:32)
[2021-10-06] MEDS: levETIRAcetam ORAL SOLN 500 MG/5 ML CUP PO SCH ×2 (09:23→20:39)
[2021-10-06] MEDS: DEXAMETHASONE SOD PHOSPHATE 10 MG/ML 1 ML VIAL IVP SCH (09:23)
[2021-10-06] MEDS: allopurinoL 100 MG TAB PO SCH (09:24)
[2021-10-06] MEDS: APIXABAN 2.5 MG TABLET PO SCH ×2 (09:24→17:28)
[2021-10-06] MEDS: GABAPENTIN 300 MG CAP PO SCH ×2 (09:24→20:37)
[2021-10-06] MEDS: PANTOPRAZOLE 40 MG TABLET PO SCH (09:25)
[2021-10-06 11:10] LABS: African American GFR (CKD) >90 (>60 ml/min/1.73 sqM); Anion Gap 9 mmol/L; Blood Urea Nitrogen 29 mg/dL (9-20); Calcium 8.2 mg/dL (8.4-10.2); Carbon Dioxide 30 mmol/L (22-30); Chloride 107 mmol/L (98-107); Glucose 114 mg/dL (74-99); Magnesium 2.1 mg/dL (1.6-2.3); Non-African American GFR(CKD) >90 (>60 ml/min/1.73 sqM); Potassium 3.7 mmol/L (3.5-5.1); Sodium 146 mmol/L (137-145)
--- NOTE | 2021-10-06 11:14 | P.PN ---
Subjective Progress Note Date: 10/06/21 Principal diagnosis: Persistent atrial fibrillation The patient is a 66-year-old gentleman who was admitted to the hospital was COVID-19 pneumonia as well as atrial fibrillation with RVR and he is known to have persistent atrial fibrillation The heart rate has been under excellent control on the current dose of metoprolol. Also he is on oral anticoagulation. From the cardiovascular standpoint of view, we'll continue the current medical regimen and follow-up with the patient on when necessary case. Objective - Vital Signs Vital signs: Vital Signs Temp 98.2 F 10/06/21 09:40 Pulse 82 10/06/21 09:40 Resp 14 10/06/21 10:15 BP 158/87 10/06/21 09:40 Pulse Ox 95 10/06/21 10:15 Intake & Output 10/05/21 10/06/21 10/06/21 18:59 06:59 18:59 Intake Total 480 Balance 480 Weight 71.94 kg Intake: Oral 480 Other: Voiding Method Diaper Incontinent # Voids 3 5 # Bowel Movements 1 0 - Constitutional General appearance: Present: no acute distress - Labs CBC & Chem 7: 10/05/21 06:49 10/05/21 06:49 Assessment and Plan Assessment: Assessment #1 COVID-19 a pneumonia #2 atrial fibrillation was controlled heart rate #3 multiple comorbid conditions Plan #1 continue oral anticoagulation #2 continue the current dose of metoprolol #3 follow-up with the patient on when necessary K
[2021-10-06] MEDS: traMADol 50 MG TAB PO PRN (11:53)
[2021-10-06] MEDS: ACETAMINOPHEN TAB 500 MG TAB PO PRN ×2 (11:54→20:38)
--- NOTE | 2021-10-06 17:54 | P.PN ---
Subjective Progress Note Date: 10/06/21 This is a 66-year-old male patient who resides at [facility] [place]. He has a history of hypothyroidism, atrial fibrillation anticoagulated with Eliquis, hyperlipidemia, seizure disorder, hypertension, previous hemorrhagic stroke with left-sided weakness. He was brought into the emergency room for noted shortness of breath and he was just discharged from here on 09/26/2021 after an episode of diastolic congestive heart failure and suspected pneumonia. He is seen today in the emergency room. Chest x-ray reveals mild pulmonary interstitial edema. Chronically elevated left hemidiaphragm, consolidation/atelectasis of the left lower lobe. Saturations were 88% to 92%. He is currently on 6 L nasal cannula with O2 saturation 88%. He is afebrile. Slightly tachycardic. White count 8.2. Hemoglobin 16.1. Leukocytes 0.4. INR 1.4. Sodium 141. Potassium 5.8. Creatinine 0.72. Glucose 118. AST 156. ALT 152. ProBNP 2560. TSH 1.46. Current virus by PCR positive. He's been initi ated on bronchodilators, Levaquin, Zosyn, Eliquis. Ultrasound of the gallbladder revealed no significant abnormality. He is a poor historian and no information could be obtained from him. On 10/05/2021 patient seen in follow-up on medical surgical floor, he is awake and alert, he is nonverbal, but he is able to nod his head yes or no to simple questions, he denies any acute distress, he is quite congested, with diffuse rhonchi bilaterally. He tested positive for COVID-19, he is also a good set up for aspiration and she might be chronically aspirating on a regular basis. He continues on Zosyn for empiric antibiotic coverage with O2 sats up for calcitonin were negative, he is currently on a nonrebreather mask his pulse ox is 90%. Overnight, vital signs have been stable, I'll of lab work shows white blood cell count of 12.5, hemoglobin of 14.7, d-dimer is 4.29, sodium is 143, potassium is 4.0, chloride is 109, B1 is 29 creatinine 0.79, his LDH is 1037, CRP was 20.1 on admission, improved on today's labs and is down to 7.2, proBNP was 2560 on admission, pro-calcitonin level was 0.12 and 0.13. Patient also remains on Decadron 6 mg IV push daily, he is on Eliquis for history of atrial fibrillation. He remains in atrial fibrillation with a controlled rate, cardiology is following, patient received a dose of IV Lasix today per cardiology. He seems to be fairly comfortable, code status is DO NOT RESUSCITATE as per previous advanced directives The patient is seen today 10/06/2021 on the regular medical floor. He is currently sitting up in bed. Awake and alert. He is nonverbal. He is currently on 15 L high flow nasal cannula. D-dimer 14.5. Sodium 146. Potassium 3.7. Creatinine 0.73. Glucose 114. C-reactive protein 5.4. He remains on Zosyn for suspected aspiration pneumonia as well. He is continued on Decadron, Eliquis, vitamin supplements. Objective - Vital Signs Vital signs: Vital Signs Temp 97.8 F 10/06/21 17:02 Pulse 82 10/06/21 17:02 Resp 18 10/06/21 17:02 BP 147/88 10/06/21 17:02 Pulse Ox 92 L 10/06/21 17:02 Intake & Output 10/05/21 10/06/21 10/06/21 18:59 06:59 18:59 Intake Total 840 Balance 840 Weight 71.94 kg Intake: Oral 840 Other: Voiding Method Diaper Incontinent # Voids 3 5 3 # Bowel Movements 1 0 - Exam GENERAL EXAM: Alert, nonverbal, cachectic 66-year-old male, he is able to nod head yes or no, has a history of hemorrhagic stroke in the past with aphasia, and left-sided weakness and chronic contractures of left hand and left leg, currently on 15 L high flow nasal cannula in no acute distress HEAD: Normocephalic/atraumatic. EYES: Normal reaction of pupils, equal size. Conjunctiva pink, sclera white. NOSE: Clear with pink turbinates. THROAT: No erythema or exudates. NECK: No masses, no JVD, no thyroid enlargement, no adenopathy. CHEST: No chest wall deformity. Symmetrical expansion. LUNGS: Equal air entry with diffuse wheezes and rhonchi CVS: Regular rate and rhythm, normal S1 and S2, no gallops, no murmurs, no rubs ABDOMEN: Soft, nontender. No hepatosplenomegaly, normal bowel sounds, no guarding or rigidity. EXTREMITIES: No clubbing, no edema, no cyanosis, 2+ pulses and upper and lower extremities. MUSCULOSKELETAL: Muscle strength and tone normal. SPINE: No scoliosis or deformity SKIN: No rashes CENTRAL NERVOUS SYSTEM: Alert and oriented -1. Patient is aphasic, he is able to follow simple commands, has a left sided weakness with chronic contractures of left hand, and left leg related to history of hemorrhagic stroke - Labs CBC & Chem 7: 10/05/21 06:49 10/06/21 09:43 Labs: Abnormal Lab Results - Last 24 Hours (Table) 10/06/21 10/06/21 10/06/21 Range/Units 09:43 09:43 09:43 D-Dimer 14.52 H (<0.60) mg/L FEU Sodium 146 H (137-145) mmol/L BUN 29 H (9-20) mg/dL Glucose 114 H (74-99) mg/dL Calcium 8.2 L (8.4-10.2) mg/dL C-Reactive Protein 5.4 H (<1.0) mg/dL Assessment and Plan Assessment: 1 Acute hypoxemic respiratory failure secondary to COVID-19 pneumonia and atelectasis in the left lower lobe. Recent discharge on 09/26/2021. Unclear vaccination status. Resides in extended care. Poor historian. 2 Atrial fibrillation, anticoagulated with Eliquis 3 History of diastolic congestive heart failure 4 History of hemorrhagic stroke with residual left-sided weakness, aphasia 5 Hyperlipidemia 6 Hypertension 7 History of seizure disorder 8 Hypothyroidism 9 prison resident. 10 Poor overall functional performance based on the above-mentioned multiple comorbidities Plan: The patient was seen and evaluated Elevated d-dimer and a history of previous hemorrhagic stroke Anticoagulated with Eliquis Continue Decadron, vitamin supplements Continue bronchodilators Titrate down the FiO2 as tolerated We will continue to follow and make further recommendations based on his clinical status I, the cosigning physician, performed a history & physical examination of the patient. Lungs sounds with few scattered rhonchi, wheeze. Maintaining O2 saturations in the low 90s on 15 L high flow nasal cannula. I discussed the assessment and plan of care with my nurse practitioner, Anna Valdivia. I attest to the above note as dictated by her.
--- NOTE | 2021-10-06 18:02 | P.PN ---
Progress Note - Text Progress Note Date: 10/06/21 Chief Complaint: Short of breath Hospital course: This is a 66 year patient who follows Dr. Elise at the [facility] [place]. Chronic stable medical conditions include, COPD, hyperlipidemia, hypertension, hypothyroid. chronically weak on the left side. baseline has slurred speech. very limited historian. Recently in the hospital from September 03 through September 26 with pneumonia, CHF exacerbation. IV ceftriaxone and IV Lasix. Had responded well. EMS was called out to the [facility] and that the patient earlier was breathing up to 30/m and had increase his oxygen to 4 L. Patient is more short of breath. Patient again doesn't state too much. Patient was 88% on 5 L on arrival. Tachycardic. He also tested positive for COVID. October 05: Short of breath. On 15 L nonrebreather. Tired. Lethargic. Oral intake decreased. 25/50%. On Decadron and IV Zosyn. A. fib remains uncontrolled pain 100-130 October 06: Remain short of breath. Sitting up in bed. 15 L nonrebreather. Tired. Eating about 50%. IV Zosyn and Decadron. Atrial fibrillation rate controlled Review of systems: Difficult to obtain Active Medications Acetaminophen (Acetaminophen Tab 500 Mg Tab) 1,000 mg PO Q6HR PRN PRN Reason: Fever and/ or Pain Last Admin: 10/06/21 11:54 Dose: 1,000 mg Documented by: Albuterol Sulfate (Albuterol Hfa Inhaler) 4 puff INHALATION RT-QID [facility] Last Admin: 10/06/21 14:59 Dose: 4 puff Documented by: Allopurinol (Allopurinol 100 Mg Tab) 200 mg PO DAILY [facility] Last Admin: 10/06/21 09:24 Dose: 200 mg Documented by: Apixaban (Apixaban 2.5 Mg Tablet) 2.5 mg PO BID@0800,1600 [facility]; Protocol Last Admin: 10/06/21 17:28 Dose: 2.5 mg Documented by: Atorvastatin Calcium (Atorvastatin 80 Mg Tab) 80 mg PO HS [facility] Last Admin: 10/05/21 19:55 Dose: 80 mg Documented by: Calcium Carbonate/Glycine (Calcium Carbonate 500 Mg Chewable) 1,000 mg PO Q4HR PRN PRN Reason: Dyspepsia Cholecalciferol (Cholecalciferol 25 Mcg (1000 Iu) Tablet) 25 mcg PO HS [facility] Last Admin: 10/05/21 19:55 Dose: 25 mcg Documented by: Dexamethasone Sodium Phosphate (Dexamethasone Sod Phosphate 10 Mg/Ml 1 Ml Vial) 6 mg IVP DAILY [facility] Last Admin: 10/06/21 09:23 Dose: 6 mg Documented by: Digoxin (Digoxin 125 Mcg Tab) 125 mcg PO HS [facility] Last Admin: 10/05/21 19:55 Dose: 125 mcg Documented by: Gabapentin (Gabapentin 300 Mg Cap) 300 mg PO BID [facility] Last Admin: 10/06/21 09:24 Dose: 300 mg Documented by: Piperacillin Sod/Tazobactam (Sod 3.375 gm/ Sodium Chloride) 100 mls @ 25 mls/hr IVPB Q8H [facility] Stop: 10/10/21 23:00 Last Admin: 10/06/21 17:28 Dose: 25 mls/hr Documented by: Dextrose/Sodium Chloride (Dextrose 5%-1/2ns Iv Soln) 1,000 mls @ 75 mls/hr IV .[id number] [facility] Last Admin: 10/06/21 02:26 Dose: 75 mls/hr Documented by: Lactulose (Lactulose 20 Gm/30 Ml Cup) 20 gm PO DAILY PRN PRN Reason: Constipation Levetiracetam (Levetiracetam Oral Soln 500 Mg/5 Ml Cup) 1,000 mg PO BID [facility] Last Admin: 10/06/21 09:23 Dose: 1,000 mg Documented by: Levothyroxine Sodium (Levothyroxine 100 Mcg Tab) 100 mcg PO DAILY@0630 [facility] Last Admin: 10/06/21 05:42 Dose: 100 mcg Documented by: Lorazepam (Lorazepam 0.5 Mg Tab) 0.5 mg PO Q6HR PRN PRN Reason: Anxiety Last Admin: 10/06/21 17:28 Dose: 0.5 mg Documented by: Melatonin (Melatonin 3 Mg Tablet) 3 mg PO HS PRN PRN Reason: Insomnia Metoprolol Tartrate (Metoprolol Tartrate 50 Mg Tab) 50 mg PO TID [facility] Last Admin: 10/06/21 17:27 Dose: 50 mg Documented by: Miscellaneous Information (Pneum[facility] 1 each PO ONCE PRN PRN Reason: Per Protocol Morphine Sulfate (Morphine Sulfate 4 Mg/Ml Syringe) 4 mg IV Q4HR PRN PRN Reason: Severe Pain Naloxone HCl (Naloxone 0.4 Mg/Ml 1 Ml Vial) 0.2 mg IV Q2M PRN PRN Reason: Opioid Reversal Ondansetron HCl (Ondansetron 4 Mg/2 Ml Vial) 4 mg IVP Q8HR PRN PRN Reason: Nausea And Vomiting Pantoprazole Sodium (Pantoprazole 40 Mg Tablet) 40 mg PO [facility] Last Admin: 10/06/21 09:25 Dose: 40 mg Documented by: Tramadol HCl (Tramadol 50 Mg Tab) 50 mg PO QID PRN PRN Reason: pain Last Admin: 10/06/21 11:53 Dose: 50 mg Documented by: Past medical history to include: Atrial fibrillation, COPD, stroke. Vascular Dementia, hyperlipidemia, hypertension, hypothyroid. Alcohol related seizures in the past. Alcoholism. last drink was in 2013. smoked for close to 50 years. Left-sided weakness following a hemorrhagic stroke in 2015 Social history: Long-term resident of [facility]. Patient started smoking age of 14 smoked three-quarter packs a day for close to 50 years. Patient was drinking excessive alcohol until 2013 Physical examination: VITAL SIGNS: 98.9, 102, 17, 140/81, 91% on 15 L GENERAL: reclining in bed, awake tired LUNGS: Respiratory rate increased, . PSYCH: Unable to assess NEUROLOGICAL: Slurred speech, power in the left arm is 1/5, left leg 1 x 5. Rest of the exam. Pulmonary and nursing INVESTIGATIONS, reviewed in the clinical context: October 06: D-dimer 14.5 to potassium 3.7 creatinine 0.73 CRP 5.4 October 05: White count 12.5 hemoglobin 14.7 platelets 160 d-dimer 4.29 potassium 4 BUN 29 creatinine 0.75 pro-calcitonin 0.13 White count 8.2 hemoglobin 16.1 platelets 147 sodium 145 potassium 4.1 BUN 25 creatinine 0.59 d-dimer 1.7 CRP 20.1 Admission labs: Coronavirus [PCR colon detected Potassium 5.8 AST 156 ALT 152 EKG tracing personally reviewed by me-atrial fibrillation rate 125 Chest x-ray film personally reviewed by me-bilateral infiltrates Recent studies: 2-D echocardiogram: EF 55-60%. Moderate concentric LVH. Assessment and plan: - Acute COVID 19 pneumonitis: Not improving Decadron, eliquis -Sepsis from COVID 19 pneumonitis, possible bacterial component IV antibiotics. -Acute hypoxic respiratory failure: Not improving On 15 L nonrebreather -Recent bacterial pneumonia, suspect gram-negative organism IV Zosyn -Chronic congestive heart failure exacerbation. From diastolic dysfunction EF 55-60%.: On fluid restriction -Chronic left-sided weakness, from a prior hemorrhagic stroke Fall precautions -Persistent atrial fibrillation, rate controlled Lopressor 50 mg 3 times a day, eliquis 2.5 by mouth twice a day -Acute COPD exacerbation in a previous smoker: Better Ventolin 4 times a day, Decadron -Hyperlipidemia Lipitor 80 mg daily at bedtime -Essential hypertension Lopressor 50 mg by mouth twice a day -Chronic epilepsy disorder Keppra 1000 milligrams by mouth twice a day -Hypothyroid Synthroid 100 g daily -DO NOT RESUSCITATE 15 L oxygen. Decadron. IV Zosyn. Lopressor to 50 mg/ 3 times a day. Prognosis guarded. Repeat procalcitonin.
[2021-10-06] MEDS: MELATONIN 3 MG TABLET PO PRN (20:37)
[2021-10-06] MEDS: ATORVASTATIN 80 MG TAB PO SCH (20:39)
[2021-10-06] MEDS: CHOLECALCIFEROL 25 MCG (1000 IU) TABLET PO SCH (20:40)
[2021-10-06] MEDS: DIGOXIN 125 MCG TAB PO SCH (20:40)
[2021-10-07] MEDS: PIPERACILLIN-TAZOBACTAM 3.375 GM in SODIUM CHLORIDE 0.9% 100 ML IVPB SCH ×3 (03:20→17:21)
[2021-10-07] MEDS: LEVOTHYROXINE 100 MCG TAB PO SCH (06:26)
[2021-10-07] MEDS: ALBUTEROL HFA INHALER INHALATION SCH ×5 (07:28→20:05)
[2021-10-07] MEDS: DEXAMETHASONE SOD PHOSPHATE 10 MG/ML 1 ML VIAL IVP SCH (08:44)
[2021-10-07] MEDS: GABAPENTIN 300 MG CAP PO SCH ×2 (08:45→20:52)
[2021-10-07] MEDS: ACETAMINOPHEN TAB 500 MG TAB PO PRN (08:45)
[2021-10-07] MEDS: APIXABAN 2.5 MG TABLET PO SCH (08:45)
[2021-10-07] MEDS: allopurinoL 100 MG TAB PO SCH (08:45)
[2021-10-07] MEDS: levETIRAcetam ORAL SOLN 500 MG/5 ML CUP PO SCH ×2 (08:46→20:52)
[2021-10-07] MEDS: PANTOPRAZOLE 40 MG TABLET PO SCH (08:46)
[2021-10-07] MEDS: METOPROLOL TARTRATE 50 MG TAB PO SCH ×3 (08:46→21:01)
[2021-10-07] MEDS: traMADol 50 MG TAB PO PRN ×2 (08:46→17:21)
[2021-10-07 10:33] LABS: Basophils % (A) 0 %; Eosinophils % (A) 0 %; HCT 49.7 % (39.0-53.0); HGB 15.7 gm/dL (13.0-17.5); Hypochromasia Slight; Lymphocytes # (A) 0.5 k/uL (1.0-4.8); Lymphocytes % (A) 4 %; MCH 30.2 pg (25.0-35.0); MCHC 31.7 g/dL (31.0-37.0); MCV 95.5 fL (80.0-100.0); Monocytes # (A) 0.3 k/uL (0-1.0); Monocytes % (A) 2 %; Neutrophils # (A) 13.7 k/uL (1.3-7.7); Neutrophils % (A) 93 %; Platelet Count 122 k/uL (150-450); RDW 15.3 % (11.5-15.5); WBC 14.7 k/uL (3.8-10.6)
[2021-10-07 11:27] LABS: ALT 127 U/L (4-49); AST 113 U/L (17-59); African American GFR (CKD) >90 (>60 ml/min/1.73 sqM); Albumin 2.7 g/dL (3.5-5.0); Albumin/Globulin Ratio 0.8; Alkaline Phosphatase 122 U/L (38-126); Anion Gap 6 mmol/L; Blood Urea Nitrogen 35 mg/dL (9-20); Carbon Dioxide 27 mmol/L (22-30); Chloride 111 mmol/L (98-107); Globulin 3.2 g/dL; Glucose 107 mg/dL (74-99); Non-African American GFR(CKD) >90 (>60 ml/min/1.73 sqM); Potassium 4.6 mmol/L (3.5-5.1); Sodium 144 mmol/L (137-145); Total Bilirubin 1.6 mg/dL (0.2-1.3); Total Protein 5.9 g/dL (6.3-8.2)
--- NOTE | 2021-10-07 13:11 | US ---
EXAMINATION TYPE: US venous doppler duplex LE BI DATE OF EXAM: 10/07/2021 12:21 PM COMPARISON: NONE CLINICAL HISTORY: ELEVATED D-DIMER. SIDE PERFORMED: Bilateral TECHNIQUE: The lower extremity deep venous system is examined utilizing real time linear array sonog sven with graded compression, doppler sonography and color-flow sonography. VESSELS IMAGED: Common Femoral Vein Deep Femoral Vein Greater Saphenous Vein * Femoral Vein NOT VISUALIZED DUE TO LIMITATIONS: Popliteal Vein Small Saphenous Vein * Proximal Calf Veins (* superficial vessels) Patient non-responsive, stiff, uncooperative. [employer] Tender unable well reach patient and unable to sca n pop fossa due to this. Right Leg: Appears negative for DVT above knee. Left Leg: Appears negative for DVT above knee. IMPRESSION: Limited evaluation of the popliteal fossa to the leg, where visualized Grayscale, color d oppler, spectral doppler imaging performed of the deep veins of the lower extremities. There is norm al flow, compressibility, vascular waveforms.
--- NOTE | 2021-10-07 13:34 | P.PN ---
Progress Note - Text Progress Note Date: 10/07/21 Chief Complaint: Short of breath Hospital course: This is a 66 year patient who follows Dr. Elise at the [facility] [place]. Chronic stable medical conditions include, COPD, hyperlipidemia, hypertension, hypothyroid. chronically weak on the left side. baseline has slurred speech. very limited historian. Recently in the hospital from September 03 through September 26 with pneumonia, CHF exacerbation. IV ceftriaxone and IV Lasix. Had responded well. EMS was called out to the [facility] and that the patient earlier was breathing up to 30/m and had increase his oxygen to 4 L. Patient is more short of breath. Patient again doesn't state too much. Patient was 88% on 5 L on arrival. Tachycardic. He also tested positive for COVID. October 05: Short of breath. On 15 L nonrebreather. Tired. Lethargic. Oral intake decreased. 25/50%. On Decadron and IV Zosyn. A. fib remains uncontrolled pain 100-130 October 06: Remain short of breath. Sitting up in bed. 15 L nonrebreather. Tired. Eating about 50%. IV Zosyn and Decadron. Atrial fibrillation rate controlled October 07: Short of breath. 15 L rebreather. Decreased oral intake. IV Zosyn and Decadron. Elevated d-dimer. Patient is only on eliquis. We changed to Lovenox therapeutic dose. Doppler ultrasound lower extremity. Review of systems: Difficult to obtain Active Medications Acetaminophen (Acetaminophen Tab 500 Mg Tab) 1,000 mg PO Q6HR PRN PRN Reason: Fever and/ or Pain Last Admin: 10/07/21 08:45 Dose: 1,000 mg Documented by: Albuterol Sulfate (Albuterol Hfa Inhaler) 4 puff INHALATION RT-QID [facility] Last Admin: 10/07/21 11:38 Dose: 4 puff Documented by: Allopurinol (Allopurinol 100 Mg Tab) 200 mg PO DAILY [facility] Last Admin: 10/07/21 08:45 Dose: 200 mg Documented by: Atorvastatin Calcium (Atorvastatin 80 Mg Tab) 80 mg PO HS [facility] Last Admin: 10/06/21 20:39 Dose: 80 mg Documented by: Calcium Carbonate/Glycine (Calcium Carbonate 500 Mg Chewable) 1,000 mg PO Q4HR PRN PRN Reason: Dyspepsia Cholecalciferol (Cholecalciferol 25 Mcg (1000 Iu) Tablet) 25 mcg PO HS [facility] Last Admin: 10/06/21 20:40 Dose: 25 mcg Documented by: Dexamethasone Sodium Phosphate (Dexamethasone Sod Phosphate 10 Mg/Ml 1 Ml Vial) 6 mg IVP DAILY [facility] Last Admin: 10/07/21 08:44 Dose: 6 mg Documented by: Digoxin (Digoxin 125 Mcg Tab) 125 mcg PO HS [facility] Last Admin: 10/06/21 20:40 Dose: 125 mcg Documented by: Enoxaparin Sodium (Enoxaparin 40 Mg/0.4 Ml Syringe) 40 mg SQ Q12H [facility] Enoxaparin Sodium (Enoxaparin 30 Mg/0.3 Ml Syringe) 30 mg SQ Q12H [facility] Gabapentin (Gabapentin 300 Mg Cap) 300 mg PO BID [facility] Last Admin: 10/07/21 08:45 Dose: 300 mg Documented by: Piperacillin Sod/Tazobactam (Sod 3.375 gm/ Sodium Chloride) 100 mls @ 25 mls/hr IVPB Q8H [facility] Stop: 10/10/21 23:00 Last Admin: 10/07/21 08:45 Dose: 25 mls/hr Documented by: Dextrose/Sodium Chloride (Dextrose 5%-1/2ns Iv Soln) 1,000 mls @ 75 mls/hr IV .[id number] [facility] Last Admin: 10/06/21 20:37 Dose: 75 mls/hr Documented by: Lactulose (Lactulose 20 Gm/30 Ml Cup) 20 gm PO DAILY PRN PRN Reason: Constipation Levetiracetam (Levetiracetam Oral Soln 500 Mg/5 Ml Cup) 1,000 mg PO BID [facility] Last Admin: 10/07/21 08:46 Dose: 1,000 mg Documented by: Levothyroxine Sodium (Levothyroxine 100 Mcg Tab) 100 mcg PO DAILY@0630 [facility] Last Admin: 10/07/21 06:26 Dose: 100 mcg Documented by: Lorazepam (Lorazepam 0.5 Mg Tab) 0.5 mg PO Q6HR PRN PRN Reason: Anxiety Last Admin: 10/06/21 17:28 Dose: 0.5 mg Documented by: Melatonin (Melatonin 3 Mg Tablet) 3 mg PO HS PRN PRN Reason: Insomnia Last Admin: 10/06/21 20:37 Dose: 3 mg Documented by: Metoprolol Tartrate (Metoprolol Tartrate 50 Mg Tab) 50 mg PO TID [facility] Last Admin: 10/07/21 08:46 Dose: 50 mg Documented by: Miscellaneous Information (Pneumonia Protocol Utilized 1 Each [facility]) 1 each PO ONCE PRN PRN Reason: Per Protocol Morphine Sulfate (Morphine Sulfate 4 Mg/Ml Syringe) 4 mg IV Q4HR PRN PRN Reason: Severe Pain Naloxone HCl (Naloxone 0.4 Mg/Ml 1 Ml Vial) 0.2 mg IV Q2M PRN PRN Reason: Opioid Reversal Ondansetron HCl (Ondansetron 4 Mg/2 Ml Vial) 4 mg IVP Q8HR PRN PRN Reason: Nausea And Vomiting Pantoprazole Sodium (Pantoprazole 40 Mg Tablet) 40 mg PO -BRKFST [facility] Last Admin: 10/07/21 08:46 Dose: 40 mg Documented by: Tramadol HCl (Tramadol 50 Mg Tab) 50 mg PO QID PRN PRN Reason: pain Last Admin: 10/07/21 08:46 Dose: 50 mg Documented by: Past medical history to include: Atrial fibrillation, COPD, stroke. Vascular Dementia, hyperlipidemia, hypertension, hypothyroid. Alcohol related seizures in the past. Alcoholism. last drink was in 2013. smoked for close to 50 years. Left-sided weakness following a hemorrhagic stroke in 2015 Social history: Long-term resident of [facility]. Patient started smoking age of 14 smoked three-quarter packs a day for close to 50 years. Patient was drinking excessive alcohol until 2013 Physical examination: VITAL SIGNS: 97.7, 101, 18, 1 6176, 90% on 15 L GENERAL: reclining in bed, awake tired LUNGS: Respiratory rate increased, . PSYCH: Unable to assess NEUROLOGICAL: Slurred speech, power in the left arm is 1/5, left leg 1 x 5. Rest of the exam. As per Pulmonary and nursing INVESTIGATIONS, reviewed in the clinical context: October 07: White count 14.7 d-dimer 22.4 potassium 4.6 AST 113 ALT 127 pro- calcitonin 0.18 Doppler ultrasound of right and left leg: Negative October 06: D-dimer 14.5 to potassium 3.7 creatinine 0.73 CRP 5.4 October 05: White count 12.5 hemoglobin 14.7 platelets 160 d-dimer 4.29 potassium 4 BUN 29 creatinine 0.75 pro-calcitonin 0.13 White count 8.2 hemoglobin 16.1 platelets 147 sodium 145 potassium 4.1 BUN 25 creatinine 0.59 d-dimer 1.7 CRP 20.1 Admission labs: Coronavirus [PCR colon detected Potassium 5.8 AST 156 ALT 152 EKG tracing personally reviewed by me-atrial fibrillation rate 125 Chest x-ray film personally reviewed by me-bilateral infiltrates Recent studies: 2-D echocardiogram: EF 55-60%. Moderate concentric LVH. Assessment and plan: - Acute COVID 19 pneumonitis: Not improving Decadron, eliquis -Sepsis from COVID 19 pneumonitis, possible bacterial component IV antibiotics. -Acute hypoxic respiratory failure: Not improving On 15 L nonrebreather -Acute hepatitis possibly from COVID 19 DC Tylenol. DC Lipitor. Follow LFT -Recent bacterial pneumonia, suspect gram-negative organism IV Zosyn -Chronic congestive heart failure exacerbation. From diastolic dysfunction EF 55-60%.: On fluid restriction -Chronic left-sided weakness, from a prior hemorrhagic stroke Fall precautions -Persistent atrial fibrillation, rate controlled Lopressor 50 mg 3 times a day, eliquis 2.5 by mouth twice a day -Acute COPD exacerbation in a previous smoker: Better Ventolin 4 times a day, Decadron -Hyperlipidemia Lipitor 80 mg daily at bedtime -Essential hypertension Lopressor 50 mg by mouth twice a day -Chronic epilepsy disorder Keppra 1000 milligrams by mouth twice a day -Hypothyroid Synthroid 100 g daily -DO NOT RESUSCITATE 15 L oxygen. Decadron. IV Zosyn. Lopressor to 50 mg/ 3 times a day. Due to increasing LFT. Stop Lipitor and Tylenol. DVT ruled out.
--- NOTE | 2021-10-07 13:54 | P.PN ---
Subjective Progress Note Date: 10/07/21 This is a 66-year-old male patient who resides at [facility]. He has a history of hypothyroidism, atrial fibrillation anticoagulated with Eliquis, hyperlipidemia, seizure disorder, hypertension, previous hemorrhagic stroke with left-sided weakness. He was brought into the emergency room for noted shortness of breath and he was just discharged from here on 09/26/2021 after an episode of diastolic congestive heart failure and suspected pneumonia. He is seen today in the emergency room. Chest x-ray reveals mild pulmonary interstitial edema. Chronically elevated left hemidiaphragm, consolidation/atelectasis of the left lower lobe. Saturations were 88% to 92%. He is currently on 6 L nasal cannula with O2 saturation 88%. He is afebrile. Slightly tachycardic. White count 8.2. Hemoglobin 16.1. Leukocytes 0.4. INR 1.4. Sodium 141. Potassium 5.8. Creatinine 0.72. Glucose 118. AST 156. ALT 152. ProBNP 2560. TSH 1.46. Current virus by PCR positive. He's been initia karma on bronchodilators, Levaquin, Zosyn, Eliquis. Ultrasound of the gallbladder revealed no significant abnormality. He is a poor historian and no information could be obtained from him. On 10/05/2021 patient seen in follow-up on medical surgical floor, he is awake and alert, he is nonverbal, but he is able to nod his head yes or no to simple questions, he denies any acute distress, he is quite congested, with diffuse rhonchi bilaterally. He tested positive for COVID-19, he is also a good set up for aspiration and she might be chronically aspirating on a regular basis. He continues on Zosyn for empiric antibiotic coverage with O2 sats up for calcitonin were negative, he is currently on a nonrebreather mask his pulse ox is 90%. Overnight, vital signs have been stable, I'll of lab work shows white blood cell count of 12.5, hemoglobin of 14.7, d-dimer is 4.29, sodium is 143, potassium is 4.0, chloride is 109, B1 is 29 creatinine 0.79, his LDH is 1037, CRP was 20.1 on admission, improved on today's labs and is down to 7.2, proBNP was 2560 on admission, pro-calcitonin level was 0.12 and 0.13. Patient also remains on Decadron 6 mg IV push daily, he is on Eliquis for history of atrial fibrillation. He remains in atrial fibrillation with a controlled rate, cardiology is following, patient received a dose of IV Lasix today per cardiology. He seems to be fairly comfortable, code status is DO NOT RESUSCITATE as per previous advanced directives On 10/07/2021 patient seen in follow-up on medical surgical floor, he is currently on 15 L of oxygen his pulse ox is 90-94%, clinically he looks the same as he did 48 hours ago, breathing comfortably, does not appear to be in any acu te distress, however patient is a high risk for aspiration although he was evaluated by speech therapy alone was placed on modified diet. He has a weak cough, he has a diffuse rhonchi throughout anterior chest, does not bring up a lot of phlegm. Does not appear to be tachypneic or dyspneic, vital signs have been stable, he has been afebrile, he is on Zosyn for possibility of aspiration pneumonia, he remains on Decadron 6 mg daily, he was already on Eliquis 2.5 mg twice daily for atrial fibrillation. Today's labs have been reviewed, his d- dimer has increased to 22.4 to, lower extremity Dopplers are pending. After discussing with attending physician patient will be switched from Eliquis to prophylactic dose Lovenox. His white blood cell count is 14.7, hemoglobin is 15.7, sodium is 144, potassium is 4.6, chloride is 111, B1 is 35 creatinine 0.78, his AST is 113, increased, ALT is 127, CRP 16.4, and his follow-up LDH is still pending for today, pro-calcitonin level is negative at 0.18. Patient wakes up, he only provides very limited verbal responses, talks very very slow, but follows simple command, he denies any acute distress. Objective - Vital Signs Vital signs: Vital Signs Temp 97.7 F 10/07/21 09:29 Pulse 50 L 10/07/21 09:29 Resp 18 10/07/21 09:29 BP 116/76 10/07/21 09:29 Pulse Ox 90 L 10/07/21 09:29 Intake & Output 12/09/1610/07/21 10/07/21 18:59 06:59 18:59 Intake Total 840 480 Balance 840 480 Intake: Oral 840 480 Other: Voiding Method Diaper Diaper Diaper Incontinent Incontinent # Voids 3 1 - Exam GENERAL EXAM: Alert, nonverbal, cachectic 66-year-old white male, he is able to nod head yes or no, has a history of hemorrhagic stroke in the past with aphasia, and left-sided weakness and chronic contractures of left hand and left leg, currently on 15 L per high flow nasal cannula HEAD: Normocephalic/atraumatic. EYES: Normal reaction of pupils, equal size. Conjunctiva pink, sclera white. NOSE: Clear with pink turbinates. THROAT: No erythema or exudates. NECK: No masses, no JVD, no thyroid enlargement, no adenopathy. CHEST: No chest wall deformity. Symmetrical expansion. LUNGS: Equal air entry with diffuse wheezes and rhonchi CVS: Regular rate and rhythm, normal S1 and S2, no gallops, no murmurs, no rubs ABDOMEN: Soft, nontender. No hepatosplenomegaly, normal bowel sounds, no guarding or rigidity. EXTREMITIES: No clubbing, no edema, no cyanosis, 2+ pulses and upper and lower extremities. MUSCULOSKELETAL: Muscle strength and tone normal. SPINE: No scoliosis or deformity SKIN: No rashes CENTRAL NERVOUS SYSTEM: Alert and oriented -1. Patient is aphasic, he is able to follow simple commands, has a left sided weakness with chronic contractures of left hand, and left leg related to history of hemorrhagic stroke - Labs CBC & Chem 7: 10/07/21 06:09 10/07/21 06:09 Labs: Abnormal Lab Results - Last 24 Hours (Table) 10/07/21 10/07/21 10/07/21 Range/Units 06:09 06:09 06:09 WBC (3.8-10.6) k/uL Plt Count (150-450) k/uL Neutrophils # (1.3-7.7) k/uL Lymphocytes # (1.0-4.8) k/uL D-Dimer 22.42 H (<0.60) mg/L FEU Chloride (98-107) mmol/L BUN (9-20) mg/dL Glucose (74-99) mg/dL Calcium (8.4-10.2) mg/dL Total Bilirubin (0.2-1.3) mg/dL AST (17-59) U/L ALT (4-49) U/L C-Reactive Protein 16.4 H (<1.0) mg/dL Total Protein (6.3-8.2) g/dL Albumin (3.5-5.0) g/dL Procalcitonin 0.18 H (0.02-0.09) ng/mL 10/07/21 10/07/21 Range/Units 06:09 06:09 WBC 14.7 H (3.8-10.6) k/uL Plt Count 122 L (150-450) k/uL Neutrophils # 13.7 H (1.3-7.7) k/uL Lymphocytes # 0.5 L (1.0-4.8) k/uL D-Dimer (<0.60) mg/L FEU Chloride 111 H (98-107) mmol/L BUN 35 H (9-20) mg/dL Glucose 107 H (74-99) mg/dL Calcium 8.0 L (8.4-10.2) mg/dL Total Bilirubin 1.6 H (0.2-1.3) mg/dL AST 113 H (17-59) U/L ALT 127 H (4-49) U/L C-Reactive Protein (<1.0) mg/dL Total Protein 5.9 L (6.3-8.2) g/dL Albumin 2.7 L (3.5-5.0) g/dL Procalcitonin (0.02-0.09) ng/mL Assessment and Plan Plan: Assessment: #1. Acute on chronic hypoxic respiratory failure multifactorial, related to acute COVID-19 pneumonia, and possibility of chronic aspiration is not excluded. Patient's timeline of symptoms is not clear, and he is not a candidate for Remdesivir related to severe hypoxic respiratory failure. Unclear vaccination status. He is being treated supportively with a combination of empiric antibio tics, diuretics, steroids, and he is already on Eliquis for history of A. fib #2. Recent hospitalization for acute exacerbation of diastolic CHF and suspected pneumonia #3. Suspect intermittent aspiration, patient was seen by speech therapy, he is on a modified diet #4. Chronically elevated left hemidiaphragm #5. History of hemorrhagic CVA with left-sided weakness, and aphasia #6. History of diastolic CHF #7. Seizure disorder #8. Hypertension #9. Hyperlipidemia #10. Hypothyroidism #11. Abdominal aortic aneurysm #12. Persistent atrial fibrillation on Eliquis #13. History of sick sinus syndrome #14. General medical debility, overall poor functional performance #15. Elevated d-dimer, patient is already on Eliquis which will be converted to Lovenox at therapeutic dosing, we'll check lower extremity Dopplers Plan: Clinically patient has been relatively stable, without worsening dyspnea still requiring high flow oxygen We will hold the CT angiogram of the chest, we will obtain lower extremity Dopplers, His Eliquis will be converted to Lovenox at therapeutic dose Continue Decadron Not a candidate for Remdesivir related to progressive hypoxia and unclear length of symptoms Continue Zosyn for suspected aspiration Maintain aspiration precautions Overall prognosis is extremely guarded CODE STATUS is DO NOT RESUSCITATE I performed a history & physical examination of the patient and discussed their management with my nurse practitioner, Bryanna Chow. I reviewed the nurse practitioner's note and agree with the documented findings and plan of care. Lung sounds are positive for diffuse wheezes and rhonchi throughout the lung feng. The findings and the impression was discussed with the patient. I attest to the documentation by the nurse practitioner. Time with Patient: Less than 30
[2021-10-07] MEDS: DEXTROSE 5%-0.45% NACL 1,000 ML IV SCH ×2 (14:28→20:53)
[2021-10-07] MEDS: LORazepam 0.5 MG TAB PO PRN ×2 (14:29→20:52)
[2021-10-07] MEDS ORDERED: ACETAMINOPHEN TAB 325 MG TAB PO PRN (15:35)
[2021-10-07] MEDS: ENOXAPARIN 80 MG/0.8 ML SYRINGE SQ SCH (20:51)
[2021-10-07] MEDS: MELATONIN 3 MG TABLET PO PRN (20:52)
[2021-10-07] MEDS: CHOLECALCIFEROL 25 MCG (1000 IU) TABLET PO SCH (20:52)
[2021-10-07] MEDS: DIGOXIN 125 MCG TAB PO SCH (20:52)
--- NOTE | 2021-10-07 20:57 | P.GSCN ---
History of Present Illness Consult date: 10/07/21 History of present illness: Patient is a 66-year-old male who resides at the [facility] who presented to the hospital for shortness of breath after being discharged recently for episode of congestive heart failure exacerbation and pneumonia. He was found to have consolidations and hypoxemia requiring oxygen per nasal cannula and his COVID positive. He has a history of hypothyroidism, afibrillation with Ellik was, hyperlipidemia, seizure disorder, hypertension, previous hemorrhagic stroke with left-sided weakness. Because of all these things he is a poor historian and does not really responding much at the time. Much of the evaluation is gained via the chart and physical exam. Per all reports from the previous there is been no issues with any respiratory or overall distress. Patient does not ambulate and hasn't for some time per the nurse Past Medical History Past Medical History: Atrial Fibrillation, COPD, CVA/TIA, Hearing Disorder / Deafness, Hyperlipidemia, Hypertension, Seizure Disorder, Thyroid Disorder Additional Past Medical History / Comment(s): 02/13/15 ADMISSION FOR [facility]. Other HX: 09/05/14 admission to [facility] with seizure thought to be alcohol related, alcoholism (pt has not had any alcohol since 2013). WEAK HEART valve. History of Any Multi-Drug Resistant Organisms: None Reported Past Surgical History: Appendectomy Past Anesthesia/Blood Transfusion Reactions: No Reported Reaction Additional Past Anesthesia/Blood Transfusion Reaction / Comm: Pt has never recieved blood. Past Psychological History: No Psychological Hx Reported Smoking Status: Unknown if ever smoked Past Alcohol Use History: None Reported Past Drug Use History: None Reported - Past Family History Mother Family Medical History: Cancer Additional Family Medical History / Comment(s): Type of cancer unknown by LG. Father Family Medical History: No Reported History Additional Family Medical History / Comment(s): Father of old age. Medications and Allergies Home Medications Medication Instructions Recorded Confirmed Type Levothyroxine Sodium [Synthroid] 100 mcg PO DAILY 09/05/14 10/03/21 History Digoxin [Lanoxin] 125 mcg PO HS 01/04/16 10/03/21 History Acetaminophen [Tylenol Extra 500 mg PO Q4H PRN 06/18/17 10/03/21 History Strength] Apixaban [Eliquis] 2.5 mg PO BID@0800,1600 06/18/17 10/03/21 History allopurinoL [Zyloprim] 200 mg PO DAILY tab 06/26/17 10/03/21 Rx Atorvastatin [Lipitor] 80 mg PO HS 08/29/19 10/03/21 History Ipratropium-Albuterol Nebulize 3 ml INHALATION RT-QID 08/29/19 10/03/21 History [Duoneb 0.5 mg-3 mg/3 ml Soln] levETIRAcetam [Keppra Oral 1,000 mg PO BID 08/29/19 10/03/21 History Solution] Acetaminophen Tab [Tylenol] 650 mg PO DAILY@0800 09/23/21 10/03/21 History Gabapentin [Neurontin] 300 mg PO BID #6 cap 09/26/21 10/03/21 Rx Cholecalciferol [Vitamin D3 (25 25 mcg PO HS 10/03/21 10/03/21 History Mcg = 1000 Iu)] Metoprolol Tartrate [Lopressor] 50 mg PO BID@0800,1600 10/03/21 10/03/21 History predniSONE See Taper PO DIRECTED 10/03/21 10/03/21 History Allergies Allergy/AdvReac Type Severity Reaction Status Date / Time No Known Allergies Allergy Verified 10/03/21 23:24 Surgical - Exam Vital Signs Temp Pulse Resp BP Pulse Ox 98.4 F 64 36 H 115/86 88 L 10/03/21 22:28 10/03/21 22:28 10/03/21 22:28 10/03/21 22:28 10/03/21 22:28 Gen. is a pleasant male in no apparent distress on 15 L of O2 per nasal cannula laying in bed comfortably resting with his mouth wide open. Heart appears irregularly irregular. Lungs coarse but no apparent respiratory distress. No rib retractions or labored breathing. Abdomen is soft. Extremities are cool to the touch. There is no hair on the distal leg or feet. Thickened toenails. Thin. No tenderness to palpation throughout. Unable to follow commands for motor evaluation Results - Labs 10/07/21 06:09 10/07/21 06:09 Abnormal Lab Results - Last 24 Hours (Table) 10/07/21 10/07/21 10/07/21 Range/Units 06:09 06:09 06:09 WBC (3.8-10.6) k/uL Plt Count (150-450) k/uL Neutrophils # (1.3-7.7) k/uL Lymphocytes # (1.0-4.8) k/uL D-Dimer 22.42 H (<0.60) mg/L FEU Chloride (98-107) mmol/L BUN (9-20) mg/dL Glucose (74-99) mg/dL Calcium (8.4-10.2) mg/dL Total Bilirubin (0.2-1.3) mg/dL AST (17-59) U/L ALT (4-49) U/L C-Reactive Protein 16.4 H (<1.0) mg/dL Total Protein (6.3-8.2) g/dL Albumin (3.5-5.0) g/dL Procalcitonin 0.18 H (0.02-0.09) ng/mL 10/07/21 10/07/21 Range/Units 06:09 06:09 WBC 14.7 H (3.8-10.6) k/uL Plt Count 122 L (150-450) k/uL Neutrophils # 13.7 H (1.3-7.7) k/uL Lymphocytes # 0.5 L (1.0-4.8) k/uL D-Dimer (<0.60) mg/L FEU Chloride 111 H (98-107) mmol/L BUN 35 H (9-20) mg/dL Glucose 107 H (74-99) mg/dL Calcium 8.0 L (8.4-10.2) mg/dL Total Bilirubin 1.6 H (0.2-1.3) mg/dL AST 113 H (17-59) U/L ALT 127 H (4-49) U/L C-Reactive Protein (<1.0) mg/dL Total Protein 5.9 L (6.3-8.2) g/dL Albumin 2.7 L (3.5-5.0) g/dL Procalcitonin (0.02-0.09) ng/mL Diabetes panel 10/07/21 Range/Units 06:09 Sodium 144 (137-145) mmol/L Potassium 4.6 (3.5-5.1) mmol/L Chloride 111 H (98-107) mmol/L Carbon Dioxide 27 (22-30) mmol/L BUN 35 H (9-20) mg/dL Creatinine 0.78 (0.66-1.25) mg/dL Glucose 107 H (74-99) mg/dL Calcium 8.0 L (8.4-10.2) mg/dL AST 113 H (17-59) U/L ALT 127 H (4-49) U/L Alkaline Phosphatase 122 (38-126) U/L Total Protein 5.9 L (6.3-8.2) g/dL Albumin 2.7 L (3.5-5.0) g/dL Calcium panel 10/07/21 Range/Units 06:09 Calcium 8.0 L (8.4-10.2) mg/dL Albumin 2.7 L (3.5-5.0) g/dL Pituitary panel 10/07/21 Range/Units 06:09 Sodium 144 (137-145) mmol/L Potassium 4.6 (3.5-5.1) mmol/L Chloride 111 H (98-107) mmol/L Carbon Dioxide 27 (22-30) mmol/L BUN 35 H (9-20) mg/dL Creatinine 0.78 (0.66-1.25) mg/dL Glucose 107 H (74-99) mg/dL Calcium 8.0 L (8.4-10.2) mg/dL Adrenal panel 10/07/21 Range/Units 06:09 Sodium 144 (137-145) mmol/L Potassium 4.6 (3.5-5.1) mmol/L Chloride 111 H (98-107) mmol/L Carbon Dioxide 27 (22-30) mmol/L BUN 35 H (9-20) mg/dL Creatinine 0.78 (0.66-1.25) mg/dL Glucose 107 H (74-99) mg/dL Calcium 8.0 L (8.4-10.2) mg/dL Total Bilirubin 1.6 H (0.2-1.3) mg/dL AST 113 H (17-59) U/L ALT 127 H (4-49) U/L Alkaline Phosphatase 122 (38-126) U/L Total Protein 5.9 L (6.3-8.2) g/dL Albumin 2.7 L (3.5-5.0) g/dL Assessment and Plan Assessment: Cool bilateral lower extremities COVID positive Immobile Bedbound History of CVA with left-sided weakness Likely chronic peripheral arterial disease Plan: Upon my evaluation the patient, he likely has some degree of chronic arterial insufficiency given his findings of his lower extremities. He may have some degree of acute changes however he is bedbound and does not move his legs. He has no tenderness to palpation and voices no signs of pain with palpation and Squeezing. Given these findings do believe there is no further investigation that is warranted. If he continues on and does develop signs of actual gangrene that becomes infectious, he would be a candidate for an above-knee of amputation given his immobility. Continue supportive care at this time. Continue anticoagulation as previous ordered
[2021-10-07] MEDS ORDERED: ENOXAPARIN 30 MG/0.3 ML SYRINGE SQ SCH (21:00)
[2021-10-08] MEDS: PIPERACILLIN-TAZOBACTAM 3.375 GM in SODIUM CHLORIDE 0.9% 100 ML IVPB SCH ×2 (03:56→12:23)
[2021-10-08] MEDS: LEVOTHYROXINE 100 MCG TAB PO SCH (05:32)
[2021-10-08] MEDS: levETIRAcetam ORAL SOLN 500 MG/5 ML CUP PO SCH ×2 (07:52→21:22)
[2021-10-08] MEDS: ENOXAPARIN 80 MG/0.8 ML SYRINGE SQ SCH ×2 (07:53→21:23)
[2021-10-08] MEDS: DEXAMETHASONE SOD PHOSPHATE 10 MG/ML 1 ML VIAL IVP SCH (07:53)
[2021-10-08] MEDS: GABAPENTIN 300 MG CAP PO SCH ×2 (07:54→21:22)
[2021-10-08] MEDS: allopurinoL 100 MG TAB PO SCH (07:54)
[2021-10-08] MEDS: LORazepam 0.5 MG TAB PO PRN ×2 (07:55→19:46)
[2021-10-08] MEDS: METOPROLOL TARTRATE 50 MG TAB PO SCH ×3 (07:55→21:22)
[2021-10-08] MEDS: PANTOPRAZOLE 40 MG TABLET PO SCH (07:55)
[2021-10-08] MEDS: MORPHINE SULFATE 4 MG/ML SYRINGE IV PRN ×2 (08:13→18:10)
[2021-10-08] MEDS: ALBUTEROL HFA INHALER INHALATION SCH ×4 (08:52→19:55)
[2021-10-08] MEDS: DEXTROSE 5%-0.45% NACL 1,000 ML IV SCH (12:23)
--- NOTE | 2021-10-08 14:34 | P.PN ---
Subjective Progress Note Date: 10/08/21 Patient is seen sitting up in his bed. Patient is denying any pain to his lower extremities. He otherwise did not respond much to questions and not following commands. Nursing states no acute changes through the night. Objective - Vital Signs Vital signs: Vital Signs Temp 97.3 F L 10/08/21 05:57 Pulse 87 10/08/21 05:57 Resp 20 10/08/21 05:57 BP 139/85 10/08/21 05:57 Pulse Ox 92 L 10/08/21 08:52 Intake & Output 10/07/21 10/08/21 10/08/21 18:59 06:59 18:59 Intake Total 480 Output Total 200 Balance 480 -200 Intake: Oral 480 Output: Urine 200 Other: Voiding Method Diaper Diaper Incontinent External Catheter # Voids 3 2 - Exam General appearance: The patient is alert, oriented, appears in no acute distress. HET: Head is normocephalic and atraumatic. Neck: Supple without lymphadenopathy. Trachea midline. Extremities: Patient with With bilateral cool extremities with mottling up to his thighs. Tender with palpation. Thickened long toenails. Neurological: Awake, patient mostly nonverbal, does not follow commands. - Labs CBC & Chem 7: 10/07/21 06:09 10/07/21 06:09 Labs: Abnormal Lab Results - Last 24 Hours (Table) 10/07/21 10/07/21 10/07/21 Range/Units 06:09 06:09 06:09 WBC 14.7 H (3.8-10.6) k/uL Plt Count 122 L (150-450) k/uL Neutrophils # 13.7 H (1.3-7.7) k/uL Lymphocytes # 0.5 L (1.0-4.8) k/uL Chloride 111 H (98-107) mmol/L BUN 35 H (9-20) mg/dL Glucose 107 H (74-99) mg/dL Calcium 8.0 L (8.4-10.2) mg/dL Total Bilirubin 1.6 H (0.2-1.3) mg/dL AST 113 H (17-59) U/L ALT 127 H (4-49) U/L Total Protein 5.9 L (6.3-8.2) g/dL Albumin 2.7 L (3.5-5.0) g/dL Procalcitonin 0.18 H (0.02-0.09) ng/mL Assessment and Plan Assessment: 1. Cold bilateral lower extremities 2. Coated positive 3. And mobile 4. Bedbound 5. History of CVA with left-sided weakness 6. Likely chronic peripheral arterial disease Plan: Patient with likely some degree of chronic arterial insufficiency with some degree of acute changes as well. However patient is bedbound and does not move his legs. There is no apparent tenderness or pain. At this time there is no plan in any acute vascular surgical intervention. Continue to monitor for signs of gangrene or infection, as then he may be candidate for above the knee amputation. The impression and plan of care has been dictated as directed. Dr. Vigil I performed a history and examination of this patient, discussed the same with the dictator. I agree with the dictator's note ,documented as a scribe. Any additional findings or plans will be noted.
--- NOTE | 2021-10-08 15:06 | P.PN ---
Progress Note - Text Progress Note Date: 10/08/21 Chief Complaint: Short of breath Hospital course: This is a 66 year patient who follows Dr. Elise at the [facility] [place]. Chronic stable medical conditions include, COPD, hyperlipidemia, hypertension, hypothyroid. chronically weak on the left side. baseline has slurred speech. very limited historian. Recently in the hospital from September 03 through September 26 with pneumonia, CHF exacerbation. IV ceftriaxone and IV Lasix. Had responded well. EMS was called out to the [facility] and that the patient earlier was breathing up to 30/m and had increase his oxygen to 4 L. Patient is more short of breath. Patient again doesn't state too much. Patient was 88% on 5 L on arrival. Tachycardic. He also tested positive for COVID. October 05: Short of breath. On 15 L nonrebreather. Tired. Lethargic. Oral intake decreased. 25/50%. On Decadron and IV Zosyn. A. fib remains uncontrolled pain 100-130 October 06: Remain short of breath. Sitting up in bed. 15 L nonrebreather. Tired. Eating about 50%. IV Zosyn and Decadron. Atrial fibrillation rate controlled October 07: Short of breath. 15 L rebreather. Decreased oral intake. IV Zosyn and Decadron. Elevated d-dimer. Patient is only on eliquis. We changed to Lovenox therapeutic dose. Doppler ultrasound lower extremity. October 08: Short of breath. On 10 L nonrebreather. Eating about 25%. Diet. DVT ruled out. Some purple discoloration of both the feet. Cold. Vascular was consulted last night. Not any intervention currently. Remains on therapeutic dose of Lovenox. A. fib still slightly uncontrolled. Review of systems: Difficult to obtain Active Medications Albuterol Sulfate (Albuterol Hfa Inhaler) 4 puff INHALATION RT-QID [facility] Last Admin: 10/08/21 12:21 Dose: 4 puff Documented by: Allopurinol (Allopurinol 100 Mg Tab) 200 mg PO DAILY [facility] Last Admin: 10/08/21 07:54 Dose: 200 mg Documented by: Calcium Carbonate/Glycine (Calcium Carbonate 500 Mg Chewable) 1,000 mg PO Q4HR PRN PRN Reason: Dyspepsia Cholecalciferol (Cholecalciferol 25 Mcg (1000 Iu) Tablet) 25 mcg PO HS [facility] Last Admin: 10/07/21 20:52 Dose: 25 mcg Documented by: Dexamethasone Sodium Phosphate (Dexamethasone Sod Phosphate 10 Mg/Ml 1 Ml Vial) 6 mg IVP DAILY [facility] Last Admin: 10/08/21 07:53 Dose: 6 mg Documented by: Digoxin (Digoxin 125 Mcg Tab) 125 mcg PO HS [facility] Last Admin: 10/07/21 20:52 Dose: 125 mcg Documented by: Enoxaparin Sodium (Enoxaparin 80 Mg/0.8 Ml Syringe) 70 mg SQ Q12H [facility] Last Admin: 10/08/21 07:53 Dose: 70 mg Documented by: Gabapentin (Gabapentin 300 Mg Cap) 300 mg PO BID [facility] Last Admin: 10/08/21 07:54 Dose: 300 mg Documented by: Piperacillin Sod/Tazobactam (Sod 3.375 gm/ Sodium Chloride) 100 mls @ 25 mls/hr IVPB Q8H [facility] Stop: 10/10/21 23:00 Last Admin: 10/08/21 12:23 Dose: 25 mls/hr Documented by: Dextrose/Sodium Chloride (Dextrose 5%-1/2ns Iv Soln) 1,000 mls @ 75 mls/hr IV .[id number] [facility] Last Admin: 10/08/21 12:23 Dose: 75 mls/hr Documented by: Lactulose (Lactulose 20 Gm/30 Ml Cup) 20 gm PO DAILY PRN PRN Reason: Constipation Levetiracetam (Levetiracetam Oral Soln 500 Mg/5 Ml Cup) 1,000 mg PO BID [facility] Last Admin: 10/08/21 07:52 Dose: 1,000 mg Documented by: Levothyroxine Sodium (Levothyroxine 100 Mcg Tab) 100 mcg PO DAILY@0630 [facility] Last Admin: 10/08/21 05:32 Dose: 100 mcg Documented by: Lorazepam (Lorazepam 0.5 Mg Tab) 0.5 mg PO Q6HR PRN PRN Reason: Anxiety Last Admin: 10/08/21 07:55 Dose: 0.5 mg Documented by: Melatonin (Melatonin 3 Mg Tablet) 3 mg PO HS PRN PRN Reason: Insomnia Last Admin: 10/07/21 20:52 Dose: 3 mg Documented by: Metoprolol Tartrate (Metoprolol Tartrate 50 Mg Tab) 50 mg PO TID [facility] Last Admin: 10/08/21 07:55 Dose: 50 mg Documented by: Miscellaneous Information (Pneumonia Protocol Utilized 1 Each [facility]) 1 each PO ONCE PRN PRN Reason: Per Protocol Morphine Sulfate (Morphine Sulfate 4 Mg/Ml Syringe) 4 mg IV Q4HR PRN PRN Reason: Severe Pain Last Admin: 10/08/21 08:13 Dose: 4 mg Documented by: Naloxone HCl (Naloxone 0.4 Mg/Ml 1 Ml Vial) 0.2 mg IV Q2M PRN PRN Reason: Opioid Reversal Ondansetron HCl (Ondansetron 4 Mg/2 Ml Vial) 4 mg IVP Q8HR PRN PRN Reason: Nausea And Vomiting Pantoprazole Sodium (Pantoprazole 40 Mg Tablet) 40 mg PO AC-BRKFST [facility] Last Admin: 10/08/21 07:55 Dose: 40 mg Documented by: Tramadol HCl (Tramadol 50 Mg Tab) 50 mg PO QID PRN PRN Reason: pain Last Admin: 10/07/21 17:21 Dose: 50 mg Documented by: Past medical history to include: Atrial fibrillation, COPD, stroke. Vascular Dementia, hyperlipidemia, hypertension, hypothyroid. Alcohol related seizures in the past. Alcoholism. last drink was in 2013. smoked for close to 50 years. Left-sided weakness following a hemorrhagic stroke in 2015 Social history: Long-term resident of [facility]. Patient started smoking age of 14 smoked three-quarter packs a day for close to 50 years. Patient was drinking excessive alcohol until 2013 Physical examination: VITAL SIGNS: 97.8, 58, 19, 1 36 x 89, 92% on 10 L GENERAL: reclining in bed, awake tired LUNGS: Respiratory rate increased, . PSYCH: Unable to assess NEUROLOGICAL: Slurred speech, power in the left arm is 1/5, left leg 1 x 5. EXTREMITIES: Ischemic changes of both the feet. Cold feet. Some bluish scattered discoloration. Rest of the exam. As per Pulmonary and nursing INVESTIGATIONS, reviewed in the clinical context: October 25: D-dimer 30.7 to October 07: White count 14.7 d-dimer 22.4 potassium 4.6 AST 113 ALT 127 pro- calcitonin 0.18 Doppler ultrasound of right and left leg: Negative Art 11: D-dimer 14.5 to potassium 3.7 creatinine 0.73 CRP 5.4 October 05: White count 12.5 hemoglobin 14.7 platelets 160 d-dimer 4.29 potassium 4 BUN 29 creatinine 0.75 pro-calcitonin 0.13 White count 8.2 hemoglobin 16.1 platelets 147 sodium 145 potassium 4.1 BUN 25 creatinine 0.59 d-dimer 1.7 CRP 20.1 Admission labs: Coronavirus [PCR colon detected Potassium 5.8 AST 156 ALT 152 EKG tracing personally reviewed by me-atrial fibrillation rate 125 Chest x-ray film personally reviewed by me-bilateral infiltrates Recent studies: 2-D echocardiogram: EF 55-60%. Moderate concentric LVH. Assessment and plan: - Acute COVID 19 pneumonitis: Not improving Decadron, eliquis -Sepsis from COVID 19 pneumonitis, possible bacterial component IV Zosyn -Acute hypoxic respiratory failure: Not improving On 15 L nonrebreather -Acute hepatitis possibly from COVID 19 DC Tylenol. DC Lipitor. Follow LFT -Recent bacterial pneumonia, suspect gram-negative organism IV Zosyn -Chronic congestive heart failure exacerbation. From diastolic dysfunction EF 55-60%.: On fluid restriction -Chronic left-sided weakness, from a prior hemorrhagic stroke Fall precautions -Persistent atrial fibrillation, rate borderline controlled Lopressor 50 mg 3 times a day, eliquis 2.5 by mouth twice a day -Acute COPD exacerbation in a previous smoker: Better Ventolin 4 times a day, Decadron -Bilateral PAD. Possible acute component. Patient is a poor functional state. Oriented. Dose of Lovenox. -Hyperlipidemia Lipitor 80 mg daily at bedtime -Essential hypertension Lopressor 50 mg by mouth twice a day -Chronic epilepsy disorder Keppra 1000 milligrams by mouth twice a day -Hypothyroid Synthroid 100 g daily -DO NOT RESUSCITATE 15 L oxygen. Decadron. IV Zosyn. Lopressor to 50 mg/ 3 times a day. On therapeutic dose of Lovenox. Prognosis guarded. Vascular was consulted last night.
--- NOTE | 2021-10-08 15:45 | P.PN ---
Subjective Progress Note Date: 10/08/21 This is a 66-year-old male patient who resides at [facility] [place]. He has a history of hypothyroidism, atrial fibrillation anticoagulated with Eliquis, hyperlipidemia, seizure disorder, hypertension, previous hemorrhagic stroke with left-sided weakness. He was brought into the emergency room for noted shortness of breath and he was just discharged from here on 09/26/2021 after an episode of diastolic congestive heart failure and suspected pneumonia. He is seen today in the emergency room. Chest x-ray reveals mild pulmonary interstitial edema. Chronically elevated left hemidiaphragm, consolidation/atelectasis of the left lower lobe. Saturations were 88% to 92%. He is currently on 6 L nasal cannula with O2 saturation 88%. He is afebrile. Slightly tachycardic. White count 8.2. Hemoglobin 16.1. Leukocytes 0.4. INR 1.4. Sodium 141. Potassium 5.8. Creatinine 0.72. Glucose 118. AST 156. ALT 152. ProBNP 2560. TSH 1.46. Current virus by PCR positive. He's been initia karma on bronchodilators, Levaquin, Zosyn, Eliquis. Ultrasound of the gallbladder revealed no significant abnormality. He is a poor historian and no information could be obtained from him. On 10/05/2021 patient seen in follow-up on medical surgical floor, he is awake and alert, he is nonverbal, but he is able to nod his head yes or no to simple questions, he denies any acute distress, he is quite congested, with diffuse rhonchi bilaterally. He tested positive for COVID-19, he is also a good set up for aspiration and she might be chronically aspirating on a regular basis. He continues on Zosyn for empiric antibiotic coverage with O2 sats up for calcitonin were negative, he is currently on a nonrebreather mask his pulse ox is 90%. Overnight, vital signs have been stable, I'll of lab work shows white blood cell count of 12.5, hemoglobin of 14.7, d-dimer is 4.29, sodium is 143, potassium is 4.0, chloride is 109, B1 is 29 creatinine 0.79, his LDH is 1037, CRP was 20.1 on admission, improved on today's labs and is down to 7.2, proBNP was 2560 on admission, pro-calcitonin level was 0.12 and 0.13. Patient also remains on Decadron 6 mg IV push daily, he is on Eliquis for history of atrial fibrillation. He remains in atrial fibrillation with a controlled rate, cardiology is following, patient received a dose of IV Lasix today per cardiology. He seems to be fairly comfortable, code status is DO NOT RESUSCITATE as per previous advanced directives On 10/07/2021 patient seen in follow-up on medical surgical floor, he is currently on 15 L of oxygen his pulse ox is 90-94%, clinically he looks the same as he did 48 hours ago, breathing comfortably, does not appear to be in any acu te distress, however patient is a high risk for aspiration although he was evaluated by speech therapy alone was placed on modified diet. He has a weak cough, he has a diffuse rhonchi throughout anterior chest, does not bring up a lot of phlegm. Does not appear to be tachypneic or dyspneic, vital signs have been stable, he has been afebrile, he is on Zosyn for possibility of aspiration pneumonia, he remains on Decadron 6 mg daily, he was already on Eliquis 2.5 mg twice daily for atrial fibrillation. Today's labs have been reviewed, his d- dimer has increased to 22.4 to, lower extremity Dopplers are pending. After discussing with attending physician patient will be switched from Eliquis to prophylactic dose Lovenox. His white blood cell count is 14.7, hemoglobin is 15.7, sodium is 144, potassium is 4.6, chloride is 111, B1 is 35 creatinine 0.78, his AST is 113, increased, ALT is 127, CRP 16.4, and his follow-up LDH is still pending for today, pro-calcitonin level is negative at 0.18. Patient wakes up, he only provides very limited verbal responses, talks very very slow, but follows simple command, he denies any acute distress. On 10/08/2021 patient seen in follow-up on medical surgical floor, she is resting comfortably in bed, does not appear to be in any acute distress, his FiO2 has been decreased down to 10 L compared to 15 L on yesterday's exam, topped by, his sat is 92%, his been afebrile, hemodynamically has been stable, he does have a weak cough, and his lung sounds are positive for a few scattered rhonchi, vital signs have been stable, he has been tolerating oral intake. He remains on 6 mg daily, she is on Zosyn for empiric antibiotic coverage however 3 of his pro calcitonin levels were negative at 0.12, 0.13, and 0.18. We can stop the empiric antibiotics. D-dimer is 30.72, and lower extremity Dopplers showed no evidence of DVT, patient was switched from Eliquis to therapeutic dose of Lovenox on which he remains at 70 mg twice daily. Today's follow-up inflammatory markers are still pending. Yesterday his bilateral lower extremities were noted to be cool, and vascular surgical evaluation was obtained however patient is chronically bedbound, he voices no complaints and his bilateral lower extremities, surgical intervention was recommended. Objective - Vital Signs Vital signs: Vital Signs Temp 97.8 F 10/08/21 14:00 Pulse 58 L 10/08/21 14:00 Resp 19 10/08/21 14:00 BP 136/89 10/08/21 14:00 Pulse Ox 92 L 10/08/21 14:00 Intake & Output 10/07/21 10/08/21 10/08/21 18:59 06:59 18:59 Intake Total 480 Output Total 200 Balance 480 -200 Intake: Oral 480 Output: Urine 200 Other: Voiding Method Diaper Diaper External Catheter Incontinent External Catheter # Voids 3 2 - Exam GENERAL EXAM: Alert, nonverbal, 66-year-old white male, he is able to nod head yes or no, has a history of hemorrhagic stroke in the past with aphasia, and left-sided weakness and chronic contractures of left hand and left leg, currently on 10 L per high flow nasal cannula HEAD: Normocephalic/atraumatic. EYES: Normal reaction of pupils, equal size. Conjunctiva pink, sclera white. NOSE: Clear with pink turbinates. THROAT: No erythema or exudates. NECK: No masses, no JVD, no thyroid enlargement, no adenopathy. CHEST: No chest wall deformity. Symmetrical expansion. LUNGS: Equal air entry with rhonchi CVS: Regular rate and rhythm, normal S1 and S2, no gallops, no murmurs, no rubs ABDOMEN: Soft, nontender. No hepatosplenomegaly, normal bowel sounds, no guarding or rigidity. EXTREMITIES: No clubbing, no edema, no cyanosis, 2+ pulses and upper and lower extremities. MUSCULOSKELETAL: Muscle strength and tone normal. SPINE: No scoliosis or deformity SKIN: No rashes CENTRAL NERVOUS SYSTEM: Alert and oriented -1. Patient is aphasic, he is able to follow simple commands, has a left sided weakness with chronic contractures of left hand, and left leg related to history of hemorrhagic stroke - Labs CBC & Chem 7: 10/07/21 06:09 10/07/21 06:09 Labs: Abnormal Lab Results - Last 24 Hours (Table) 10/08/21 Range/Units 12:01 D-Dimer 30.72 H (<0.60) mg/L FEU Assessment and Plan Plan: Assessment: #1. Acute on chronic hypoxic respiratory failure multifactorial, related to acute COVID-19 pneumonia, and possibility of chronic aspiration is not excluded. Patient's timeline of symptoms is not clear, and he is not a candidate for Remdesivir related to severe hypoxic respiratory failure. Unclear vaccination status. He is being treated supportively with a combination of empiric antibiotics, diuretics, steroids, and therapeutic dosing of Lovenox #2. Recent hospitalization for acute exacerbation of diastolic CHF and suspected pneumonia #3. Suspect intermittent aspiration, patient was seen by speech therapy, he is on a modified diet #4. Chronically elevated left hemidiaphragm #5. History of hemorrhagic CVA with left-sided weakness, and aphasia #6. History of diastolic CHF #7. Seizure disorder #8. Hypertension #9. Hyperlipidemia #10. Hypothyroidism #11. Abdominal aortic aneurysm #12. Persistent atrial fibrillation on Eliquis #13. History of sick sinus syndrome #14. General medical debility, overall poor functional performance #15. Elevated d-dimer, patient is already on Eliquis which was converted to Lovenox at therapeutic dosing, Dopplers were negative for DVT Plan: No worsening dyspnea or hypoxia, his FiO2 is currently at 10 L No fever or chills Continue maintaining aspiration precautions, Zosyn can do discontinue, 3 sets up her calcitonin levels were negative Continue Decadron Therapeutic dosing of Lovenox Vascular surgery consultation has been noted Overall prognosis is extremely guarded CODE STATUS is DO NOT RESUSCITATE I performed a history & physical examination of the patient and discussed their management with my nurse practitioner, Bryanna Chow. I reviewed the nurse practitioner's note and agree with the documented findings and plan of care. Lung sounds are positive for diffuse wheezes and rhonchi throughout the lung feng. The findings and the impression was discussed with the patient. I attest to the documentation by the nurse practitioner. Time with Patient: Less than 30
[2021-10-08] MEDS ORDERED: METOPROLOL TARTRATE 50 MG TAB PO STA (19:10)
[2021-10-08] MEDS: DIGOXIN 125 MCG TAB PO SCH (21:22)
[2021-10-08] MEDS: CHOLECALCIFEROL 25 MCG (1000 IU) TABLET PO SCH (21:22)
[2021-10-09] MEDS: MORPHINE SULFATE 4 MG/ML SYRINGE IV PRN ×2 (01:34→05:48)
[2021-10-09] MEDS: LEVOTHYROXINE 100 MCG TAB PO SCH (05:35)
[2021-10-09] MEDS: DEXTROSE 5%-0.45% NACL 1,000 ML IV SCH ×2 (05:50→11:57)
[2021-10-09 06:57] LABS: ALT 131 U/L (4-49); AST 308 U/L (17-59); African American GFR (CKD) >90 (>60 ml/min/1.73 sqM); Albumin 2.7 g/dL (3.5-5.0); Albumin/Globulin Ratio 0.8; Alkaline Phosphatase 176 U/L (38-126); Anion Gap 4 mmol/L; Blood Urea Nitrogen 30 mg/dL (9-20); C Reactive Protein 8.4 mg/dL (<1.0); Calcium 7.7 mg/dL (8.4-10.2); Carbon Dioxide 30 mmol/L (22-30); Chloride 109 mmol/L (98-107); Globulin 3.2 g/dL; Glucose 127 mg/dL (74-99); Non-African American GFR(CKD) >90 (>60 ml/min/1.73 sqM); Sodium 143 mmol/L (137-145); Total Bilirubin 0.9 mg/dL (0.2-1.3); Total Protein 5.9 g/dL (6.3-8.2)
[2021-10-09 07:05] LABS: Potassium 5.6 mmol/L (3.5-5.1)
[2021-10-09 07:06] LABS: LDH 3062 U/L (313-618)
[2021-10-09] MEDS: METOPROLOL TARTRATE 50 MG TAB PO SCH ×2 (07:06→20:44)
[2021-10-09] MEDS: allopurinoL 100 MG TAB PO SCH (07:07)
[2021-10-09] MEDS: PANTOPRAZOLE 40 MG TABLET PO SCH (07:07)
[2021-10-09] MEDS: GABAPENTIN 300 MG CAP PO SCH ×2 (07:07→20:44)
[2021-10-09] MEDS: DEXAMETHASONE SOD PHOSPHATE 10 MG/ML 1 ML VIAL IVP SCH (07:07)
[2021-10-09] MEDS: ENOXAPARIN 80 MG/0.8 ML SYRINGE SQ SCH ×2 (07:08→20:44)
[2021-10-09] MEDS: levETIRAcetam ORAL SOLN 500 MG/5 ML CUP PO SCH ×2 (07:09→20:44)
--- NOTE | 2021-10-09 08:55 | XR ---
EXAMINATION TYPE: XR chest 1V portable DATE OF EXAM: 10/09/2021 Comparison: 10/05/2021 Clinical History: 66-year-old male covid Findings: The heart is enlarged. Asymmetric elevation left hemidiaphragm persists. Loop recorder device project s at the left base. Calcified granuloma periphery of the right upper lobe. Worsening bilateral patchy airspace opacity compared to 4 days prior. IMPRESSION 1. Cardiomegaly with worsening bilateral patchy airspace disease. 2. Continued asymmetric elevation left hemidiaphragm. If concern for hemidiaphragmatic paralysis, a s niff test could be performed.
[2021-10-09] MEDS: ALBUTEROL HFA INHALER INHALATION SCH ×4 (09:49→21:23)
[2021-10-09] MEDS ORDERED: METOPROLOL TARTRATE 50 MG TAB PO STA ×2 (10:08→10:24)
--- NOTE | 2021-10-09 10:18 | P.PN ---
Subjective Progress Note Date: 10/09/21 CHIEF COMPLAINT: afib with rvr HISTORY OF PRESENT ILLNESS: his is a pleasant 66-year-old male past medical history significant for chronic persistent atrial fibrillation, sick sinus syndrome, hypertension, Hemorrhagic CVAwith left sided weakness, COPD, bilateral carotid stenosis, abdominal aortic aneurysm, alcohol abuse, dyslipidemia, hypothyroidism, seizure disorder. He follows in the office with Dr. Rey, has not followed up since 2019. We have been asked to see in consultation for congestive heart failure and atrial fibrillation with RVR. Patient presents emergency department 10/04/2021 with shortness of breath. He was recently admitted on 09/23/21 with fever, shortness of breath and cough. Diagnosed with acute bilateral pneumonia and acute COPD exacerbation. He was discharged on 09/26/2021 at that time his COVID-19 PCR was negative. On this admission, his COVID-19 PCR was positive. He does feel short of breath. Patient was in atrial fibrillation with RVR on admission patient given 15mg IV Cardizem. Echocardiogram 09/24/2021 revealed an EF of 55-60%, mild mitral regurgitation, mild tricuspid regurgitation 10/05/2021: Patient seen and examined at bedside, he is more short of breath today. He is requiring more O2, now on 15L non-rebreather mask with SpO2 85-92%. BP is stable. Labs reviewed, WBC 12.5, sodium 143, potassium 4.0, BUN 29, serum crit 0.7, magnesium 2.1, d-dimer 4.2 He's currently maintained on Eliquis 2.5 mg twice a day, atorvastatin 80 mg nightly, digoxin 125mcg daily, metoprolol titrate 50 mg twice a day Telemetry reviewed patient continues to be in atrial fibrillation with uncontrolled ventricular rates low 100s to 130s 10/06/2021 The patient is a 66-year-old gentleman who was admitted to the hospital was COVID-19 pneumonia as well as atrial fibrillation with RVR and he is known to have persistent atrial fibrillation The heart rate has been under excellent control on the current dose of m etoprolol. Also he is on oral anticoagulation. From the cardiovascular standpoint of view, we'll continue the current medical regimen and follow-up with the patient on when necessary case. 10/09/2021 Cardiology was reconsulted to evaluate patient secondary to A. fib with RVR. The patient remains hospitalized secondary to Covid. Patient remains in atrial fibrillation this morning with a heart rate between 90-115. He is currently receiving metoprolol 50 mg 3 times a day and digoxin 125 g at night. Patient has been switched from Eliquis 2 therapeutic Lovenox per internal medicine. PHYSICAL EXAM: Thorough physical exam not completed secondary to limited evaluation/examination and due to Covid19 ASSESSMENT: Chronic persistant atrial fibrillation with RVR, on eliquis Covid-19 pneumonia Acute on chronic hypoxic respiratory failure Acute on chronic diastolic heart failure Acute COPD exacerbation Bilateral peripheral arterial disease History of CVA with chronic left-sided weakness History of bilateral carotid stenosis History of abdominal aortic aneurysm History of seizures Former tobacco use Hypothyroidism Dyslipidemia PLAN: Continue current cardiac medications Change metoprolol to 100mg BID Give additional 50mg x 1 dose now Continue telemetry monitoring From a cardiac standpoint, patient may be resumed on Eliquis. However, will defer this to internal medicine as they changed the patient from Eliquis to Lovenox Further recommendations pending patient course Nurse practitioner note has been reviewed by physician. Signing provider agrees with the documented findings, assessment, and plan of care. Objective - Vital Signs Vital signs: Vital Signs Temp 97.2 F L 10/09/21 06:00 Pulse 71 10/09/21 06:00 Resp 20 10/09/21 07:15 BP 147/89 10/09/21 06:00 Pulse Ox 92 L 10/09/21 06:00 Intake & Output 10/08/21 10/09/21 10/09/21 18:59 06:59 18:59 Intake Total 925 Output Total 350 Balance 575 Intake: Intake, IV Titration 900 Amount Dextrose 5%-0.45% NaCl 1, 900 000 ml @ 75 mls/hr IV . [id number] [facility] Rx#:[id number] Oral 25 Output: Urine 350 Other: Voiding Method External Catheter External Catheter External Catheter # Voids 3 # Bowel Movements 0 - Labs CBC & Chem 7: 10/07/21 06:09 10/09/21 05:57 Labs: Abnormal Lab Results - Last 24 Hours (Table) 10/08/21 10/09/21 10/09/21 Range/Units 12:01 05:57 05:57 D-Dimer 30.72 H 8.32 H (<0.60) mg/L FEU Potassium 5.6 H (3.5-5.1) mmol/L Chloride 109 H (98-107) mmol/L BUN 30 H (9-20) mg/dL Creatinine 0.61 L (0.66-1.25) mg/dL Glucose 127 H (74-99) mg/dL Calcium 7.7 L (8.4-10.2) mg/dL AST 308 H (17-59) U/L ALT 131 H (4-49) U/L Alkaline Phosphatase 176 H (38-126) U/L Lactate Dehydrogenase 3062 H (313-618) U/L C-Reactive Protein 8.4 H (<1.0) mg/dL Total Protein 5.9 L (6.3-8.2) g/dL Albumin 2.7 L (3.5-5.0) g/dL
[2021-10-09] MEDS ORDERED: SODIUM POLYSTYRENE SULFONATE 15 GM/60 ML BOTTLE PO STA (11:23)
--- NOTE | 2021-10-09 12:35 | P.PN ---
Subjective Progress Note Date: 10/09/21 Patient is seen sitting up in his bed. Patient is really not responding to questions. Lower extremities with no changes. He is not flinching or moaning with palpation to his lower extremities. Objective - Vital Signs Vital signs: Vital Signs Temp 97.2 F L 10/09/21 06:00 Pulse 71 10/09/21 06:00 Resp 20 10/09/21 06:00 BP 147/89 10/09/21 06:00 Pulse Ox 92 L 10/09/21 06:00 Intake & Output 10/08/21 10/09/21 10/09/21 18:59 06:59 18:59 Intake Total 925 Output Total 350 Balance 575 Intake: Intake, IV Titration 900 Amount Dextrose 5%-0.45% NaCl 1, 900 000 ml @ 75 mls/hr IV . [id number] [facility] Rx#:[id number] Oral 25 Output: Urine 350 Other: Voiding Method External Catheter External Catheter # Voids 3 # Bowel Movements 0 - Exam General appearance: The patient is alert, oriented, appears in no acute distress. HET: Head is normocephalic and atraumatic. Neck: Supple without lymphadenopathy. Trachea midline. Extremities: Patient with With bilateral cool extremities with mottling up to his thighs. Tender with palpation. Thickened long toenails. Neurological: Awake, patient mostly nonverbal, does not follow commands. - Labs CBC & Chem 7: 10/07/21 06:09 10/09/21 05:57 Labs: Abnormal Lab Results - Last 24 Hours (Table) 10/08/21 10/09/21 10/09/21 Range/Units 12:01 05:57 05:57 D-Dimer 30.72 H 8.32 H (<0.60) mg/L FEU Potassium 5.6 H (3.5-5.1) mmol/L Chloride 109 H (98-107) mmol/L BUN 30 H (9-20) mg/dL Creatinine 0.61 L (0.66-1.25) mg/dL Glucose 127 H (74-99) mg/dL Calcium 7.7 L (8.4-10.2) mg/dL AST 308 H (17-59) U/L ALT 131 H (4-49) U/L Alkaline Phosphatase 176 H (38-126) U/L Lactate Dehydrogenase 3062 H (313-618) U/L C-Reactive Protein 8.4 H (<1.0) mg/dL Total Protein 5.9 L (6.3-8.2) g/dL Albumin 2.7 L (3.5-5.0) g/dL Assessment and Plan Assessment: 1. Cold bilateral lower extremities 2. Covid-19 positive 3. Immobile 4. Bedbound 5. History of CVA with left-sided weakness 6. Likely chronic peripheral arterial disease Plan: Patient with likely some degree of chronic arterial insufficiency with some degree of acute changes as well. However patient is bedbound and does not move his legs. There is no apparent tenderness or pain. At this time there is no plan in any acute vascular surgical intervention. Continue to monitor for signs of gangrene or infection, as then he may be candidate for above the knee amp utation. The impression and plan of care has been dictated as directed. Dr. Mendez I performed a history and examination of this patient, discussed the same with the dictator. I agree with the dictator's note ,documented as a scribe. Any additional findings or plans will be noted.
--- NOTE | 2021-10-09 13:20 | P.PN ---
Subjective Progress Note Date: 10/09/21 This is a 66-year-old male patient who resides at [facility] [place]. He has a history of hypothyroidism, atrial fibrillation anticoagulated with Eliquis, hyperlipidemia, seizure disorder, hypertension, previous hemorrhagic stroke with left-sided weakness. He was brought into the emergency room for noted shortness of breath and he was just discharged from here on 09/26/2021 after an episode of diastolic congestive heart failure and suspected pneumonia. He is seen today in the emergency room. Chest x-ray reveals mild pulmonary interstitial edema. Chronically elevated left hemidiaphragm, consolidation/atelectasis of the left lower lobe. Saturations were 88% to 92%. He is currently on 6 L nasal cannula with O2 saturation 88%. He is afebrile. Slightly tachycardic. White count 8.2. Hemoglobin 16.1. Leukocytes 0.4. INR 1.4. Sodium 141. Potassium 5.8. Creatinine 0.72. Glucose 118. AST 156. ALT 152. ProBNP 2560. TSH 1.46. Current virus by PCR positive. He's been initi ated on bronchodilators, Levaquin, Zosyn, Eliquis. Ultrasound of the gallbladder revealed no significant abnormality. He is a poor historian and no information could be obtained from him. On 10/05/2021 patient seen in follow-up on medical surgical floor, he is awake and alert, he is nonverbal, but he is able to nod his head yes or no to simple questions, he denies any acute distress, he is quite congested, with diffuse rhonchi bilaterally. He tested positive for COVID-19, he is also a good set up for aspiration and she might be chronically aspirating on a regular basis. He continues on Zosyn for empiric antibiotic coverage with O2 sats up for calcitonin were negative, he is currently on a nonrebreather mask his pulse ox is 90%. Overnight, vital signs have been stable, I'll of lab work shows white blood cell count of 12.5, hemoglobin of 14.7, d-dimer is 4.29, sodium is 143, potassium is 4.0, chloride is 109, B1 is 29 creatinine 0.79, his LDH is 1037, CRP was 20.1 on admission, improved on today's labs and is down to 7.2, proBNP was 2560 on admission, pro-calcitonin level was 0.12 and 0.13. Patient also remains on Decadron 6 mg IV push daily, he is on Eliquis for history of atrial fibrillation. He remains in atrial fibrillation with a controlled rate, cardiology is following, patient received a dose of IV Lasix today per cardiology. He seems to be fairly comfortable, code status is DO NOT RESUSCITATE as per previous advanced directives The patient is seen today 10/06/2021 on the regular medical floor. He is currently sitting up in bed. Awake and alert. He is nonverbal. He is currently on 15 L high flow nasal cannula. D-dimer 14.5. Sodium 146. Potassium 3.7. Creatinine 0.73. Glucose 114. C-reactive protein 5.4. He remains on Zosyn for suspected aspiration pneumonia as well. He is continued on Decadron, Eliquis, vitamin supplements. The patient seen today 10/09/2021 in follow-up on the regular medical floor. He is currently sitting up in bed. Neck will place. He is awake and alert. No acute distress. He has a loose congested cough. He is currently on 13 L high flow nasal cannula to maintain O2 saturation in the high 80s low 90s. Chest x- ray continues to show bilateral patchy airspace disease. Asymmetric elevation left hemidiaphragm. D-dimer 8.32. Sodium 143. Potassium 5.6. Creatinine 0.61. Glucose 127. AST 308. ALT 131. LDH 3062. C-reactive protein 8.4. He is continued on Decadron, Lovenox vitamin supplements. Remains in aspiration precautions. Objective - Vital Signs Vital signs: Vital Signs Temp 97.6 F 10/09/21 09:38 Pulse 100 10/09/21 09:38 Resp 20 10/09/21 09:38 BP 133/87 10/09/21 09:38 Pulse Ox 94 L 10/09/21 09:38 Intake & Output 10/08/21 10/09/21 10/09/21 18:59 06:59 18:59 Intake Total 925 Output Total 350 Balance 575 Intake: Intake, IV Titration 900 Amount Dextrose 5%-0.45% NaCl 1, 900 000 ml @ 75 mls/hr IV . [id number] Rx#:[id number] Oral 25 Output: Urine 350 Other: Voiding Method External Catheter External Catheter External Catheter # Voids 3 # Bowel Movements 0 - Exam GENERAL EXAM: Alert, nonverbal, cachectic 66-year-old male, he is able to nod head yes or no, has a history of hemorrhagic stroke in the past with aphasia, and left-sided weakness and chronic contractures of left hand and left leg, currently on 13 L high flow nasal cannula in no acute distress HEAD: Normocephalic/atraumatic. EYES: Normal reaction of pupils, equal size. Conjunctiva pink, sclera white. NOSE: Clear with pink turbinates. THROAT: No erythema or exudates. NECK: No masses, no JVD, no thyroid enlargement, no adenopathy. CHEST: No chest wall deformity. Symmetrical expansion. LUNGS: Equal air entry with diffuse crackles and rhonchi CVS: Regular rate and rhythm, normal S1 and S2, no gallops, no murmurs, no rubs ABDOMEN: Soft, nontender. No hepatosplenomegaly, normal bowel sounds, no g uarding or rigidity. EXTREMITIES: No clubbing, no edema, no cyanosis, 2+ pulses and upper and lower extremities. MUSCULOSKELETAL: Muscle strength and tone normal. SPINE: No scoliosis or deformity SKIN: No rashes CENTRAL NERVOUS SYSTEM: Alert and oriented -1. Patient is aphasic, he is able to follow simple commands, has a left sided weakness with chronic contractures of left hand, and left leg related to history of hemorrhagic stroke - Labs CBC & Chem 7: 10/07/21 06:09 10/09/21 05:57 Labs: Abnormal Lab Results - Last 24 Hours (Table) 10/09/21 10/09/21 Range/Units 05:57 05:57 D-Dimer 8.32 H (<0.60) mg/L FEU Potassium 5.6 H (3.5-5.1) mmol/L Chloride 109 H (98-107) mmol/L BUN 30 H (9-20) mg/dL Creatinine 0.61 L (0.66-1.25) mg/dL Glucose 127 H (74-99) mg/dL Calcium 7.7 L (8.4-10.2) mg/dL AST 308 H (17-59) U/L ALT 131 H (4-49) U/L Alkaline Phosphatase 176 H (38-126) U/L Lactate Dehydrogenase 3062 H (313-618) U/L C-Reactive Protein 8.4 H (<1.0) mg/dL Total Protein 5.9 L (6.3-8.2) g/dL Albumin 2.7 L (3.5-5.0) g/dL Assessment and Plan Assessment: 1 Acute hypoxemic respiratory failure secondary to COVID-19 pneumonia and atelectasis in the left lower lobe. Recent discharge on 09/26/2021. Unclear vaccination status. Resides in extended care. Poor historian. Currently on 13 L high flow nasal cannula 2 Atrial fibrillation 3 History of diastolic congestive heart failure 4 History of hemorrhagic stroke with residual left-sided weakness, aphasia 5 Hyperlipidemia 6 Hypertension 7 History of seizure disorder 8 Hypothyroidism 9 assisted resident. 10 Poor overall functional performance based on the above-mentioned multiple comorbidities Plan: The patient was seen and evaluated Chest x-ray showing no significant improvement Currently on 13 L high flow nasal cannula Remains on aspiration precautions Continue Lovenox, Decadron, vitamin supplements Continue bronchodilators Titrate down the FiO2 as tolerated Prognosis is guarded DO NOT RESUSCITATE/DO NOT INTUBATE CODE STATUS Plan is for return to [facility] upon discharge We will continue to follow I, the cosigning physician, performed a history & physical examination of the patient. Lungs sounds with few scattered rhonchi, wheeze. Maintaining O2 saturations in the low 90s on 13 L high flow nasal cannula. I discussed the assessment and plan of care with my nurse practitioner, Anna Valdivia. I attest to the above note as dictated by her.
--- NOTE | 2021-10-09 14:49 | P.PN ---
Progress Note - Text Progress Note Date: 10/09/21 Chief Complaint: Short of breath Hospital course: This is a 66 year patient who follows Dr. Elise at the [facility] [place]. Chronic stable medical conditions include, COPD, hyperlipidemia, hypertension, hypothyroid. chronically weak on the left side. baseline has slurred speech. very limited historian. Recently in the hospital from September 03 through September 26 with pneumonia, CHF exacerbation. IV ceftriaxone and IV Lasix. Had responded well. EMS was called out to the [facility] and that the patient earlier was breathing up to 30/m and had increase his oxygen to 4 L. Patient is more short of breath. Patient again doesn't state too much. Patient was 88% on 5 L on arrival. Tachycardic. He also tested positive for COVID. October 05: Short of breath. On 15 L nonrebreather. Tired. Lethargic. Oral intake decreased. 25/50%. On Decadron and IV Zosyn. A. fib remains uncontrolled pain 100-130 October 06: Remain short of breath. Sitting up in bed. 15 L nonrebreather. Tired. Eating about 50%. IV Zosyn and Decadron. Atrial fibrillation rate controlled October 07: Short of breath. 15 L rebreather. Decreased oral intake. IV Zosyn and Decadron. Elevated d-dimer. Patient is only on eliquis. We changed to Lovenox therapeutic dose. Doppler ultrasound lower extremity. October 08: Short of breath. On 10 L nonrebreather. Eating about 25%. Diet. DVT ruled out. Some purple discoloration of both the feet. Cold. Vascular was consulted last night. Not any intervention currently. Remains on therapeutic dose of Lovenox. A. fib still slightly uncontrolled. October 09: Declining in bed. FiO2 up to 15 L. Decreased oral intake. Atrial fibrillation uncontrolled. Lopressor increased to 100 mg twice a day. Kayexalate ordered for hyperkalemia potassium of 5.6 Review of systems: Difficult to obtain Active Medications Albuterol Sulfate (Albuterol Hfa Inhaler) 4 puff INHALATION RT-QID [facility] Last Admin: 10/09/21 12:24 Dose: Not Given Documented by: Allopurinol (Allopurinol 100 Mg Tab) 200 mg PO DAILY [facility] Last Admin: 10/09/21 07:07 Dose: 200 mg Documented by: Calcium Carbonate/Glycine (Calcium Carbonate 500 Mg Chewable) 1,000 mg PO Q4HR PRN PRN Reason: Dyspepsia Cholecalciferol (Cholecalciferol 25 Mcg (1000 Iu) Tablet) 25 mcg PO HS [facility] Last Admin: 10/08/21 21:22 Dose: 25 mcg Documented by: Dexamethasone Sodium Phosphate (Dexamethasone Sod Phosphate 10 Mg/Ml 1 Ml Vial) 6 mg IVP DAILY [facility] Last Admin: 10/09/21 07:07 Dose: 6 mg Documented by: Digoxin (Digoxin 125 Mcg Tab) 125 mcg PO HS [facility] Last Admin: 10/08/21 21:22 Dose: 125 mcg Documented by: Diltiazem HCl (Diltiazem Oral 30 Mg Tab) 30 mg PO TID [facility] Enoxaparin Sodium (Enoxaparin 80 Mg/0.8 Ml Syringe) 70 mg SQ Q12H [facility] Last Admin: 10/09/21 07:08 Dose: 70 mg Documented by: Gabapentin (Gabapentin 300 Mg Cap) 300 mg PO BID [facility] Last Admin: 10/09/21 07:07 Dose: 300 mg Documented by: Dextrose/Sodium Chloride (Dextrose 5%-1/2ns Iv Soln) 1,000 mls @ 75 mls/hr IV .[id number] [facility] Last Admin: 10/09/21 11:57 Dose: 75 mls/hr Documented by: Lactulose (Lactulose 20 Gm/30 Ml Cup) 20 gm PO DAILY PRN PRN Reason: Constipation Levetiracetam (Levetiracetam Oral Soln 500 Mg/5 Ml Cup) 1,000 mg PO BID [facility] Last Admin: 10/09/21 07:09 Dose: 1,000 mg Documented by: Levothyroxine Sodium (Levothyroxine 100 Mcg Tab) 100 mcg PO DAILY@0630 [facility] Last Admin: 10/09/21 05:35 Dose: 100 mcg Documented by: Lorazepam (Lorazepam 0.5 Mg Tab) 0.5 mg PO Q6HR PRN PRN Reason: Anxiety Last Admin: 10/08/21 19:46 Dose: 0.5 mg Documented by: Melatonin (Melatonin 3 Mg Tablet) 3 mg PO HS PRN PRN Reason: Insomnia Last Admin: 10/07/21 20:52 Dose: 3 mg Documented by: Metoprolol Tartrate (Metoprolol Tartrate 50 Mg Tab) 100 mg PO BID [facility] Miscellaneous Information (Pneumonia Protocol [facility] 1 each PO ONCE PRN PRN Reason: Per Protocol Morphine Sulfate (Morphine Sulfate 4 Mg/Ml Syringe) 4 mg IV Q4HR PRN PRN Reason: Severe Pain Last Admin: 10/09/21 05:48 Dose: 4 mg Documented by: Naloxone HCl (Naloxone 0.4 Mg/Ml 1 Ml Vial) 0.2 mg IV Q2M PRN PRN Reason: Opioid Reversal Ondansetron HCl (Ondansetron 4 Mg/2 Ml Vial) 4 mg IVP Q8HR PRN PRN Reason: Nausea And Vomiting Pantoprazole Sodium (Pantoprazole 40 Mg Tablet) 40 mg PO -BRKFST [facility] Last Admin: 10/09/21 07:07 Dose: 40 mg Documented by: Tramadol HCl (Tramadol 50 Mg Tab) 50 mg PO QID PRN PRN Reason: pain Last Admin: 10/07/21 17:21 Dose: 50 mg Documented by: Past medical history to include: Atrial fibrillation, COPD, stroke. Vascular Dementia, hyperlipidemia, hypertension, hypothyroid. Alcohol related seizures in the past. Alcoholism. last drink was in 2013. smoked for close to 50 years. Left-sided weakness following a hemorrhagic stroke in 2015 Social history: Long-term resident of [facility]. Patient started smoking age of 14 smoked three-quarter packs a day for close to 50 years. Patient was drinking excessive alcohol until 2013 Physical examination: VITAL SIGNS: 97.6, 100, 20, 133/87, 94% on 15 L GENERAL: reclining in bed, awake tired LUNGS: Respiratory rate increased, . PSYCH: Unable to assess NEUROLOGICAL: Slurred speech, power in the left arm is 1/5, left leg 1 x 5. EXTREMITIES: Ischemic changes of both the feet. Cold feet. Some bluish scattered discoloration. Rest of the exam. As per Pulmonary and nursing INVESTIGATIONS, reviewed in the clinical context: October 09: D-dimer 8.32 potassium 5.6 BUN 30 creatinine 0.61 AST 308 ALT 131 October 08: D-dimer 30.7 to October 07: White count 14.7 d-dimer 22.4 potassium 4.6 AST 113 ALT 127 pro- calcitonin 0.18 Doppler ultrasound of right and left leg: Negative October 06: D-dimer 14.5 to potassium 3.7 creatinine 0.73 CRP 5.4 October 05: White count 12.5 hemoglobin 14.7 platelets 160 d-dimer 4.29 potassium 4 BUN 29 creatinine 0.75 pro-calcitonin 0.13 White count 8.2 hemoglobin 16.1 platelets 147 sodium 145 potassium 4.1 BUN 25 creatinine 0.59 d-dimer 1.7 CRP 20.1 Admission labs: Coronavirus [PCR colon detected Potassium 5.8 AST 156 ALT 152 EKG tracing personally reviewed by me-atrial fibrillation rate 125 Chest x-ray film personally reviewed by me-bilateral infiltrates Recent studies: 2-D echocardiogram: EF 55-60%. Moderate concentric LVH. Assessment and plan: - Acute COVID 19 pneumonitis: Not improving Decadron, eliquis -Sepsis from COVID 19 pneumonitis, possible bacterial component IV Zosyn: Discontinued -Acute hypoxic respiratory failure: Not improving On 15 L nonrebreather -Acute hepatitis possibly from COVID 19: Worsening DC Tylenol. DC Lipitor. Follow LFT -Recent bacterial pneumonia, suspect gram-negative organism IV Zosyn : Discontinued -Chronic congestive heart failure exacerbation. From diastolic dysfunction EF 55-60%.: On fluid restriction -Chronic left-sided weakness, from a prior hemorrhagic stroke Fall precautions -Persistent atrial fibrillation, rate borderline controlled Lopressor 50 mg 3 times a day, eliquis 2.5 by mouth twice a day -Acute COPD exacerbation in a previous smoker: Better Ventolin 4 times a day, Decadron -Bilateral PAD. Possible acute component. Patient is a poor functional state. Oriented. Dose of Lovenox. -Hyperkalemia possibly from Lovenox Kayexalate 30 g -Hyperlipidemia Lipitor 80 mg daily at bedtime -Essential hypertension Lopressor 50 mg by mouth twice a day -Chronic epilepsy disorder Keppra 1000 milligrams by mouth twice a day -Hypothyroid Synthroid 100 g daily -DO NOT RESUSCITATE 15 L oxygen. Decadron. IV Zosyn: Discontinued. Lopressor 100 mg twice a day. On therapeutic dose of Lovenox. Prognosis guarded. Follow LFT. Kayexalate 30 g
[2021-10-09] MEDS: DILTIAZEM ORAL 30 MG TAB PO SCH ×2 (15:19→20:45)
[2021-10-09] MEDS: CHOLECALCIFEROL 25 MCG (1000 IU) TABLET PO SCH (20:44)
[2021-10-09] MEDS: DIGOXIN 125 MCG TAB PO SCH (20:45)
[2021-10-09] MEDS: MELATONIN 3 MG TABLET PO PRN (21:03)
[2021-10-10] MEDS ORDERED: SCOPOLAMINE 1.5MG/72HR PATCH TRANSDERM STA (00:27)
[2021-10-10] MEDS: DEXTROSE 5%-0.45% NACL 1,000 ML IV SCH ×2 (04:11→04:49)
[2021-10-10] MEDS: LORazepam 0.5 MG TAB PO PRN (04:40)
[2021-10-10] MEDS: LEVOTHYROXINE 100 MCG TAB PO SCH (04:40)
[2021-10-10] MEDS: allopurinoL 100 MG TAB PO SCH (06:50)
[2021-10-10] MEDS: PANTOPRAZOLE 40 MG TABLET PO SCH (06:50)
[2021-10-10] MEDS: METOPROLOL TARTRATE 50 MG TAB PO SCH (06:50)
[2021-10-10] MEDS: GABAPENTIN 300 MG CAP PO SCH (06:51)
[2021-10-10] MEDS: ENOXAPARIN 80 MG/0.8 ML SYRINGE SQ SCH (06:51)
[2021-10-10] MEDS: levETIRAcetam ORAL SOLN 500 MG/5 ML CUP PO SCH (06:52)
[2021-10-10] MEDS: DILTIAZEM ORAL 30 MG TAB PO SCH ×2 (06:52→16:07)
[2021-10-10] MEDS: DEXAMETHASONE SOD PHOSPHATE 10 MG/ML 1 ML VIAL IVP SCH (06:52)
[2021-10-10 07:21] LABS: ALT 117 U/L (4-49); AST 209 U/L (17-59); African American GFR (CKD) >90 (>60 ml/min/1.73 sqM); Albumin 2.7 g/dL (3.5-5.0); Albumin/Globulin Ratio 0.8; Alkaline Phosphatase 166 U/L (38-126); Anion Gap 2 mmol/L; Blood Urea Nitrogen 26 mg/dL (9-20); Calcium 7.8 mg/dL (8.4-10.2); Carbon Dioxide 36 mmol/L (22-30); Chloride 104 mmol/L (98-107); Globulin 3.2 g/dL; Glucose 140 mg/dL (74-99); Non-African American GFR(CKD) >90 (>60 ml/min/1.73 sqM); Potassium 5.5 mmol/L (3.5-5.1); Sodium 142 mmol/L (137-145); Total Bilirubin 0.9 mg/dL (0.2-1.3); Total Protein 5.9 g/dL (6.3-8.2)
[2021-10-10] MEDS: ALBUTEROL HFA INHALER INHALATION SCH ×3 (08:17→16:22)
[2021-10-10 09:49] VITALS: BP 130/84; TEMP 99
[2021-10-10 10:57] VITALS: PULSE 120
--- NOTE | 2021-10-10 11:03 | P.PN ---
Subjective Progress Note Date: 10/10/21 CHIEF COMPLAINT: afib with rvr HISTORY OF PRESENT ILLNESS: his is a pleasant 66-year-old male past medical history significant for chronic persistent atrial fibrillation, sick sinus syndrome, hypertension, Hemorrhagic CVAwith left sided weakness, COPD, bilateral carotid stenosis, abdominal aortic aneurysm, alcohol abuse, dyslipidemia, hypothyroidism, seizure disorder. He follows in the office with Dr. Rey, has not followed up since 2019. We have been asked to see in consultation for congestive heart failure and atrial fibrillation with RVR. Patient presents emergency department 10/04/2021 with shortness of breath. He was recently admitted on 09/23/21 with fever, shortness of breath and cough. Diagnosed with acute bilateral pneumonia and acute COPD exacerbation. He was discharged on 09/26/2021 at that time his COVID-19 PCR was negative. On this admission, his COVID-19 PCR was positive. He does feel short of breath. Patient was in atrial fibrillation with RVR on admission patient given 15mg IV Cardizem. Echocardiogram 09/24/2021 revealed an EF of 55-60%, mild mitral regurgitation, mild tricuspid regurgitation 10/05/2021: Patient seen and examined at bedside, he is more short of breath today. He is requiring more O2, now on 15L non-rebreather mask with SpO2 85-92%. BP is stable. Labs reviewed, WBC 12.5, sodium 143, potassium 4.0, BUN 29, serum crit 0.7, magnesium 2.1, d-dimer 4.2 He's currently maintained on Eliquis 2.5 mg twice a day, atorvastatin 80 mg nightly, digoxin 125mcg daily, metoprolol titrate 50 mg twice a day Telemetry reviewed patient continues to be in atrial fibrillation with uncontrolled ventricular rates low 100s to 130s 10/06/2021 The patient is a 66-year-old gentleman who was admitted to the hospital was COVID-19 pneumonia as well as atrial fibrillation with RVR and he is known to have persistent atrial fibrillation The heart rate has been under excellent control on the current dose of m etoprolol. Also he is on oral anticoagulation. From the cardiovascular standpoint of view, we'll continue the current medical regimen and follow-up with the patient on when necessary case. 10/09/2021 Cardiology was reconsulted to evaluate patient secondary to A. fib with RVR. The patient remains hospitalized secondary to Covid. Patient remains in atrial fibrillation this morning with a heart rate between 90-115. He is currently receiving metoprolol 50 mg 3 times a day and digoxin 125 g at night. Patient has been switched from Eliquis 2 therapeutic Lovenox per internal medicine. 10/10/2021 Patient remains hospitalized on the [facility] unit. Patient continues to have increased oxygen requirements. He is on 100% nonrebreather at 15 L high flow nasal cannula with oxygen saturations in the 80s. Telemetry reveals atrial fibrillation with a heart rate near 100. Blood pressure 130/84. PHYSICAL EXAM: Thorough physical exam not completed secondary to limited evaluation/examination and due to Covid19 ASSESSMENT: Chronic persistant atrial fibrillation with RVR, on eliquis Covid-19 pneumonia Acute on chronic hypoxic respiratory failure Acute on chronic diastolic heart failure Acute COPD exacerbation Bilateral peripheral arterial disease History of CVA with chronic left-sided weakness History of bilateral carotid stenosis History of abdominal aortic aneurysm History of seizures Former tobacco use Hypothyroidism Dyslipidemia PLAN: Continue current cardiac medications Continue metoprolol 100 mg twice a day Cardizem added yesterday afternoon. Continue current dose. Continue telemetry monitoring From a cardiac standpoint, patient may be resumed on Eliquis. However, will defer this to internal medicine as they changed the patient from Eliquis to Lovenox Further recommendations pending patient course Nurse practitioner note has been reviewed by physician. Signing provider agrees with the documented findings, assessment, and plan of care. Objective - Vital Signs Vital signs: Vital Signs Temp 99 F 10/10/21 09:20 Pulse 120 H 10/10/21 10:57 Resp 34 H 10/10/21 10:57 BP 130/84 10/10/21 09:20 Pulse Ox 86 L 10/10/21 10:57 Intake & Output 10/09/21 10/10/21 10/10/21 18:59 06:59 18:59 Weight 71.94 kg Other: Voiding Method External Catheter External Catheter External Catheter # Voids 1 4 - Labs CBC & Chem 7: 10/07/21 06:09 10/10/21 06:03 Labs: Abnormal Lab Results - Last 24 Hours (Table) 10/10/21 10/10/21 Range/Units 06:03 06:03 D-Dimer 2.42 H (<0.60) mg/L FEU Potassium 5.5 H (3.5-5.1) mmol/L Carbon Dioxide 36 H (22-30) mmol/L BUN 26 H (9-20) mg/dL Creatinine 0.58 L (0.66-1.25) mg/dL Glucose 140 H (74-99) mg/dL Calcium 7.8 L (8.4-10.2) mg/dL AST 209 H (17-59) U/L ALT 117 H (4-49) U/L Alkaline Phosphatase 166 H (38-126) U/L Total Protein 5.9 L (6.3-8.2) g/dL Albumin 2.7 L (3.5-5.0) g/dL
--- NOTE | 2021-10-10 14:29 | P.PN ---
Subjective Progress Note Date: 10/10/21 Patient is seen sitting up in his bed. Patient is really not responding to questions. Lower extremities with no changes. Patient is now on 10 L high flow in nasal cannula and nonrebreather. Objective - Vital Signs Vital signs: Vital Signs Temp 99 F 10/10/21 09:20 Pulse 120 H 10/10/21 10:57 Resp 34 H 10/10/21 10:57 BP 130/84 10/10/21 09:20 Pulse Ox 86 L 10/10/21 10:57 Intake & Output 10/09/21 10/10/21 10/10/21 18:59 06:59 18:59 Weight 71.94 kg Other: Voiding Method External Catheter External Catheter External Catheter # Voids 1 4 - Exam General appearance: The patient is alert, oriented, tachypnic, nonre-breather on. HET: Head is normocephalic and atraumatic. Neck: Supple without lymphadenopathy. Trachea midline. Extremities: Patient with With bilateral cool extremities with mottling up to his thighs. Tender with palpation. Thickened long toenails. Neurological: Awake, patient mostly nonverbal, does not follow commands. - Labs CBC & Chem 7: 10/07/21 06:09 10/10/21 06:03 Labs: Abnormal Lab Results - Last 24 Hours (Table) 10/10/21 10/10/21 Range/Units 06:03 06:03 D-Dimer 2.42 H (<0.60) mg/L FEU Potassium 5.5 H (3.5-5.1) mmol/L Carbon Dioxide 36 H (22-30) mmol/L BUN 26 H (9-20) mg/dL Creatinine 0.58 L (0.66-1.25) mg/dL Glucose 140 H (74-99) mg/dL Calcium 7.8 L (8.4-10.2) mg/dL AST 209 H (17-59) U/L ALT 117 H (4-49) U/L Alkaline Phosphatase 166 H (38-126) U/L Total Protein 5.9 L (6.3-8.2) g/dL Albumin 2.7 L (3.5-5.0) g/dL Assessment and Plan Assessment: 1. Cold bilateral lower extremities 2. Covid-19 positive 3. Immobile 4. Bedbound 5. History of CVA with left-sided weakness 6. Likely chronic peripheral arterial disease Plan: Patient with likely some degree of chronic arterial insufficiency with some degree of acute changes as well. However patient is bedbound and does not move his legs. There is no apparent tenderness or pain. At this time there is no plan in any acute vascular surgical intervention. Continue to monitor for signs of gangrene or infection, as then he may be candidate for above the knee amputation. There is still no plans for any vascular surgical intervention. We will sign off at this time. Please do not hesitate to call us back for any further needs. The impression and plan of care has been dictated as directed. Dr. Vigil I performed a history and examination of this patient, discussed the same with the dictator. I agree with the dictator's note ,documented as a scribe. Any additional findings or plans will be noted.
--- NOTE | 2021-10-10 16:21 | P.PN ---
Subjective Progress Note Date: 10/10/21 This is a 66-year-old male patient who resides at [facility]. He has a history of hypothyroidism, atrial fibrillation anticoagulated with Eliquis, hyperlipidemia, seizure disorder, hypertension, previous hemorrhagic stroke with left-sided weakness. He was brought into the emergency room for noted shortness of breath and he was just discharged from here on 09/26/2021 after an episode of diastolic congestive heart failure and suspected pneumonia. He is seen today in the emergency room. Chest x-ray reveals mild pulmonary interstitial edema. Chronically elevated left hemidiaphragm, consolidation/atelectasis of the left lower lobe. Saturations were 88% to 92%. He is currently on 6 L nasal cannula with O2 saturation 88%. He is afebrile. Slightly tachycardic. White count 8.2. Hemoglobin 16.1. Leukocytes 0.4. INR 1.4. Sodium 141. Potassium 5.8. Creatinine 0.72. Glucose 118. AST 156. ALT 152. ProBNP 2560. TSH 1.46. Current virus by PCR positive. He's been initia karma on bronchodilators, Levaquin, Zosyn, Eliquis. Ultrasound of the gallbladder revealed no significant abnormality. He is a poor historian and no information could be obtained from him. On 10/05/2021 patient seen in follow-up on medical surgical floor, he is awake and alert, he is nonverbal, but he is able to nod his head yes or no to simple questions, he denies any acute distress, he is quite congested, with diffuse rhonchi bilaterally. He tested positive for COVID-19, he is also a good set up for aspiration and she might be chronically aspirating on a regular basis. He continues on Zosyn for empiric antibiotic coverage with O2 sats up for calcitonin were negative, he is currently on a nonrebreather mask his pulse ox is 90%. Overnight, vital signs have been stable, I'll of lab work shows white blood cell count of 12.5, hemoglobin of 14.7, d-dimer is 4.29, sodium is 143, potassium is 4.0, chloride is 109, B1 is 29 creatinine 0.79, his LDH is 1037, CRP was 20.1 on admission, improved on today's labs and is down to 7.2, proBNP was 2560 on admission, pro-calcitonin level was 0.12 and 0.13. Patient also remains on Decadron 6 mg IV push daily, he is on Eliquis for history of atrial fibrillation. He remains in atrial fibrillation with a controlled rate, cardiology is following, patient received a dose of IV Lasix today per cardiology. He seems to be fairly comfortable, code status is DO NOT RESUSCITATE as per previous advanced directives On 10/07/2021 patient seen in follow-up on medical surgical floor, he is currently on 15 L of oxygen his pulse ox is 90-94%, clinically he looks the same as he did 48 hours ago, breathing comfortably, does not appear to be in any acu te distress, however patient is a high risk for aspiration although he was evaluated by speech therapy alone was placed on modified diet. He has a weak cough, he has a diffuse rhonchi throughout anterior chest, does not bring up a lot of phlegm. Does not appear to be tachypneic or dyspneic, vital signs have been stable, he has been afebrile, he is on Zosyn for possibility of aspiration pneumonia, he remains on Decadron 6 mg daily, he was already on Eliquis 2.5 mg twice daily for atrial fibrillation. Today's labs have been reviewed, his d- dimer has increased to 22.4 to, lower extremity Dopplers are pending. After discussing with attending physician patient will be switched from Eliquis to prophylactic dose Lovenox. His white blood cell count is 14.7, hemoglobin is 15.7, sodium is 144, potassium is 4.6, chloride is 111, B1 is 35 creatinine 0.78, his AST is 113, increased, ALT is 127, CRP 16.4, and his follow-up LDH is still pending for today, pro-calcitonin level is negative at 0.18. Patient wakes up, he only provides very limited verbal responses, talks very very slow, but follows simple command, he denies any acute distress. On 10/08/2021 patient seen in follow-up on medical surgical floor, she is resting comfortably in bed, does not appear to be in any acute distress, his FiO2 has been decreased down to 10 L compared to 15 L on yesterday's exam, topped by, his sat is 92%, his been afebrile, hemodynamically has been stable, he does have a weak cough, and his lung sounds are positive for a few scattered rhonchi, vital signs have been stable, he has been tolerating oral intake. He remains on 6 mg daily, she is on Zosyn for empiric antibiotic coverage however 3 of his pro calcitonin levels were negative at 0.12, 0.13, and 0.18. We can stop the empiric antibiotics. D-dimer is 30.72, and lower extremity Dopplers showed no evidence of DVT, patient was switched from Eliquis to therapeutic dose of Lovenox on which he remains at 70 mg twice daily. Today's follow-up inflammatory markers are still pending. Yesterday his bilateral lower extremities were noted to be cool, and vascular surgical evaluation was obtained however patient is chronically bedbound, he voices no complaints and his bilateral lower extremities, surgical intervention was recommended. On 10/10/2021 patient seen in follow-up on medical surgical floor, his condition has been continuously declining, and currently patient is requiring 15 L per high flow nasal cannula and NONREBREATHER MASK, his pulse ox is 72-84%. He has a very weak cough, his mentation has been declining, he is poorly responsive on today's exam. His last chest x-ray from yesterday showed cardiomegaly with worsening bilateral patchy airspace disease, continued asymmetric elevation of the left hemidiaphragm. Patient was treated with empiric antibiotics for possibility of aspiration however his pro calcitonin levels were low, antibiotics were discontinued, he remained on IV steroids, therapeutic doses of Lovenox, multivitamins, and IV fluids. Patient's noted to be more dyspneic, tachypneic. He is poorly responsive, his lower extremities have noted to be cool and mottled. At this time his family decided to proceed with comfort care, his sisters are at the bedside. They're awaiting hospice and comfort care initiation. Objective - Vital Signs Vital signs: Vital Signs Temp 99 F 10/10/21 09:20 Pulse 120 H 10/10/21 10:57 Resp 34 H 10/10/21 10:57 BP 130/84 10/10/21 09:20 Pulse Ox 86 L 10/10/21 10:57 Intake & Output 10/09/21 10/10/21 10/10/21 18:59 06:59 18:59 Weight 71.94 kg Other: Voiding Method External Catheter External Catheter External Catheter # Voids 1 4 - Exam GENERAL EXAM: Unresponsive 66-year-old white male, on 15 L per high flow nasal cannula and 100% nonrebreather mask HEAD: Normocephalic/atraumatic. EYES: Normal reaction of pupils, equal size. Conjunctiva pink, sclera white. NOSE: Clear with pink turbinates. THROAT: No erythema or exudates. NECK: No masses, no JVD, no thyroid enlargement, no adenopathy. CHEST: No chest wall deformity. Symmetrical expansion. LUNGS: Equal air entry with rhonchi CVS: Regular rate and rhythm, normal S1 and S2, no gallops, no murmurs, no rubs ABDOMEN: Soft, nontender. No hepatosplenomegaly, normal bowel sounds, no guarding or rigidity. EXTREMITIES: No clubbing, no edema, no cyanosis, extremities are cool and mottled MUSCULOSKELETAL: Muscle strength and tone normal. SPINE: No scoliosis or deformity SKIN: No rashes CENTRAL NERVOUS SYSTEM: Unresponsive 66-year-old male, on high flow oxygen - Labs CBC & Chem 7: 10/07/21 06:09 10/10/21 06:03 Labs: Abnormal Lab Results - Last 24 Hours (Table) 10/10/21 10/10/21 Range/Units 06:03 06:03 D-Dimer 2.42 H (<0.60) mg/L FEU Potassium 5.5 H (3.5-5.1) mmol/L Carbon Dioxide 36 H (22-30) mmol/L BUN 26 H (9-20) mg/dL Creatinine 0.58 L (0.66-1.25) mg/dL Glucose 140 H (74-99) mg/dL Calcium 7.8 L (8.4-10.2) mg/dL AST 209 H (17-59) U/L ALT 117 H (4-49) U/L Alkaline Phosphatase 166 H (38-126) U/L Total Protein 5.9 L (6.3-8.2) g/dL Albumin 2.7 L (3.5-5.0) g/dL Assessment and Plan Plan: Assessment: #1. Acute on chronic hypoxic respiratory failure multifactorial, related to acute COVID-19 pneumonia, and possibility of chronic aspiration is not excluded. Patient's timeline of symptoms is not clear, and he is not a candidate for Remdesivir related to severe hypoxic respiratory failure. Unclear vaccination status. He is being treated supportively with a combination of empiric antibiotics, diuretics, steroids, and therapeutic dosing of Lovenox. On today's exam on 10/10/2021 patient's clinical condition has continued to deteriorate, patient is poorly responsive, he is on her percent nonrebreather mask, his tachypnea, his extremities are cool and mottled, patient's family is at the bedside, waiting for initiation of comfort care #2. Recent hospitalization for acute exacerbation of diastolic CHF and suspected pneumonia #3. Suspect intermittent aspiration, patient was seen by speech therapy, he is on a modified diet #4. Chronically elevated left hemidiaphragm #5. History of hemorrhagic CVA with left-sided weakness, and aphasia #6. History of diastolic CHF #7. Seizure disorder #8. Hypertension #9. Hyperlipidemia #10. Hypothyroidism #11. Abdominal aortic aneurysm #12. Persistent atrial fibrillation on Eliquis #13. History of sick sinus syndrome #14. General medical debility, overall poor functional performance #15. Elevated d-dimer, patient is already on Eliquis which was converted to Lovenox at therapeutic dosing, Dopplers were negative for DVT Plan: Patient's clinical condition has continued to deteriorate, patient is poorly responsive, he is on 100% nonrebreather mask, he is tachypneic and dyspneic, his extremities are cool and mottled, patient's family is at the bedside, waiting for initiation of comfort care His prognosis is extremely poor Recommend proceeding with comfort care per family wishes I performed a history & physical examination of the patient and discussed their management with my nurse practitioner, Bryanna Chow. I reviewed the nurse practitioner's note and agree with the documented findings and plan of care. Lung sounds are positive for diffuse wheezes and rhonchi throughout the lung feng. The findings and the impression was discussed with the patient. I attest to the documentation by the nurse practitioner. Time with Patient: Less than 30
[2021-10-10] MEDS ORDERED: MORPHINE SULFATE 2 MG/ML SYRINGE IVP PRN (16:25)
[2021-10-10] MEDS ORDERED: MORPHINE SULFATE (100 MG/2 ML) 100 MG in SODIUM CHLORIDE 0.9% 100 ML IV SCH (16:30)
[2021-10-10 16:43] VITALS: RESP 36
[2021-10-10] MEDS ORDERED: LORazepam 2 MG/ML INJ IV PRN (17:22)
--- NOTE | 2021-10-10 19:40 | P.DS ---
Providers Date of admission: 10/04/21 01:22 Expected date of discharge: 10/10/21 Attending physician: Clarence Lugo Consults: 10/04/21 01:22 Consult Physician Routine Consulting Provider: Ninoska Sosa Consult Reason/Comments: copd Do you want consulting provider notified?: Yes Primary care physician: Mike Elise [facility] Course: Chief Complaint: Short of breath Hospital course: This is a 66 year patient who follows Dr. Elise at the [facility]. Chronic stable medical conditions include, COPD, hyperlipidemia, hypertension, hypothyroid. chronically weak on the left side. baseline has slurred speech. very limited historian. Recently in the hospital from September 03 through September 26 with pneumonia, CHF exacerbation. IV ceftriaxone and IV Lasix. Had responded well. EMS was called out to the [facility] and that the patient earlier was breathing up to 30/m and had increase his oxygen to 4 L. Patient is more short of breath. Patient again doesn't state too much. Patient was 88% on 5 L on arrival. Tachycardic. He also tested positive for COVID. October 05: Short of breath. On 15 L nonrebreather. Tired. Lethargic. Oral intake decreased. 25/50%. On Decadron and IV Zosyn. A. fib remains uncontrolled pain 100-130 October 06: Remain short of breath. Sitting up in bed. 15 L nonrebreather. Tired. Eating about 50%. IV Zosyn and Decadron. Atrial fibrillation rate controlled October 07: Short of breath. 15 L rebreather. Decreased oral intake. IV Zosyn and Decadron. Elevated d-dimer. Patient is only on eliquis. We changed to Lovenox therapeutic dose. Doppler ultrasound lower extremity. October 08: Short of breath. On 10 L nonrebreather. Eating about 25%. Diet. DVT ruled out. Some purple discoloration of both the feet. Cold. Vascular was consulted last night. Not any intervention currently. Remains on therapeutic dose of Lovenox. A. fib still slightly uncontrolled. October 09: Declining in bed. FiO2 up to 15 L. Decreased oral intake. Atrial fibrillation uncontrolled. Lopressor increased to 100 mg twice a day. Kayexalate ordered for hyperkalemia potassium of 5.6 October 10: Patient more short of breath. More lethargic. Pulse ox in the 80's percent on 15 L nasal cannula. Unable to take anything by mouth. Patient's 2 sisters at the bedside. Discussion with assistance. Understand patient's prognosis not good. Decided to proceed with comfort care. Patient later that day. Past medical history to include: Atrial fibrillation, COPD, stroke. Vascular Dementia, hyperlipidemia, hypertension, hypothyroid. Alcohol related seizures in the past. Alcoholism. last drink was in 2013. smoked for close to 50 years. Left-sided weakness following a hemorrhagic stroke in 2015 Social history: [facility] resident [facility]. Patient started smoking age of 14 smoked three-quarter packs a day for close to 50 years. Patient was drinking excessive alcohol until 2013 INVESTIGATIONS, reviewed in the clinical context: October 10: D-dimer 2.42 potassium 5.5 BUN 26 creatinine 0.58 AST 20 ALT 117 October 09: D-dimer 8.32 potassium 5.6 BUN 30 creatinine 0.61 AST 308 ALT 131 October 08: D-dimer 30.7 to October 07: White count 14.7 d-dimer 22.4 potassium 4.6 AST 113 ALT 127 pro- calcitonin 0.18 Doppler ultrasound of right and left leg: Negative October 06: D-dimer 14.5 to potassium 3.7 creatinine 0.73 CRP 5.4 October 05: White count 12.5 hemoglobin 14.7 platelets 160 d-dimer 4.29 potassium 4 BUN 29 creatinine 0.75 pro-calcitonin 0.13 White count 8.2 hemoglobin 16.1 platelets 147 sodium 145 potassium 4.1 BUN 25 creatinine 0.59 d-dimer 1.7 CRP 20.1 Admission labs: Coronavirus [PCR colon detected Potassium 5.8 AST 156 ALT 152 EKG tracing personally reviewed by me-atrial fibrillation rate 125 Chest x-ray film personally reviewed by me-bilateral infiltrates Recent studies: 2-D echocardiogram: EF 55-60%. Moderate concentric LVH. Cause of : COVID 19 pneumonitis Assessment and plan: - Acute COVID 19 pneumonitis: Not improving Decadron, eliquis -Sepsis from COVID 19 pneumonitis, possible bacterial component IV Zosyn: Discontinued -Acute hypoxic respiratory failure: Worsening On 15 L nonrebreather -Acute hepatitis possibly from COVID 19: Slurred respond DC Tylenol. DC Lipitor. Follow LFT -Recent bacterial pneumonia, suspect gram-negative organism IV Zosyn : Discontinued -Chronic congestive heart failure exacerbation. From diastolic dysfunction EF 55-60%.: On fluid restriction -Chronic left-sided weakness, from a prior hemorrhagic stroke Fall precautions -Persistent atrial fibrillation, rate borderline controlled Lopressor 50 mg 3 times a day, eliquis 2.5 by mouth twice a day -Acute COPD exacerbation in a previous smoker: Better Ventolin 4 times a day, Decadron -Bilateral PAD. Possible acute component. Patient is a poor functional state. Oriented. Dose of Lovenox. -Hyperkalemia possibly from Lovenox Kayexalate 30 g -Hyperlipidemia Lipitor 80 mg daily at bedtime -Essential hypertension Lopressor 50 mg by mouth twice a day -Chronic epilepsy disorder Keppra 1000 milligrams by mouth twice a day -Hypothyroid Synthroid 100 g daily - Disposition: Patient Plan - Discharge Summary Discharge Rx Participant: No New Discharge Prescriptions: No Action Levothyroxine Sodium [Synthroid] 100 mcg PO DAILY Digoxin [Lanoxin] 125 mcg PO HS Acetaminophen [Tylenol Extra Strength] 500 mg PO Q4H PRN PRN Reason: Pain Apixaban [Eliquis] 2.5 mg PO BID@0800,1600 allopurinoL [Zyloprim] 200 mg PO DAILY tab Ipratropium-Albuterol Nebulize [Duoneb 0.5 mg-3 mg/3 ml Soln] 3 ml INHALATION RT-QID levETIRAcetam [Keppra Oral Solution] 1,000 mg PO BID Atorvastatin [Lipitor] 80 mg PO HS Gabapentin [Neurontin] 300 mg PO BID #6 cap Cholecalciferol [Vitamin D3 (25 Mcg = 1000 Iu)] 25 mcg PO HS predniSONE See Taper PO DIRECTED Metoprolol Tartrate [Lopressor] 50 mg PO BID@0800,1600 Acetaminophen Tab [Tylenol] 650 mg PO DAILY@0800 Discharge Medication List Levothyroxine Sodium [Synthroid] 100 mcg PO DAILY 09/05/14 [History] Digoxin [Lanoxin] 125 mcg PO HS 01/04/16 [History] Acetaminophen [Tylenol Extra Strength] 500 mg PO Q4H PRN 06/18/17 [History] Apixaban [Eliquis] 2.5 mg PO BID@0800,1600 06/18/17 [History] allopurinoL [Zyloprim] 200 mg PO DAILY tab 06/26/17 [Rx] Atorvastatin [Lipitor] 80 mg PO HS 08/29/19 [History] Ipratropium-Albuterol Nebulize [Duoneb 0.5 mg-3 mg/3 ml Soln] 3 ml INHALATION RT-QID 08/29/19 [History] levETIRAcetam [Keppra Oral Solution] 1,000 mg PO BID 08/29/19 [History] Acetaminophen Tab [Tylenol] 650 mg PO DAILY@0800 09/23/21 [History] Gabapentin [Neurontin] 300 mg PO BID #6 cap 09/26/21 [Rx] Cholecalciferol [Vitamin D3 (25 Mcg = 1000 Iu)] 25 mcg PO HS 10/03/21 [History] Metoprolol Tartrate [Lopressor] 50 mg PO BID@0800,1600 10/03/21 [History] predniSONE See Taper PO DIRECTED 10/03/21 [History] Discharge Disposition: - Preliminary Cause of Preliminary Cause of : COVID 19 pneumonitis
== END 2021-10-10 17:39 | disposition expired | DRG 871 ==
LOC: EC 22:26 → EEVIPCON 10-04 01:22 → 4SSUR 10-04 01:22
PROVIDERS: ADMIT Hospitalist; ATTEND Hospitalist
PROC: 5A0935A Assistance with Respiratory Ventilation, Less than 24 Consecutive Hours, High Flow/Velocity Cannula (ICD-10-PCS; principal; 2021-10-04)
DX: A41.89 Other specified sepsis (principal); I50.33 Acute on chronic diastolic (congestive) heart failure; J12.82 Pneumonia due to coronavirus disease 2019; J96.21 Acute and chronic respiratory failure with hypoxia; U07.1 COVID-19; B17.9 Acute viral hepatitis, unspecified; I48.19 Other persistent atrial fibrillation; I69.354 Hemiplegia and hemiparesis following cerebral infarction affecting left non-dominant side; J44.0 Chronic obstructive pulmonary disease with (acute) lower respiratory infection; J44.1 Chronic obstructive pulmonary disease with (acute) exacerbation; J98.11 Atelectasis; R47.01 Aphasia; E03.9 Hypothyroidism, unspecified; E78.5 Hyperlipidemia, unspecified; E87.5 Hyperkalemia; Z66 Do not resuscitate; Z51.5 Encounter for palliative care; F01.50 Vascular dementia, unspecified severity, without behavioral disturbance, psychotic disturbance, mood disturbance, and anxiety; F17.200 Nicotine dependence, unspecified, uncomplicated; G40.909 Epilepsy, unspecified, not intractable, without status epilepticus; H91.90 Unspecified hearing loss, unspecified ear; I11.0 Hypertensive heart disease with heart failure; I73.9 Peripheral vascular disease, unspecified; I71.4 Abdominal aortic aneurysm, without rupture; Z74.01 Bed confinement status; Z79.01 Long term (current) use of anticoagulants; Z79.890 Hormone replacement therapy; Z86.79 Personal history of other diseases of the circulatory system; Z79.899 Other long term (current) drug therapy; I69.320 Aphasia following cerebral infarction; F10.21 Alcohol dependence, in remission
CPT/HCPCS: 36415; 71045; 71046; 76705; 80048; 80053; 83605; 83615; 83735; 83880; 84100; 84145; 84443; 84484; 85025; 85379; 85610; 85730; 86140; 87635; 93005; 93970; 94640; 94760; 96361; 96374; 96375; 99291